=== PATIENT | female | born 1940 | race Caucasian/White ===

== ENCOUNTER → 2016-06-20 | Outpatient (CLI) | payer MEDICARE, BC ==
--- NOTE | 2016-06-20 14:29 | NM ---
EXAMINATION TYPE: NM bone scan whole body DATE OF EXAM: 06/20/2016 1:48 PM COMPARISON: X-rays dated 06/05/2016 HISTORY: Low back pain Delayed whole-body scanning was performed following the injection of 26.7 mCi Tc 99m MDP. Images acq uired 3 hours post injection. Anterior posterior whole body and bilateral oblique views of the lumbar spine and thoracic spine were obtained. FINDINGS: Abnormal uptake is seen throughout the thoracic and lumbar spine which appears most likely degenerati ve. Abnormal uptake involving the knees and shoulders is most typical of post arthritic changes. IMPRESSION: Nonspecific uptake throughout the mid and lower thoracic spine. Most likely findings are related to d egenerative disc disease as noted by recent x-ray.
== END | disposition home or self-care (01) ==
LOC: RADNMMAIN 10:02
PROVIDERS: ATTEND Family Medicine
DX: M19.90 Unspecified osteoarthritis, unspecified site (principal)
CPT/HCPCS: 78306; A9503

== ENCOUNTER → 2016-09-05 | Outpatient (CLI) | payer MEDICARE, BC ==
--- NOTE | 2016-09-05 09:45 | US ---
EXAMINATION TYPE: US venous doppler duplex LE RT DATE OF EXAM: 09/05/2016 9:32 AM COMPARISON: NONE CLINICAL HISTORY: R60.0 Localized Edema,Lumbar Spine M47.817. SIDE PERFORMED: Right VESSELS IMAGED: External Iliac Vein (EIV) Common Femoral Vein Deep Femoral Vein Greater Saphenous Vein * Femoral Vein Popliteal Vein Small Saphenous Vein * Proximal Calf Veins (* superficial vessels) Right Leg: Negative for DVT GSV in its entirety and PTV's also scanned per order and negative for thrombus. IMPRESSION: 1. No diagnostic evidence of DVT
== END | disposition home or self-care (01) ==
LOC: RADUSWWP 08:46
PROVIDERS: ATTEND Physical Medicine & Rehabilitation
DX: I80.9 Phlebitis and thrombophlebitis of unspecified site (principal); M51.17 Intervertebral disc disorders with radiculopathy, lumbosacral region; M43.17 Spondylolisthesis, lumbosacral region; M47.817 Spondylosis without myelopathy or radiculopathy, lumbosacral region; M54.2 Cervicalgia; E11.8 Type 2 diabetes mellitus with unspecified complications; R60.0 Localized edema

== ENCOUNTER → 2017-01-03 | Outpatient (CLI) | payer MEDICARE, BC ==
[2017-01-03 20:17] LABS: Non-African American GFR(MDRD) >60 (>60 ml/min/1.73 sqM)
--- NOTE | 2017-01-03 21:31 | MR ---
EXAMINATION TYPE: MR brain/cspine wo/w DATE OF EXAM: 01/03/2017 9:16 PM COMPARISON: 06/22/2009 HISTORY: Abnormal reflex, Left arm tremors CONTRAST: Patient received 15 mL intravenous MultiHance gadolinium contrast. Multiplanar and multispin-echo imaging of the brain was performed . Pre and post contrast enhanced i mages are obtained. The ventricles, basal cisterns and sulci overlying the cerebral convexities are mildly enlarged. There is evidence of mild periventricular white matter ischemic demyelination. Remote deep white matter insults are also noted. Remote insult right basal ganglia. Focal area of decreased signal within the anterior aspect of the right middle cranial fossa measuring 8.8 mm. Aneurysm is not excluded. Consider MRA correlation. No acute edema is seen on diffusion weighted imaging. There is no evidence for midline shift or mass effect. Acute intracranial hemorrhage or extra-axial collection is not evident. No enhancing lesions are seen. The paranasal sinuses and mastoid air cells are well-aerated. IMPRESSION: 1. Age-related atrophic and chronic small vessel ischemic change. No acute intracranial process at t his time. No enhancing lesions are seen. 2.Focal area of decreased signal within the anterior aspect of the right middle cranial fossa measuri ng 8.8 mm. Aneurysm is not excluded. Consider MRA correlation. EXAMINATION TYPE: MR brain/cspine wo/w DATE OF EXAM: 01/03/2017 9:16 PM COMPARISON: NONE HISTORY: Abnormal reflex, Left arm tremors CONTRAST: The patient was injected with 15 mL intravenous MultiHance gadolinium contrast. Multiplanar MultiSpin echo imaging of the cervical spine was performed. C2-C3: No evidence for degenerative disc disease. No disc bulge/herniation or protrusion. No Canal stenosis. Foramina are patent bilaterally. C3-C4: Moderate to severe disc desiccation with circumferential disc bulge. Effacement of the ventral thecal sac. There is constriction of the thecal sac without overt stenosis. Degenerative change of t he cervical apophyseal joints bilaterally resulting in severe right foraminal encroachment and mild l eft-sided foraminal encroachment. C4-C5: Moderate to severe disc desiccation with circumferential disc bulge. There is effacement of th e ventral thecal sac with [id number] central stenosis. Mild ventral CORD contact identified. Ea rly compressive myelopathy not excluded. Bilateral foraminal encroachment seen right greater than lef t. C5-C6: Moderate to severe disc desiccation with circumferential disc bulge. There is effacement of th e ventral thecal sac with moderate central stenosis. Mild ventral CORD contact identified. Early comp ressive myelopathy not excluded. Bilateral foraminal encroachment seen right greater than left. C6-C7:Moderate to severe disc desiccation with circumferential disc bulge. Effacement of the ventral thecal sac. There is constriction of the thecal sac without overt stenosis. Degenerative change of th e cervical apophyseal joints bilaterally resulting in bilateral foraminal encroachment. C7-T1: Moderate to severe disc desiccation with circumferential disc bulge. Effacement of the ventral thecal sac. There is constriction of the thecal sac without overt stenosis. Degenerative change of t he cervical apophyseal joints bilaterally resulting in bilateral foraminal encroachment. No cervical spine fracture. There is normal alignment. Craniovertebral junction relationships are w ithin normal limits. No pathologic enhancement. No pathologic enhancement is detected. IMPRESSION: 1. Multilevel degenerative disc disease with disc bulging. 2. Multilevel central stenosis greatest at C5-6. See above. 3. Multilevel foraminal encroachment. 4. 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
== END | disposition home or self-care (01) ==
LOC: RADMRIMAIN 19:41
PROVIDERS: ATTEND Psychiatry & Neurology Neurology
DX: I67.82 Cerebral ischemia (principal); M48.02 Spinal stenosis, cervical region; M50.21 Other cervical disc displacement, high cervical region; M50.30 Other cervical disc degeneration, unspecified cervical region; R29.2 Abnormal reflex; R93.0 Abnormal findings on diagnostic imaging of skull and head, not elsewhere classified; R25.8 Other abnormal involuntary movements
CPT/HCPCS: 82565; 70553; 72156; A9577

== ENCOUNTER → 2017-02-06 | Outpatient (CLI) | payer MEDICARE, BC ==
--- NOTE | 2017-02-06 12:24 | MR ---
EXAMINATION TYPE: MR angio head wo con DATE OF EXAM: 02/06/2017 12:14 PM COMPARISON: NONE HISTORY: Abnormal mri of brain TECHNIQUE: Time of flight images focusing on the [place] were performed without contrast. FINDINGS: The vertebral arteries are codominant. Neither posterior communicating arteries are visuali zed with certainty. Both ophthalmic arteries are visualized. There is normal arborization of the midd le cerebral artery. No sizable aneurysm is seen. The lesion noted on the previous MRI is believed to represent a previous lacunar infarct or dilated Virchow-Ac space. IMPRESSION: NO EVIDENCE OF AN ANEURYSM INVOLVING THE [place] OF [place].
== END | disposition home or self-care (01) ==
LOC: RADMRIMAIN 11:19
PROVIDERS: ATTEND Psychiatry & Neurology Neurology
DX: R94.02 Abnormal brain scan (principal); I67.1 Cerebral aneurysm, nonruptured
CPT/HCPCS: 70544

== ENCOUNTER → 2017-02-19 | Outpatient (CLI) | payer MEDICARE, BC ==
--- NOTE | 2017-02-19 14:50 | XR ---
EXAMINATION TYPE: XR orbit complete bilateral DATE OF EXAM: 02/19/2017 COMPARISON: NONE HISTORY: Pain and swelling of the right orbit TECHNIQUE: 3 views submitted. FINDINGS: There is mucosal thickening involving the maxillary sinuses. Thickening along the inferior orbital ri m. No air-fluid levels. Remaining osseous structures grossly intact. IMPRESSION: 1. Findings are suggestive of chronic sinusitis noted. If there is concern for acute inferior orbital rim fracture on the right recommend CT of the facial bones.
--- NOTE | 2017-02-19 15:06 | CT ---
EXAMINATION TYPE: CT brain wo con DATE OF EXAM: 02/19/2017 COMPARISON: NONE HISTORY: Patient had syncopal episode with fall. Patient complains of nausea, dizziness, and large r ight side periorbital contusion post fall. CT DLP: 1097 mGycm. Automated Exposure Control for Dose Reduction was Utilized. TECHNIQUE: CT scan of the head is performed without contrast. FINDINGS: Extra-axial peripherally calcified oval structure within the anterior right middle cranial fossa may relate to focal osteoma or peripherally calcified meningioma. This is benign-appearing and unchanged from the prior MRI. There is no acute intracranial hemorrhage, mass effect, or midline shift identified. The ventricles and sulci are symmetrically prominent compatible with age-related volume loss. The globes are intact and the visualized sinuses are clear. Incidental note is made of hyperostosis frontalis internus and talus. Atherosclerosis is seen of the intracranial vasculature. Old lacunar injury versus prominent perivascular space is seen of the inferior right basal ganglia is again noted. IMPRESSION: No acute intracranial hemorrhage, mass effect, or midline shift is seen.
== END | disposition home or self-care (01) ==
LOC: RADCTMAIN 14:26
PROVIDERS: ATTEND Family Medicine
DX: R55 Syncope and collapse (principal); R51 Headache
CPT/HCPCS: 70200; 70450

== ENCOUNTER 2018-10-11 16:58 | Observation (INO) | payer MEDICARE, BC ==
--- NOTE | 2018-10-11 17:23 | ED ---
General Adult HPI - General Chief complaint: Fall Stated complaint: FALL Time Seen by Provider: 10/11/18 17:01 Source: patient Mode of arrival: EMS Limitations: no limitations - History of Present Illness Initial comments: Dictation was produced using [employer] dictation software. please excuse any grammatical, word or spelling errors. Chief Complaint: 78-year-old female past medical history of asthma, CVA, diabetes presents after fall. History of Present Illness: Patient is 78-year-old female she has had gait difficulties chronically. She states she tripped over some object. She states she fell forward tried to catch herself with her hands and landed forward. Patient is brought in by EMS. They reports that she fell and hit her head has a hematoma on the right side of her head. Granddaughter bedside provides ad ditional history states that she appears tired. Patient reports that she has been feeling a little lethargic recently. After falling and hitting her head she had multiple episodes of nonbilious nonbloody emesis. Patient denies any extremity pain. Denies any neuro deficits. She does complain of total anterior chest pain and head pain. The ROS documented in this emergency department record has been reviewed and confirmed by me. Those systems with pertinent positive or negative responses recio ve been documented in the HPI. All other systems are other negative and/or noncontributory. PHYSICAL EXAM: General Impression: Alert and oriented x3, not in acute distress HEENT: Small hematoma over the right parietal area, extra-ocular movements intact, pupils equal and reactive to light bilaterally, dry mucous membranes Cardiovascular: Heart regular rate and rhythm, S1&S2 audible, no murmurs, rubs or gallops Chest: Lungs clear to auscultation bilaterally, no rhonchi, no wheeze, no rales Abdomen: Bowel sounds present, abdomen soft, non-tender, non-distended, no organomegaly Musculoskeletal: Pulses present and equal in all extremities, no peripheral edema Motor: no focal deficits noted Neurological: CN II-XII grossly intact, no focal motor or sensory deficits noted Skin: Multiple superficial skin tears to the upper extremities Psych: Normal affect and mood ED course: 78-year-old female presents after fall. Patient's clinical presentation consistent with mechanical fall. However she does appear dehydrated on physical examination. Vital signs upon arrival are within acceptable limits. She does not on any anticoagulation medications. Laboratory evaluation obtained. CBC, coag panel, metabolic panel is obtained. anion gap acidosis however patient does have a lactic acidosis of 2.8. This likely secondary to dehydration. Rest of labs unremarkable. Urinalysis does show 1+ ketones. Serum alcohol is negative. Computed tomography scan of the brain pelvis and chest x-ray shows no acute processes. Patient he was evidently stable at this time. She does however appear dehydrated and has a lactic acidosis. We'll admit patient for IV hydration and recheck of lactic acid level. Patient care is accepted by Dr. Kerr. EKG interpretation: Ventricular rate 85, normal sinus rhythm, MN interval 186, QS 104, QTC 490. No MN prolongation, no QTC prolongation, no ST or T-wave changes noted. EKG compared to 07/10/2018 showing no changes. Overall, this EKG is unremarkable - Related Data Home Medications Medication Instructions Recorded Confirmed Aspirin 162 mg PO HS 11/17/14 10/11/18 Atorvastatin [Lipitor] 40 mg PO DAILY 11/17/14 10/11/18 Citalopram Hydrobromide [CeleXA] 20 mg PO HS 11/17/14 10/11/18 Meclizine [Antivert] 12.5 mg PO BID 11/17/14 10/11/18 Metoprolol Succinate (ER) [Toprol 25 mg PO HS 11/17/14 10/11/18 XL] metFORMIN HCL [Glucophage] 500 mg PO BID 11/17/14 10/11/18 HYDROcodone/APAP 5-325MG [[place] 1 tab PO Q6HR PRN 07/09/17 10/11/18 5-325] Omeprazole 20 mg PO DAILY 07/09/17 10/11/18 ALPRAZolam [Xanax] 0.5 mg PO DAILY PRN 10/11/18 10/11/18 Ibuprofen [Advil] 200 mg PO Q8HR PRN 10/11/18 10/11/18 Ondansetron HCl [Zofran] 4 mg PO DAILY PRN 10/11/18 10/11/18 amLODIPine [Norvasc] 5 mg PO HS 10/11/18 10/11/18 carBAMazepine 200 mg PO QAM 10/11/18 10/11/18 carBAMazepine [TEGretol] 400 mg PO HS 10/11/18 10/11/18 Allergies Allergy/AdvReac Type Severity Reaction Status Date / Time acetaminophen Allergy Hallucinati Verified 10/11/18 17:45 [From Darvocet-N] ons ciprofloxacin [From Cipro] Allergy Vomiting Verified 10/11/18 17:45 ciprofloxacin HCl Allergy Vomiting Verified 10/11/18 17:45 [From Cipro] codeine Allergy Unknown Verified 10/11/18 17:45 erythromycin base Allergy Unknown Verified 10/11/18 17:45 levofloxacin [From Levaquin] Allergy Rash/Hives Verified 10/11/18 17:45 nitrofurantoin Allergy Unknown Verified 10/11/18 17:45 [From Macrobid] nitrofurantoin Allergy Unknown Verified 10/11/18 17:45 macrocrystalline [From Macrobid] Penicillins Allergy Unknown Verified 10/11/18 17:45 propoxyphene napsylate Allergy Hallucinati Verified 10/11/18 17:45 [From Darvocet-N] ons sulfamethoxazole Allergy Unknown Verified 10/11/18 17:45 [From Bactrim] trimethoprim [From Bactrim] Allergy Unknown Verified 10/11/18 17:45 omnipaxo Allergy Rapid Uncoded 10/11/18 17:03 Heart Rate Review of Systems ROS Statement: Those systems with pertinent positive or pertinent negative responses have been documented in the HPI. ROS Other: All systems not noted in ROS Statement are negative. Past Medical History Past Medical History: Asthma, CVA/TIA, Diabetes Mellitus, GERD/Reflux, Hypertension, Seizure Disorder, Skin Disorder Additional Past Medical History / Comment(s): TIA age 33absence seizuresLt arm skin bruised from scratching during night, Parkinsons in 2017, History of Any Multi-Drug Resistant Organisms: ESBL Date of last positivie culture/infection: 03/09/16 MDRO Source:: URINE [email or web address] Past Surgical History: Cholecystectomy, Heart Catheterization, Orthopedic Surgery Additional Past Surgical History / Comment(s): bilateral knee arthroscopies,left shoulder rotator cuff repair Past Anesthesia/Blood Transfusion Reactions: Motion Sickness Past Psychological History: No Psychological Hx Reported Smoking Status: Former smoker Past Alcohol Use History: None Reported Past Drug Use History: None Reported - Past Family History Brother(s) Family Medical History: CVA/TIA Sister(s) Family Medical History: Coronary Artery Disease (CAD) Daughter(s) History Unknown: Yes (2 daughters healthy) Son(s) History Unknown: Yes (2 sons healthy) Family Medical History: No Reported History Mother Family Medical History: No Reported History General Exam Limitations: no limitations Course Vital Signs 10/11/18 10/11/18 17:00 18:38 Temperature 97.6 F Pulse Rate 81 85 Respiratory 20 18 Rate Blood Pressure 197/88 O2 Sat by Pulse 98 98 Oximetry Medical Decision Making - Lab Data Result diagrams: 10/11/18 17:25 10/11/18 17:25 Lab Results 10/11/18 10/11/18 10/11/18 Range/Units 17:25 17:25 17:25 WBC 7.3 (3.8-10.6) k/uL RBC 4.10 (3.80-5.40) m/uL Hgb 12.0 (11.4-16.0) gm/dL Hct 38.2 (34.0-46.0) % MCV 93.2 (80.0-100.0) fL MCH 29.2 (25.0-35.0) pg MCHC 31.4 (31.0-37.0) g/dL RDW 14.0 (11.5-15.5) % Plt Count 249 (150-450) k/uL Neutrophils % 76 % Lymphocytes % 16 % Monocytes % 5 % Eosinophils % 2 % Basophils % 0 % Neutrophils # 5.5 (1.3-7.7) k/uL Lymphocytes # 1.2 (1.0-4.8) k/uL Monocytes # 0.3 (0-1.0) k/uL Eosinophils # 0.1 (0-0.7) k/uL Basophils # 0.0 (0-0.2) k/uL PT 10.3 (9.0-12.0) sec INR 1.0 (<1.2) Sodium 139 (137-145) mmol/L Potassium 3.9 (3.5-5.1) mmol/L Chloride 105 (98-107) mmol/L Carbon Dioxide 23 (22-30) mmol/L Anion Gap 11 mmol/L BUN 14 (7-17) mg/dL Creatinine 0.51 L (0.52-1.04) mg/dL Est GFR (CKD-EPI)AfAm >90 (>60 ml/min/1.73 sqM) Est GFR (CKD-EPI)NonAf >90 (>60 ml/min/1.73 sqM) Glucose 158 H (74-99) mg/dL Plasma Lactic Acid Joselo (0.7-2.0) mmol/L Calcium 9.7 (8.4-10.2) mg/dL Magnesium 1.6 (1.6-2.3) mg/dL Total Bilirubin 0.4 (0.2-1.3) mg/dL AST 20 (14-36) U/L ALT 21 (9-52) U/L Alkaline Phosphatase 128 H (38-126) U/L Ammonia (<30) umol/L Creatine Kinase 50 (30-135) U/L Troponin I (0.000-0.034) ng/mL Total Protein 7.0 (6.3-8.2) g/dL Albumin 4.3 (3.5-5.0) g/dL Lipase 160 (23-300) U/L Urine Color Urine Appearance (Clear) Urine pH (5.0-8.0) Ur Specific [place] (1.001-1.035) Urine Protein (Negative) Urine Glucose (UA) (Negative) Urine Ketones (Negative) Urine Blood (Negative) Urine Nitrite (Negative) Urine Bilirubin (Negative) Urine Urobilinogen (<2.0) mg/dL Ur Leukocyte Esterase (Negative) Serum Alcohol <10 mg/dL 10/11/18 10/11/18 10/11/18 Range/Units 17:25 18:28 18:35 WBC (3.8-10.6) k/uL RBC (3.80-5.40) m/uL Hgb (11.4-16.0) gm/dL Hct (34.0-46.0) % MCV (80.0-100.0) fL MCH (25.0-35.0) pg MCHC (31.0-37.0) g/dL RDW (11.5-15.5) % Plt Count (150-450) k/uL Neutrophils % % Lymphocytes % % Monocytes % % Eosinophils % % Basophils % % Neutrophils # (1.3-7.7) k/uL Lymphocytes # (1.0-4.8) k/uL Monocytes # (0-1.0) k/uL Eosinophils # (0-0.7) k/uL Basophils # (0-0.2) k/uL PT (9.0-12.0) sec INR (<1.2) Sodium (137-145) mmol/L Potassium (3.5-5.1) mmol/L Chloride (98-107) mmol/L Carbon Dioxide (22-30) mmol/L Anion Gap mmol/L BUN (7-17) mg/dL Creatinine (0.52-1.04) mg/dL Est GFR (CKD-EPI)AfAm (>60 ml/min/1.73 sqM) Est GFR (CKD-EPI)NonAf (>60 ml/min/1.73 sqM) Glucose (74-99) mg/dL Plasma Lactic Acid Jos[place] 2.8 H* (0.7-2.0) mmol/L Calcium (8.4-10.2) mg/dL Magnesium (1.6-2.3) mg/dL Total Bilirubin (0.2-1.3) mg/dL AST (14-36) U/L ALT (9-52) U/L Alkaline Phosphatase (38-126) U/L Ammonia 10 (<30) umol/L Creatine Kinase (30-135) U/L Troponin I <0.012 (0.000-0.034) ng/mL Total Protein (6.3-8.2) g/dL Albumin (3.5-5.0) g/dL Lipase (23-300) U/L Urine Color Yellow Urine Appearance Clear (Clear) Urine pH 5.5 (5.0-8.0) Ur Specific [place] 1.028 (1.001-1.035) Urine Protein Trace H (Negative) Urine Glucose (UA) Trace H (Negative) Urine Ketones 1+ H (Negative) Urine Blood Negative (Negative) Urine Nitrite Negative (Negative) Urine Bilirubin Negative (Negative) Urine Urobilinogen <2.0 (<2.0) mg/dL Ur Leukocyte Esterase Negative (Negative) Serum Alcohol mg/dL Disposition Clinical Impression: Fall, Lactic acidosis Disposition: ADMITTED IP TO THIS [facility] Condition: Fair Referrals: Sharif Zaragoza DO [Primary Care Provider] - 1-2 days Decision Time: 20:00
[2018-10-11 17:34] LABS: Basophils % (A) 0 %; Eosinophils # (A) 0.1 k/uL (0-0.7); Eosinophils % (A) 2 %; HCT 38.2 % (34.0-46.0); Lymphocytes # (A) 1.2 k/uL (1.0-4.8); Lymphocytes % (A) 16 %; MCH 29.2 pg (25.0-35.0); MCHC 31.4 g/dL (31.0-37.0); MCV 93.2 fL (80.0-100.0); Mean Platelet Volume 6.8; Monocytes # (A) 0.3 k/uL (0-1.0); Monocytes % (A) 5 %; Neutrophils # (A) 5.5 k/uL (1.3-7.7); Neutrophils % (A) 76 %; Platelet Count 249 k/uL (150-450); WBC 7.3 k/uL (3.8-10.6)
[2018-10-11 17:42] LABS: Prothrombin Time 10.3 sec (9.0-12.0)
[2018-10-11 17:52] LABS: ALT 21 U/L (9-52); AST 20 U/L (14-36); African American GFR (CKD) >90 (>60 ml/min/1.73 sqM); Albumin 4.3 g/dL (3.5-5.0); Alcohol <10 mg/dL; Alkaline Phosphatase 128 U/L (38-126); Anion Gap 11 mmol/L; Blood Urea Nitrogen 14 mg/dL (7-17); Calcium 9.7 mg/dL (8.4-10.2); Carbon Dioxide 23 mmol/L (22-30); Chloride 105 mmol/L (98-107); Creatine Kinase 50 U/L (30-135); Glucose 158 mg/dL (74-99); Lipase 160 U/L (23-300); Magnesium 1.6 mg/dL (1.6-2.3); Potassium 3.9 mmol/L (3.5-5.1); Sodium 139 mmol/L (137-145); Total Bilirubin 0.4 mg/dL (0.2-1.3)
--- NOTE | 2018-10-11 17:58 | CT ---
EXAMINATION TYPE: CT brain cspine wo con DATE OF EXAM: 10/11/2018 COMPARISON: CT brain July 09, 2017. MRI brain and cervical spine January 03, 2017 HISTORY: Fall with right sided head injury and neck pain. CT DLP: 1560 mGycm. Automated Exposure Control for Dose Reduction was Utilized. TECHNIQUE: CT scan of the head and cervical spine are performed without contrast. FINDINGS: There is no acute intracranial hemorrhage or midline shift identified. Mild Ventricular a nd sulcal prominence is redemonstrated. Minimal Low-attenuation periventricular white matter is again seen. The globes are intact and the visualized sinuses are clear. Hyperostosis frontalis is seen. T here is new large size right frontal acute scalp hematoma. The calvarium is intact. Cervical spine is visualized in its entirety from C1 through upper thoracic levels and redemonstrates straightened alignment without evidence of acute fracture or dislocation. There is slight grade 1 re trolisthesis of C3 on C4 and C4 on C5. Prevertebral soft tissue appears within normal limits. The C1 -C2 articulation is within normal limits on the coronal images. There is fairly advanced disc space narrowing C3-C4 level redemonstrated. There is mild to moderate disc space narrowing C5-C6 and C6-C7 level with multilevel moderate anterior spurring redemonstrated. Multilevel posterior disc herniation s effacing anterior thecal sac redemonstrated most prominent C5-C6 level. Axial images show uncoverte bral facet degenerative changes contributing to multilevel neural foraminal narrowing most prominent right C4-C5 level. Thyroid gland is normal in size. Lung apices show no pneumothorax. IMPRESSION: 1. There is no acute fracture or dislocation evident in the cervical spine. 2. No acute intracranial hemorrhage or midline shift is seen. New large right frontal acute scalp hem atoma noted.
[2018-10-11 18:46] LABS: Appearance,Urine Clear (Clear); Bilirubin,Urine Negative (Negative); Blood,Urine Negative (Negative); Color,Urine Yellow; Glucose,Urine (UA) Trace (Negative); Ketones,Urine 1+ (Negative); Leukocyte Esterase,Urine Negative (Negative); Nitrite,Urine Negative (Negative); PH, Urine 5.5 (5.0-8.0); Protein,Urine Trace (Negative); Specific Gravity,Urine 1.028 (1.001-1.035); Urobilinogen,Urine <2.0 mg/dL (<2.0)
[2018-10-11 18:57] LABS: Lactic Acid, Venous 2.8 mmol/L (0.7-2.0)
[2018-10-11] MEDS ORDERED: SODIUM CHLORIDE 0.9% 1,000 ML IV STA (19:37)
--- NOTE | 2018-10-11 19:37 | XR ---
EXAMINATION TYPE: XR chest 2V DATE OF EXAM: 10/11/2018 COMPARISON: Chest x-ray July 09, 2017. HISTORY: Pain after fall injury. TECHNIQUE: Frontal and lateral views of the chest are obtained. FINDINGS: There is chronic parenchymal change without suspicious focal air space opacity, pleural ef fusion, or pneumothorax seen. Low lung volumes are redemonstrated. The cardiac silhouette size remain s mildly enlarged with atherosclerotic aorta. The osseous structures are demineralized. High riding left humeral head suggesting chronic rotator cuff tear is noted IMPRESSION: Chronic changes and cardiomegaly without acute pulmonary process.
--- NOTE | 2018-10-11 19:40 | XR ---
EXAMINATION TYPE: XR pelvis AP view DATE OF EXAM: 10/11/2018 CLINICAL HISTORY: Pain after fall injury. TECHNIQUE: A single AP view of the pelvis is obtained. COMPARISON: CT pelvis 2016. FINDINGS: There is no acute fracture/dislocation evident in the pelvis. Some narrowing and sclerosis at sacroiliac joints is felt present. Demineralization is seen. Mild narrowing both hip joints is i dentified . Pubic symphysis is maintained. Phleboliths in the bilateral pelvis with right pelvic surg ical clip is present. Lucent round lesion with well-defined sclerotic margins right proximal femur is favored benign partially imaged on 2016 CT. IMPRESSION: There is no acute fracture or dislocation in the pelvis.
[2018-10-11] MEDS ORDERED: DIPH,PERTUS(ACELL)TETVAC-LF 0.5 ML VIAL IM ONE (19:51)
[2018-10-11] MEDS ORDERED: ONDANSETRON 4 MG/2 ML VIAL IVP PRN (19:56)
[2018-10-11] MEDS ORDERED: NALOXONE 0.4 MG/ML 1 ML VIAL IV PRN (19:56)
[2018-10-11] MEDS ORDERED: HYDROcodone/APAP 5-325MG 1 EACH TAB PO PRN (19:58)
[2018-10-11 22:23] VITALS: BMI 33.3
[2018-10-11] MEDS: SODIUM CHLORIDE 0.9% 1,000 ML IV SCH (22:35)
[2018-10-11] MEDS: amLODIPine 5 MG TAB PO SCH (22:50)
[2018-10-11] MEDS ORDERED: ALPRAZolam 0.5 MG TAB PO PRN (23:17)
[2018-10-11] MEDS ORDERED: CITALOPRAM HYDROBROMIDE 20 MG TAB PO SCH (23:30)
[2018-10-11] MEDS: ASPIRIN 81 MG PO SCH (23:57)
[2018-10-11] MEDS: carBAMazepine 200 MG TAB PO SCH (23:57)
[2018-10-11] MEDS: MECLIZINE 12.5 MG TAB PO SCH (23:58)
[2018-10-11] MEDS: metFORMIN 500 MG TAB PO SCH (23:58)
[2018-10-11] MEDS: METOPROLOL SUCCINATE (ER) 25 MG TAB.ER.24H PO SCH (23:59)
[2018-10-12] MEDS: ACETAMINOPHEN TAB 325 MG TAB PO PRN ×3 (00:03→21:03)
[2018-10-12 07:13] LABS: Glucose,Whole Blood 114 mg/dL (75-99)
[2018-10-12] MEDS: MECLIZINE 12.5 MG TAB PO SCH ×2 (07:50→21:01)
[2018-10-12] MEDS: ATORVASTATIN 40 MG TAB PO SCH (07:51)
[2018-10-12] MEDS: PANTOPRAZOLE 40 MG TABLET PO SCH (07:51)
[2018-10-12] MEDS: INSULIN ASPART (NovoLOG) 100 UNIT/ML VIAL SQ SCH ×4 (07:51→21:01)
[2018-10-12] MEDS: metFORMIN 500 MG TAB PO SCH ×2 (07:51→18:12)
[2018-10-12] MEDS: carBAMazepine 200 MG TAB PO SCH ×2 (07:51→21:01)
[2018-10-12] MEDS: SODIUM CHLORIDE 0.9% 1,000 ML IV SCH ×2 (07:51→20:59)
[2018-10-12] MEDS: ONDANSETRON 4 MG TAB PO PRN (07:56)
[2018-10-12] MEDS ORDERED: NON-FORMULARY DRUG (Omeprazole [Omeprazole] 20 MG) PO SCH (09:00)
[2018-10-12 11:54] LABS: Glucose,Whole Blood 116 mg/dL (75-99)
--- NOTE | 2018-10-12 12:47 | P.HPIM ---
History of Present Illness H&P Date: 10/12/18 Chief Complaint: Fall, emesis, chest pain and head pain This is a 78-year-old female patient of Dr. Zaragoza and Dr. Lutz with past medical history of hypertension, diabetes mellitus type 2, gastroesophageal reflux disease, mild intermittent asthma, TIA, absence seizures, Parkinson's. Patient has seen Dr. Delacruz in the past and diagnosed with early Parkinson's but not placed on medication. Patient also follows with Dr. Jeffrey Yee for diabetes and recently changed metformin to 500 mg in the morning and 1000 mg in the evening. Dr. Rinaldi manages frequent UTIs. Patient is not currently on antibiotics. Patient states she may have tripped on a chair and ended up falling into the cupboard and hit her forehead. She does not think she had no loss of consciousness but she couldn't move and was on the floor for an hour and 15 minutes until she is coached her self to the family room for her phone. After the incident, she was sweaty and nauseated and vomited multiple times. She felt that her arms were limp. She does not recall feeling dizzy or lightheaded prior to the fall. Patient had a previous hospitalization for syncope episode back in June 2017. At that time echocardiogram showed mild concentric left ventricular hypertrophy, EF 50-55%, mild aortic stenosis, mild mitral regurgitation, mild tricuspid regurgitation, no pulmonary hypertension. Carotid duplex showed 20- 30% stenosis in both internal carotid arteries. EEG was within normal limits. Syncopal episode was suspected to be related to orthostatic changes. Patient was discharged with event monitor. Patient came into [facility] emergency center for evaluation. She was afebrile, heart rate in the 80s, blood pressure 197/88, pulse ox 98% on room air. CBC was within normal limits, electrolytes and renal function within normal limits, alkaline phosphatase 128, lipase 160, alcohol level less than 10. CK was 50, troponin negative, ammonia 10, lactic acid 2.8. Urinalysis negative for infection. There was trace protein and trace glucose. The patient is status post 1 L of IV fluid and repeat lactic acid is 1.5. Blood sugar 114. Patient's tetanus status was updated in the emergency center. Pelvic x-ray showed no acute fracture or dislocation. Chest x-ray shows chronic changes and cardiomegaly without acute pulmonary process. CAT scan of the brain and cervical spine showed no acute fracture or dislocation in the cervical spine. No acute intracranial hemorrhage or midline shift. Right frontal acute scalp hematoma noted. Patient was placed on the [facility] floor. We have ordered echocardiogram, carotid duplex, consults with cardiology and neurology. Review of Systems All systems: negative Constitutional: Reports poor appetite, Reports weakness, Denies anorexia, Denies chills, Denies fatigue, Denies fever, Denies weight loss Eyes: denies blurred vision, denies pain Ears, nose, mouth and throat: Reports headache, Denies dental pain, Denies dysphagia, Denies epistaxis, Denies hoarseness, Denies mouth pain, Denies nasal congestion, Denies nasal discharge, Denies sore throat, Denies vertigo Cardiovascular: Denies chest pain, Denies dyspnea on exertion, Denies edema, Denies leg edema, Denies lightheadedness, Denies palpitations, Denies shortness of breath, Denies syncope Respiratory: Denies cough, Denies cough with sputum, Denies dyspnea, Denies excessive sputum, Denies hemoptysis, Denies home oxygen, Denies wheezing Gastrointestinal: Reports loss of appetite, Reports nausea, Reports vomiting, Denies abdominal pain, Denies diarrhea Genitourinary: Denies dysuria, Denies hematuria, Denies urgency, Denies urinary frequency Musculoskeletal: Reports muscle weakness, Denies arm numbness/tingling, Denies frequent falls, Denies gait dysfunction, Denies myalgias Integumentary: Denies pruritus, Denies rash, Denies wounds Neurological: Reports gait dysfunction, Reports head injury, Reports headaches, Reports weakness, Denies aphasia, Denies change in mentation, Denies change in speech, Denies convulsions, Denies numbness, Denies seizures, Denies syncope, Denies vertigo Psychiatric: Denies anxiety, Denies depression Endocrine: Denies fatigue, Denies weight change Past Medical History Past Medical History: Asthma, CVA/TIA, Diabetes Mellitus, GERD/Reflux, Hypertension, Seizure Disorder, Skin Disorder Additional Past Medical History / Comment(s): TIA age 33absence seizuresLt arm skin bruised from scratching during night, Parkinsons in 2017, History of Any Multi-Drug Resistant Organisms: ESBL Date of last positivie culture/infection: 9/29/16 MDRO Source:: URINE [email or web address] Past Surgical History: Cholecystectomy, Heart Catheterization, Orthopedic Surgery Additional Past Surgical History / Comment(s): bilateral knee arthroscopies,left shoulder rotator cuff repair Past Anesthesia/Blood Transfusion Reactions: Motion Sickness Past Psychological History: No Psychological Hx Reported Smoking Status: Former smoker Past Alcohol Use History: None Reported Additional Past Alcohol Use History / Comment(s): Patient lives alone, ambulates mainly with a cane. Patient was a smoker one pack per day for 17 years and quit approximate 35 years ago. She denies any marijuana or illicit drug use. No alcohol use. Past Drug Use History: None Reported - Past Family History Brother(s) Family Medical History: CVA/TIA Additional Family Medical History / Comment(s): Patient has 1 brother that from either a CVA or acute NV. Sister(s) Family Medical History: Coronary Artery Disease (CAD) Additional Family Medical History / Comment(s): Patient has 3 sisters and one is alive with no major medical problems. 2 sisters have and one was following influenza immunization. 1 sister is unknown cause of . Daughter(s) History Unknown: Yes Additional Family Medical History / Comment(s): Patient has 2 daughters and one has history of rheumatoid arthritis and one has history of diabetes. Patient has one son with no major medical problems. Son(s) History Unknown: Yes Family Medical History: No Reported History Mother Family Medical History: No Reported History Additional Family Medical History / Comment(s): Mother at age 93 from a myocardial infarction. Father Additional Family Medical History / Comment(s): Father at age 83 from a myocardial infarction. Medications and Allergies Home Medications Medication Instructions Recorded Confirmed Type Aspirin 162 mg PO HS 11/17/14 10/11/18 History Atorvastatin [Lipitor] 40 mg PO DAILY 11/17/14 10/11/18 History Citalopram Hydrobromide [CeleXA] 20 mg PO HS 11/17/14 10/11/18 History Meclizine [Antivert] 12.5 mg PO BID 11/17/14 10/11/18 History Metoprolol Succinate (ER) [Toprol 25 mg PO HS 11/17/14 10/11/18 History XL] metFORMIN HCL [Glucophage] 500 mg PO BID 11/17/14 10/11/18 History HYDROcodone/APAP 5-325MG [[place] 1 tab PO Q6HR PRN 07/09/17 10/11/18 History 5-325] Omeprazole 20 mg PO DAILY 07/09/17 10/11/18 History ALPRAZolam [Xanax] 0.5 mg PO DAILY PRN 10/11/18 10/11/18 History Ibuprofen [Advil] 200 mg PO Q8HR PRN 10/11/18 10/11/18 History Ondansetron HCl [Zofran] 4 mg PO DAILY PRN 10/11/18 10/11/18 History amLODIPine [Norvasc] 5 mg PO HS 10/11/18 10/11/18 History carBAMazepine 200 mg PO QAM 10/11/18 10/11/18 History carBAMazepine [TEGretol] 400 mg PO HS 10/11/18 10/11/18 History Allergies Allergy/AdvReac Type Severity Reaction Status Date / Time acetaminophen Allergy Hallucinati Verified 10/11/18 17:45 [From Darvocet-N] ons ciprofloxacin [From Cipro] Allergy Vomiting Verified 10/11/18 17:45 ciprofloxacin HCl Allergy Vomiting Verified 10/11/18 17:45 [From Cipro] codeine Allergy Unknown Verified 10/11/18 17:45 erythromycin base Allergy Unknown Verified 10/11/18 17:45 levofloxacin [From Levaquin] Allergy Rash/Hives Verified 10/11/18 17:45 nitrofurantoin Allergy Unknown Verified 10/11/18 17:45 [From Macrobid] nitrofurantoin Allergy Unknown Verified 10/11/18 17:45 macrocrystalline [From Macrobid] Penicillins Allergy Unknown Verified 10/11/18 17:45 propoxyphene napsylate Allergy Hallucinati Verified 10/11/18 17:45 [From Darvocet-N] ons sulfamethoxazole Allergy Unknown Verified 10/11/18 17:45 [From Bactrim] trimethoprim [From Bactrim] Allergy Unknown Verified 10/11/18 17:45 omnipaxo Allergy Rapid Uncoded 10/11/18 17:03 Heart Rate Physical Exam Vitals: Vital Signs Temp Pulse Pulse Resp BP BP Pulse Ox 10/12/18 07:00 97.8 F 92 16 191/93 97 10/12/18 01:10 98.8 F 82 14 119/77 84 L 10/11/18 20:46 92 20 154/99 95 10/11/18 18:38 85 18 197/88 98 10/11/18 17:00 97.6 F 81 20 98 Intake and Output 10/11/18 10/12/18 10/12/18 22:59 06:59 14:59 Intake Total 1000 720 Balance 1000 720 Intake: Amount of Fluid Infused ( 1000 ml) Intake, IV Titration 720 Amount Sodium Chloride 0.9% 1, 720 000 ml @ 90 mls/hr IV . Q11H7M [facility] Rx#:[id number] Other: Voiding Method Toilet # Voids 1 2 Weight 82.554 kg Gen: This is a 78-year-old female. She is resting in bed appears to be comfortable and in no acute distress. HEENT: Head has hematoma right frontal lobe, normocephalic. Pupils equal, round. Sclerae is anicteric. NECK: Supple. No JVD. No lymphadenopathy. No thyromegaly. LUNGS: Clear to auscultation. No wheezes or rhonchi. No intercostal retractions. HEART: Regular rate and rhythm. Systolic murmur. ABDOMEN: Soft. Bowel sounds are present. No masses. No tenderness. EXTREMITIES: No pedal edema. No calf tenderness. Mild tremor to the left thumb. NEUROLOGICAL: Patient is awake, alert and oriented x3. Cranial nerves 2 through 12 are grossly intact. Results CBC & Chem 7: 10/11/18 17:25 10/11/18 17:25 Labs: Abnormal Lab Results - Last 24 Hours (Table) 10/11/18 10/11/18 10/11/18 Range/Units 17:25 18:28 18:35 Creatinine 0.51 L (0.52-1.04) mg/dL Glucose 158 H (74-99) mg/dL POC Glucose (mg/dL) (75-99) mg/dL Plasma Lactic Acid Joselo 2.8 H* (0.7-2.0) mmol/L Alkaline Phosphatase 128 H (38-126) U/L Urine Protein Trace H (Negative) Urine Glucose (UA) Trace H (Negative) Urine Ketones 1+ H (Negative) 10/12/18 Range/Units 06:48 Creatinine (0.52-1.04) mg/dL Glucose (74-99) mg/dL POC Glucose (mg/dL) 114 H (75-99) mg/dL Plasma Lactic Acid Joselo (0.7-2.0) mmol/L Alkaline Phosphatase (38-126) U/L Urine Protein (Negative) Urine Glucose (UA) (Negative) Urine Ketones (Negative) Microbiology - Last 24 Hours (Table) 10/11/18 18:28 Urine Culture - Preliminary Urine,Catheterized Thrombosis Risk Factor Assmnt - DVT/VTE Prophylaxis DVT/VTE Prophylaxis: Mechanical Prophylaxis ordered - Choose All That Apply Each Factor Represents 1 point: Obesity (BMI >25) Other Risk Factors: Yes Each Risk Factor Represents 3 Points: Age 75 years or older Other congenital or acquired thrombophilia - If yes, enter type in comment: No Thrombosis Risk Factor Assessment Total Risk Factor Score: 4 Thrombosis Risk Factor Assessment Level: Moderate Risk Assessment and Plan Plan: 1. Fall of unclear etiology with closed head injury and hematoma to right frontal lobe. Rule out orthostatic changes, TIA, auto dysfunction from Parkinson's or diabetes, rule out arrhythmia. Consults with cardiology and neurology added. Orthostatic vital signs to be obtained. Echocardiogram, carotid duplex ordered. Consult physical therapy. 2. Early Parkinson's, not currently on medication. 3. Hypertension. Continue metoprolol succinate 25 mg at bedtime 4. Hyperlipidemia. Continue Lipitor. 5. History of TIA. Continue aspirin 162 mg at bedtime, Lipitor 40 mg daily for secondary prevention. 6. History of seizure disorder. Continue Tegretol 200 mg in the morning and 400 mg at bedtime 7. History of dizziness on meclizine as needed. 8. Diabetes mellitus type 2. Continue metformin 500 mg in the morning and 1000 milligrams in the evening and NovoLog scale. 9. Gastroesophageal reflux disease. Continue omeprazole 20 mg daily. 10. Generalized anxiety disorder. Patient is no longer on Celexa. Continue X anax or 0.5 mg daily as needed. 11. DVT prophylaxis. Lovenox daily. Patient will be admitted to the hospital for a minimum of 2 night stay. Discharge plan: To be determined. PT ordered. Impression and plan of care have been directed as dictated by the signing physician. Jimena Rick nurse practitioner acting as scribe for signing physician.
--- NOTE | 2018-10-12 13:15 | US ---
EXAMINATION TYPE: US carotid duplex BILAT DATE OF EXAM: 10/12/2018 COMPARISON: Previous study dated 07/09/2017. CLINICAL HISTORY: syncope. EXAM MEASUREMENTS: RIGHT: Peak Systolic Velocity (PSV) cm/sec ----- Right CCA: 72.4 ----- Right ICA: 106.4 ----- Right ECA: 122.6 ICA/CCA ratio: 1.5 RIGHT: End Diastole cm/sec ----- Right CCA: 16.4 ----- Right ICA: 24.1 ----- Right ECA: 24.1 LEFT: Peak Systolic Velocity (PSV) cm/sec ----- Left CCA: 105.7 ----- Left ICA: 107.0 ----- Left ECA: 111.3 ICA/CCA ratio: 1.0 LEFT: End Diastole cm/sec ----- Left CCA: 18.4 ----- Left ICA: 31.6 ----- Left ECA: 9.5 VERTEBRALS (direction of flow): Right Vertebral: Antegrade Left Vertebral: Antegrade Rhythm: Normal No significant stenosis seen. Moderate plaque noted bilaterally. IMPRESSION: I DO NOT SEE EVIDENCE OF A HEMODYNAMICALLY SIGNIFICANT STENOSIS IN EITHER CAROTID SYSTEM. Criteria for Assigning % of Stenosis / Diameter reduction (Estimation based on the indirect measurements of the internal carotid artery velocities (ICA PSV). 1. Normal (no stenosis)=ICA PSV < 125 cm/s: ratio < 2.0: ICA EDV<40 cm/s. 2. Less than 50% stenosis=ICA PSV < 125 cm/s: ratio < 2.0: ICA EDV<40 cm/s. 3. 50 to 69% stenosis=ICA PSV of 125 to 230 cm/s: ration 2.0 ? 4.0: ICA EDV 40-100 cm/s. 4. Greater than 70% stenosis to near occlusion= ICA PSV > 230 cm/s: ratio > 4.0: ICA EDV > 100 cm/s. 5. Near occlusion= ICA PSV velocities may be low or undetectable: variable ratio and ICA EDV. 6. Total occlusion=unable to detect flow.
--- NOTE | 2018-10-12 14:55 | P.CNNES ---
History of Present Illness Consult date: 10/12/18 Reason for Consult: Fall, autonomic dysfunction. Chief complaint: Fall. History of Present Illness: Patient is a 78-year-old female, who came to the hospital after she fell. Patient states that she was walking in the kitchen, tripped on the chair and she fell. Patient states that she did not pass out, was not feeling dizzy or presyncopal before the fall. Denies any focal symptoms. Patient states that she does have a regular cane at home, which she uses outside her home only. At home she does not use any assistive device. Patient states that she has been falling off and on previously. The one prior to this fall was in June 2017, when she was bending over, to put dishes in the posture, got up and passed out on the floor. Patient is seeing neurologist , who has diagnosed her with mild Parkinson's, for the last 5 years, stable, not on any medication for Parkinson's. 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 She has some numbness in the feet but no pain or tingling. She has diabetes for last 40 years and her A1c is well controlled, 6.6. Patient denies any tobacco or alcohol. She has hypertension. Patient had a carotid Doppler performed today which is normal. EKG is normal. X-ray of the pelvis was negative for fracture. Computed tomography scan of the head was normal. CT of the cervical spine showed no acute fracture or dislocation. No acute intracranial hemorrhage or midline shift. Patient had an EEG on 07/10/2017 which is normal. Patient had a brain MRI and cervical MRI on 01/03/2017, MRI of cervical spine revealed multilevel degenerative disc disease. Multilevel central canal stenosis, greatest at C5 6. On my review, there is evidence of abnormal cord signal in the spinal cord at C4-5 level on the right side, perhaps related to previous whiplash type injury. Patient does have at least moderate degree of spinal stenosis at C5-6 level. MRI of the brain showed age-related atrophic and chronic small vessel ischemic change. No acute intracranial process at this time. No enhancing lesions. Focal area of decreased signal within the anterior aspect of the right middle cranial fossa measuring 8.8 mm. Aneurysm is not excluded. Consider MRA. MRA of the brain was negative for any aneurysm. Patient had a 2-D echo in 2018, which also revealed normal left ventricle size. EF 50-55%. Mild aortic stenosis. MRI of the lumbar spine on 10/17/2014 showed multilevel degenerative disc disease. Moderate canal stenosis L3 4 and L4 5. Patient's last hemoglobin A1c 6.7 on 10/02/2018. Her last Tegretol level is 7.6 on 07/09/2017. Patient also has history of seizure disorder long time ago, which she describes as staring spells. Patient is on Tegretol 600 mg a day. She has not had any seizures for "a long time". Review of Systems Constitutional: Reports as per HPI, Reports weakness Eyes: denies diplopia Ears: deny: decreased hearing Ears, nose, mouth and throat: Reports dysphagia, Reports headache Cardiovascular: Denies palpitations Respiratory: Denies respiratory infections Musculoskeletal: Denies neck pain Musculoskeletal: bilateral: shoulder pain, shoulder stiffness Neurological: Reports weakness (In the shoulders.), Denies double vision, Denies seizures Past Medical History Past Medical History: Asthma, CVA/TIA, Diabetes Mellitus, GERD/Reflux, Hypertension, Seizure Disorder, Skin Disorder Additional Past Medical History / Comment(s): TIA age 33absence seizuresLt arm skin bruised from scratching during night, Parkinsons in 2017, History of Any Multi-Drug Resistant Organisms: ESBL Date of last positivie culture/infection: 03/09/16 MDRO Source:: URINE [email or web address] Past Surgical History: Cholecystectomy, Heart Catheterization, Orthopedic Surgery Additional Past Surgical History / Comment(s): bilateral knee arthroscopies,left shoulder rotator cuff repair Past Anesthesia/Blood Transfusion Reactions: Motion Sickness Past Psychological History: No Psychological Hx Reported Smoking Status: Former smoker Past Alcohol Use History: None Reported Additional Past Alcohol Use History / Comment(s): Patient lives alone, ambulates mainly with a cane. Patient was a smoker one pack per day for 17 years and quit approximate 35 years ago. She denies any marijuana or illicit drug use. No alcohol use. Past Drug Use History: None Reported - Past Family History Brother(s) Family Medical History: CVA/TIA Additional Family Medical History / Comment(s): Patient has 1 brother that from either a CVA or acute CO. Sister(s) Family Medical History: Coronary Artery Disease (CAD) Additional Family Medical History / Comment(s): Patient has 3 sisters and one is alive with no major medical problems. 2 sisters have and one was following influenza immunization. 1 sister is unknown cause of . Daughter(s) History Unknown: Yes Additional Family Medical History / Comment(s): Patient has 2 daughters and one has history of rheumatoid arthritis and one has history of diabetes. Patient has one son with no major medical problems. Son(s) History Unknown: Yes Family Medical History: No Reported History Father Additional Family Medical History / Comment(s): Father at age 83 from a myocardial infarction. Mother Family Medical History: No Reported History Additional Family Medical History / Comment(s): Mother at age 93 from a myocardial infarction. Medications and Allergies Home Medications Medication Instructions Recorded Confirmed Type Aspirin 162 mg PO HS 11/17/14 10/11/18 History Atorvastatin [Lipitor] 40 mg PO DAILY 11/17/14 10/11/18 History Citalopram Hydrobromide [CeleXA] 20 mg PO HS 11/17/14 10/11/18 History Meclizine [Antivert] 12.5 mg PO BID 11/17/14 10/11/18 History Metoprolol Succinate (ER) [Toprol 25 mg PO HS 11/17/14 10/11/18 History XL] metFORMIN HCL [Glucophage] 500 mg PO BID 11/17/14 10/11/18 History HYDROcodone/APAP 5-325MG [[place] 1 tab PO Q6HR PRN 07/09/17 10/11/18 History 5-325] Omeprazole 20 mg PO DAILY 07/09/17 10/11/18 History ALPRAZolam [Xanax] 0.5 mg PO DAILY PRN 10/11/18 10/11/18 History Ibuprofen [Advil] 200 mg PO Q8HR PRN 10/11/18 10/11/18 History Ondansetron HCl [Zofran] 4 mg PO DAILY PRN 10/11/18 10/11/18 History amLODIPine [Norvasc] 5 mg PO HS 10/11/18 10/11/18 History carBAMazepine 200 mg PO QAM 10/11/18 10/11/18 History carBAMazepine [TEGretol] 400 mg PO HS 10/11/18 10/11/18 History Allergies Allergy/AdvReac Type Severity Reaction Status Date / Time acetaminophen Allergy Hallucinati Verified 10/11/18 17:45 [From Darvocet-N] ons ciprofloxacin [From Cipro] Allergy Vomiting Verified 10/11/18 17:45 ciprofloxacin HCl Allergy Vomiting Verified 10/11/18 17:45 [From Cipro] codeine Allergy Unknown Verified 10/11/18 17:45 erythromycin base Allergy Unknown Verified 10/11/18 17:45 levofloxacin [From Levaquin] Allergy Rash/Hives Verified 10/11/18 17:45 nitrofurantoin Allergy Unknown Verified 10/11/18 17:45 [From Macrobid] nitrofurantoin Allergy Unknown Verified 10/11/18 17:45 macrocrystalline [From Macrobid] Penicillins Allergy Unknown Verified 10/11/18 17:45 propoxyphene napsylate Allergy Hallucinati Verified 10/11/18 17:45 [From Darvocet-N] ons sulfamethoxazole Allergy Unknown Verified 10/11/18 17:45 [From Bactrim] trimethoprim [From Bactrim] Allergy Unknown Verified 10/11/18 17:45 omnipaxo Allergy Rapid Uncoded 10/11/18 17:03 Heart Rate Physical Examination - Vital Signs Vital Signs: Vital Signs Temp Pulse Pulse Resp BP BP Pulse Ox 10/12/18 07:00 97.8 F 92 16 191/93 97 10/12/18 01:10 98.8 F 82 14 119/77 84 L 10/11/18 20:46 92 20 154/99 95 10/11/18 18:38 85 18 197/88 98 10/11/18 17:00 97.6 F 81 20 98 Intake and Output 10/11/18 10/12/18 10/12/18 22:59 06:59 14:59 Intake Total 1000 720 Balance 1000 720 Intake: Amount of Fluid Infused ( 1000 ml) Intake, IV Titration 720 Amount Sodium Chloride 0.9% 1, 720 000 ml @ 90 mls/hr IV . Q11H7M [facility] Rx#:[id number] Other: Voiding Method Toilet # Voids 1 2 Weight 82.554 kg On examination patient is an elderly female, very pleasant in no acute distress. Patient is alert and awake fully oriented to time place and person. Speech and language functions are normal. Attention and concentration and fund of knowledge is adequate. On cranial nerve examination her pupils are round and reactive to light. Visual fonseca are full. Extraocular muscles are intact. Face is symmetric and tongue protrudes at midline. Her muscle strength testing patient has left rotator cuff tear, therefore the shoulder is very weak. Her right shoulder is slightly painful but is fairly strong. 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 Her strength in bilateral lower limbs including the hips ankles and toes are normal. Reflexes are 2+ in the upper limbs, 2+ to 3 at the knees and ankles and plantar is up on the right, whereas downward left. Sensory touch is equal. No ataxia. [id number]. Tone is very mildly increased on the right, but otherwise essentially normal. Bulk of muscles normal. Patient has very mild, intermittent tremor at rest of the left hand while she was holding the cup. Patient had difficulty getting up from the bed. Patient required help. Patient walked fairly steady without any device. She walked with slight wide base. Results - Laboratory Findings CBC and BMP: 10/11/18 17:25 10/11/18 17:25 Abnormal Lab Findings: Abnormal Labs 10/11/18 10/11/18 10/11/18 17:25 18:28 18:35 Creatinine 0.51 L Glucose 158 H POC Glucose (mg/dL) Plasma Lactic Acid Joselo 2.8 H* Alkaline Phosphatase 128 H Urine Protein Trace H Urine Glucose (UA) Trace H Urine Ketones 1+ H 10/12/18 10/12/18 06:48 11:49 Creatinine Glucose POC Glucose (mg/dL) 114 H 116 H Plasma Lactic Acid Joselo Alkaline Phosphatase Urine Protein Urine Glucose (UA) Urine Ketones Assessment and Plan Assessment: * 78-year-old female status post fall, probably due to tripping on the chair. 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 * Type 2 diabetes, uncomplicated. * Possible parkinsonian features, very mild degree. * Remote history of seizure disorder. Plan: We will check Tegretol level, B12, folate and methylmalonic acid levels. Patient's gait imbalance is likely due to multifactorial for the reasons mentioned above. Patient should get accustomed to her balance disorder, should use a 4 pronged cane, instead of her regular cane and use it more often to prev ent falls. I would suggest PT and OT. No indication for parkinsonian medications. If her balance continues to be a problem, would suggest repeating MRI of the cervical spine to follow up on the cervical spinal stenosis. Discussed with family members in detail.
[2018-10-12 16:40] LABS: Glucose,Whole Blood 120 mg/dL (75-99)
--- NOTE | 2018-10-12 18:20 | ECHOF ---
Referral Reason:LVF MEASUREMENTS -------- HEIGHT: 157.5 cm WEIGHT: 82.6 kg BP: IVSd: 1.3 cm (0.6 - 1.1) LVIDd: 4.2 cm (3.9 - 5.3) LVPWd: 1.4 cm (0.6 - 1.1) IVSs: 1.5 cm LVIDs: 3.5 cm LVPWs: 0.8 cm LA Diam: 3.6 cm (2.7 - 3.8) Ao Diam: 3.1 cm (2.0 - 3.7) AV Cusp: 1.4 cm (1.5 - 2.6) LA Diam: 4.1 cm (2.7 - 3.8) MV EXCURSION: 12.148 mm (> 18.000) MV EF SLOPE: 74 mm/s (70 - 150) EPSS: 0.5 cm MV E Butch: 0.65 m/s MV DecT: 179 ms MV A Butch: 1.14 m/s MV E/A Ratio: 0.57 RAP: 5.00 mmHg RVSP: 12.17 mmHg FINDINGS -------- Sinus rhythm. This was a technically adequate study. The left ventricular size is normal. There is mild concentric left ventricular hypertrophy. Overa ll left ventricular systolic function is normal with, an EF between 55 - 60 %. The right ventricle is normal in size. The left atrial size is normal. The right atrial size is normal. The aortic valve is trileaflet, and appears structurally normal. No aortic stenosis or regurgitation. Mild mitral annular calcification present. Mild mitral regurgitation is present. Mild tricuspid regurgitation present. There is no evidence of pulmonary hypertension. The right v entricular systolic pressure, as measured by Doppler, is 12.17mmHg. There is no pulmonic regurgitation present. The aortic root size is normal. IVC Not well visulized. Echo free space represents a pericardial fat pad. CONCLUSIONS -------- 1. The left ventricular size is normal. 2. There is mild concentric left ventricular hypertrophy. 3. Overall left ventricular systolic function is normal with, an EF between 55 - 60 %. 4. The right ventricle is normal in size. 5. The left atrial size is normal. 6. The right atrial size is normal. 7. Interatrial Septum not well visulized. 8. The aortic valve is trileaflet, and appears structurally normal. No aortic stenosis or regurgitati on. 9. Mild mitral annular calcification present. 10. Mild mitral regurgitation is present. 11. Mild tricuspid regurgitation present. 12. There is no evidence of pulmonary hypertension. 13. The right ventricular systolic pressure, as measured by Doppler, is 12.17mmHg. 14. There is no pulmonic regurgitation present. 15. The aortic root size is normal. 16. IVC Not well visulized. 17. Echo free space represents a pericardial fat pad. WALL WORKER: Sil French RDCS
[2018-10-12 20:56] LABS: Glucose,Whole Blood 141 mg/dL (75-99)
[2018-10-12] MEDS: amLODIPine 5 MG TAB PO SCH (21:00)
[2018-10-12] MEDS: ASPIRIN 81 MG PO SCH (21:00)
[2018-10-12] MEDS: METOPROLOL SUCCINATE (ER) 25 MG TAB.ER.24H PO SCH (21:01)
[2018-10-12 23:34] LABS: Folate, Serum 13.2 ng/mL
[2018-10-13 06:47] LABS: Glucose,Whole Blood 99 mg/dL (75-99)
[2018-10-13] MEDS: SODIUM CHLORIDE 0.9% 1,000 ML IV SCH ×2 (07:30→16:08)
[2018-10-13] MEDS: INSULIN ASPART (NovoLOG) 100 UNIT/ML VIAL SQ SCH ×4 (07:30→21:21)
[2018-10-13] MEDS: ATORVASTATIN 40 MG TAB PO SCH (08:19)
[2018-10-13] MEDS: MECLIZINE 12.5 MG TAB PO SCH ×2 (08:19→21:32)
[2018-10-13] MEDS: ENOXAPARIN 40 MG/0.4 ML SYRINGE SQ SCH (08:19)
[2018-10-13] MEDS: PANTOPRAZOLE 40 MG TABLET PO SCH (08:19)
[2018-10-13] MEDS: carBAMazepine 200 MG TAB PO SCH ×2 (08:20→21:32)
[2018-10-13] MEDS: metFORMIN 500 MG TAB PO SCH ×2 (08:20→17:30)
[2018-10-13 12:13] LABS: Glucose,Whole Blood 108 mg/dL (75-99)
--- NOTE | 2018-10-13 12:34 | P.PN ---
Subjective Progress Note Date: 10/13/18 This is a 78-year-old female patient of Dr. Zaragoza and Dr. Lutz with past medical history of hypertension, diabetes mellitus type 2, gastroesophageal reflux disease, mild intermittent asthma, TIA, absence seizures, Parkinson's. Patient has seen Dr. Delacruz in the past and diagnosed with early Parkinson's but not placed on medication. Patient also follows with Dr. Jeffrey Yee for diabetes and recently changed metformin to 500 mg in the morning and 1000 mg in the evening. Dr. Rinaldi manages frequent UTIs. Patient is not currently on antibiotics. Patient states she may have tripped on a chair and ended up falling into the cupboard and hit her forehead. She does not think she had no loss of consciousness but she couldn't move and was on the floor for an hour and 15 minutes until she is coached her self to the family room for her phone. After the incident, she was sweaty and nauseated and vomited multiple times. She felt that her arms were limp. She does not recall feeling dizzy or lightheaded prior to the fall. Patient had a previous hospitalization for syncope episode back in June 2017. At that time echocardiogram showed mild concentric left ventricular hypertrophy, EF 50-55%, mild aortic stenosis, mild mitral regurgitation, mild tricuspid regurgitation, no pulmonary hypertension. Carotid duplex showed 20- 30% stenosis in both internal carotid arteries. EEG was within normal limits. Syncopal episode was suspected to be related to orthostatic changes. Patient was discharged with event monitor. Patient came into [facility] emergency center for evaluation. She was afebrile, heart rate in the 80s, blood pressure 197/88, pulse ox 98% on room air. CBC was within normal limits, electrolytes and renal function within normal limits, alkaline phosphatase 128, lipase 160, alcohol level less than 10. CK was 50, troponin negative, ammonia 10, lactic acid 2.8. Urinalysis negative for infection. There was trace protein and trace glucose. The patient is status post 1 L of IV fluid and repeat lactic acid is 1.5. Blood sugar 114. Patient's tetanus status was updated in the emergency center. Pelvic x-ray showed no acute fracture or dislocation. Chest x-ray shows chronic changes and cardiomegaly without acute pulmonary process. CAT scan of the brain and cervical spine showed no acute fracture or dislocation in the cervical spine. No acute intracranial hemorrhage or midline shift. Right frontal acute scalp hematoma noted. [facility] We have ordered echocardiogram, carotid duplex, consults with cardiology and neurology. 10/13: The patient had orthostatics done yesterday which were positive. Lab work revealed vitamin B12 at 1046, folate level XIII.2, Tegretol level VIII.0. Carotid study showed no acute hemodynamically significant stenosis. Echocardiogram showed EF of 55-60%, no aortic stenosis, mild mitral regurgitation, mild tricuspid regurgitation, no pulmonary hypertension. Patient was seen by Dr. Sharma and appeared to be a trip being mechanical cause for her symptoms with cervical myelopathy due to spinal stenosis, mild peripheral sensory neuropathy and medication effect. He recommended 4 prong cane, PT and OT and recommended MRI if she does not have improvement of her symptoms. Patient states that she ambulated with physical therapy this morning and is sore especially in the rib areas. She denies any headache but took [place] this morning. She complains of numbness to the top of her head. She has not had any dysphagia. She ate toast and coffee for breakfast. We will order a 4 prong cane and walker and monitor overnight with plan for discharge home tomorrow. Review of Systems Constitutional: Reports poor appetite, Reports weakness, Denies anorexia, Denies chills, Denies fatigue, Denies fever, Denies weight loss Eyes: denies blurred vision, denies pain Ears, nose, mouth and throat: Reports headache, Denies dental pain, Denies dysphagia, Denies epistaxis, Denies hoarseness, Denies mouth pain, Denies nasal congestion, Denies nasal discharge, Denies sore throat, Denies vertigo Cardiovascular: Denies chest pain, Denies dyspnea on exertion, Denies edema, Denies leg edema, Denies lightheadedness, Denies palpitations, Denies shortness of breath, Denies syncope, reports rib pain Respiratory: Denies cough, Denies cough with sputum, Denies dyspnea, Denies excessive sputum, Denies hemoptysis, Denies home oxygen, Denies wheezing Gastrointestinal: Reports loss of appetite, denies nausea, denies vomiting, Denies abdominal pain, Denies diarrhea Genitourinary: Denies dysuria, Denies hematuria, Denies urgency, Denies urinary frequency Musculoskeletal: Reports muscle weakness, Denies arm numbness/tingling, Denies frequent falls, Denies gait dysfunction, Denies myalgias Integumentary: Denies pruritus, Denies rash, Denies wounds Neurological: Reports gait dysfunction, Reports head injury, Reports headaches, Reports weakness, Denies aphasia, Denies change in mentation, Denies change in speech, Denies convulsions, Denies numbness, Denies seizures, Denies syncope, Denies vertigo Psychiatric: Denies anxiety, Denies depression Endocrine: Denies fatigue, Denies weight change Objective - Vital Signs Vital signs: Vital Signs Temp 98.3 F 10/13/18 07:00 Pulse 72 10/13/18 07:00 Resp 16 10/13/18 07:00 BP 163/85 10/13/18 07:00 Pulse Ox 92 L 10/13/18 07:00 Intake & Output 10/12/18 10/13/18 10/13/18 18:59 06:59 18:59 Intake Total 720 Balance 720 Intake: Intake, IV Titration 720 Amount Sodium Chloride 0.9% 1, 720 000 ml @ 90 mls/hr IV . Q11H7M [facility] Rx#:[id number] Other: Voiding Method Toilet # Voids 2 1 1 - Exam Gen: This is a 78-year-old female. She is resting in bed appears to be comfortable and in no acute distress. Daughter is at bedside. HEENT: Head has hematoma right frontal lobe, normocephalic. Pupils equal, round. Sclerae is anicteric. NECK: Supple. No JVD. No lymphadenopathy. No thyromegaly. LUNGS: Clear to auscultation. No wheezes or rhonchi. No intercostal retractions. HEART: Regular rate and rhythm. Systolic murmur. ABDOMEN: Soft. Bowel sounds are present. No masses. No tenderness. EXTREMITIES: No pedal edema. No calf tenderness. Mild tremor to the left thumb. NEUROLOGICAL: Patient is awake, alert and oriented x3. Cranial nerves 2 through 12 are grossly intact. - Labs CBC & Chem 7: 10/11/18 17:25 10/11/18 17:25 Labs: Abnormal Lab Results - Last 24 Hours (Table) 10/12/18 10/12/18 10/12/18 Range/Units 15:25 16:38 20:54 POC Glucose (mg/dL) 120 H 141 H (75-99) mg/dL Vitamin B12 1056.0 H (200.0-944.0) pg/mL Microbiology - Last 24 Hours (Table) 10/11/18 18:28 Urine Culture - Final Urine,Catheterized Assessment and Plan Plan: 1. Fall of unclear etiology with closed head injury and hematoma to right frontal lobe most likely secondary to orthostatic changes and autonomic dysfunction from Parkinson's or diabetes. Consults with cardiology and neurology appreciated. Orthostatic vital positive. Echocardiogram, carotid duplex as above. Consult physical therapy. 2. Early Parkinson's, not currently on medication. 3. Hypertension. Continue metoprolol succinate 25 mg at bedtime 4. Hyperlipidemia. Continue Lipitor. 5. History of TIA. Continue aspirin 162 mg at bedtime, Lipitor 40 mg daily for secondary prevention. 6. History of seizure disorder. Continue Tegretol 200 mg in the morning and 400 mg at bedtime 7. History of dizziness on meclizine as needed. 8. Diabetes mellitus type 2. Continue metformin 500 mg in the morning and 1000 milligrams in the evening and NovoLog scale. 9. Gastroesophageal reflux disease. Continue omeprazole 20 mg daily. 10. Generalized anxiety disorder. Patient is no longer on Celexa. Continue Xanax or 0.5 mg daily as needed. 11. DVT prophylaxis. Lovenox daily. Discharge plan: Home on Sunday. Quad cane and walker ordered. Impression and plan of care have been directed as dictated by the signing physician. Jimena Rick nurse practitioner acting as scribe for signing physician.
--- NOTE | 2018-10-13 14:55 | P.CRDCN ---
History of Present Illness Consult date: 10/13/18 Chief complaint: Syncope History of present illness: This is a pleasant 78-year-old female patient who sees Dr. Lutz in the office as an outpatient with a past medical history significant for diabetes type 2, hypertension, dyslipidemia, and history of TIA, as well as history of Parkinson disease, was admitted to the hospital for further evaluation of syncope. The patient stated that she was walking when she tripped with the chair and she fell on the floor. She stated that she did not lose her consciousness completely. She does not recall having any symptoms of chest pain or discomfort, shortness of breath, heart racing or fluttering, dizziness or lightheadedness. She stated that after the incident, she was a sweaty and nauseated and vomited as well as. The patient did have previous admission was syncope about a year ago and that was in 2018 when at that point underwent a workup came in to be unremarkable. She stated that she had a stress test at Dr. Lutz office and that came in to be unremarkable and also she stated that she did have an event monitor for 4 weeks came in to be unremarkable. This time the patient underwent an echo which revealed normal LV function with mild valvular abnormalities and also carotid duplex study which came in to be unremarkable. The cardiac enzymes came in to be unremarkable with the EKG did not show any significant or ischemic changes. During her hospitalization she has been maintaining normal sinus mechanism. More importantly the patient did have an orthostatic blood pressure at this time and that came in to be positive. She did receive IV fluid. Overall she is feeling better. Past Medical History Past Medical History: Asthma, CVA/TIA, Diabetes Mellitus, GERD/Reflux, Hypertension, Seizure Disorder, Skin Disorder Additional Past Medical History / Comment(s): TIA age 33absence seizuresLt arm skin bruised from scratching during night, Parkinsons in 2017, History of Any Multi-Drug Resistant Organisms: ESBL Date of last positivie culture/infection: 03/09/16 MDRO Source:: URINE KL.PNEUMO Past Surgical History: Cholecystectomy, Heart Catheterization, Orthopedic Surgery Additional Past Surgical History / Comment(s): bilateral knee arthroscopies,left shoulder rotator cuff repair Past Anesthesia/Blood Transfusion Reactions: Motion Sickness Past Psychological History: No Psychological Hx Reported Smoking Status: Former smoker Past Alcohol Use History: None Reported Additional Past Alcohol Use History / Comment(s): Patient lives alone, ambulates mainly with a cane. Patient was a smoker one pack per day for 17 years and quit approximate 35 years ago. She denies any marijuana or illicit drug use. No alcohol use. Past Drug Use History: None Reported - Past Family History Brother(s) Family Medical History: CVA/TIA Additional Family Medical History / Comment(s): Patient has 1 brother that from either a CVA or acute LA. Sister(s) Family Medical History: Coronary Artery Disease (CAD) Additional Family Medical History / Comment(s): Patient has 3 sisters and one is alive with no major medical problems. 2 sisters have and one was following influenza immunization. 1 sister is unknown cause of . Daughter(s) History Unknown: Yes Additional Family Medical History / Comment(s): Patient has 2 daughters and one has history of rheumatoid arthritis and one has history of diabetes. Patient has one son with no major medical problems. Son(s) History Unknown: Yes Family Medical History: No Reported History Father Additional Family Medical History / Comment(s): Father at age 83 from a myocardial infarction. Mother Family Medical History: No Reported History Additional Family Medical History / Comment(s): Mother at age 93 from a myocardial infarction. Medications and Allergies Home Medications Medication Instructions Recorded Confirmed Type Aspirin 162 mg PO HS 11/17/14 10/11/18 History Atorvastatin [Lipitor] 40 mg PO DAILY 11/17/14 10/11/18 History Citalopram Hydrobromide [CeleXA] 20 mg PO HS 11/17/14 10/11/18 History Meclizine [Antivert] 12.5 mg PO BID 11/17/14 10/11/18 History Metoprolol Succinate (ER) [Toprol 25 mg PO HS 11/17/14 10/11/18 History XL] metFORMIN HCL [Glucophage] 500 mg PO BID 11/17/14 10/11/18 History HYDROcodone/APAP 5-325MG [[place] 1 tab PO Q6HR PRN 07/09/17 10/11/18 History 5-325] Omeprazole 20 mg PO DAILY 07/09/17 10/11/18 History ALPRAZolam [Xanax] 0.5 mg PO DAILY PRN 10/11/18 10/11/18 History Ibuprofen [Advil] 200 mg PO Q8HR PRN 10/11/18 10/11/18 History Ondansetron HCl [Zofran] 4 mg PO DAILY PRN 10/11/18 10/11/18 History amLODIPine [Norvasc] 5 mg PO HS 10/11/18 10/11/18 History carBAMazepine 200 mg PO QAM 10/11/18 10/11/18 History carBAMazepine [TEGretol] 400 mg PO HS 10/11/18 10/11/18 History Allergies Allergy/AdvReac Type Severity Reaction Status Date / Time acetaminophen Allergy Hallucinati Verified 10/11/18 17:45 [From Darvocet-N] ons ciprofloxacin [From Cipro] Allergy Vomiting Verified 10/11/18 17:45 ciprofloxacin HCl Allergy Vomiting Verified 10/11/18 17:45 [From Cipro] codeine Allergy Unknown Verified 10/11/18 17:45 erythromycin base Allergy Unknown Verified 10/11/18 17:45 levofloxacin [From Levaquin] Allergy Rash/Hives Verified 10/11/18 17:45 nitrofurantoin Allergy Unknown Verified 10/11/18 17:45 [From Macrobid] nitrofurantoin Allergy Unknown Verified 10/11/18 17:45 macrocrystalline [From Macrobid] Penicillins Allergy Unknown Verified 10/11/18 17:45 propoxyphene napsylate Allergy Hallucinati Verified 10/11/18 17:45 [From Darvocet-N] ons sulfamethoxazole Allergy Unknown Verified 10/11/18 17:45 [From Bactrim] trimethoprim [From Bactrim] Allergy Unknown Verified 10/11/18 17:45 omnipaxo Allergy Rapid Uncoded 10/11/18 17:03 Heart Rate Physical Exam Vitals: Vital Signs Temp Pulse Resp BP BP BP Pulse Ox 10/13/18 07:00 98.3 F 72 16 163/85 92 L 10/13/18 02:05 98.0 F 69 18 162/80 92 L 10/12/18 21:21 17 10/12/18 19:15 98.5 F 87 17 142/78 91 L 10/12/18 15:00 98.8 F 85 16 189/91 165/82 131/68 96 Intake and Output 10/12/18 10/13/18 10/13/18 22:59 06:59 14:59 Intake Total 720 Balance 720 Intake: Intake, IV Titration 720 Amount Sodium Chloride 0.9% 1, 720 000 ml @ 90 mls/hr IV . Q11H7M [facility] Rx#:[id number] Other: Voiding Method Toilet # Voids 1 1 - Constitutional General appearance: no acute distress - Respiratory Respiratory: bilateral: CTA - Cardiovascular Rhythm: regular Heart sounds: normal: S1, S2 Abnormal Heart Sounds: systolic murmur Results 10/11/18 17:25 10/11/18 17:25 Current Medications Generic Name Dose Route Start Last Admin Trade Name Freq PRN Reason Stop Dose Admin Acetaminophen 650 mg 10/11/18 19:56 10/12/18 21:03 Tylenol Tab PO 650 mg Q6HR PRN Administration Mild Pain or Fever > 100.5 Hydrocodone Bitart/Acetaminophen 1 each 10/11/18 19:58 10/13/18 08:20 [place] 5-325 PO 1 each Q6HR PRN Administration Moderate Pain Alprazolam 0.5 mg 10/11/18 23:17 Xanax PO DAILY PRN Anxiety Amlodipine Besylate 5 mg 10/11/18 21:00 10/12/18 21:00 Norvasc PO 5 mg HS [facility] Administration Aspirin 162 mg 10/11/18 23:30 10/12/18 21:00 Aspirin PO 162 mg HS [facility] Administration Atorvastatin Calcium 40 mg 10/12/18 09:00 10/13/18 08:19 Lipitor PO 40 mg DAILY [facility] Administration Carbamazepine 200 mg 10/12/18 09:00 10/13/18 08:20 Tegretol PO 200 mg QAM [facility] Administration Carbamazepine 400 mg 10/11/18 21:00 10/12/18 21:01 Tegretol PO 400 mg HS [facility] Administration Enoxaparin Sodium 40 mg 10/13/18 09:00 10/13/18 08:19 Lovenox SQ 40 mg DAILY [facility] Administration Sodium Chloride 1,000 mls @ 90 mls/hr 10/11/18 20:00 10/13/18 07:30 [place]ine 0.9% IV 90 mls/hr .Q11H7M [facility] Administration Insulin Aspart 0 unit 10/12/18 07:30 10/13/18 11:40 Novolog SQ Not Given ACHS [facility] Protocol Meclizine HCl 12.5 mg 10/11/18 23:30 10/13/18 08:19 Antivert PO 12.5 mg BID [facility] Administration Metformin HCl 1,000 mg 10/12/18 17:30 10/12/18 18:12 Glucophage PO 1,000 mg W/SUPPER [facility] Administration Metformin HCl 500 mg 10/13/18 07:30 10/13/18 08:20 Glucophage PO 500 mg W/BRKFST [facility] Administration Metoprolol Succinate 25 mg 10/11/18 23:30 10/12/18 21:01 Toprol Xl PO 25 mg HS [facility] Administration Naloxone HCl 0.2 mg 10/11/18 19:56 Narcan IV Q2M PRN Opioid Reversal Ondansetron HCl 4 mg 10/11/18 19:56 Zofran IVP Q8HR PRN Nausea And Vomiting Ondansetron HCl 4 mg 10/11/18 19:58 10/12/18 07:56 Zofran PO 4 mg DAILY PRN Administration Nausea Pantoprazole Sodium 40 mg 10/12/18 07:30 10/13/18 08:19 Protonix PO 40 mg AC-BRKFST [facility] Administration Intake and Output 10/12/18 10/13/18 10/13/18 22:59 06:59 14:59 Intake Total 720 Balance 720 Intake: Intake, IV Titration 720 Amount Sodium Chloride 0.9% 1, 720 000 ml @ 90 mls/hr IV . Q11H7M [facility] Rx#:[id number] Other: Voiding Method Toilet # Voids 1 1 10/11/18 17:25 10/11/18 17:25 Assessment and Plan Assessment: Assessment #1 near syncope #2 orthostatic hypotension #3 Parkinson's disease #4 hypertension #5 dyslipidemia #6 history of TIA Plan #1 no arrhythmia while the patient is in the hospital #2 if there is any concern about arrhythmia, I would advise the patient to have a loop recorder to be done as an outpatient #3 she was ruled out for acute coronary event #4 from the cardiovascular standpoint of view, she can be discharged home Thank you for allowing us participate in her care and we will follow-up with the patient on when necessary case
--- NOTE | 2018-10-13 15:22 | P.PN ---
Subjective Progress Note Date: 10/13/18 Since last seen, patient denies any changes in her condition. Patient's one of the daughter was present today. Patient complains of a small spot of numbness in the top of her head, which is likely clinically not significant. May be related to some occipital nerve irritation from previous fall. The patient's blood test shows vitamin B12 1056 which is normal. Folic acid 13.2, Tegretol level is 8.0 (4-12). The patient denies any focal symptoms. Objective - Vital Signs Vital signs: Vital Signs Temp 98.2 F 10/13/18 15:00 Pulse 84 10/13/18 15:00 Resp 16 10/13/18 15:00 BP 153/79 10/13/18 15:00 Pulse Ox 93 L 10/13/18 15:00 Intake & Output 10/12/18 10/13/18 10/13/18 18:59 06:59 18:59 Intake Total 720 Balance 720 Intake: Intake, IV Titration 720 Amount Sodium Chloride 0.9% 1, 720 000 ml @ 90 mls/hr IV . Q11H7M [facility] Rx#:[id number] Other: Voiding Method Toilet # Voids 2 1 3 - Exam Patient is an elderly female, laying comfortably in the bed. Speech and language functions are normal. Muscle strength is normal. Her shoulders are weak from rotator cuff problem. Tone is normal. No tremors at rest noted. - Labs CBC & Chem 7: 10/11/18 17:25 10/11/18 17:25 Labs: Abnormal Lab Results - Last 24 Hours (Table) 10/12/18 10/12/18 10/12/18 Range/Units 15:25 16:38 20:54 POC Glucose (mg/dL) 120 H 141 H (75-99) mg/dL Vitamin B12 1056.0 H (200.0-944.0) pg/mL 10/13/18 Range/Units 11:26 POC Glucose (mg/dL) 108 H (75-99) mg/dL Vitamin B12 (200.0-944.0) pg/mL Microbiology - Last 24 Hours (Table) 10/11/18 18:28 Urine Culture - Final Urine,Catheterized Assessment and Plan Assessment: * 78-year-old female status post fall, probably due to tripping on the chair. * Gait imbalance, possibly multifactorial, due to combination of mild cervical myelopathy from spinal stenosis, perhaps mild peripheral sensory neuropathy, and possible medication side effect. * Type 2 diabetes, uncomplicated. * Possible parkinsonian features, very mild degree. * Remote history of seizure disorder. Plan: Patient's B12, folate levels are normal. Methylmalonic acid is pending. Tegretol level is therapeutic 8.0. No indication for antiparkinsonian medication. Patient recommended to use 4-prong cane for assistive device to prevent falls. Possible discharge in a.m. I would suggest PT and OT. If her balance continues to be a problem, would suggest repeating MRI of the cervical spine to follow up on the cervical spinal stenosis. Discussed with family members in detail.
[2018-10-13] MEDS: ONDANSETRON 4 MG TAB PO PRN (16:08)
[2018-10-13 16:40] LABS: Glucose,Whole Blood 140 mg/dL (75-99)
[2018-10-13 21:17] LABS: Glucose,Whole Blood 101 mg/dL (75-99)
[2018-10-13] MEDS: ASPIRIN 81 MG PO SCH (21:32)
[2018-10-13] MEDS: amLODIPine 5 MG TAB PO SCH (21:32)
[2018-10-13] MEDS: METOPROLOL SUCCINATE (ER) 25 MG TAB.ER.24H PO SCH (21:33)
[2018-10-13] MEDS: ACETAMINOPHEN TAB 325 MG TAB PO PRN (21:33)
[2018-10-14 07:00] LABS: Glucose,Whole Blood 116 mg/dL (75-99)
[2018-10-14] MEDS: INSULIN ASPART (NovoLOG) 100 UNIT/ML VIAL SQ SCH ×2 (07:05→12:27)
[2018-10-14] MEDS: SODIUM CHLORIDE 0.9% 1,000 ML IV SCH ×2 (07:05→12:27)
[2018-10-14] MEDS: PANTOPRAZOLE 40 MG TABLET PO SCH (07:24)
[2018-10-14] MEDS: MECLIZINE 12.5 MG TAB PO SCH (07:24)
[2018-10-14] MEDS: metFORMIN 500 MG TAB PO SCH (07:24)
[2018-10-14] MEDS: ATORVASTATIN 40 MG TAB PO SCH (07:24)
[2018-10-14] MEDS: carBAMazepine 200 MG TAB PO SCH (07:24)
[2018-10-14] MEDS: ENOXAPARIN 40 MG/0.4 ML SYRINGE SQ SCH (07:24)
[2018-10-14 08:13] VITALS: BP 196/82; PULSE 78; RESP 12; TEMP 98
[2018-10-14] MEDS: ONDANSETRON 4 MG TAB PO PRN (11:36)
[2018-10-14 12:21] LABS: Glucose,Whole Blood 111 mg/dL (75-99)
--- NOTE | 2018-10-14 12:59 | P.PN ---
Subjective Progress Note Date: 10/14/18 Since last seen, patient denies any changes in her condition. Patient states she is feeling better. She is more ambulatory. She is ready to go home. The patient's blood test shows vitamin B12 1056 which is normal. Folic acid 13.2, Tegretol level is 8.0 (4-12). The patient denies any focal symptoms. Objective - Vital Signs Vital signs: Vital Signs Temp 98 F 10/14/18 07:00 Pulse 78 10/14/18 07:00 Resp 12 10/14/18 07:00 BP 196/82 10/14/18 07:00 Pulse Ox 95 10/14/18 07:00 Intake & Output 10/13/18 10/14/18 10/14/18 18:59 06:59 18:59 Intake Total 450 Balance 450 Intake: Intake, IV Titration 450 Amount Sodium Chloride 0.9% 1, 450 000 ml @ 90 mls/hr IV . Q11H7M [facility] Rx#:[id number] Other: Voiding Method Toilet # Voids 3 1 - Exam Patient is an elderly female, laying comfortably in the bed. Speech and language functions are normal. Muscle strength is normal. Her shoulders are weak from rotator cuff problem. Tone is normal. No tremors at rest noted. Patient was able to sit up on the side of the bed without assistance. She has to held onto the side rails to get her seated on the bed. She was able to walk with her walker very steady. She had mildly wide-based gait. - Labs CBC & Chem 7: 10/11/18 17:25 10/11/18 17:25 Labs: Abnormal Lab Results - Last 24 Hours (Table) 10/13/18 10/13/18 10/14/18 Range/Units 16:36 21:16 06:58 POC Glucose (mg/dL) 140 H 101 H 116 H (75-99) mg/dL 10/14/18 Range/Units 12:20 POC Glucose (mg/dL) 111 H (75-99) mg/dL Assessment and Plan Assessment: * 78-year-old female status post fall, probably due to tripping on the chair. * Gait imbalance, possibly multifactorial, due to combination of mild cervical myelopathy from spinal stenosis, perhaps mild peripheral sensory neuropathy, and possible medication side effect. * Type 2 diabetes, uncomplicated. * Possible parkinsonian features, very mild degree. * Remote history of seizure disorder. Plan: Patient's B12, folate levels are normal. Methylmalonic acid is pending. Tegretol level is therapeutic 8.0. No indication for antiparkinsonian medication. Patient recommended to use 4-prong cane for assistive device to prevent falls. For longer distance may use a walker. Possible discharge today. I would suggest PT and OT. If her balance continues to be a problem, would suggest repeating MRI of the cervical spine to follow up on the cervical spinal stenosis.
--- NOTE | 2018-10-14 14:09 | P.DS ---
Providers Date of admission: 10/11/18 19:56 Expected date of discharge: 10/14/18 Attending physician: Toya Kerr Consults: 10/12/18 11:06 Consult Physician Routine Consulting Provider: Thomas Olmstead Consult Reason/Comments: syncope Do you want consulting provider notified?: Yes 10/12/18 11:43 Consult Physician Routine Consulting Provider: Neal Sharma Consult Reason/Comments: fall, autonomic dysfunction Do you want consulting provider notified?: Yes Primary care physician: Sharif Zaragoza [facility] Course: This is a 78-year-old female patient of Dr. Zaragoza and Dr. Lutz with past medical history of hypertension, diabetes mellitus type 2, gastroesophageal reflux disease, mild intermittent asthma, TIA, absence seizures, Parkinson's. Patient has seen Dr. Delacruz in the past and diagnosed with early Parkinson's but not placed on medication. Patient also follows with Dr. Jeffrey Yee for diabetes and recently changed metformin to 500 mg in the morning and 1000 mg in the evening. Dr. Rinaldi manages frequent UTIs. Patient is not currently on antibiotics. Patient states she may have tripped on a chair and ended up falling into the cupboard and hit her forehead. She does not think she had no loss of consciousness but she couldn't move and was on the floor for an hour and 15 minutes until she is coached her self to the family room for her phone. After the incident, she was sweaty and nauseated and vomited multiple times. She felt that her arms were limp. She does not recall feeling dizzy or lightheaded prior to the fall. Patient had a previous hospitalization for syncope episode back in June 2017. At that time echocardiogram showed mild concentric left ventricular hypertrophy, EF 50-55%, mild aortic stenosis, mild mitral regurgitation, mild tricuspid regurgitation, no pulmonary hypertension. Carotid duplex showed 20- 30% stenosis in both internal carotid arteries. EEG was within normal limits. Syncopal episode was suspected to be related to orthostatic changes. Patient was discharged with event monitor. Patient came into [facility] emergency center for evaluation. She was afebrile, heart rate in the 80s, blood pressure 197/88, pulse ox 98% on room air. CBC was within normal limits, electrolytes and renal function within normal limits, alkaline phosphatase 128, lipase 160, alcohol level less than 10. CK was 50, troponin negative, ammonia 10, lactic acid 2.8. Urinalysis negative for infection. There was trace protein and trace glucose. The patient is status post 1 L of IV fluid and repeat lactic acid is 1.5. Blood sugar 114. Patient's tetanus status was updated in the emergency center. Pelvic x-ray showed no acute fracture or dislocation. Chest x-ray shows chronic changes and cardiomegaly without acute pulmonary process. CAT scan of the brain and cervical spine showed no acute fracture or dislocation in the cervical spine. No acute intracranial hemorrhage or midline shift. Right frontal acute scalp hematoma noted. Patient [facility] floor. We have ordered echocardiogram, carotid duplex, consults with cardiology and neurology. 10/13: The patient had orthostatics done yesterday which were positive. Lab work revealed vitamin B12 at 1046, folate level XIII.2, Tegretol level VIII.0. Carotid study showed no acute hemodynamically significant stenosis. Echocardio gram showed EF of 55-60%, no aortic stenosis, mild mitral regurgitation, mild tricuspid regurgitation, no pulmonary hypertension. Patient was seen by Dr. Sharma and appeared to be a trip being mechanical cause for her symptoms with cervical myelopathy due to spinal stenosis, mild peripheral sensory neuropathy and medication effect. He recommended 4 prong cane, PT and OT and recommended MRI if she does not have improvement of her symptoms. Patient states that she ambulated with physical therapy this morning and is sore especially in the rib areas. She denies any headache but took [place] this morning. She complains of numbness to the top of her head. She has not had any dysphagia. She ate toast and coffee for breakfast. We will order a 4 prong cane and walker and monitor overnight with plan for discharge home tomorrow. 10/14: Patient complains of some continued nausea but no vomiting. Zofran will be given now. Patient does have chronic problems and has Zofran at home. Patient has been afebrile, heart rate in the 70s, blood pressure 135/72 to 196/82, pulse ox 95% on room air. Patient's family has obtained walker and Quad cane will be ordered through case packer and sealer. Patient will be discharged home today in stable condition. Discharge diagnoses: 1. Fall of unclear etiology with closed head injury and hematoma to right frontal lobe most likely secondary to orthostatic changes and autonomic dysfunction from Parkinson's or diabetes. 2. Early Parkinson's, not currently on medication. 3. Hypertension. 4. Hyperlipidemia. 5. History of TIA. 6. History of seizure disorder. 7. History of dizziness 8. Diabetes mellitus type 2. 9. Gastroesophageal reflux disease. 10. Generalized anxiety disorder. Discharge plan: Home with [facility]. Quad cane and walker ordered. Impression and plan of care have been directed as dictated by the signing physician. Jimena Rick nurse practitioner acting as scribe for signing physician. Patient Condition at Discharge: Good Plan - Discharge Summary Discharge Rx Participant: Yes New Discharge Prescriptions: Continue Meclizine [Antivert] 12.5 mg PO BID Aspirin 162 mg PO HS Metoprolol Succinate (ER) [Toprol XL] 25 mg PO HS Atorvastatin [Lipitor] 40 mg PO DAILY Omeprazole 20 mg PO DAILY HYDROcodone/APAP 5-325MG [[place] 5-325] 1 tab PO Q6HR PRN PRN Reason: Pain Ibuprofen [Advil] 200 mg PO Q8HR PRN PRN Reason: Pain amLODIPine [Norvasc] 5 mg PO HS Ondansetron HCl [Zofran] 4 mg PO DAILY PRN PRN Reason: Nausea carBAMazepine 200 mg PO QAM carBAMazepine [TEGretol] 400 mg PO HS ALPRAZolam [Xanax] 0.5 mg PO DAILY PRN PRN Reason: Anxiety metFORMIN HCL [Glucophage] 500 mg PO BID #0 Discontinued Citalopram Hydrobromide [CeleXA] 20 mg PO HS Discharge Medication List Aspirin 162 mg PO HS 11/17/14 [History] Atorvastatin [Lipitor] 40 mg PO DAILY 11/17/14 [History] Meclizine [Antivert] 12.5 mg PO BID 11/17/14 [History] Metoprolol Succinate (ER) [Toprol XL] 25 mg PO HS 11/17/14 [History] HYDROcodone/APAP 5-325MG [[place] 5-325] 1 tab PO Q6HR PRN 07/09/17 [History] Omeprazole 20 mg PO DAILY 07/09/17 [History] ALPRAZolam [Xanax] 0.5 mg PO DAILY PRN 10/11/18 [History] Ibuprofen [Advil] 200 mg PO Q8HR PRN 10/11/18 [History] Ondansetron HCl [Zofran] 4 mg PO DAILY PRN 10/11/18 [History] amLODIPine [Norvasc] 5 mg PO HS 10/11/18 [History] carBAMazepine 200 mg PO QAM 10/11/18 [History] carBAMazepine [TEGretol] 400 mg PO HS 10/11/18 [History] metFORMIN HCL [Glucophage] 500 mg PO BID #0 10/14/18 [Rx] Follow up Appointment(s)/Referral(s): [facility] [NON-STAFF] - As Needed (cane ) Sharif Zaragoza DO [Primary Care Provider] - 1 Week (Office will be in contact with patient upon discharge to set up a follow up appointment) [facility] Visiting Nurse, [NON-STAFF] - As Needed Patient Instructions/Handouts: Fall Prevention for Older Adults (DC) Discharge Disposition: HOME WITH HOME HEALTH SERVICES
[2018-10-15 16:10] LABS: Hemoglobin A1C 6.8 % (4.0-6.0)
== END 2018-10-14 13:53 | disposition home health service (06) ==
LOC: EC 16:58 → 4SSUR 19:56
PROVIDERS: ADMIT Internal Medicine; ATTEND Internal Medicine
DX: S09.90XA Unspecified injury of head, initial encounter (principal); S00.03XA Contusion of scalp, initial encounter; I95.1 Orthostatic hypotension; G20 Parkinson's disease; I10 Essential (primary) hypertension; E78.5 Hyperlipidemia, unspecified; G40.909 Epilepsy, unspecified, not intractable, without status epilepticus; E11.9 Type 2 diabetes mellitus without complications; K21.9 Gastro-esophageal reflux disease without esophagitis; F41.1 Generalized anxiety disorder; E11.43 Type 2 diabetes mellitus with diabetic autonomic (poly)neuropathy; J45.20 Mild intermittent asthma, uncomplicated; M48.02 Spinal stenosis, cervical region; M50.00 Cervical disc disorder with myelopathy, unspecified cervical region; G60.8 Other hereditary and idiopathic neuropathies; R42 Dizziness and giddiness; R07.89 Other chest pain; E87.2 Acidosis; E66.9 Obesity, unspecified; Z68.33 Body mass index [BMI] 33.0-33.9, adult; R26.89 Other abnormalities of gait and mobility; M75.102 Unspecified rotator cuff tear or rupture of left shoulder, not specified as traumatic; M48.061 Spinal stenosis, lumbar region without neurogenic claudication; W01.0XXA Fall on same level from slipping, tripping and stumbling without subsequent striking against object, initial encounter; Z86.73 Personal history of transient ischemic attack (TIA), and cerebral infarction without residual deficits; Z87.891 Personal history of nicotine dependence; Z87.440 Personal history of urinary (tract) infections; Z79.84 Long term (current) use of oral hypoglycemic drugs; Z79.82 Long term (current) use of aspirin; Z79.899 Other long term (current) drug therapy; Z90.49 Acquired absence of other specified parts of digestive tract; Z88.5 Allergy status to narcotic agent; Z88.1 Allergy status to other antibiotic agents; Z88.0 Allergy status to penicillin; Z88.2 Allergy status to sulfonamides; Z88.8 Allergy status to other drugs, medicaments and biological substances; Z82.49 Family history of ischemic heart disease and other diseases of the circulatory system; Z82.61 Family history of arthritis; Z23 Encounter for immunization
CPT/HCPCS: 96372 ×2; 90471; 96360; 96361; 99285; 36415; 93005; 93306; 97116; 97162; 83921; 80156; 80053; 82607; 82140; 82550; 82746; 83605; 83690; 83735; 84484; 85025; 85610; 81003; 87086; 83036; 72170; 71046; 93880; 72125; 70450; 90715; G0378 ×4; G0480; J1650 ×2; 80320

== ENCOUNTER → 2019-03-10 | Outpatient (CLI) | payer MEDICARE, BC ==
--- NOTE | 2019-03-12 10:22 | MM ---
Reason for exam: screening (asymptomatic). Last mammogram was performed 2 years and 10 months ago. History: Patient is postmenopausal. Physical Findings: A clinical breast exam by your physician is recommended on an annual basis and results should be correlated with mammographic findings. MG 3D Screening Mammo W/Cad Bilateral CC and MLO view(s) were taken. Prior study comparison: May 15, 2016, bilateral MG screening mammo w CAD. June 05, 2013, mammogram, performed at [facility]. April 11, 2012, mammogram, performed at [facility]. The breast tissue is heterogeneously dense. This may lower the sensitivity of mammography. No significant changes when compared with prior studies. ASSESSMENT: Benign, BI-RAD 2 RECOMMENDATION: Routine screening mammogram of both breasts in 1 year.
== END | disposition home or self-care (01) ==
LOC: RADMAMWWP 13:09
PROVIDERS: ATTEND Family Medicine
DX: Z12.31 Encounter for screening mammogram for malignant neoplasm of breast (principal)
CPT/HCPCS: 77063; 77067

== ENCOUNTER → 2020-04-22 | Outpatient (CLI) | payer MEDICARE, BC ==
--- NOTE | 2020-04-23 13:50 | MM ---
Reason for exam: screening (asymptomatic). Last mammogram was performed 1 year and 1 month ago. History: Patient is postmenopausal. Physical Findings: A clinical breast exam by your physician is recommended on an annual basis and results should be correlated with mammographic findings. MG 3D Screening Mammo W/Cad Bilateral CC and MLO view(s) were taken. Prior study comparison: March 10, 2019, bilateral MG 3d screening mammo w/cad. May 15, 2016, bilateral MG screening mammo w CAD. There are scattered fibroglandular densities. No significant changes when compared with prior studies. ASSESSMENT: Benign, BI-RAD 2 RECOMMENDATION: Routine screening mammogram of both breasts in 1 year.
== END | disposition home or self-care (01) ==
LOC: RADMAMWWP 10:51
PROVIDERS: ATTEND Family Medicine
DX: Z12.31 Encounter for screening mammogram for malignant neoplasm of breast (principal)
CPT/HCPCS: 77063; 77067

== ENCOUNTER 2020-05-15 11:20 | Emergency (ER) | payer MEDICARE, BC ==
[2020-05-15 11:25] VITALS: RESP 18; TEMP 99.1
[2020-05-15] MEDS ORDERED: SODIUM CHLORIDE 0.9% 1,000 ML IV ONE (12:04)
--- NOTE | 2020-05-15 12:23 | ED ---
Recheck HPI - General Chief Complaint: Recheck/Abnormal Lab/Rx Stated Complaint: Hypertensive Time Seen by Provider: 05/15/20 11:37 Source: patient Mode of arrival: ambulatory Limitations: no limitations - History of Present Illness Initial Comments: 80-year-old female patient with past medical history significant for hypertension presents to the emergency department today for evaluation of elevated blood pressures. Patient states that she saw her physician on Sunday was found to have high blood pressure. She was started on a new blood pressure medication and instructed to monitor her blood pressures by her primary care physician. Patient states she's been monitoring since Sunday has had consistently high blood pressure since. Levels are averaging around 200 systolic over 100 diastolic. Patient denies any associated symptoms with this. Denies any headache, blurred vision, double vision, chest pain, or shortness of breath. Denies numbness or tingling to her extremities. She does report some gastric upset and abnormal bowel movements but this is common for her. Patient denies any recent rash, cough, abdominal pain, back pain, dizziness, weakness, hematuria, dysuria, urinary urgency, urinary frequency, or any other complaints. - Related Data Home Medications Medication Instructions Recorded Confirmed Atorvastatin [Lipitor] 40 mg PO DAILY 11/17/14 05/15/20 Metoprolol Succinate (ER) [Toprol 25 mg PO DAILY 11/17/14 05/15/20 XL] Omeprazole 20 mg PO DAILY 07/09/17 05/15/20 carBAMazepine 200 mg PO QAM 10/11/18 05/15/20 carBAMazepine [TEGretol] 400 mg PO HS 10/11/18 05/15/20 Citalopram Hydrobromide 20 mg PO DAILY 05/15/20 05/15/20 [Citalopram HBr] Glimepiride [Amaryl] 0.5 mg PO DAILY PRN 05/15/20 05/15/20 Losartan [Cozaar] 50 mg PO DAILY 05/15/20 05/15/20 metFORMIN HCL [Glucophage] 1,000 mg PO HS 05/15/20 05/15/20 metFORMIN HCL [Glucophage] 500 mg PO DAILY 05/15/20 05/15/20 Allergies Allergy/AdvReac Type Severity Reaction Status Date / Time acetaminophen Allergy Hallucinati Verified 05/15/20 14:36 [From Darvocet-N] ons ciprofloxacin [From Cipro] Allergy Vomiting Verified 05/15/20 14:36 ciprofloxacin HCl Allergy Vomiting Verified 05/15/20 14:36 [From Cipro] codeine Allergy Unknown Verified 05/15/20 14:36 erythromycin base Allergy Unknown Verified 05/15/20 14:36 levofloxacin [From Levaquin] Allergy Rash/Hives Verified 05/15/20 14:36 nitrofurantoin Allergy Unknown Verified 05/15/20 14:36 [From Macrobid] nitrofurantoin Allergy Unknown Verified 05/15/20 14:36 macrocrystalline [From Macrobid] Penicillins Allergy Unknown Verified 05/15/20 14:36 propoxyphene napsylate Allergy Hallucinati Verified 05/15/20 14:36 [From Darvocet-N] ons sulfamethoxazole Allergy Unknown Verified 05/15/20 14:36 [From Bactrim] trimethoprim [From Bactrim] Allergy Unknown Verified 05/15/20 14:36 omnipaxo Allergy Rapid Uncoded 05/15/20 14:36 Heart Rate Review of Systems ROS Statement: Those systems with pertinent positive or pertinent negative responses have been documented in the HPI. ROS Other: All systems not noted in ROS Statement are negative. Past Medical History Past Medical History: Asthma, CVA/TIA, Diabetes Mellitus, GERD/Reflux, Hypertension, Seizure Disorder, Skin Disorder Additional Past Medical History / Comment(s): TIA age 33absence seizuresLt arm skin bruised from scratching during night, Parkinsons in 2017, History of Any Multi-Drug Resistant Organisms: ESBL Date of last positivie culture/infection: 03/09/16 MDRO Source:: URINE KL.PNEUMO Past Surgical History: Cholecystectomy, Heart Catheterization, Orthopedic Surgery Additional Past Surgical History / Comment(s): bilateral knee arthroscopies,left shoulder rotator cuff repair Past Anesthesia/Blood Transfusion Reactions: Motion Sickness Past Psychological History: No Psychological Hx Reported Smoking Status: Former smoker Past Alcohol Use History: None Reported Past Drug Use History: None Reported - Past Family History Brother(s) Family Medical History: CVA/TIA Additional Family Medical History / Comment(s): Patient has 1 brother that from either a CVA or acute [place]. Sister(s) Family Medical History: Coronary Artery Disease (CAD) Additional Family Medical History / Comment(s): Patient has 3 sisters and one is alive with no major medical problems. 2 sisters have and one was following influenza immunization. 1 sister is unknown cause of . Daughter(s) History Unknown: Yes Additional Family Medical History / Comment(s): Patient has 2 daughters and one has history of rheumatoid arthritis and one has history of diabetes. Patient has one son with no major medical problems. Son(s) History Unknown: Yes Family Medical History: No Reported History Father Additional Family Medical History / Comment(s): Father at age 83 from a myocardial infarction. Mother Family Medical History: No Reported History Additional Family Medical History / Comment(s): Mother at age 93 from a myocardial infarction. General Exam Limitations: no limitations General appearance: alert, in no apparent distress, other (This is a well- developed, well-nourished elderly female patient in no acute distress. Vital signs upon presentation are temperature 99.1F, pulse 99, respirations 18, blood pressure 216/96, pulse ox 99% on room air.) Eye exam: Present: normal appearance, PERRL, EOMI. Absent: scleral icterus, conjunctival injection, periorbital swelling ENT exam: Present: normal exam, normal oropharynx Respiratory exam: Present: normal lung sounds bilaterally. Absent: respiratory distress, wheezes, rales, rhonchi, stridor Cardiovascular Exam: Present: regular rate, normal rhythm, normal heart sounds. Absent: systolic murmur, diastolic murmur, rubs, gallop, clicks GI/Abdominal exam: Present: soft, normal bowel sounds. Absent: distended, t enderness, guarding, rebound, rigid Neurological exam: Present: alert, oriented X3, CN II-XII intact Psychiatric exam: Present: normal affect, normal mood Skin exam: Present: warm, dry, intact, normal color. Absent: rash Course Vital Signs 05/15/20 05/15/20 05/15/20 11:22 12:09 13:22 Temperature 99.1 F Pulse Rate 99 83 Respiratory 18 18 Rate Blood Pressure 216/96 196/83 214/100 O2 Sat by Pulse 99 99 Oximetry 05/15/20 05/15/20 05/15/20 13:40 14:19 14:44 Temperature Pulse Rate 87 105 H 94 Respiratory 18 18 18 Rate Blood Pressure 213/96 154/65 141/86 O2 Sat by Pulse 98 98 96 Oximetry Medical Decision Making - Medical Decision Making 80-year-old female patient percents to the emergency department today for evaluation of elevated blood pressure. Patient does have a history and did recently have a medication change by her primary care physician. Labs reviewed and are unremarkable. EKG was unremarkable. She was given a dose of hydralazine, blood pressure is improved. She is instructed to start taking 2 tablets of her metoprolol at night and recheck her blood pressures in the morning to ensure it safe to take her losartan. She'll be discharged follow-up with her primary care physician for recheck on Sunday. Return parameters discussed in detail. She verbalizes understanding and agrees with this plan. - Lab Data Result diagrams: 05/15/20 12:05/15/20 12: Lab Results 05/15/20 05/15/20 05/15/20 Range/Units 12: 12: 12: WBC 5.4 (3.8-10.6) k/uL RBC 4.04 (3.80-5.40) m/uL Hgb 12.6 (11.4-16.0) gm/dL Hct 38.8 (34.0-46.0) % MCV 96.2 (80.0-100.0) fL MCH 31.1 (25.0-35.0) pg MCHC 32.3 (31.0-37.0) g/dL RDW 13.5 (11.5-15.5) % Plt Count 233 (150-450) k/uL MPV 7.0 Neutrophils % 66 % Lymphocytes % 21 % Monocytes % 6 % Eosinophils % 5 % Basophils % 1 % Neutrophils # 3.6 (1.3-7.7) k/uL Lymphocytes # 1.1 (1.0-4.8) k/uL Monocytes # 0.3 (0-1.0) k/uL Eosinophils # 0.3 (0-0.7) k/uL Basophils # 0.0 (0-0.2) k/uL Sodium 140 (137-145) mmol/L Potassium 4.4 (3.5-5.1) mmol/L Chloride 107 (98-107) mmol/L Carbon Dioxide 27 (22-30) mmol/L Anion Gap 6 mmol/L BUN 14 (7-17) mg/dL Creatinine 0.58 (0.52-1.04) mg/dL Est GFR (CKD-EPI)AfAm >90 (>60 ml/min/1.73 sqM) Est GFR (CKD-EPI)NonAf 89 (>60 ml/min/1.73 sqM) Glucose 113 H (74-99) mg/dL Calcium 9.3 (8.4-10.2) mg/dL Total Bilirubin 0.4 (0.2-1.3) mg/dL AST 22 (14-36) U/L ALT 11 (4-34) U/L Alkaline Phosphatase 111 (38-126) U/L Troponin I <0.012 (0.000-0.034) ng/mL Total Protein 7.0 (6.3-8.2) g/dL Albumin 4.2 (3.5-5.0) g/dL - EKG Data -: EKG Interpreted by [facility] EKG Comments: EKG obtained at 1204 shows normal sinus rhythm with a ventricular rate of 80, WA interval 176, QRS duration 92, QT 404, QTC 465. No evidence of ST elevation or depression. Disposition Clinical Impression: Hypertension Disposition: HOME SELF-CARE Condition: Good Instructions (If sedation given, give patient instructions): Hypertension (ED) Additional Instructions: Start taking 2 tablets of your Metoprolol at night. Recheck BP in the morning if BP is less than 140 on the top do not take Losartan and continue to monitor the blood pressure throughout the day. Call Dr. Zaragoza's office on Sunday for further instruction. Return to the emergency department for any other new, worsening, or concerning symptoms. Is patient prescribed a controlled substance at d/c from ED?: No Referrals: Sharif Zaragoza DO [Primary Care Provider] - 1-2 days Time of Disposition: 14:46
[2020-05-15 12:35] LABS: Basophils % (A) 1 %; Eosinophils # (A) 0.3 k/uL (0-0.7); Eosinophils % (A) 5 %; HCT 38.8 % (34.0-46.0); HGB 12.6 gm/dL (11.4-16.0); Lymphocytes # (A) 1.1 k/uL (1.0-4.8); Lymphocytes % (A) 21 %; MCH 31.1 pg (25.0-35.0); MCHC 32.3 g/dL (31.0-37.0); MCV 96.2 fL (80.0-100.0); Monocytes # (A) 0.3 k/uL (0-1.0); Monocytes % (A) 6 %; Neutrophils # (A) 3.6 k/uL (1.3-7.7); Neutrophils % (A) 66 %; Platelet Count 233 k/uL (150-450); RBC 4.04 m/uL (3.80-5.40); RDW 13.5 % (11.5-15.5); WBC 5.4 k/uL (3.8-10.6)
[2020-05-15 12:46] LABS: ALT 11 U/L (4-34); AST 22 U/L (14-36); African American GFR (CKD) >90 (>60 ml/min/1.73 sqM); Albumin 4.2 g/dL (3.5-5.0); Alkaline Phosphatase 111 U/L (38-126); Anion Gap 6 mmol/L; Blood Urea Nitrogen 14 mg/dL (7-17); Calcium 9.3 mg/dL (8.4-10.2); Carbon Dioxide 27 mmol/L (22-30); Chloride 107 mmol/L (98-107); Glucose 113 mg/dL (74-99); Non-African American GFR(CKD) 89 (>60 ml/min/1.73 sqM); Potassium 4.4 mmol/L (3.5-5.1); Sodium 140 mmol/L (137-145); Total Bilirubin 0.4 mg/dL (0.2-1.3)
[2020-05-15] MEDS ORDERED: hydrALAZINE HCL 20 MG/ML 1 ML VIAL IVP STA (13:23)
[2020-05-15 14:44] VITALS: BP 141/86; PULSE 94
== END 2020-05-15 14:50 | disposition home or self-care (01) ==
LOC: EC 11:20
DX: I10 Essential (primary) hypertension (principal); E11.9 Type 2 diabetes mellitus without complications; K21.9 Gastro-esophageal reflux disease without esophagitis; J45.909 Unspecified asthma, uncomplicated; G20 Parkinson's disease; G40.909 Epilepsy, unspecified, not intractable, without status epilepticus; Z79.84 Long term (current) use of oral hypoglycemic drugs; Z79.899 Other long term (current) drug therapy; Z88.0 Allergy status to penicillin; Z88.5 Allergy status to narcotic agent; Z88.1 Allergy status to other antibiotic agents; Z88.8 Allergy status to other drugs, medicaments and biological substances; Z88.2 Allergy status to sulfonamides; Z87.891 Personal history of nicotine dependence; Z86.73 Personal history of transient ischemic attack (TIA), and cerebral infarction without residual deficits
CPT/HCPCS: 36415; 93005; 80053; 84484; 85025; 99283; 96374; 96361; J0360

== ENCOUNTER 2020-06-02 06:06 | Emergency (ER) | payer MEDICARE, BC ==
[2020-06-02 06:16] VITALS: RESP 18; TEMP 98.5
[2020-06-02] MEDS ORDERED: SODIUM CHLORIDE 0.9% 1,000 ML IV STA (06:32)
[2020-06-02] MEDS ORDERED: ONDANSETRON 4 MG/2 ML VIAL IVP STA ×2 (06:33→08:47)
[2020-06-02] MEDS ORDERED: LOSARTAN 50 MG TAB PO STA (06:33)
--- NOTE | 2020-06-02 06:46 | ED ---
General Adult HPI - General Chief complaint: Headache Stated complaint: High BP, nausea Time Seen by Provider: 06/02/20 06:19 Source: patient, RN notes reviewed Mode of arrival: wheelchair Limitations: no limitations - History of Present Illness Initial comments: This a 80-year-old female presents emergency Department chief complaint of hypertension. Patient's been having increasing issues with her blood pressure. She was seen here 2 weeks ago which she had normal lab work states that she was given medication for blood pressure improved. She did discuss over the phone about her blood pressure medication PCP who increased her losartan from 50 mg times to 100 mg in the morning if her blood pressure was elevated. Patient states that she woke up this morning with a headache which has now resolved she has no blurred vision, chest pain or shortness breath she states she has some nausea but she has ongoing issues with this she takes Zofran at home she cannot take one prior arrival. Patient has not taken her losartan this morning she takes Toprol 25mg XL at nighttime. Patient denies any leg pain, leg swelling denies any shortness of breath fever chills or any GI symptoms. - Related Data Home Medications Medication Instructions Recorded Confirmed Atorvastatin [Lipitor] 40 mg PO DAILY 11/17/14 06/02/20 Metoprolol Succinate (ER) [Toprol 25 mg PO DAILY 11/17/14 06/02/20 XL] Omeprazole 20 mg PO DAILY 07/09/17 06/02/20 carBAMazepine 200 mg PO DAILY 10/11/18 06/02/20 carBAMazepine [TEGretol] 400 mg PO HS 10/11/18 06/02/20 Citalopram Hydrobromide 20 mg PO DAILY 05/15/20 06/02/20 [Citalopram HBr] Glimepiride [Amaryl] 0.5 mg PO DAILY PRN 05/15/20 06/02/20 Losartan [Cozaar] 100 mg PO DAILY 05/15/20 06/02/20 metFORMIN HCL [Glucophage] 1,000 mg PO HS 05/15/20 06/02/20 metFORMIN HCL [Glucophage] 500 mg PO DAILY 05/15/20 06/02/20 ALPRAZolam [Xanax] 0.5 mg PO TID PRN 06/02/20 06/02/20 Ondansetron Odt [Zofran Odt] 4 mg PO BID PRN 06/02/20 06/02/20 Previous Rx's Medication Instructions Recorded amLODIPine [Norvasc] 5 mg PO DAILY #30 tab 06/02/20 Allergies Allergy/AdvReac Type Severity Reaction Status Date / Time codeine Allergy Unknown Verified 06/02/20 07:45 erythromycin base Allergy Unknown Verified 06/02/20 07:45 levofloxacin [From Levaquin] Allergy Rash/Hives Verified 06/02/20 07:45 nitrofurantoin Allergy Unknown Verified 06/02/20 07:45 [From Macrobid] nitrofurantoin Allergy Unknown Verified 06/02/20 07:45 macrocrystalline [From Macrobid] Penicillins Allergy Unknown Verified 06/02/20 07:45 sulfamethoxazole Allergy Unknown Verified 06/02/20 07:45 [From Bactrim] trimethoprim [From Bactrim] Allergy Unknown Verified 06/02/20 07:45 acetaminophen AdvReac Hallucinati Verified 06/02/20 07:45 [From Darvocet-N] ons ciprofloxacin [From Cipro] AdvReac Vomiting Verified 06/02/20 07:45 ciprofloxacin HCl AdvReac Vomiting Verified 06/02/20 07:45 [From Cipro] propoxyphene napsylate AdvReac Hallucinati Verified 06/02/20 07:45 [From Darvocet-N] ons omnipaxo AdvReac Rapid Uncoded 06/02/20 07:45 Heart Rate Review of Systems ROS Statement: Those systems with pertinent positive or pertinent negative responses have been documented in the HPI. ROS Other: All systems not noted in ROS Statement are negative. Past Medical History Past Medical History: Asthma, CVA/TIA, Diabetes Mellitus, GERD/Reflux, Hypertens ion, Seizure Disorder, Skin Disorder Additional Past Medical History / Comment(s): TIA age 33absence seizuresLt arm skin bruised from scratching during night, Parkinsons in 2017, History of Any Multi-Drug Resistant Organisms: ESBL Date of last positivie culture/infection: 03/09/16 MDRO Source:: URINE KL.PNEUMO Past Surgical History: Cholecystectomy, Heart Catheterization, Orthopedic Surgery Additional Past Surgical History / Comment(s): bilateral knee arthroscopies,left shoulder rotator cuff repair Past Anesthesia/Blood Transfusion Reactions: Motion Sickness Past Psychological History: No Psychological Hx Reported Smoking Status: Former smoker Past Alcohol Use History: None Reported Past Drug Use History: None Reported - Past Family History Brother(s) Family Medical History: CVA/TIA Additional Family Medical History / Comment(s): Patient has 1 brother that from either a CVA or acute [place]. Sister(s) Family Medical History: Coronary Artery Disease (CAD) Additional Family Medical History / Comment(s): Patient has 3 sisters and one is alive with no major medical problems. 2 sisters have and one was following influenza immunization. 1 sister is unknown cause of . Daughter(s) History Unknown: Yes Additional Family Medical History / Comment(s): Patient has 2 daughters and one has history of rheumatoid arthritis and one has history of diabetes. Patient has one son with no major medical problems. Son(s) History Unknown: Yes Family Medical History: No Reported History Father Additional Family Medical History / Comment(s): Father at age 83 from a myocardial infarction. Mother Family Medical History: No Reported History Additional Family Medical History / Comment(s): Mother at age 93 from a myocardial infarction. General Exam Limitations: no limitations General appearance: alert, in no apparent distress Head exam: Present: atraumatic, normocephalic, normal inspection Eye exam: Present: normal appearance, PERRL, EOMI. Absent: scleral icterus, conjunctival injection, periorbital swelling ENT exam: Present: normal exam, normal oropharynx, mucous membranes moist Neck exam: Present: normal inspection, full ROM. Absent: tenderness, meningismus, lymphadenopathy Respiratory exam: Present: normal lung sounds bilaterally. Absent: respiratory distress, wheezes, rales, rhonchi, stridor Cardiovascular Exam: Present: regular rate, normal rhythm, normal heart sounds. Absent: systolic murmur, diastolic murmur, rubs, gallop, clicks GI/Abdominal exam: Present: soft, normal bowel sounds. Absent: distended, tenderness, guarding, rebound, rigid Extremities exam: Absent: pedal edema, calf tenderness Neurological exam: Present: alert, oriented X3, CN II-XII intact, reflexes normal. Absent: motor sensory deficit Skin exam: Present: warm, dry, intact, normal color. Absent: rash Course Vital Signs 06/02/20 06/02/20 06/02/20 06:10 06:16 07:02 Temperature 98.5 F Pulse Rate 92 80 Respiratory 18 18 Rate Blood Pressure 195/121 185/110 191/102 O2 Sat by Pulse 97 Oximetry 06/02/20 06/02/20 06/02/20 08:00 08:53 09:02 Temperature Pulse Rate 82 87 85 Respiratory 18 18 18 Rate Blood Pressure 192/93 108/54 123/59 O2 Sat by Pulse 95 95 95 Oximetry 06/02/20 10:00 Temperature Pulse Rate 90 Respiratory 18 Rate Blood Pressure 151/71 O2 Sat by Pulse 96 Oximetry - Reevaluation(s) Reevaluation #1: 06/02/20 09:45 Patient has been in rehab several times she states her nausea comes in waves, she's had no headache on the emergency department. Patient pressure is impro cinthya. Medical Decision Making - Medical Decision Making 80-year-old female presented for hypertension. Patient's been having issues with her blood pressure recently. Patient's blood pressure is improved after medications. Patient's PCP was contacted. Patient will be started on Norvasc. Patient we discharged him stable condition. Return parameters were discussed. - Lab Data Result diagrams: 06/02/20 07:04 06/02/20 07:04 Lab Results 06/02/20 06/02/20 06/02/20 Range/Units 07:04 07:04 07:04 WBC 5.0 (3.8-10.6) k/uL RBC 3.87 (3.80-5.40) m/uL Hgb 12.4 (11.4-16.0) gm/dL Hct 36.5 (34.0-46.0) % MCV 94.3 (80.0-100.0) fL MCH 32.1 (25.0-35.0) pg MCHC 34.0 (31.0-37.0) g/dL RDW 12.8 (11.5-15.5) % Plt Count 245 (150-450) k/uL MPV 6.9 Neutrophils % 72 % Lymphocytes % 18 % Monocytes % 5 % Eosinophils % 3 % Basophils % 1 % Neutrophils # 3.6 (1.3-7.7) k/uL Lymphocytes # 0.9 L (1.0-4.8) k/uL Monocytes # 0.2 (0-1.0) k/uL Eosinophils # 0.2 (0-0.7) k/uL Basophils # 0.0 (0-0.2) k/uL PT (9.0-12.0) sec INR (<1.2) APTT (22.0-30.0) sec Sodium 138 (137-145) mmol/L Potassium 4.3 (3.5-5.1) mmol/L Chloride 105 (98-107) mmol/L Carbon Dioxide 26 (22-30) mmol/L Anion Gap 7 mmol/L BUN 14 (7-17) mg/dL Creatinine 0.56 (0.52-1.04) mg/dL Est GFR (CKD-EPI)AfAm >90 (>60 ml/min/1.73 sqM) Est GFR (CKD-EPI)NonAf 90 (>60 ml/min/1.73 sqM) Glucose 128 H (74-99) mg/dL Calcium 9.1 (8.4-10.2) mg/dL Magnesium 1.7 (1.6-2.3) mg/dL Total Bilirubin 0.4 (0.2-1.3) mg/dL AST 19 (14-36) U/L ALT 11 (4-34) U/L Alkaline Phosphatase 97 (38-126) U/L Troponin I <0.012 (0.000-0.034) ng/mL NT-Pro-B Natriuret Pep pg/mL Total Protein 6.5 (6.3-8.2) g/dL Albumin 3.9 (3.5-5.0) g/dL Lipase 167 (23-300) U/L 06/02/20 06/02/20 Range/Units 07:04 07:50 WBC (3.8-10.6) k/uL RBC (3.80-5.40) m/uL Hgb (11.4-16.0) gm/dL Hct (34.0-46.0) % MCV (80.0-100.0) fL MCH (25.0-35.0) pg MCHC (31.0-37.0) g/dL RDW (11.5-15.5) % Plt Count (150-450) k/uL MPV Neutrophils % % Lymphocytes % % Monocytes % % Eosinophils % % Basophils % % Neutrophils # (1.3-7.7) k/uL Lymphocytes # (1.0-4.8) k/uL Monocytes # (0-1.0) k/uL Eosinophils # (0-0.7) k/uL Basophils # (0-0.2) k/uL PT 9.8 (9.0-12.0) sec INR 0.9 (<1.2) APTT 21.2 L (22.0-30.0) sec Sodium (137-145) mmol/L Potassium (3.5-5.1) mmol/L Chloride (98-107) mmol/L Carbon Dioxide (22-30) mmol/L Anion Gap mmol/L BUN (7-17) mg/dL Creatinine (0.52-1.04) mg/dL Est GFR (CKD-EPI)AfAm (>60 ml/min/1.73 sqM) Est GFR (CKD-EPI)NonAf (>60 ml/min/1.73 sqM) Glucose (74-99) mg/dL Calcium (8.4-10.2) mg/dL Magnesium (1.6-2.3) mg/dL Total Bilirubin (0.2-1.3) mg/dL AST (14-36) U/L ALT (4-34) U/L Alkaline Phosphatase (38-126) U/L Troponin I (0.000-0.034) ng/mL NT-Pro-B Natriuret Pep 269 pg/mL Total Protein (6.3-8.2) g/dL Albumin (3.5-5.0) g/dL Lipase (23-300) U/L Disposition Clinical Impression: Hypertension Disposition: TRANSFER TO PSYCH HOSP/UNIT Condition: Stable Instructions (If sedation given, give patient instructions): Hypertension (ED) Additional Instructions: Please return to the Emergency Department if symptoms worsen or any other concerns. Prescriptions: amLODIPine [Norvasc] 5 mg PO DAILY #30 tab Is patient prescribed a controlled substance at d/c from ED?: No Referrals: Sharif Zaragoza DO [Primary Care Provider] - 1-2 days Time of Disposition: 10:46
[2020-06-02 07:24] LABS: Basophils % (A) 1 %; Eosinophils # (A) 0.2 k/uL (0-0.7); Eosinophils % (A) 3 %; HCT 36.5 % (34.0-46.0); HGB 12.4 gm/dL (11.4-16.0); Lymphocytes # (A) 0.9 k/uL (1.0-4.8); Lymphocytes % (A) 18 %; MCH 32.1 pg (25.0-35.0); MCV 94.3 fL (80.0-100.0); Mean Platelet Volume 6.9; Monocytes # (A) 0.2 k/uL (0-1.0); Monocytes % (A) 5 %; Neutrophils # (A) 3.6 k/uL (1.3-7.7); Neutrophils % (A) 72 %; Platelet Count 245 k/uL (150-450); RBC 3.87 m/uL (3.80-5.40); RDW 12.8 % (11.5-15.5)
[2020-06-02 07:27] LABS: ALT 11 U/L (4-34); AST 19 U/L (14-36); African American GFR (CKD) >90 (>60 ml/min/1.73 sqM); Albumin 3.9 g/dL (3.5-5.0); Alkaline Phosphatase 97 U/L (38-126); Anion Gap 7 mmol/L; Blood Urea Nitrogen 14 mg/dL (7-17); Calcium 9.1 mg/dL (8.4-10.2); Carbon Dioxide 26 mmol/L (22-30); Chloride 105 mmol/L (98-107); Glucose 128 mg/dL (74-99); Lipase 167 U/L (23-300); Magnesium 1.7 mg/dL (1.6-2.3); Non-African American GFR(CKD) 90 (>60 ml/min/1.73 sqM); Potassium 4.3 mmol/L (3.5-5.1); Sodium 138 mmol/L (137-145); Total Bilirubin 0.4 mg/dL (0.2-1.3); Total Protein 6.5 g/dL (6.3-8.2)
[2020-06-02] MEDS ORDERED: hydrALAZINE HCL 20 MG/ML 1 ML VIAL IVP STA (08:05)
[2020-06-02 08:30] LABS: INR 0.9 (<1.2); Prothrombin Time 9.8 sec (9.0-12.0)
[2020-06-02 08:40] LABS: Partial Thromboplastin Time 21.2 sec (22.0-30.0)
[2020-06-02] MEDS ORDERED: SODIUM CHLORIDE 0.9% 1,000 ML IV ONE (08:46)
[2020-06-02] MEDS ORDERED: METOCLOPRAMIDE 5 MG/ML 2 ML VIAL IVP STA (09:27)
[2020-06-02 11:10] VITALS: BP 128/75; PULSE 93
== END 2020-06-02 11:20 ==
LOC: EC 06:06
DX: I10 Essential (primary) hypertension (principal); E11.9 Type 2 diabetes mellitus without complications; K21.9 Gastro-esophageal reflux disease without esophagitis; G40.909 Epilepsy, unspecified, not intractable, without status epilepticus; G20 Parkinson's disease; Z79.84 Long term (current) use of oral hypoglycemic drugs; Z79.899 Other long term (current) drug therapy; Z88.0 Allergy status to penicillin; Z88.1 Allergy status to other antibiotic agents; Z88.2 Allergy status to sulfonamides; Z88.5 Allergy status to narcotic agent; Z88.8 Allergy status to other drugs, medicaments and biological substances; Z87.891 Personal history of nicotine dependence; Z95.5 Presence of coronary angioplasty implant and graft; Z90.49 Acquired absence of other specified parts of digestive tract; Z86.73 Personal history of transient ischemic attack (TIA), and cerebral infarction without residual deficits
CPT/HCPCS: 36415; 93005; 83880; 80053; 83690; 83735; 84484; 85025; 85610; 85730; 99285; 96374; 96375 ×2; 96376; 96361 ×2; J0360; J2765; J2405

== ENCOUNTER 2020-06-05 13:03 | Emergency (ER) | payer MEDICARE, BC ==
[2020-06-05 13:11] VITALS: TEMP 98.7
--- NOTE | 2020-06-05 13:28 | ED ---
General Adult HPI - General Chief complaint: Recheck/Abnormal Lab/Rx Stated complaint: High BP,Revisit Time Seen by Provider: 06/05/20 13:14 Source: patient, family Mode of arrival: ambulatory Limitations: no limitations - History of Present Illness Initial comments: Dictation was produced using [employer] dictation software. please excuse any grammatical, word or spelling errors. This patient was cared for during a federal and state declared state of emergency secondary to Covid 19 Chief Complaint: 80-year-old female past medical history of hypertension presents with elevated blood pressure. History of Present Illness: Patient is a 72-year-old female she has past medical history of hypertension. Patient states she takes 3 medications for blood pressure. She states she takes Norvasc, metoprolol and amlodipine. Patient was recently in the emergency room for the same complaint. Patient denies any chest pain, shortness of breath, strokelike symptoms, no listing paresthesias. No headache. Patient reports that she tried to contact her primary care physician however he was not available. She then contacted pharmacy and was told to come to the emergency room. She reports that since last night she's been having intermittent high blood pressure readings. She's had blood pressure readings with systolics in the 200s. They've more so been between 150 - 170. The ROS documented in this emergency department record has been reviewed and confirmed by me. Those systems with pertinent positive or negative responses have been documented in the HPI. All other systems are other negative and/or noncontributory. PHYSICAL EXAM: General Impression: Alert and oriented x3, not in acute distress HEENT: Normocephalic atraumatic, extra-ocular movements intact, pupils equal and reactive to light bilaterally, mucous membranes moist. Cardiovascular: Heart regular rate and rhythm Chest: Able to complete full sentences, no retractions, no tachypnea Abdomen: abdomen soft, non-tender, non-distended, no organomegaly Musculoskeletal: Pulses present and equal in all extremities, no peripheral edema Motor: no focal deficits noted Neurological: CN II-XII grossly intact, no focal motor or sensory deficits noted Skin: Intact with no visualized rashes Psych: Normal affect and mood ED course: 80-year-old female presents with asymptomatic hypertension. All signs upon arrival are within acceptable limits. Blood pressures measuring 183/94. Physical examination is benign. Laboratory evaluation obtained. CBC, metabolic panel, coronavirus test is negative.. Does not have any symptoms. Patient will emergency department still has slightly high blood pressures. Patient given labetalol. Patient observed for several minutes after initiation of labetalol. She is strongly advised to follow-up with her primary care physician for outpatient management of her blood pressure. - Related Data Home Medications Medication Instructions Recorded Confirmed Atorvastatin [Lipitor] 40 mg PO DAILY 11/17/14 06/02/20 Metoprolol Succinate (ER) [Toprol 25 mg PO DAILY 11/17/14 06/02/20 XL] Omeprazole 20 mg PO DAILY 07/09/17 06/02/20 carBAMazepine 200 mg PO DAILY 10/11/18 06/02/20 carBAMazepine [TEGretol] 400 mg PO HS 10/11/18 06/02/20 Citalopram Hydrobromide 20 mg PO DAILY 05/15/20 06/02/20 [Citalopram HBr] Glimepiride [Amaryl] 0.5 mg PO DAILY PRN 05/15/20 06/02/20 Losartan [Cozaar] 100 mg PO DAILY 05/15/20 06/02/20 metFORMIN HCL [Glucophage] 1,000 mg PO HS 05/15/20 06/02/20 metFORMIN HCL [Glucophage] 500 mg PO DAILY 05/15/20 06/02/20 ALPRAZolam [Xanax] 0.5 mg PO TID PRN 06/02/20 06/02/20 Ondansetron Odt [Zofran Odt] 4 mg PO BID PRN 06/02/20 06/02/20 Previous Rx's Medication Instructions Recorded amLODIPine [Norvasc] 5 mg PO DAILY #30 tab 06/02/20 Allergies Allergy/AdvReac Type Severity Reaction Status Date / Time codeine Allergy Unknown Verified 06/05/20 13:11 erythromycin base Allergy Unknown Verified 06/05/20 13:11 levofloxacin [From Levaquin] Allergy Rash/Hives Verified 06/05/20 13:11 nitrofurantoin Allergy Unknown Verified 06/05/20 13:11 [From Macrobid] nitrofurantoin Allergy Unknown Verified 06/05/20 13:11 macrocrystalline [From Macrobid] Penicillins Allergy Unknown Verified 06/05/20 13:11 sulfamethoxazole Allergy Unknown Verified 06/05/20 13:11 [From Bactrim] trimethoprim [From Bactrim] Allergy Unknown Verified 06/05/20 13:11 acetaminophen AdvReac Hallucinati Verified 06/05/20 13:11 [From Darvocet-N] ons ciprofloxacin [From Cipro] AdvReac Vomiting Verified 06/05/20 13:11 ciprofloxacin HCl AdvReac Vomiting Verified 06/05/20 13:11 [From Cipro] hydralazine AdvReac headache Verified 06/05/20 13:12 propoxyphene napsylate AdvReac Hallucinati Verified 06/05/20 13:11 [From Darvocet-N] ons omnipaxo AdvReac Rapid Uncoded 06/05/20 13:11 Heart Rate Review of Systems ROS Statement: Those systems with pertinent positive or pertinent negative responses have been documented in the HPI. ROS Other: All systems not noted in ROS Statement are negative. Past Medical History Past Medical History: Asthma, CVA/TIA, Diabetes Mellitus, GERD/Reflux, Hypertension, Seizure Disorder, Skin Disorder Additional Past Medical History / Comment(s): TIA age 33absence seizuresLt arm skin bruised from scratching during night, Parkinsons in 2017, History of Any Multi-Drug Resistant Organisms: ESBL Date of last positivie culture/infection: 03/09/16 MDRO Source:: URINE [email or web address] Past Surgical History: Cholecystectomy, Heart Catheterization, Orthopedic Jagjit darien Additional Past Surgical History / Comment(s): bilateral knee arthroscopies,left shoulder rotator cuff repair Past Anesthesia/Blood Transfusion Reactions: Motion Sickness Past Psychological History: No Psychological Hx Reported Smoking Status: Former smoker Past Alcohol Use History: None Reported Past Drug Use History: None Reported - Past Family History Brother(s) Family Medical History: CVA/TIA Additional Family Medical History / Comment(s): Patient has 1 brother that from either a CVA or acute [place]. Sister(s) Family Medical History: Coronary Artery Disease (CAD) Additional Family Medical History / Comment(s): Patient has 3 sisters and one is alive with no major medical problems. 2 sisters have and one was following influenza immunization. 1 sister is unknown cause of . Daughter(s) History Unknown: Yes Additional Family Medical History / Comment(s): Patient has 2 daughters and one has history of rheumatoid arthritis and one has history of diabetes. Patient has one son with no major medical problems. Son(s) History Unknown: Yes Family Medical History: No Reported History Father Additional Family Medical History / Comment(s): Father at age 83 from a myocardial infarction. Mother Family Medical History: No Reported History Additional Family Medical History / Comment(s): Mother at age 93 from a myocardial infarction. General Exam Limitations: no limitations Course Vital Signs 06/05/20 06/05/20 13:09 14:20 Temperature 98.7 F Pulse Rate 91 75 Respiratory 20 18 Rate Blood Pressure 183/94 195/89 O2 Sat by Pulse 98 Oximetry Medical Decision Making - Medical Decision Making Return parameters discussed. - Lab Data Result diagrams: 06/05/20 13:33 06/05/20 13:33 Lab Results 06/05/20 06/05/20 06/05/20 Range/Units 13:33 13:33 13:33 WBC 4.3 (3.8-10.6) k/uL RBC 3.80 (3.80-5.40) m/uL Hgb 12.2 (11.4-16.0) gm/dL Hct 35.8 (34.0-46.0) % MCV 94.3 (80.0-100.0) fL MCH 32.0 (25.0-35.0) pg MCHC 33.9 (31.0-37.0) g/dL RDW 13.0 (11.5-15.5) % Plt Count 240 (150-450) k/uL MPV 6.8 Neutrophils % 63 % Lymphocytes % 25 % Monocytes % 7 % Eosinophils % 2 % Basophils % 1 % Neutrophils # 2.7 (1.3-7.7) k/uL Lymphocytes # 1.1 (1.0-4.8) k/uL Monocytes # 0.3 (0-1.0) k/uL Eosinophils # 0.1 (0-0.7) k/uL Basophils # 0.1 (0-0.2) k/uL Sodium 138 (137-145) mmol/L Potassium 4.1 (3.5-5.1) mmol/L Chloride 106 (98-107) mmol/L Carbon Dioxide 26 (22-30) mmol/L Anion Gap 6 mmol/L BUN 16 (7-17) mg/dL Creatinine 0.55 (0.52-1.04) mg/dL Est GFR (CKD-EPI)AfAm >90 (>60 ml/min/1.73 sqM) Est GFR (CKD-EPI)NonAf >90 (>60 ml/min/1.73 sqM) Glucose 155 H (74-99) mg/dL Calcium 9.1 (8.4-10.2) mg/dL Coronavirus (PCR) Not Detected (Not Detectd) Disposition Clinical Impression: Hypertension Disposition: HOME SELF-CARE Condition: Good Instructions (If sedation given, give patient instructions): Hypertension (ED) Is patient prescribed a controlled substance at d/c from ED?: No Referrals: Sharif Zaragoza DO [Primary Care Provider] - 1-2 days Time of Disposition: 14:28
[2020-06-05 13:44] LABS: Basophils # (A) 0.1 k/uL (0-0.2); Basophils % (A) 1 %; Eosinophils # (A) 0.1 k/uL (0-0.7); Eosinophils % (A) 2 %; HCT 35.8 % (34.0-46.0); HGB 12.2 gm/dL (11.4-16.0); Lymphocytes # (A) 1.1 k/uL (1.0-4.8); Lymphocytes % (A) 25 %; MCHC 33.9 g/dL (31.0-37.0); MCV 94.3 fL (80.0-100.0); Mean Platelet Volume 6.8; Monocytes # (A) 0.3 k/uL (0-1.0); Monocytes % (A) 7 %; Neutrophils # (A) 2.7 k/uL (1.3-7.7); Neutrophils % (A) 63 %; Platelet Count 240 k/uL (150-450); WBC 4.3 k/uL (3.8-10.6)
[2020-06-05 13:55] LABS: African American GFR (CKD) >90 (>60 ml/min/1.73 sqM); Anion Gap 6 mmol/L; Blood Urea Nitrogen 16 mg/dL (7-17); Calcium 9.1 mg/dL (8.4-10.2); Carbon Dioxide 26 mmol/L (22-30); Chloride 106 mmol/L (98-107); Glucose 155 mg/dL (74-99); Non-African American GFR(CKD) >90 (>60 ml/min/1.73 sqM); Potassium 4.1 mmol/L (3.5-5.1); Sodium 138 mmol/L (137-145)
[2020-06-05] MEDS ORDERED: LABETALOL 5 MG/ML VIAL MDV IVP STA (14:11)
[2020-06-05 14:21] VITALS: RESP 18
[2020-06-05 14:37] VITALS: BP 175/86; PULSE 76
== END 2020-06-05 14:31 | disposition home or self-care (01) ==
LOC: EC 13:03
DX: I10 Essential (primary) hypertension (principal); E11.9 Type 2 diabetes mellitus without complications; G20 Parkinson's disease; G40.909 Epilepsy, unspecified, not intractable, without status epilepticus; J45.909 Unspecified asthma, uncomplicated; K21.9 Gastro-esophageal reflux disease without esophagitis; Z20.828 Contact with and (suspected) exposure to other viral communicable diseases; Z79.84 Long term (current) use of oral hypoglycemic drugs; Z79.899 Other long term (current) drug therapy; Z88.5 Allergy status to narcotic agent; Z88.1 Allergy status to other antibiotic agents; Z88.0 Allergy status to penicillin; Z88.8 Allergy status to other drugs, medicaments and biological substances; Z88.2 Allergy status to sulfonamides; Z87.891 Personal history of nicotine dependence; Z86.73 Personal history of transient ischemic attack (TIA), and cerebral infarction without residual deficits
CPT/HCPCS: 36415; 80048; 85025; 87635; 93005; 96374; 99283

== ENCOUNTER → 2021-04-22 | Outpatient (CLI) | payer MEDICARE, BC ==
[2021-04-22 19:16] LABS: HCT 37.9 % (37.2-46.3); HGB 11.9 g/dL (12.0-15.0); MCH 31.2 pg (27.0-32.0); MCHC 31.4 g/dL (32.0-37.0); MCV 99.2 fL (80.0-97.0); Mean Platelet Volume 10.1 fL (9.5-12.2); Platelet Count 263 X 10*3/uL (140-440); RBC 3.82 X 10*6/uL (4.10-5.20); RDW 13.5 % (11.5-14.5); WBC 5.21 X 10*3/uL (4.50-10.00)
== END | disposition home or self-care (01) ==
LOC: LABWHC1 13:01
PROVIDERS: ATTEND Family Medicine
DX: I82.409 Acute embolism and thrombosis of unspecified deep veins of unspecified lower extremity (principal); L03.90 Cellulitis, unspecified
CPT/HCPCS: 36415; 85027; 85379

== ENCOUNTER → 2021-04-26 | Outpatient (CLI) | payer MEDICARE, BC ==
--- NOTE | 2021-04-26 14:50 | US ---
EXAMINATION TYPE: US venous doppler duplex LE DATE OF EXAM: 04/26/2021 1:40 PM COMPARISON: NONE CLINICAL HISTORY: I82.403 DVT. SIDE PERFORMED: Bilateral TECHNIQUE: The lower extremity deep venous system is examined utilizing real time linear array sonog shala with graded compression, doppler sonography and color-flow sonography. VESSELS IMAGED: Common Femoral Vein Deep Femoral Vein Greater Saphenous Vein * Femoral Vein Popliteal Vein Small Saphenous Vein * Proximal Calf Veins (* superficial vessels) There is normal flow, compressibility, vascular waveforms. Right Leg: Negative for DVT Left Leg: Negative for DVT IMPRESSION: No evident deep venous thrombosis within the lower extremities from the level of the knee s centrally
== END | disposition home or self-care (01) ==
LOC: LABWHC1 12:59
PROVIDERS: ATTEND Family Medicine
DX: I82.403 Acute embolism and thrombosis of unspecified deep veins of lower extremity, bilateral (principal)
CPT/HCPCS: 93970

== ENCOUNTER 2021-05-11 18:31 | Emergency (ER) | payer MEDICARE, BC ==
--- NOTE | 2021-05-11 20:16 | XR ---
EXAMINATION TYPE: XR chest 2V DATE OF EXAM: 05/11/2021 COMPARISON: 10/11/2018 INDICATION: Cough short of breath TECHNIQUE: Single frontal view of the chest is obtained. FINDINGS: The heart size is normal. The pulmonary vasculature is normal. Minimal linear opacities at the right base. Correlate for atelectasis. No suspicious focal consolidat ion is evident. IMPRESSION: 1. Minimal platelike atelectasis right base
[2021-05-11] MEDS ORDERED: ALBUTEROL NEBULIZED 2.5 MG/3 ML INHALATION STA (22:50)
[2021-05-11] MEDS ORDERED: predniSONE 20 MG TAB PO STA (22:50)
--- NOTE | 2021-05-11 22:53 | ED ---
URI HPI - General Chief Complaint: Upper Respiratory Infection Stated Complaint: cough Time Seen by Provider: 05/11/21 22:11 Source: patient Mode of arrival: wheelchair Limitations: no limitations - History of Present Illness MD Complaint: cough Onset/Timin -: week(s) Consistency: constant Improves With: nothing Worsens With: nothing Associated Symptoms: nasal congestion, cough, chest pain Treatments Prior to Arrival: none - Related Data Home Medications Medication Instructions Recorded Confirmed Atorvastatin [Lipitor] 40 mg PO DAILY 11/17/14 06/02/20 Metoprolol Succinate (ER) [Toprol 25 mg PO DAILY 11/17/14 06/02/20 XL] Omeprazole 20 mg PO DAILY 07/09/17 06/02/20 carBAMazepine 200 mg PO DAILY 10/11/18 06/02/20 carBAMazepine [TEGretol] 400 mg PO HS 10/11/18 06/02/20 Citalopram Hydrobromide 20 mg PO DAILY 05/15/20 06/02/20 [Citalopram HBr] Glimepiride [Amaryl] 0.5 mg PO DAILY PRN 05/15/20 06/02/20 Losartan [Cozaar] 100 mg PO DAILY 05/15/20 06/02/20 metFORMIN HCL [Glucophage] 1,000 mg PO HS 05/15/20 06/02/20 metFORMIN HCL [Glucophage] 500 mg PO DAILY 05/15/20 06/02/20 ALPRAZolam [Xanax] 0.5 mg PO TID PRN 06/02/20 06/02/20 Ondansetron Odt [Zofran Odt] 4 mg PO BID PRN 06/02/20 06/02/20 Previous Rx's Medication Instructions Recorded amLODIPine [Norvasc] 5 mg PO DAILY #30 tab 06/02/20 Albuterol Inhaler [Ventolin Hfa 2 puff INHALATION Q4HR PRN #8 gm 05/11/21 Inhaler] Promethazine 6.25MG/5Ml [Phenergan 5 ml PO Q4HR PRN #120 ml 05/11/21 Syrup] predniSONE [Deltasone] 20 mg PO BID #8 tab 05/11/21 Allergies Allergy/AdvReac Type Severity Reaction Status Date / Time codeine Allergy Unknown Verified 06/05/20 13:11 erythromycin base Allergy Unknown Verified 06/05/20 13:11 levofloxacin [From Levaquin] Allergy Rash/Hives Verified 06/05/20 13:11 nitrofurantoin Allergy Unknown Verified 05/11/21 19:55 [From Macrobid] nitrofurantoin Allergy Unknown Verified 05/11/21 19:55 macrocrystalline [From Macrobid] Penicillins Allergy Unknown Verified 05/11/21 19:55 sulfamethoxazole Allergy Unknown Verified 05/11/21 19:55 [From Bactrim] trimethoprim [From Bactrim] Allergy Unknown Verified 05/11/21 19:55 acetaminophen AdvReac Hallucinati Verified 05/11/21 19:55 [From Darvocet-N] ons ciprofloxacin [From Cipro] AdvReac Vomiting Verified 05/11/21 19:55 ciprofloxacin HCl AdvReac Vomiting Verified 05/11/21 19:55 [From Cipro] hydralazine AdvReac headache Verified 05/11/21 19:55 propoxyphene napsylate AdvReac Hallucinati Verified 05/11/21 19:55 [From Darvocet-N] ons omnipaxo AdvReac Rapid Uncoded 05/11/21 19:55 Heart Rate Review of Systems ROS Statement: Those systems with pertinent positive or pertinent negative responses have been documented in the HPI. ROS Other: All systems not noted in ROS Statement are negative. Constitutional: Denies: fever, chills Respiratory: Reports: cough, dyspnea, wheezes. Denies: hemoptysis Cardiovascular: Reports: chest pain. Denies: palpitations, edema, syncope Gastrointestinal: Denies: abdominal pain, vomiting, diarrhea Genitourinary: Denies: dysuria, hematuria Musculoskeletal: Denies: back pain Skin: Denies: rash Neurological: Denies: headache, weakness, numbness Past Medical History Past Medical History: Asthma, CVA/TIA, Diabetes Mellitus, GERD/Reflux, Hypertension, Seizure Disorder, Skin Disorder Additional Past Medical History / Comment(s): TIA age 33absence seizuresLt arm skin bruised from scratching during night, Parkinsons in 2017, History of Any Multi-Drug Resistant Organisms: ESBL Date of last positivie culture/infection: 12/28/20 MDRO Source:: URINE Past Surgical History: Cholecystectomy, Heart Catheterization, Orthopedic Surgery Additional Past Surgical History / Comment(s): bilateral knee arthroscopies,left shoulder rotator cuff repair Past Anesthesia/Blood Transfusion Reactions: Motion Sickness Past Psychological History: No Psychological Hx Reported Smoking Status: Former smoker Past Alcohol Use History: None Reported Past Drug Use History: None Reported - Past Family History Brother(s) Family Medical History: CVA/TIA Additional Family Medical History / Comment(s): Patient has 1 brother that from either a CVA or acute [place]. Sister(s) Family Medical History: Coronary Artery Disease (CAD) Additional Family Medical History / Comment(s): Patient has 3 sisters and one is alive with no major medical problems. 2 sisters have and one was following influenza immunization. 1 sister is unknown cause of . Daughter(s) History Unknown: Yes Additional Family Medical History / Comment(s): Patient has 2 daughters and one has history of rheumatoid arthritis and one has history of diabetes. Patient has one son with no major medical problems. Son(s) History Unknown: Yes Family Medical History: No Reported History Father Additional Family Medical History / Comment(s): Father at age 83 from a myocardial infarction. Mother Family Medical History: No Reported History Additional Family Medical History / Comment(s): Mother at age 93 from a myocardial infarction. General Exam Limitations: no limitations General appearance: alert Head exam: Present: atraumatic, normocephalic Eye exam: Present: normal appearance. Absent: scleral icterus, conjunctival injection ENT exam: Present: normal oropharynx Neck exam: Present: normal inspection Respiratory exam: Present: wheezes. Absent: respiratory distress, rales, rhonchi, stridor, accessory muscle use, decreased breath sounds Cardiovascular Exam: Present: regular rate, normal rhythm, normal heart sounds. Absent: systolic murmur, diastolic murmur, rubs, gallop GI/Abdominal exam: Present: soft. Absent: distended, tenderness, guarding, rebound, rigid, mass Extremities exam: Present: normal inspection, normal capillary refill. Absent: pedal edema, calf tenderness Back exam: Present: normal inspection. Absent: CVA tenderness (R), CVA tenderness (L) Neurological exam: Present: alert Skin exam: Present: warm, dry, intact, normal color. Absent: rash Course Vital Signs 05/11/21 19:51 Temperature 99.0 F Pulse Rate 99 Respiratory 18 Rate Blood Pressure 109/75 O2 Sat by Pulse 97 Oximetry Medical Decision Making - Lab Data Lab Results 05/11/21 Range/Units 19:55 Coronavirus (PCR) Not Detected (Not Detectd) Disposition Clinical Impression: Tracheobronchitis Disposition: HOME SELF-CARE Condition: Good Instructions (If sedation given, give patient instructions): Acute Bronchitis (ED) Prescriptions: predniSONE [Deltasone] 20 mg PO BID #8 tab Promethazine 6.25MG/5Ml [Phenergan Syrup] 5 ml PO Q4HR PRN #120 ml PRN Reason: Cough Albuterol Inhaler [Ventolin Hfa Inhaler] 2 puff INHALATION Q4HR PRN #8 gm PRN Reason: Wheezing Is patient prescribed a controlled substance at d/c from ED?: No Referrals: Sharif Zaragoza DO [Primary Care Provider] - 1-2 days
[2021-05-11 23:09] VITALS: BP 116/87; RESP 20; TEMP 98
[2021-05-11 23:35] VITALS: PULSE 92
== END 2021-05-12 00:19 | disposition home or self-care (01) ==
LOC: EC 18:31
DX: J40 Bronchitis, not specified as acute or chronic (principal); E11.9 Type 2 diabetes mellitus without complications; I10 Essential (primary) hypertension; G40.909 Epilepsy, unspecified, not intractable, without status epilepticus; Z86.73 Personal history of transient ischemic attack (TIA), and cerebral infarction without residual deficits; Z87.891 Personal history of nicotine dependence; Z79.84 Long term (current) use of oral hypoglycemic drugs; Z79.899 Other long term (current) drug therapy
CPT/HCPCS: 94640; 87635; 71046; 99285; J7512

== ENCOUNTER 2021-05-14 11:25 | Emergency (ER) | payer MEDICARE, BC ==
[2021-05-14 11:37] VITALS: BP 137/80; RESP 18; TEMP 98.2
[2021-05-14] MEDS ORDERED: KETOROLAC 30 MG/ML 1 ML VIAL IVP STA (12:10)
--- NOTE | 2021-05-14 12:16 | ED ---
General Adult HPI - General Chief complaint: Fall Stated complaint: Fall,Rt hip injury Time Seen by Provider: 05/14/21 12:05 Source: patient, family, EMS Mode of arrival: EMS Limitations: physical limitation - History of Present Illness Initial comments: 81-year-old female alert and oriented 4, presents to the emergency room with family member after slipping in the bathroom and falling around 9:30 this morning. Patient states that she landed on her right side against the tub. She does have pain along the right lateral ribs, right hip and right knee. Patient states that she does have a history of her right knee giving out. She has history of Parkinson's, asthma, diabetes, seizures and stroke. She denies hitting her head when she fell. She denies any loss of consciousness. She has been able to ambulate since the fall with some difficulty due to her right knee continuing to give out. -: hour(s) (3) Location: chest (right ribs), back (LS spine), right, lower extremity (hip and knee) Severity scale (1-10): 6 Quality: aching Improves with: immobilization, rest Worsens with: movement, other (palpation) Associated Symptoms: cough Treatments Prior to Arrival: none - Related Data Home Medications Medication Instructions Recorded Confirmed Atorvastatin [Lipitor] 40 mg PO DAILY 11/17/14 06/02/20 Metoprolol Succinate (ER) [Toprol 25 mg PO DAILY 11/17/14 06/02/20 XL] Omeprazole 20 mg PO DAILY 07/09/17 06/02/20 carBAMazepine 200 mg PO DAILY 10/11/18 06/02/20 carBAMazepine [TEGretol] 400 mg PO HS 10/11/18 06/02/20 Citalopram Hydrobromide 20 mg PO DAILY 05/15/20 06/02/20 [Citalopram HBr] Glimepiride [Amaryl] 0.5 mg PO DAILY PRN 05/15/20 06/02/20 Losartan [Cozaar] 100 mg PO DAILY 05/15/20 06/02/20 metFORMIN HCL [Glucophage] 1,000 mg PO HS 05/15/20 06/02/20 metFORMIN HCL [Glucophage] 500 mg PO DAILY 05/15/20 06/02/20 ALPRAZolam [Xanax] 0.5 mg PO TID PRN 06/02/20 06/02/20 Ondansetron Odt [Zofran Odt] 4 mg PO BID PRN 06/02/20 06/02/20 Previous Rx's Medication Instructions Recorded amLODIPine [Norvasc] 5 mg PO DAILY #30 tab 06/02/20 Albuterol Inhaler [Ventolin Hfa 2 puff INHALATION Q4HR PRN #8 gm 05/11/21 Inhaler] Promethazine 6.25MG/5Ml [Phenergan 5 ml PO Q4HR PRN #120 ml 05/11/21 Syrup] predniSONE [Deltasone] 20 mg PO BID #8 tab 05/11/21 Allergies Allergy/AdvReac Type Severity Reaction Status Date / Time codeine Allergy Unknown Verified 06/05/20 13:11 erythromycin base Allergy Unknown Verified 06/05/20 13:11 levofloxacin [From Levaquin] Allergy Rash/Hives Verified 06/05/20 13:11 nitrofurantoin Allergy Unknown Verified 05/11/21 19:55 [From Macrobid] nitrofurantoin Allergy Unknown Verified 05/11/21 19:55 macrocrystalline [From Macrobid] Penicillins Allergy Unknown Verified 05/11/21 19:55 sulfamethoxazole Allergy Unknown Verified 05/11/21 19:55 [From Bactrim] trimethoprim [From Bactrim] Allergy Unknown Verified 05/11/21 19:55 acetaminophen AdvReac Hallucinati Verified 05/11/21 19:55 [From Darvocet-N] ons ciprofloxacin [From Cipro] AdvReac Vomiting Verified 05/11/21 19:55 ciprofloxacin HCl AdvReac Vomiting Verified 05/11/21 19:55 [From Cipro] hydralazine AdvReac headache Verified 05/11/21 19:55 propoxyphene napsylate AdvReac Hallucinati Verified 05/11/21 19:55 [From Darvocet-N] ons omnipaxo AdvReac Rapid Uncoded 05/11/21 19:55 Heart Rate Review of Systems ROS Statement: Those systems with pertinent positive or pertinent negative responses have been documented in the HPI. ROS Other: All systems not noted in ROS Statement are negative. Past Medical History Past Medical History: Asthma, CVA/TIA, Diabetes Mellitus, GERD/Reflux, Hypertension, Seizure Disorder, Skin Disorder Additional Past Medical History / Comment(s): TIA age 33absence seizuresLt arm skin bruised from scratching during night, Parkinsons in 2017, History of Any Multi-Drug Resistant Organisms: ESBL Date of last positivie culture/infection: 12/28/20 MDRO Source:: URINE Past Surgical History: Cholecystectomy, Heart Catheterization, Orthopedic Surgery Additional Past Surgical History / Comment(s): bilateral knee arthroscopies,left shoulder rotator cuff repair Past Anesthesia/Blood Transfusion Reactions: Motion Sickness Past Psychological History: No Psychological Hx Reported Smoking Status: Former smoker Past Alcohol Use History: None Reported Past Drug Use History: None Reported - Past Family History Brother(s) Family Medical History: CVA/TIA Additional Family Medical History / Comment(s): Patient has 1 brother that from either a CVA or acute [place]. Sister(s) Family Medical History: Coronary Artery Disease (CAD) Additional Family Medical History / Comment(s): Patient has 3 sisters and one is alive with no major medical problems. 2 sisters have and one was following influenza immunization. 1 sister is unknown cause of . Daughter(s) History Unknown: Yes Additional Family Medical History / Comment(s): Patient has 2 daughters and one has history of rheumatoid arthritis and one has history of diabetes. Patient has one son with no major medical problems. Son(s) History Unknown: Yes Family Medical History: No Reported History Father Additional Family Medical History / Comment(s): Father at age 83 from a m yocardial infarction. Mother Family Medical History: No Reported History Additional Family Medical History / Comment(s): Mother at age 93 from a myocardial infarction. General Exam Limitations: physical limitation General appearance: alert, in no apparent distress Head exam: Present: atraumatic, normocephalic, normal inspection Eye exam: Present: normal appearance, EOMI ENT exam: Present: normal exam, normal oropharynx, mucous membranes moist Neck exam: Present: normal inspection, full ROM. Absent: tenderness, meningismus, lymphadenopathy, thyromegaly Respiratory exam: Present: rhonchi. Absent: respiratory distress, wheezes, chest wall tenderness, accessory muscle use Cardiovascular Exam: Present: tachycardia GI/Abdominal exam: Present: soft, normal bowel sounds. Absent: distended, ten derness, guarding, rebound, rigid Extremities exam: Present: normal capillary refill. Absent: pedal edema, joint swelling, calf tenderness Right Hip exam: Present: normal inspection, tenderness, pelvic stability. Absent: swelling, laceration, ecchymosis, erythema, external rotation, internal rotation, shortening Knee exam: Present: normal inspection, tenderness, pain/laxity with valgus, pain/laxity with varus, full knee extension. Absent: swelling, abrasion, ecchymosis, deformity, erythema, effusion Neurovascular tendon exam: Absent: extremity cold to touch, pallor Gait: observed and limited by pain Back exam: Present: normal inspection. Absent: tenderness (Lumbar sacral spine), rash noted Neurological exam: Present: alert, oriented X3 Psychiatric exam: Present: normal affect, normal mood Skin exam: Present: warm, dry, intact, normal color. Absent: rash, cyanosis, diaphoretic, erythema, petechiae, pallor, mottled Course Vital Signs 05/14/21 05/14/21 11:32 13:58 Temperature 98.2 F Pulse Rate 103 H 96 Respiratory 18 18 Rate Blood Pressure 137/80 O2 Sat by Pulse 94 L 93 L Oximetry Medical Decision Making - Medical Decision Making This is a well-appearing 81-year-old female, alert and oriented 4 presents to the emergency room with family member. She states that she fell this morning when she got up to take a shower landing on her right side. She is complaining of right lateral rib pain right hip pain and right knee pain. She states that she has had problems in the past with her right knee giving out and has been see n by her doctor for that. Chest x-ray shows a fluid within the right sided minor fissure no significant change from 05/11/2021. No evidence of fracture x- ray of the right hip shows no evidence of fracture dislocation x-ray of the right knee shows no acute fracture or dislocation no overlying soft tissue swelling. X-ray of the lumbar sacral spine shows moderate degenerative disc disease throughout with anterior listhesis of L4 on L5. No evidence of acute fracture. Glucose is elevated over the patient is taking prednisone that she started on May 11 for bronchitis. She is feeling better after medications in the emergency room. She is agreeable to being discharged home. States that she has an appointment with Dr. Zaragoza on May 23. I did advise her to return to the emergency room with any new or worsening symptoms. I also advised her to follow up with her doctor regarding her low protein, calcium and albumin levels. Case discussed with Dr. Casey - Lab Data Result diagrams: 05/14/21 12:24 05/14/21 12:24 Lab Results 05/14/21 05/14/21 Range/Units 12:24 12:24 WBC 10.6 (3.8-10.6) k/uL RBC 3.54 L (3.80-5.40) m/uL Hgb 11.6 (11.4-16.0) gm/dL Hct 34.3 (34.0-46.0) % MCV 97.1 (80.0-100.0) fL MCH 32.7 (25.0-35.0) pg MCHC 33.7 (31.0-37.0) g/dL RDW 13.4 (11.5-15.5) % Plt Count 201 (150-450) k/uL MPV 7.4 Neutrophils % 94 % Lymphocytes % 2 % Monocytes % 3 % Eosinophils % 0 % Basophils % 0 % Neutrophils # 10.0 H (1.3-7.7) k/uL Lymphocytes # 0.2 L (1.0-4.8) k/uL Monocytes # 0.3 (0-1.0) k/uL Eosinophils # 0.1 (0-0.7) k/uL Basophils # 0.0 (0-0.2) k/uL Sodium 136 L (137-145) mmol/L Potassium 3.4 L (3.5-5.1) mmol/L Chloride 111 H (98-107) mmol/L Carbon Dioxide 19 L (22-30) mmol/L Anion Gap 6 mmol/L BUN 9 (7-17) mg/dL Creatinine 0.51 L (0.52-1.04) mg/dL Est GFR (CKD-EPI)AfAm >90 (>60 ml/min/1.73 sqM) Est GFR (CKD-EPI)NonAf >90 (>60 ml/min/1.73 sqM) Glucose 214 H (74-99) mg/dL Calcium 7.0 L (8.4-10.2) mg/dL Total Bilirubin 0.3 (0.2-1.3) mg/dL AST 26 (14-36) U/L ALT 11 (4-34) U/L Alkaline Phosphatase 72 (38-126) U/L Total Protein 5.1 L (6.3-8.2) g/dL Albumin 2.7 L (3.5-5.0) g/dL Disposition Clinical Impression: Fall Disposition: HOME SELF-CARE Condition: Good Instructions (If sedation given, give patient instructions): Fall Prevention for Older Adults (ED), Knee Pain (ED) Additional Instructions: Continue taking the prednisone as prescribed, do not take Motrin while taking prednisone. Take Tylenol every 4 hours, 650 mg as needed for pain. Continue to take deep breaths and cough to prevent pneumonia. Keep your appointment with Dr. Byrne on May 23. Return to the emergency room with any new or worsening symptoms. Please discuss with Dr. Byrne your glucose, calcium, protein and albumin blood test results which may need to be rechecked in a week or two. Is patient prescribed a controlled substance at d/c from ED?: No Referrals: Sharif Zaragoza DO [Primary Care Provider] - 1-2 days Time of Disposition: 13:41
[2021-05-14 12:54] LABS: Basophils % (A) 0 %; Eosinophils # (A) 0.1 k/uL (0-0.7); Eosinophils % (A) 0 %; HCT 34.3 % (34.0-46.0); HGB 11.6 gm/dL (11.4-16.0); Lymphocytes # (A) 0.2 k/uL (1.0-4.8); Lymphocytes % (A) 2 %; MCH 32.7 pg (25.0-35.0); MCHC 33.7 g/dL (31.0-37.0); MCV 97.1 fL (80.0-100.0); Mean Platelet Volume 7.4; Monocytes # (A) 0.3 k/uL (0-1.0); Monocytes % (A) 3 %; Neutrophils % (A) 94 %; Platelet Count 201 k/uL (150-450); RBC 3.54 m/uL (3.80-5.40); RDW 13.4 % (11.5-15.5); WBC 10.6 k/uL (3.8-10.6)
--- NOTE | 2021-05-14 13:05 | XR ---
EXAMINATION TYPE: XR chest 2V DATE OF EXAM: 05/14/2021 COMPARISON: 05/11/2021 HISTORY: Shortness of breath TECHNIQUE: Frontal and lateral views of the chest are obtained. FINDINGS: Scattered senescent parenchymal changes noted. Hyperinflation compatible with COPD. No evidence for infiltrate. There is fluid within the right-sided minor fissure. Mild linear atelect asis right lung base. No overt failure at this time. Heart size is stable. Mediastinal structures are stable and grossly unremarkable. No evidence for hilar prominence. Degenerative changes dorsal spine. IMPRESSION: 1. There is fluid within the right-sided minor fissure. Mild linear atelectasis right lung base. No o vert failure at this time.
--- NOTE | 2021-05-14 13:06 | XR ---
EXAMINATION TYPE: XR knee complete RT DATE OF EXAM: 05/14/2021 CLINICAL HISTORY: pain TECHNIQUE: 2 views of the right knee are obtained. COMPARISON: None. FINDINGS: There is no acute fracture/dislocation. The tri-compartment joint spaces appear moderatel y narrowed with associated spur formation. The overlying soft tissue appears unremarkable. IMPRESSION: There is no acute fracture or dislocation.ICD 10 NO FRACTURE, INITIAL EVALUATION
--- NOTE | 2021-05-14 13:07 | XR ---
EXAMINATION TYPE: XR Hip Complete RT DATE OF EXAM: 05/14/2021 CLINICAL HISTORY: pain TECHNIQUE: AP and frogleg views of the right hip are obtained. COMPARISON: None. FINDINGS: There is no acute fracture/dislocation evident. The joint space appears within normal li mits. The overlying soft tissue appears unremarkable. Intertrochanteric bony cysts noted measuring 2 .3 cm. IMPRESSION: 1. There is no acute fracture or dislocation. ICD 10 NO FRACTURE, INITIAL EVALUATION
[2021-05-14 13:09] LABS: ALT 11 U/L (4-34); AST 26 U/L (14-36); African American GFR (CKD) >90 (>60 ml/min/1.73 sqM); Albumin 2.7 g/dL (3.5-5.0); Alkaline Phosphatase 72 U/L (38-126); Anion Gap 6 mmol/L; Blood Urea Nitrogen 9 mg/dL (7-17); Carbon Dioxide 19 mmol/L (22-30); Chloride 111 mmol/L (98-107); Glucose 214 mg/dL (74-99); Non-African American GFR(CKD) >90 (>60 ml/min/1.73 sqM); Potassium 3.4 mmol/L (3.5-5.1); Sodium 136 mmol/L (137-145); Total Bilirubin 0.3 mg/dL (0.2-1.3); Total Protein 5.1 g/dL (6.3-8.2)
--- NOTE | 2021-05-14 13:17 | XR ---
INDICATION: Patient age:Female; 81 years old; Reason for study: fall; [facility]. COMPARISON: MRI lumbar spine 10/17/2014 TECHNIQUE: The lumbar spine was examined in 4 views. FINDINGS: No evidence of any acute osseous pathology. The level degenerative disc disease changes are seen throughout the spine with osteophyte formation. There is grade 1 anterolisthesis of L4 on L5. N o evidence of pars interarticularis defects. Atherosclerosis of the aorta is present. IMPRESSION: 1. No evidence for acute fracture. 2. Moderate multilevel degenerative disc disease changes throughout the spine. 3. Grade 1 anterolisthesis of L4 and L5.
[2021-05-14 13:59] VITALS: PULSE 96
== END 2021-05-14 13:59 | disposition home or self-care (01) ==
LOC: EC 11:25
DX: R07.81 Pleurodynia (principal); M25.551 Pain in right hip; M25.561 Pain in right knee; M54.50 Low back pain, unspecified; E11.9 Type 2 diabetes mellitus without complications; I10 Essential (primary) hypertension; K21.9 Gastro-esophageal reflux disease without esophagitis; J45.909 Unspecified asthma, uncomplicated; G40.909 Epilepsy, unspecified, not intractable, without status epilepticus; G20 Parkinson's disease; Z79.84 Long term (current) use of oral hypoglycemic drugs; Z79.52 Long term (current) use of systemic steroids; Z79.51 Long term (current) use of inhaled steroids; Z79.899 Other long term (current) drug therapy; Z87.891 Personal history of nicotine dependence; Z88.1 Allergy status to other antibiotic agents; Z88.5 Allergy status to narcotic agent; Z88.8 Allergy status to other drugs, medicaments and biological substances; W01.0XXA Fall on same level from slipping, tripping and stumbling without subsequent striking against object, initial encounter
CPT/HCPCS: 36415; 80053; 85025; 72110; 73502; 73562; 71046; 99284; 96374; J1885

== ENCOUNTER → 2021-05-24 | Outpatient (CLI) | payer MEDICARE, BC ==
--- NOTE | 2021-05-24 16:27 | XR ---
EXAMINATION TYPE: XR chest 2V DATE OF EXAM: 05/24/2021 COMPARISON: 05/14/2021 TECHNIQUE: PA and lateral views submitted. HISTORY: Cough FINDINGS: There is bilateral lower lobe infiltrate and small effusion. Heart size normal. Atherosclerotic cortez e aorta. Diffuse osteopenia and arthropathy of the shoulders. Biapical pleural thickening. No overt f ailure. Hypertrophic and degenerative change of the spine. Surgical clips in the abdomen. IMPRESSION: 1. Bilateral lower lobe infiltrate and small effusion.
== END | disposition home or self-care (01) ==
LOC: RADXRMAIN 14:33
PROVIDERS: ATTEND Family Medicine
DX: J90 Pleural effusion, not elsewhere classified (principal); R91.8 Other nonspecific abnormal finding of lung field
CPT/HCPCS: 71046

== ENCOUNTER → 2021-06-15 | Outpatient (CLI) | payer MEDICARE, BC ==
--- NOTE | 2021-06-15 13:30 | XR ---
EXAMINATION TYPE: XR chest 2V DATE OF EXAM: 06/15/2021 COMPARISON: Chest x-ray 05/24/2021 HISTORY: J 18.9, pneumonia TECHNIQUE: Frontal and lateral views of the chest are obtained. FINDINGS: There is no pleural effusion or pneumothorax seen. Bandlike area of increased attenuation at the right costophrenic angle is somewhat less conspicuous than on prior. Aorta is tortuous and de nse. The cardiac silhouette size is within normal limits. The osseous structures are intact, there is thoracic spondylosis. IMPRESSION: Improvement in aeration compared to prior exam.
== END | disposition home or self-care (01) ==
LOC: RADXRMAIN 11:02
PROVIDERS: ATTEND Family Medicine
DX: J18.9 Pneumonia, unspecified organism (principal)
CPT/HCPCS: 71046

== ENCOUNTER → 2021-10-21 | Outpatient (CLI) | payer MEDICARE, BC ==
[2021-10-21 17:00] LABS: African American GFR (CKD) >90 (>60 ml/min/1.73 sqM); Blood Urea Nitrogen 13 mg/dL (7-17); Non-African American GFR(CKD) 85 (>60 ml/min/1.73 sqM)
--- NOTE | 2021-10-23 11:25 | US ---
EXAMINATION TYPE: US carotid duplex BILAT DATE OF EXAM: 10/21/2021 COMPARISON: NONE CLINICAL HISTORY: 81-year-old female G45.9 TIA symptoms R55 syncope. TIA symptoms on elderly patient that had to sit upright, Slope Runner notes: Very challenging patient to scan, TECHNIQUE: Carotid duplex ultrasound examination. Indirect Doppler criteria is visualized. FINDINGS: EXAM MEASUREMENTS: RIGHT: Peak Systolic Velocity (PSV) cm/sec ----- Right CCA: 42.4 ----- Right ICA: 41.0 ----- Right ECA: 86.7 ICA/CCA ratio: 0.9 RIGHT: End Diastole cm/sec ----- Right CCA: 7.6 ----- Right ICA: 0.0 ----- Right ECA: 0.0 LEFT: Peak Systolic Velocity (PSV) cm/sec ----- Left CCA: 70.7 ----- Left ICA: 93.7 ----- Left ECA: 86.5 ICA/CCA ratio: 1.3 LEFT: End Diastole cm/sec ----- Left CCA: 12.0 ----- Left ICA: 20.2 ----- Left ECA: 0.0 VERTEBRALS (direction of flow): Right Vertebral: not seen Left Vertebral: not seen Rhythm: Normal AQUATIC ECOLOGIST NOTES: Very challenging patient to exam due to position and lack of staying still, difficult to penetrate ve ssels Slow flow noted within right ICA that did not fully fill with color, left side appears wnl, unable to visualize either vertebral artery. Recommend CT angio to fully assess flow. IMPRESSION: Technically suboptimal study. Particularly of the right ICA where we were unable to obtain full color flow. Either repeat exam when patient's condition has improved or with assistance supporting the pat ient versus CTA may be needed to ensure complete patency. Criteria for Assigning % of Stenosis / Diameter reduction (Estimation based on the indirect measurements of the internal carotid artery velocities (ICA PSV). 1. Normal (no stenosis)=ICA PSV < 125 cm/s: ratio < 2.0: ICA EDV<40 cm/s. 2. Less than 50% stenosis=ICA PSV < 125 cm/s: ratio < 2.0: ICA EDV<40 cm/s. 3. 50 to 69% stenosis=ICA PSV of 125 to 230 cm/s: ration 2.0 ? 4.0: ICA EDV 40-100 cm/s. 4. Greater than 70% stenosis to near occlusion= ICA PSV > 230 cm/s: ratio > 4.0: ICA EDV > 100 cm/s. 5. Near occlusion= ICA PSV velocities may be low or undetectable: variable ratio and ICA EDV. 6. Total occlusion=unable to detect flow.
--- NOTE | 2021-10-23 20:22 | CT ---
EXAMINATION TYPE: CT brain wo/w con CT DLP: 2184 mGycm, Automated exposure control for dose reduction was used. DATE OF EXAM: 10/21/2021 5:25 PM COMPARISON: -2019. CLINICAL INDICATION:Female, 81 years old with history of G45.9 TIA symptoms R55 syncope, dizziness, s yncopal episode TECHNIQUE: Axial CT images of the brain were obtained followed by contrast enhanced axial images of t he brain with 75cc of ISO-view 370 IV contrast. One or more CT dose reduction strategies were utilize d during this examination. FINDINGS: Extra-axial spaces: No abnormal extra-axial fluid collections. Scattered falx lipomas are present. Ventricular system: Within normal limits Cerebral parenchyma: Similar right basal ganglia hypoattenuating area and system with lacunar injury. No acute intraparenchymal hemorrhage or mass effect. The mendez-white junction is well differentiated . No abnormal enhancement is seen after the administration of intravenous contrast. Cerebellum: Unremarkable. Mass effect: No evidence of midline shift. 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 Atherosclerotic calcifications of the intracranial vessels. Soft tissues: Normal. Calvarium/osseous structures: No depressed skull fracture. Paranasal sinuses and mastoid air cells: Mild mucosal thickening is present and near complete opacifi cation of the right sphenoid sinus. Visualized orbits: Orbital contents are intact. IMPRESSION: 1. No acute intracranial process and no evidence to suggest intracranial mass. 2. 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
== END | disposition home or self-care (01) ==
LOC: RADUSWWP 15:29
PROVIDERS: ATTEND Family Medicine
DX: R55 Syncope and collapse (principal); R42 Dizziness and giddiness; Z86.73 Personal history of transient ischemic attack (TIA), and cerebral infarction without residual deficits
CPT/HCPCS: 82565; 84520; 93880; 70470; 36415; Q9967

== ENCOUNTER → 2021-11-09 | Outpatient (CLI) | payer MEDICARE, BC ==
[2021-11-09 15:09] LABS: African American GFR (CKD) >90 (>60 ml/min/1.73 sqM); Blood Urea Nitrogen 11 mg/dL (7-17); Non-African American GFR(CKD) 84 (>60 ml/min/1.73 sqM)
--- NOTE | 2021-11-09 16:52 | CT ---
EXAMINATION TYPE: CT angio head DATE OF EXAM: 11/09/2021 HISTORY: subarachnoid hemorrhage. recent CT brain wo/w, report recommended CTA brain COMPARISON: CT brain 10/21/2021 CT DLP: 1575.10 mGycm. Automated Exposure Control for Dose Reduction was Utilized. TECHNIQUE: CTA scan of the neck is performed without and with IV Contrast, patient injected with 90 mL of Isovue 370, axial images are obtained, coronal and sagittal reformatted images are reviewed. Th ree-D reconstructed images are created on an independent workstation and reviewed. Source images are reviewed. FINDINGS: Cervical of Hreron: Internal carotid arteries bifurcate normally into A1 and M1 segments. A2 segments are normal. The anterior communicating artery is patent. Some mild fusiform prominence of the basilar tip may be present. A tiny very aneurysm may be present anteriorly, series 6 image 23 measuring 0.3 cm. Posterior cerebral vasculature appears normal. The ri ght posterior communicating artery is patent. IMPRESSION: 1. Some fusiform prominence of the distal basilar tip may be present. Tiny anterior. Aneurysm measure s 0.3 cm may be present.
--- NOTE | 2021-11-10 06:27 | US ---
EXAMINATION TYPE: US carotid duplex BILAT DATE OF EXAM: 11/09/2021 COMPARISON: Carotid ultrasound 3 weeks ago CLINICAL HISTORY: I60.4 SUBARACHNOID HEMORRAGE FROM BASIL ARTERY. EXAM MEASUREMENTS: RIGHT: Peak Systolic Velocity (PSV) cm/sec ----- Right CCA: 67.7 ----- Right ICA: 76.4 ----- Right ECA: 93.9 ICA/CCA ratio: 1.1 RIGHT: End Diastole cm/sec ----- Right CCA: 14.5 ----- Right ICA: 17.5 ----- Right ECA: 11.3 LEFT: Peak Systolic Velocity (PSV) cm/sec ----- Left CCA: 66.0 ----- Left ICA: 79.1 ----- Left ECA: 64.6 ICA/CCA ratio: 1.2 LEFT: End Diastole cm/sec ----- Left CCA: 12.0 ----- Left ICA: 23.8 ----- Left ECA: 9.9 VERTEBRALS (direction of flow): Right Vertebral: Antegrade Left Vertebral: Antegrade Rhythm: Normal Distal right ICA not seen/evaluated due to torturous vessels Moderate peripheral plaque identified bilaterally. IMPRESSION: No hemodynamically significant stenosis in either internal carotid artery. Criteria for Assigning % of Stenosis / Diameter reduction (Estimation based on the indirect measurements of the internal carotid artery velocities (ICA PSV). 1. Normal (no stenosis)=ICA PSV < 125 cm/s: ratio < 2.0: ICA EDV<40 cm/s. 2. Less than 50% stenosis=ICA PSV < 125 cm/s: ratio < 2.0: ICA EDV<40 cm/s. 3. 50 to 69% stenosis=ICA PSV of 125 to 230 cm/s: ration 2.0 ? 4.0: ICA EDV 40-100 cm/s. 4. Greater than 70% stenosis to near occlusion= ICA PSV > 230 cm/s: ratio > 4.0: ICA EDV > 100 cm/s. 5. Near occlusion= ICA PSV velocities may be low or undetectable: variable ratio and ICA EDV. 6. Total occlusion=unable to detect flow.
== END | disposition home or self-care (01) ==
LOC: RADCTMAIN 14:23
PROVIDERS: ATTEND Family Medicine
DX: I60.4 Nontraumatic subarachnoid hemorrhage from basilar artery (principal); I61.3 Nontraumatic intracerebral hemorrhage in brain stem
CPT/HCPCS: 82565; 84520; 93880; 70496; 36415; Q9967

== ENCOUNTER 2021-11-18 15:17 | Inpatient (IN) | payer MEDICARE, BC ==
[2021-11-18] MEDS ORDERED: HYDROmorphone 1 MG/ML 1 ML SYRINGE IVP STA (15:47)
--- NOTE | 2021-11-18 16:25 | ED ---
Fall HPI - General Chief Complaint: Fall Stated Complaint: Fall-Facial lac Time Seen by Provider: 11/18/21 15:25 Source: patient, EMS Mode of arrival: EMS - History of Present Illness Initial Comments: 81-year-old female presents to the emergency department after she sustained a fall. States that she was ambulate around her bedroom when she tripped on something and fell forward onto 2 outstretched hands. She then hit the top of her forehead on the carpeted floor and sustained a laceration. Patient is unsure if she lost consciousness. She is not on any blood thinners. She denies any neck pain however was placed in a c-collar by EMS. She denies any chest pain or shortness of breath. No pain in her hips. Patient denies any lower extremity pain. No visual changes. EMS provided the patient with 50 mg of fentanyl en route to the hospital. She states this does not help her symptoms. No other alleviating, precipitating modifying factors - Related Data Home Medications Medication Instructions Recorded Confirmed Atorvastatin [Lipitor] 40 mg PO HS 11/17/14 11/18/21 Metoprolol Succinate (ER) [Toprol 25 mg PO DAILY 11/17/14 11/18/21 XL] Omeprazole 20 mg PO DAILY 07/09/17 11/18/21 carBAMazepine 200 mg PO DAILY 10/11/18 11/18/21 carBAMazepine [TEGretol] 400 mg PO HS 10/11/18 11/18/21 Citalopram Hydrobromide 20 mg PO DAILY 05/15/20 11/18/21 [Citalopram HBr] Losartan [Cozaar] 100 mg PO DAILY 05/15/20 11/18/21 metFORMIN HCL [Glucophage] 1,000 mg PO HS 05/15/20 11/18/21 Ondansetron Odt [Zofran ODT] 4 mg PO BID PRN 06/02/20 11/18/21 Albuterol Nebulized [Ventolin 2.5 mg INHALATION RT-QID PRN 11/18/21 11/18/21 Nebulized] Ipratropium Montgomery [Ipratropium 2 sprays EA NOSTRIL BID PRN 11/18/21 11/18/21 Montgomery 0.03%] amLODIPine [Norvasc] 5 mg PO HS 11/18/21 11/18/21 diphenhydrAMINE [Benadryl] 25 mg PO DAILY 11/18/21 11/18/21 traZODone HCL [Desyrel] 50 mg PO HS 11/18/21 11/18/21 Previous Rx's Medication Instructions Recorded Cyclobenzaprine [Flexeril] 5 mg PO HS #10 tab 11/25/21 Sennosides-Docusate Sodium 2 each PO DAILY PRN tab 11/25/21 [Senokot-S] Allergies Allergy/AdvReac Type Severity Reaction Status Date / Time codeine Allergy Unknown Verified 11/18/21 17:42 erythromycin base Allergy Unknown Verified 11/18/21 17:42 levofloxacin [From Levaquin] Allergy Rash/Hives Verified 11/18/21 17:42 nitrofurantoin Allergy Unknown Verified 11/18/21 17:42 [From Macrobid] nitrofurantoin Allergy Unknown Verified 11/18/21 17:42 macrocrystalline [From Macrobid] Penicillins Allergy Unknown Verified 11/18/21 17:42 sulfamethoxazole Allergy Unknown Verified 11/18/21 17:42 [From Bactrim] trimethoprim [From Bactrim] Allergy Unknown Verified 11/18/21 17:42 acetaminophen AdvReac Hallucinati Verified 11/18/21 17:42 [From Darvocet-N] ons ciprofloxacin [From Cipro] AdvReac Vomiting Verified 11/18/21 17:42 ciprofloxacin HCl AdvReac Vomiting Verified 11/18/21 17:42 [From Cipro] hydralazine AdvReac headache Verified 11/18/21 17:42 propoxyphene napsylate AdvReac Hallucinati Verified 11/18/21 17:42 [From Darvocet-N] ons omnipaxo AdvReac Rapid Uncoded 05/11/21 19:55 Heart Rate Review of Systems ROS Statement: Those systems with pertinent positive or pertinent negative responses have been documented in the HPI. ROS Other: All systems not noted in ROS Statement are negative. Past Medical History Past Medical History: Asthma, CVA/TIA, Diabetes Mellitus, GERD/Reflux, Hypertension, Seizure Disorder, Skin Disorder Additional Past Medical History / Comment(s): TIA age 33absence seizuresLt arm s kin bruised from scratching during night, Parkinsons in 2017, History of Any Multi-Drug Resistant Organisms: ESBL Date of last positivie culture/infection: 12/28/20 MDRO Source:: URINE Past Surgical History: Cholecystectomy, Heart Catheterization, Orthopedic Surgery Additional Past Surgical History / Comment(s): bilateral knee arthroscopies,left shoulder rotator cuff repair Past Anesthesia/Blood Transfusion Reactions: Motion Sickness Past Psychological History: No Psychological Hx Reported Smoking Status: Former smoker Past Alcohol Use History: None Reported Past Drug Use History: None Reported - Past Family History Brother(s) Family Medical History: CVA/TIA Additional Family Medical History / Comment(s): Patient has 1 brother that from either a CVA or acute [place]. Sister(s) Family Medical History: Coronary Artery Disease (CAD) Additional Family Medical History / Comment(s): Patient has 3 sisters and one is alive with no major medical problems. 2 sisters have and one was following influenza immunization. 1 sister is unknown cause of . Daughter(s) History Unknown: Yes Additional Family Medical History / Comment(s): Patient has 2 daughters and one has history of rheumatoid arthritis and one has history of diabetes. Patient recio s one son with no major medical problems. Son(s) History Unknown: Yes Family Medical History: No Reported History Father Additional Family Medical History / Comment(s): Father at age 83 from a myocardial infarction. Mother Family Medical History: No Reported History Additional Family Medical History / Comment(s): Mother at age 93 from a myocardial infarction. General Exam General appearance: alert, in no apparent distress Head exam: Present: atraumatic, normocephalic, normal inspection Eye exam: Present: normal appearance, PERRL, EOMI. Absent: scleral icterus, conjunctival injection, periorbital swelling ENT exam: Present: normal exam, mucous membranes moist Neck exam: Present: normal inspection. Absent: tenderness, meningismus, lymphadenopathy Respiratory exam: Present: normal lung sounds bilaterally. Absent: respiratory distress, wheezes, rales, rhonchi, stridor Cardiovascular Exam: Present: regular rate, normal rhythm, normal heart sounds. Absent: systolic murmur, diastolic murmur, rubs, gallop, clicks GI/Abdominal exam: Present: soft, normal bowel sounds. Absent: distended, tenderness, guarding, rebound, rigid Extremities exam: Present: full ROM, tenderness (extreme hypersensitivity, tenderness of the bilaterally upper extremities. decreased contemporary or modern dancer strength right hand - 4/5. 5/5 strength bilaterally lower extremities), normal capillary refill. Absent: pedal edema, joint swelling, calf tenderness Back exam: Present: normal inspection Neurological exam: Present: alert, oriented X3, CN II-XII intact Psychiatric exam: Present: normal affect, normal mood Skin exam: Present: warm, dry, intact, normal color. Absent: rash Course Vital Signs 11/18/21 11/18/21 11/18/21 15:21 18:24 22:01 Temperature 98.2 F Pulse Rate 91 84 68 Pulse Rate [ Left Pulse Oximetery] Respiratory 18 18 18 Rate Blood Pressure 183/94 138/69 162/79 Blood Pressure [Left Arm] O2 Sat by Pulse 95 94 L 98 Oximetry 11/18/21 23:13 Temperature 98.1 F Pulse Rate Pulse Rate [ 109 H Left Pulse Oximetery] Respiratory 18 Rate Blood Pressure Blood Pressure 181/92 [Left Arm] O2 Sat by Pulse 97 Oximetry Medical Decision Making - Medical Decision Making Upon arrival patient is placed into room 22. A thorough history and physical e xam was performed. Patient does have hypersensitivity to touch of the bilateral forearms. Even greasing the patient's forearms she screams in pain. I did give her 1 mg Dilaudid. She is sent over for a CT of her head and cervical spine. X-ray imaging of the upper extremities is also performed. No acute fracture. There are arthritic changes. Patient is reevaluated and continues to have signi ficant pain. Because of this Dr. Menjivar's and is consult as this is the patient's preference of orthopedic surgeon. Case is discussed with him and he is concerned for central cord syndrome. Because this the patient be admitted for MRI. Gabapentin and Decadron ordered per Dr. Britt request. Patient awaiting a bed on the floor in stable condition - Lab Data Result diagrams: 11/22/21 06:10 11/22/21 06:10 Disposition Clinical Impression: Bilateral arm pain, Concussion without loss of consciousness, Facial laceration Disposition: ADMITTED IP TO THIS [facility] Condition: Stable Is patient prescribed a controlled substance at d/c from ED?: No Time of Disposition: 19:20 Decision to Admit Reason: Admit from EC Decision Date: 11/18/21 Decision Time: 19:20
--- NOTE | 2021-11-18 16:44 | CT ---
EXAMINATION TYPE: CT brain jaron wo con DATE OF EXAM: 11/18/2021 COMPARISON: 10/11/2018 HISTORY: fall, pain CT DLP: 1539.8 mGycm Automated exposure control for dose reduction was used. Images of brain and cervical spine obtained with no contrast. There is cerebral atrophy. There is no mass effect or midline shift. There is no sign of intracranial hemorrhage. There is some hyperostosis frontalis. There is a lobulated calcification on the inner ta ble of the frontal bone and consistent with the hyperostosis. The cervical vertebra have normal alignment. There is multilevel degenerative disc space narrowing fr om C3 to T1. There is spurring of the endplates. No compression fracture. There is a prominent Virchow-Ac space on the right side. IMPRESSION: Cerebral atrophy. No acute intracranial abnormality. No change. Mild multilevel cervical spondylotic changes. No fracture. No change.
--- NOTE | 2021-11-18 17:09 | XR ---
EXAMINATION TYPE: XR chest 1V DATE OF EXAM: 11/18/2021 COMPARISON: 06/15/2021 HISTORY: Cough and pain TECHNIQUE: Single view FINDINGS: Heart is normal. Lungs are clear of consolidation. Costophrenic angles are clear. There are no hilar masses. IMPRESSION: No active cardiopulmonary disease. No change.
--- NOTE | 2021-11-18 17:24 | XR ---
EXAMINATION TYPE: XR wrist complete BILATERAL DATE OF EXAM: 11/18/2021 COMPARISON: NONE HISTORY: Pain TECHNIQUE: 4 views each wrist FINDINGS: There is narrowing of the right radiocarpal joint space with spurring. There is narrowing a nd spurring at the first carpometacarpal joints bilaterally. I see no acute fracture nor dislocation. There are no erosions. No subluxation. There is deformity of the right wrist with absence or erosion and complete loss of the lunate bone. IMPRESSION: No acute abnormality of the left and right wrist. 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 Osteoarthritic changes.
--- NOTE | 2021-11-18 17:26 | XR ---
EXAMINATION TYPE: XR humerus bilateral DATE OF EXAM: 11/18/2021 COMPARISON: NONE HISTORY: Pain TECHNIQUE: 2 views each humerus FINDINGS: There is no fracture nor dislocation. There is severe narrowing of the subacromial joint sp néstor of the left shoulder. There is widening of the left AC joint space. Right shoulder joint appears intact. No evidence of elbow fracture. IMPRESSION: Deformity of the left shoulder with severe subacromial joint space narrowing and impingem ent. Separation of the AC joint. Changes appear chronic. No fracture seen. Normal right humerus. No acute abnormality of the left and right humerus.
--- NOTE | 2021-11-18 17:27 | XR ---
EXAMINATION TYPE: XR elbow complete bilateral DATE OF EXAM: 11/18/2021 COMPARISON: NONE HISTORY: Pain TECHNIQUE: 3 views each elbow FINDINGS: There is no sign of fracture nor dislocation. Joint spaces are normal. No sign of elbow rishabh nt effusion. IMPRESSION: Negative bilateral elbow exam. No fracture seen.
--- NOTE | 2021-11-18 17:28 | XR ---
EXAMINATION TYPE: XR forearm bilateral DATE OF EXAM: 11/18/2021 COMPARISON: NONE HISTORY: Pain TECHNIQUE: 2 views each forearm FINDINGS: Radius and ulna appear intact. I see no fracture nor dislocation. There is deformity of the right distal radius with spurring and absence of the lunate. Elbow joint spaces are normal. IMPRESSION: No acute abnormality of the left and right forearm.
--- NOTE | 2021-11-18 17:30 | XR ---
EXAMINATION TYPE: XR shoulder complete BILAT DATE OF EXAM: 11/18/2021 COMPARISON: NONE HISTORY: Pain TECHNIQUE: 3 views each shoulder FINDINGS: There is superior subluxation of the left humeral head. There is widening of the left AC elinor int space. No fracture seen. Right shoulder joint spaces are fairly normal. There is mild spurring at the right AC joint. IMPRESSION: Severe left shoulder joint subacromial joint space narrowing and impingement. No fracture seen of the left and right shoulder.
[2021-11-18] MEDS ORDERED: LIDOCAINE 1% INJ 10MG/ML (5 ML VIAL-PF) SQ ONE (18:17)
[2021-11-18] MEDS ORDERED: DEXAMETHASONE SOD PHOSPHATE 10 MG/ML 1 ML VIAL IVP STA (19:16)
[2021-11-18] MEDS ORDERED: NALOXONE 0.4 MG/ML 1 ML VIAL IV PRN (19:17)
--- NOTE | 2021-11-18 19:43 | P.HPOR ---
History of Present Illness H&P Date: 11/18/21 Chief Complaint: ffs, b/l UE paresthesias 81 yo female who is the mother of one of our office specialists Guadalupe, presented to the ED via EMS after sustaining a fall from standing at home. She tripped and fell with her arms tucked to her chest and hit her head on the ground c ausing lacerations to her anterior forehead region. She also c/o severe b/l UE numbness/tingling, burning and hyperesthesia that is currently intermittent but she states is more frequently happening at night. She states it feels almost like knives in her arms going from her neck down her shoulders and into her bilateral hands. She states that her right arm feels heavy. Her left arm she has little to no function in her deltoid and abduction due to a surgery previously however her forearm and wrist as well as her fingers are very difficult to move as well as this time. She states no headache at this time she states change in vision related to her eyes swelling from the blunt head trauma. She denies any current dizziness. She states no fevers or chills she denies any shortness of breath or chest pain at this time. She states no weakness in her lower extremities or legs she denies any burning or tingling in her lower extremities or perineal region. She has no bowel or bladder issues. She does not history of diabetes high blood pressure and pre-parkinsonian disease which is not treated for currently. Review of Systems 14 points review of systems completed and as stated in HPI, all other systems reviewed are negative. Constitutional: Reports as per HPI Past Medical History Past Medical History: Asthma, CVA/TIA, Diabetes Mellitus, GERD/Reflux, Hypertension, Seizure Disorder, Skin Disorder Additional Past Medical History / Comment(s): TIA age 33absence seizuresLt arm skin bruised from scratching during night, Parkinsons in 2017, History of Any Multi-Drug Resistant Organisms: ESBL Date of last positivie culture/infection: 12/28/20 MDRO Source:: URINE Past Surgical History: Cholecystectomy, Heart Catheterization, Orthopedic Surgery Additional Past Surgical History / Comment(s): bilateral knee arthroscopies,left shoulder rotator cuff repair Past Anesthesia/Blood Transfusion Reactions: Motion Sickness Past Psychological History: No Psychological Hx Reported Smoking Status: Former smoker Past Alcohol Use History: None Reported Past Drug Use History: None Reported - Past Family History Brother(s) Family Medical History: CVA/TIA Additional Family Medical History / Comment(s): Patient has 1 brother that from either a CVA or acute [place]. Sister(s) Family Medical History: Coronary Artery Disease (CAD) Additional Family Medical History / Comment(s): Patient has 3 sisters and one is alive with no major medical problems. 2 sisters have and one was following influenza immunization. 1 sister is unknown cause of . Daughter(s) History Unknown: Yes Additional Family Medical History / Comment(s): Patient has 2 daughters and one has history of rheumatoid arthritis and one has history of diabetes. Patient has one son with no major medical problems. Son(s) History Unknown: Yes Family Medical History: No Reported History Father Additional Family Medical History / Comment(s): Father at age 83 from a myocardial infarction. Mother Family Medical History: No Reported History Additional Family Medical History / Comment(s): Mother at age 93 from a myocardial infarction. Medications and Allergies Home Medications Medication Instructions Recorded Confirmed Type Atorvastatin [Lipitor] 40 mg PO HS 11/17/14 11/18/21 History Metoprolol Succinate (ER) [Toprol 25 mg PO DAILY 11/17/14 11/18/21 History XL] Omeprazole 20 mg PO DAILY 07/09/17 11/18/21 History carBAMazepine 200 mg PO DAILY 10/11/18 11/18/21 History carBAMazepine [TEGretol] 400 mg PO HS 10/11/18 11/18/21 History Citalopram Hydrobromide 20 mg PO DAILY 05/15/20 11/18/21 History [Citalopram HBr] Losartan [Cozaar] 100 mg PO DAILY 05/15/20 11/18/21 History metFORMIN HCL [Glucophage] 1,000 mg PO HS 05/15/20 11/18/21 History metFORMIN HCL [Glucophage] 500 mg PO DAILY 05/15/20 11/18/21 History ALPRAZolam [Xanax] 0.5 mg PO BID PRN 06/02/20 11/18/21 History Ondansetron Odt [Zofran Odt] 4 mg PO BID PRN 06/02/20 11/18/21 History Albuterol Inhaler [Ventolin Hfa 2 puff INHALATION RT-QID PRN 11/18/21 11/18/21 History Inhaler] Albuterol Nebulized [Ventolin 2.5 mg INHALATION RT-QID PRN 11/18/21 11/18/21 History Nebulized] Aspirin EC [Ecotrin Low Dose] 81 mg PO DAILY 11/18/21 11/18/21 History Cranberry Fruit Extract [Cranberry] 500 mg PO DAILY 11/18/21 11/18/21 History Ipratropium [place] [Ipratropium 2 sprays EA NOSTRIL BID PRN 11/18/21 11/18/21 History [place]is 0.03%] amLODIPine [Norvasc] 5 mg PO HS 11/18/21 11/18/21 History diphenhydrAMINE [Benadryl] 25 mg PO DAILY 11/18/21 11/18/21 History traZODone HCL [Desyrel] 50 mg PO HS 11/18/21 11/18/21 History Allergies Allergy/AdvReac Type Severity Reaction Status Date / Time codeine Allergy Unknown Verified 11/18/21 17:42 erythromycin base Allergy Unknown Verified 11/18/21 17:42 levofloxacin [From Levaquin] Allergy Rash/Hives Verified 11/18/21 17:42 nitrofurantoin Allergy Unknown Verified 11/18/21 17:42 [From Macrobid] nitrofurantoin Allergy Unknown Verified 11/18/21 17:42 macrocrystalline [From Macrobid] Penicillins Allergy Unknown Verified 11/18/21 17:42 sulfamethoxazole Allergy Unknown Verified 11/18/21 17:42 [From Bactrim] trimethoprim [From Bactrim] Allergy Unknown Verified 11/18/21 17:42 acetaminophen AdvReac Hallucinati Verified 11/18/21 17:42 [From Darvocet-N] ons ciprofloxacin [From Cipro] AdvReac Vomiting Verified 11/18/21 17:42 ciprofloxacin HCl AdvReac Vomiting Verified 11/18/21 17:42 [From Cipro] hydralazine AdvReac headache Verified 11/18/21 17:42 propoxyphene napsylate AdvReac Hallucinati Verified 11/18/21 17:42 [From Darvocet-N] ons omnipaxo AdvReac Rapid Uncoded 05/11/21 19:55 Heart Rate Physical Examination Osteopathic Statement: *. No significant issues noted on an osteopathic structural exam other than those noted in the History and Physical/Consult. PHYSICAL EXAMINATION: Vitals: Stable at this time General: Awake, alert, appropriate for age, in no acute distress. HEENT: No unusual neck masses around region of lateral neck triangle, thyroid, supraclavicular groove. Extremities: Skin warm and dry without no acute lesions, coloration, temperature, skin intact, no tenderness or erythema. Integument: Hairy patches: Absent Dorsal skin dimples: Absent Cafe au lait spots: Absent Surgical incisions: Left shoulder well-healed 2 lacerations on the anterior forehead which have been sutured by the emergency department measuring between 2 and 4 cm each they are clean lacerations just above the nasal bridge and above the right eyebrow Palpation: Please see Pain drawing on Intake sheet for further detail. (Tenderness = T, Nontender = NT, Swelling = S, Ecchymosis = E) Findings on Midline and paraspinal palpation and percussion: Cervical: Mild tenderness to palpation posteriorly midline as well as paraspinal Thoracic: NT Lumbar: NT Sacral: NT Special findings: No tenderness to clavicular palpation however this does aggravate her hyperesthesia POSTURAL and MUSCULO-SKELETAL EVALUATION: Neck ROM: She is able to range her neck with minimal pain but does increase her hyperesthesia Lumbar ROM: Unable to assess at this time Shoulder ROM: Left shoulder range of motion is decreased secondary to previous surgery and she has little to no function in her deltoid this is known and not new Hip ROM: Symmetric in abduction, adduction, ER/IR Knee ROM: Symmetric and intact in Flexion / extension Hands: Normal appearing structure L and R, she does have a resting tremor in her hands A pill-rolling type tremor which goes along with her Parkinson's Feet: Normal appearing structure L and R VASCULAR STATUS : Wrist Pulses: 2/4 bilateral radial and ulnar Pedal Pulses: 2/4 bilateral DP and PT Color: Normal Edema: None NEUROLOGIC EXAMINATION: Mental Status: Awake and alert, fully oriented, with normal attention, concentration and memory, and fluent, appropriate speech. Cranial Nerves: I: Olfactory not tested. II: Visual acuity normal, no visual field deficit noted with confrontation. III,IV: Normal pupillary reflexes & intact extraocular movements without nystagmus. V,: Intact symmetrical facial sensation. VII: Intact symmetrical facial motor movement VIII: Hearing intact. IX,X: Intact gag, swallow, & normal voice. XI: Sternocleidomastoid, trapezius function intact. XII: Tongue midline with normal movements. Special Tests: L'hermitte's Sign: Absent Spurling'Sign: Essentially positive that she looks up it increases her symptoms Cubital percussion test: Unable to assess as it increases her hyperesthesia and is very uncomfortable for her Brenna-Tinel sign - Carpal region: Absent Bilateral Straight Leg Raising: Absent Bilateral Motor Exam (0-5/5, N/T) STRENGTH UPPER EXTREMITY Shoulder Abd (Not part of DUY Motor score): RIGHT 3 LEFT 0-this is not new and is known habits due to her previous surgery Elbow Flexors: RIGHT 3 LEFT 3 Elbow Extensor: RIGHT 3 LEFT 3 Wrrist Dorsiflexors: RIGHT 3 LEFT 3 Finger Abductor: RIGHT 3 LEFT 3 [employer]: RIGHT 3 LEFT 3 All of her strength or at least antigravity she did not tolerate strength testing pass this due to the hyperesthesias in her upper extremities do expect her to have more strength than just antigravity however on the right-hand side just based on her motion and movements LOWER EXTREMITY Hip Flexor (Not part of DUY Motor Score): RIGHT 5 LEFT 5 Knee Flexor: RIGHT 5 LEFT 5 Knee Extensor: RIGHT 5 LEFT 5 Ankle Dorsiflexion: RIGHT 5 LEFT 5 Ankle Plantarflexion: RIGHT 5 LEFT 5 EHL: RIGHT 5 LEFT 5 FHL: RIGHT 5 LEFT 5 REFLEXES Biecp: RIGHT 3 LEFT 3 Tricep: RIGHT 3 LEFT 3 Brachioradialis: RIGHT 3 LEFT 3 Patellar: RIGHT 2 LEFT 2 Achilles: RIGHT 2 LEFT 2 Pathological Reflexes Garcia's: RIGHT present LEFT present Babinski: RIGHT Absent LEFT Absent Clonus: RIGHT None LEFT None SENSORY Joint Position: Intact bilaterally Vibration Intact bilaterally Pain and LT sense Intact C5-T1 and L2-S1 Dermatomal deficit no deficits currently but hyperesthesia throughout the C5 to T1 distribution Gait and Functional Evaluation: Ambulatory aids: Cane or walker at home Results CT brain and C-spine: Images are reviewed. No acute intracranial process seen at this time cerebral atrophy. Cervical spine demonstrates widespread spondylotic changes from C3 to C7 with near complete disc collapse at C3-C4. There are anterior osteophytes changes which are noted as well. There is a disc osteophyte complex posterior to C3-C4 as well as C5-C6 and C6-C7. Overall there is relative central stenosis with space available for the cord measuring around 9 mm globally. There are no acute fractures noted in the subaxial cervical spine and there is no instability noted. Occipital cervical as well as C1-C2 joints appear stable at this time. MRI would better assess the patient's neural axis and is warranted due to her acute neurologic symptoms. 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 In the right wrist there is postsurgical changes with what appears to be a proximal row carpectomy. There is radiocarpal arthritic changes however no fracture dislocation or other bony lesions noted. Bilateral forearm x-rays These are reviewed and do not demonstrate any acute fracture dislocation or osseous abnormalities. The visible ulnohumeral and radial humeral joint are intact as well as radiocarpal and DRUJ. Bilateral elbow x-rays These are reviewed and demonstrate congruent, humeral joints as well as radiohumeral and radial ulnar joints. There is no acute fracture dislocation or osseous abnormalities noted. Bilateral humerus and shoulder x-rays These are reviewed and failed to demonstrate any acute osseous abnormalities no fracture. Right glenohumeral joint is located there is some before meals arth ritis noted. The left shoulder demonstrates postsurgical changes and chronic changes with high riding humerus as well as distal clavicle resection. There is chronic subluxation of the glenohumeral joint on the left-hand side which is known according to the family. Other than that no acute fractures or other osseous abnormalities noted Assessment and Plan Assessment: 81-year-old female status post fall from standing Acute central cord syndrome Bilateral upper extremity paresthesias Upper extremity weakness Blunt head trauma with facial lacerations Complex medical patient with multiple comorbidities Plan: -Appreciate team approach and consulting services. Medical consult -Agree with stat MRI of cervical spine for assessment of neural axis given the patient's neurologic symptoms and acute neurologic change -Gabapentin 300 mg 3 times a day -Start Decadron 10 mg IVP to start followed by 4 mg every 4 hours -Pain control as needed start low go slow -Neurologic assessments every 4 hours. Any change in mentation should prompt new computed tomography scan of brain given the patient's blunt head trauma -Hard c-collar at all times. Prescription for [place] hard C collar placed on patient's chart -GI ppx -Mechanical DVT ppx -OK for diet for now and tomorrow AM. -OK for HOB 45 deg to pt comfort -Spine precautions. -Recommend Nuñez at this time -Further recommendations once MRI is completed.
[2021-11-18] MEDS ORDERED: DEXAMETHASONE SOD PHOSPHATE 4 MG/ML 1 ML VIAL IVP SCH (20:00)
[2021-11-18] MEDS: HYDROmorphone 1 MG/ML 1 ML SYRINGE IVP PRN ×2 (20:04→23:38)
[2021-11-18 20:54] LABS: Basophils # (A) 0.1 k/uL (0-0.2); Basophils % (A) 1 %; Eosinophils # (A) 0.1 k/uL (0-0.7); Eosinophils % (A) 1 %; HCT 34.9 % (34.0-46.0); HGB 11.1 gm/dL (11.4-16.0); Lymphocytes # (A) 0.8 k/uL (1.0-4.8); Lymphocytes % (A) 9 %; MCH 30.3 pg (25.0-35.0); MCHC 31.7 g/dL (31.0-37.0); MCV 95.5 fL (80.0-100.0); Mean Platelet Volume 7.2; Monocytes # (A) 0.4 k/uL (0-1.0); Monocytes % (A) 4 %; Neutrophils # (A) 7.2 k/uL (1.3-7.7); Neutrophils % (A) 85 %; Platelet Count 290 k/uL (150-450); RBC 3.66 m/uL (3.80-5.40); RDW 12.7 % (11.5-15.5); WBC 8.5 k/uL (3.8-10.6)
[2021-11-18 21:07] LABS: ALT 8 U/L (4-34); AST 23 U/L (14-36); African American GFR (CKD) >90 (>60 ml/min/1.73 sqM); Albumin 3.9 g/dL (3.5-5.0); Alkaline Phosphatase 96 U/L (38-126); Anion Gap 7 mmol/L; Blood Urea Nitrogen 15 mg/dL (7-17); Calcium 8.9 mg/dL (8.4-10.2); Carbon Dioxide 25 mmol/L (22-30); Chloride 101 mmol/L (98-107); Glucose 175 mg/dL (74-99); Non-African American GFR(CKD) 89 (>60 ml/min/1.73 sqM); Potassium 4.8 mmol/L (3.5-5.1); Sodium 133 mmol/L (137-145); Total Bilirubin 0.1 mg/dL (0.2-1.3); Total Protein 6.4 g/dL (6.3-8.2)
[2021-11-18 21:12] LABS: INR 0.9 (<1.2); Prothrombin Time 10.3 sec (9.0-12.0)
--- NOTE | 2021-11-18 21:22 | P.CONS ---
History of Present Illness - Reason for Consult Consult date: 11/18/21 medical management Requesting physician: Neil Barr - Chief Complaint neck pain - History of Present Illness Patient seen at bedside in the emergency department. Patient was walking a got dizzy and crossed her hands over her chest and feel face first into the carpet. No loss of consciousness but does have some memory loss from after the fall. Last significant fall was 3 months ago. C/o pain in her hands and fingers on both sides and arm on the right side, sharp and stabbing, and waxes and waynes, She does all her own ADLs and IADLs. She denies any recent chest pain, SOB, light headed, dizzy, Checks blood sugars twice daily and typically around 120. A1C 6.2. Blood pressure is difficult to control as an outpatient, Typically 160-170/ 80-90s PCP Dr. Zaragoza. 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 Pertinent positives and negatives as discussed in HPI, a complete review of systems was performed and all other systems are negative. Vital signs reviewed General: non toxic, no distress, appears at stated age Derm: warm, dry Head: atraumatic, normocephalic, symmetric Eyes: EOMI, no lid lag, anicteric sclera, pupils equal round reactive to light ENT: Nose and ears atraumatic, no thrush, no pharyngeal erythema Neck: No thyromegaly, no cervical lymphadenopathy, trachea midline, supple Mouth: no lip lesion, mucus membranes moist Cardiovascular: S1S2 reg, no murmur, positive posterior tibial pulse bilateral, no edema, capillary refill less than 2 seconds Lungs: clear to ascultation bilateral, no ronchi, no rales, no wheeze, no accessory muscle use Abdominal: soft, nontender to palpation, no guarding, no appreciable org anomegaly, normal bowel sounds Ext: no gross muscle atrophy, muscle strength muscle strength 5 out of 5 in all 4 extremities, no contractures Neuro: CN II-XII grossly intact, light touch intact all 4 extremities, finger to nose within normal limits, Psych: Alert, oriented, appropriate affect Assessment/Plan: Acute central cord syndrome - Admitted to spine surgery - on steroids - cervical hard collar at all times - pain control - neurontin -- Patient is at increased risk for surgical procedures due to HTN, requiring medications. Multiple facial lacerations s/p repair - continue to monitor Mechanical fall with hx of Parkinson disease - fall precuations - PT/OT Anemia - at baseline - check iron levels - follow CBC Concussion Seizure disorder - neuro checks - supportive care - resume home tegretol, DM 2 - nold metformin - SSI - follow BS closely with steroids - last A1C was 6.2 per family HTN - typically 160/90 - resume home medications - follow BP Chronic conditions: Prior TIA Asthma Thank you for allowing us to participate in the care of this pleasant patient. Do not hesitate to contact us with questions. Someone can be reached from the [facility] hospitalist group all hours of the day at [phone] or via [employer]. Past Medical History Past Medical History: Asthma, Diabetes Mellitus, GERD/Reflux, Hypertension, Seizure Disorder, Skin Disorder Additional Past Medical History / Comment(s): TIA age 33, absence seizuresLt arm skin bruised from scratching during night, Parkinsons in 2017, TIA at age 33 History of Any Multi-Drug Resistant Organisms: ESBL Year Discovered:: 12/28/20 MDRO Source:: URINE Past Surgical History: Cholecystectomy, Heart Catheterization, Orthopedic Surgery Additional Past Surgical History / Comment(s): bilateral knee arthroscopies,left shoulder rotator cuff repair Past Anesthesia/Blood Transfusion Reactions: Motion Sickness Past Psychological History: No Psychological Hx Reported Smoking Status: Former smoker Past Alcohol Use History: None Reported Past Drug Use History: None Reported Additional History: 4 pronged Cane use at home, lives at home - Past Family History Brother(s) Family Medical History: CVA/TIA Additional Family Medical History / Comment(s): Patient has 1 brother that from either a CVA or acute [place]. Sister(s) Family Medical History: Coronary Artery Disease (CAD) Additional Family Medical History / Comment(s): Patient has 3 sisters and one is alive with no major medical problems. 2 sisters have and one was following influenza immunization. 1 sister is unknown cause of . Daughter(s) History Unknown: Yes Additional Family Medical History / Comment(s): Patient has 2 daughters and one has history of rheumatoid arthritis and one has history of diabetes. Patient has one son with no major medical problems. Son(s) History Unknown: Yes Family Medical History: No Reported History Father Additional Family Medical History / Comment(s): Father at age 83 from a myocardial infarction. Mother Family Medical History: No Reported History Additional Family Medical History / Comment(s): Mother at age 93 from a myocardial infarction. Medications and Allergies Home Medications Medication Instructions Recorded Confirmed Type Atorvastatin [Lipitor] 40 mg PO HS 11/17/14 11/18/21 History Metoprolol Succinate (ER) [Toprol 25 mg PO DAILY 11/17/14 11/18/21 History XL] Omeprazole 20 mg PO DAILY 07/09/17 11/18/21 History carBAMazepine 200 mg PO DAILY 10/11/18 11/18/21 History carBAMazepine [TEGretol] 400 mg PO HS 10/11/18 11/18/21 History Citalopram Hydrobromide 20 mg PO DAILY 05/15/20 11/18/21 History [Citalopram HBr] Losartan [Cozaar] 100 mg PO DAILY 05/15/20 11/18/21 History metFORMIN HCL [Glucophage] 1,000 mg PO HS 05/15/20 11/18/21 History metFORMIN HCL [Glucophage] 500 mg PO DAILY 05/15/20 11/18/21 History ALPRAZolam [Xanax] 0.5 mg PO BID PRN 06/02/20 11/18/21 History Ondansetron Odt [Zofran Odt] 4 mg PO BID PRN 06/02/20 11/18/21 History Albuterol Inhaler [Ventolin Hfa 2 puff INHALATION RT-QID PRN 11/18/21 11/18/21 History Inhaler] Albuterol Nebulized [Ventolin 2.5 mg INHALATION RT-QID PRN 11/18/21 11/18/21 History Nebulized] Aspirin EC [Ecotrin Low Dose] 81 mg PO DAILY 11/18/21 11/18/21 History Cranberry Fruit Extract [Cranberry] 500 mg PO DAILY 11/18/21 11/18/21 History Ipratropium Anderson [Ipratropium 2 sprays EA NOSTRIL BID PRN 11/18/21 11/18/21 History Anderson 0.03%] amLODIPine [Norvasc] 5 mg PO HS 11/18/21 11/18/21 History diphenhydrAMINE [Benadryl] 25 mg PO DAILY 11/18/21 11/18/21 History traZODone HCL [Desyrel] 50 mg PO HS 11/18/21 11/18/21 History Allergies Allergy/AdvReac Type Severity Reaction Status Date / Time codeine Allergy Unknown Verified 11/18/21 17:42 erythromycin base Allergy Unknown Verified 11/18/21 17:42 levofloxacin [From Levaquin] Allergy Rash/Hives Verified 11/18/21 17:42 nitrofurantoin Allergy Unknown Verified 11/18/21 17:42 [From Macrobid] nitrofurantoin Allergy Unknown Verified 11/18/21 17:42 macrocrystalline [From Macrobid] Penicillins Allergy Unknown Verified 11/18/21 17:42 sulfamethoxazole Allergy Unknown Verified 11/18/21 17:42 [From Bactrim] trimethoprim [From Bactrim] Allergy Unknown Verified 11/18/21 17:42 acetaminophen AdvReac Hallucinati Verified 11/18/21 17:42 [From Darvocet-N] ons ciprofloxacin [From Cipro] AdvReac Vomiting Verified 11/18/21 17:42 ciprofloxacin HCl AdvReac Vomiting Verified 11/18/21 17:42 [From Cipro] hydralazine AdvReac headache Verified 11/18/21 17:42 propoxyphene napsylate AdvReac Hallucinati Verified 11/18/21 17:42 [From Darvocet-N] ons omnipaxo AdvReac Rapid Uncoded 05/11/21 19:55 Heart Rate Physical Exam Osteopathic Statement: *. No significant issues noted on an osteopathic structural exam other than those noted in the History and Physical/Consult. Vitals: Vital Signs Temp Pulse Resp BP Pulse Ox 11/18/21 18:24 84 18 138/69 94 L 11/18/21 15:21 98.2 F 91 18 183/94 95 Intake and Output 11/18/21 11/18/21 11/18/21 06:59 14:59 22:59 Other: Weight 73.936 kg Results CBC & Chem 7: 11/18/21 20:45 11/18/21 20:45
[2021-11-18] MEDS ORDERED: ALBUTEROL HFA INHALER INHALATION PRN (21:24)
[2021-11-18] MEDS ORDERED: ALBUTEROL NEBULIZED 2.5 MG/3 ML INHALATION PRN (21:24)
[2021-11-18] MEDS ORDERED: ALPRAZolam 0.5 MG TAB PO PRN (21:24)
[2021-11-18] MEDS ORDERED: ONDANSETRON ODT 4 MG TAB PO PRN (21:24)
[2021-11-18] MEDS ORDERED: IPRATROPIUM BROMIDE 0.06% NASAL SPRAY (15 ML) EA NOSTRIL PRN (21:24)
[2021-11-18 21:29] LABS: Partial Thromboplastin Time 21.4 sec (22.0-30.0)
[2021-11-18] MEDS: GABAPENTIN 300 MG CAP PO SCH (21:58)
[2021-11-18] MEDS: carBAMazepine 200 MG TAB PO SCH (21:58)
[2021-11-18] MEDS: amLODIPine 5 MG TAB PO SCH (21:58)
[2021-11-18] MEDS: ACETAMINOPHEN TAB 325 MG TAB PO PRN (21:58)
[2021-11-18] MEDS: ATORVASTATIN 40 MG TAB PO SCH (21:59)
[2021-11-18] MEDS: traZODone HCL 50 MG TAB PO SCH (23:36)
[2021-11-18] MEDS: DEXAMETHASONE SOD PHOSPHATE 4 MG/ML 1 ML VIAL IVP SCH (23:38)
[2021-11-19] MEDS: DEXAMETHASONE SOD PHOSPHATE 4 MG/ML 1 ML VIAL IVP SCH ×7 (00:14→21:51)
[2021-11-19 05:24] LABS: MCHC 31.6 g/dL (31.0-37.0); MCV 98.1 fL (80.0-100.0); Mean Platelet Volume 7.4; Platelet Count 312 k/uL (150-450); RBC 3.87 m/uL (3.80-5.40); RDW 12.8 % (11.5-15.5); WBC 6.2 k/uL (3.8-10.6)
[2021-11-19 06:31] LABS: African American GFR (CKD) 76 (>60 ml/min/1.73 sqM); Anion Gap 6 mmol/L; Blood Urea Nitrogen 17 mg/dL (7-17); Calcium 9.3 mg/dL (8.4-10.2); Carbon Dioxide 27 mmol/L (22-30); Chloride 101 mmol/L (98-107); Glucose 214 mg/dL (74-99); Magnesium 1.9 mg/dL (1.6-2.3); Non-African American GFR(CKD) 66 (>60 ml/min/1.73 sqM); Phosphorus 4.9 mg/dL (2.5-4.5); Potassium 5.5 mmol/L (3.5-5.1); Sodium 134 mmol/L (137-145)
[2021-11-19 08:03] LABS: Glucose,Whole Blood 237 mg/dL (75-99)
[2021-11-19] MEDS: LOSARTAN 50 MG TAB PO SCH (08:12)
[2021-11-19] MEDS: METOPROLOL SUCCINATE (ER) 25 MG TAB.ER.24H PO SCH (08:12)
[2021-11-19] MEDS: CITALOPRAM HYDROBROMIDE 20 MG TAB PO SCH (08:12)
[2021-11-19] MEDS: diphenhydrAMINE 25 MG CAP PO SCH (08:12)
[2021-11-19] MEDS: carBAMazepine 200 MG TAB PO SCH ×2 (08:13→21:52)
[2021-11-19] MEDS: PANTOPRAZOLE 40 MG TABLET PO SCH (08:13)
[2021-11-19] MEDS: GABAPENTIN 300 MG CAP PO SCH ×3 (08:13→21:52)
[2021-11-19] MEDS: ACETAMINOPHEN TAB 325 MG TAB PO PRN (08:15)
[2021-11-19] MEDS: INSULIN ASPART (NovoLOG) 100 UNIT/ML VIAL SQ SCH ×4 (08:17→21:52)
[2021-11-19] MEDS ORDERED: NON FORMULARY DRUG (Cranberry Fruit Extract [Cranberry] 500 MG Tablet) PO SCH (09:00)
[2021-11-19 10:06] LABS: % Iron Saturation 13.67 (12.00-45.00); Ferritin 22.6 ng/mL (10.0-291.0); Iron 49 ug/dL (50-170); Total Iron Binding Capacity 357 ug/dL (228-460)
--- NOTE | 2021-11-19 10:35 | P.PN ---
Subjective Progress Note Date: 11/19/21 Patient's only complaint continues to be that of bilateral arm pain, worse on the right than the left. She does report discomfort with her c-collar, but understands the importance of continuing to wear it. Denies bladder, bowel incontinence, leg weakness. Gen: awake, alert HEENT: normocephalic, atraumatic, good hearing acuity, moist mucous membranes Resp: good air exchange, breathing comfortably with no accessory muscle use CVS: good distal perfusion x 4, GI: soft, NTTP, ND : no SPT, no CVAT, varma catheter not present MSK: no pitting edema, no clubbing Neuro: Would not allow me to do neurological physical due to concerns of pain Psych: cooperative, euthymic mood Assessment/plan: Acute central cord syndrome - Admitted to spine surgery - on steroids - cervical hard collar at all times - pain control - neurontin -- Patient is at increased risk for surgical procedures due to HTN, requiring medications. Multiple facial lacerations s/p repair - continue to monitor Mechanical fall with hx of Parkinson disease - fall precuations - PT/OT Anemia - at baseline - check iron levels - follow CBC Concussion Seizure disorder - neuro checks - supportive care - resume home tegretol, DM 2 - nold metformin - SSI - follow BS closely with steroids - last A1C was 6.2 per family HTN - typically 160/90 - resume home medications - follow BP Chronic conditions: Prior TIA Asthma -Home medications reviewed and reconciled Thank you for allowing us to participate in the care of this pleasant patient. Do not hesitate to contact us with questions. Someone can be reached from the [facility] hospitalist group all hours of the day at [phone] or via perfect serve. Objective - Vital Signs Vital signs: Vital Signs Temp 97.7 F 11/19/21 08:00 Pulse 80 11/19/21 08:00 Resp 18 11/19/21 08:00 BP 137/83 11/19/21 08:00 Pulse Ox 97 11/19/21 08:00 FiO2 Intake & Output 11/18/21 11/19/21 11/19/21 18:59 06:59 18:59 Weight 73.936 kg 73.936 kg Other: Voiding Method External Catheter External Catheter # Voids 1 - Labs CBC & Chem 7: 11/19/21 04:42 11/19/21 04:42 Labs: Abnormal Lab Results - Last 24 Hours (Table) 11/18/21 11/18/21 11/18/21 Range/Units 20:45 20:45 20:45 RBC 3.66 L (3.80-5.40) m/uL Hgb 11.1 L (11.4-16.0) gm/dL Lymphocytes # 0.8 L (1.0-4.8) k/uL APTT 21.4 L (22.0-30.0) sec Sodium 133 L (137-145) mmol/L Potassium (3.5-5.1) mmol/L Glucose 175 H (74-99) mg/dL POC Glucose (mg/dL) (75-99) mg/dL Phosphorus (2.5-4.5) mg/dL Iron (50-170) ug/dL Total Bilirubin 0.1 L (0.2-1.3) mg/dL 11/19/21 11/19/21 Range/Units 04:42 08:02 RBC (3.80-5.40) m/uL Hgb (11.4-16.0) gm/dL Lymphocytes # (1.0-4.8) k/uL APTT (22.0-30.0) sec Sodium 134 L (137-145) mmol/L Potassium 5.5 H (3.5-5.1) mmol/L Glucose 214 H (74-99) mg/dL POC Glucose (mg/dL) 237 H (75-99) mg/dL Phosphorus 4.9 H (2.5-4.5) mg/dL Iron 49 L (50-170) ug/dL Total Bilirubin (0.2-1.3) mg/dL
[2021-11-19 12:05] LABS: Glucose,Whole Blood 183 mg/dL (75-99)
--- NOTE | 2021-11-19 12:23 | MR ---
EXAMINATION TYPE: MR cervical spine wo/w con DATE OF EXAM: 11/19/2021 COMPARISON: None HISTORY: Fall, possible central cord TECHNIQUE: Multiplanar, multisequence images of the cervical spine were acquired without contrast and with 7 mL intravenous Gadavist gadolinium contrast. Diffusion weighted imaging was performed. Findings: The craniovertebral junction relationships and prevertebral soft tissues are normal. The cervical vertebral segments are normal in height and alignment and there is no fracture or sublux ation. There is moderate degenerative disc disease from C3 through T1 with moderate disc space narrowing, di sc bulge and spondylosis. There are no epidural soft tissue masses or fluid collections. There is focal abnormal signal intensity within the right aspect of the cervical cord at the C5 level consistent with myelomalacia. There is mild cervical stenosis at C4-5 and C5-6 levels secondary to posterior spondylosis and thicke destini of the ligamentum flavum. There is multilevel neural foraminal stenosis as follows; severe at the C3-4 level bilaterally, sever e at the C4-5 level bilaterally greatest in the right, severe at the C5-6 level bilaterally and at th e C6-7 level bilaterally. IMPRESSION: 1. No cervical spine fracture or malalignment. 2. Moderate diffuse degenerative disc disease. 3. Mild cervical stenosis at the C4-5 and C5-6 levels and mild myelomalacia within the cord at the C5 level. 4. No cervical disc herniation. 5. Multilevel severe neural foraminal stenosis as described.
[2021-11-19] MEDS: SODIUM CHLORIDE 0.9% 1,000 ML IV SCH (15:03)
[2021-11-19] MEDS: HYDROmorphone 1 MG/ML 1 ML SYRINGE IVP PRN (16:21)
[2021-11-19 16:22] LABS: Glucose,Whole Blood 200 mg/dL (75-99)
--- NOTE | 2021-11-19 16:46 | P.PN ---
Subjective Progress Note Date: 11/19/21 (Delayed documentation pt seen around 2 pm) Principal diagnosis: Central cord Syndrome s/p FFS Pt s/e today with her daughters and granddaughter at bedside. She continues to have b/l UE paresthesias as well as radiculopathy and weakness. She states that the weakness is somewhat better in her Left arm that it was before but that she continues to have stabbing pains in her b/l arms. She also still has hyperesthesia in both arms. She has good strength in her b/l LE. She denies any bowel or bladder issues. States no perineal numbness tingling. She continues to have head pain related to her fall. She states it is somewhat hard to see due to her periorbital swelling but no other change in vision or blurred vision. She denies any f/c/sob/cp at this time. Objective - Vital Signs Vital signs: Vital Signs Temp 98.4 F 11/19/21 14:00 Pulse 83 11/19/21 14:00 Resp 16 11/19/21 14:00 BP 144/75 11/19/21 14:00 Pulse Ox 93 L 11/19/21 14:00 FiO2 Intake & Output 11/18/21 11/19/21 11/19/21 18:59 06:59 18:59 Weight 73.936 kg 73.936 kg Other: Voiding Method External Catheter External Catheter # Voids 1 - Exam Exam is repeated today. She does seem to have somewhat better motion of her b/l UE but still with hyperesthesia in b/l UE as well as paresthesias and radiculopathy that is somewhat severe. She also shows hyperreflexia in b/l LE 3/4 and UE 3/4 b/l with garcia's b/l. No clonus and neg babinski b/l. Other changes noted below. PHYSICAL EXAMINATION: Vitals: Stable at this time General: Awake, alert, appropriate for age, in no acute distress. HEENT: No unusual neck masses around region of lateral neck triangle, thyroid, supraclavicular groove. Extremities: Skin warm and dry without no acute lesions, coloration, temperature, skin intact, no tenderness or erythema. Integument: Hairy patches: Absent Dorsal skin dimples: Absent Cafe au lait spots: Absent Surgical incisions: Left shoulder well-healed 2 lacerations on the anterior forehead which have been sutured by the emergency department measuring between 2 and 4 cm each they are clean lacerations just above the nasal bridge and above the right eyebrow Palpation: Please see Pain drawing on Intake sheet for further detail. (Tenderness = T, Nontender = NT, Swelling = S, Ecchymosis = E) Findings on Midline and paraspinal palpation and percussion: Cervical: Mild tenderness to palpation posteriorly midline as well as paraspinal Thoracic: NT Lumbar: NT Sacral: NT Special findings: No tenderness to clavicular palpation however this does aggravate her hyperesthesia POSTURAL and MUSCULO-SKELETAL EVALUATION: Neck ROM: She is able to range her neck with minimal pain but does increase her hyperesthesia Lumbar ROM: Unable to assess at this time Shoulder ROM: Left shoulder range of motion is decreased secondary to previous surgery and she has little to no function in her deltoid this is known and not new Hip ROM: Symmetric in abduction, adduction, ER/IR Knee ROM: Symmetric and intact in Flexion / extension Hands: Normal appearing structure L and R, she does have a resting tremor in her hands A pill-rolling type tremor which goes along with her Parkinson's Feet: Normal appearing structure L and R VASCULAR STATUS : Wrist Pulses: 2/4 bilateral radial and ulnar Pedal Pulses: 2/4 bilateral DP and PT Color: Normal Edema: None NEUROLOGIC EXAMINATION: Mental Status: Awake and alert, fully oriented, with normal attention, concentration and memory, and fluent, appropriate speech. Cranial Nerves: I: Olfactory not tested. II: Visual acuity normal, no visual field deficit noted with confrontation. III,IV: Normal pupillary reflexes & intact extraocular movements without nystagmus. V,: Intact symmetrical facial sensation. VII: Intact symmetrical facial motor movement VIII: Hearing intact. IX,X: Intact gag, swallow, & normal voice. XI: Sternocleidomastoid, trapezius function intact. XII: Tongue midline with normal movements. Special Tests: L'hermitte's Sign: Absent Spurling'Sign: Essentially positive that she looks up it increases her symptoms Cubital percussion test: Unable to assess as it increases her hyperesthesia and is very uncomfortable for her Brenna-Tinel sign - Carpal region: Absent Bilateral Straight Leg Raising: Absent Bilateral Motor Exam (0-5/5, N/T) STRENGTH UPPER EXTREMITY Shoulder Abd (Not part of DUY Motor score): RIGHT 3 LEFT 0-this is not new and is known habits due to her previous surgery Elbow Flexors: RIGHT 4- LEFT 3 Elbow Extensor: RIGHT 4- LEFT 3 Wrrist Dorsiflexors: RIGHT 4- LEFT 3 Finger Abductor: RIGHT 4- LEFT 3 Food Service Driver: RIGHT 4- LEFT 3 Tolerated strength testing slightly better this time but still painful with hyperesthesias. LOWER EXTREMITY Hip Flexor (Not part of DUY Motor Score): RIGHT 5 LEFT 5 Knee Flexor: RIGHT 5 LEFT 5 Knee Extensor: RIGHT 5 LEFT 5 Ankle Dorsiflexion: RIGHT 5 LEFT 5 Ankle Plantarflexion: RIGHT 5 LEFT 5 EHL: RIGHT 5 LEFT 5 FHL: RIGHT 5 LEFT 5 REFLEXES Biecp: RIGHT 3 LEFT 3 Tricep: RIGHT 3 LEFT 3 Brachioradialis: RIGHT 3 LEFT 3 Patellar: RIGHT 2 LEFT 2 Achilles: RIGHT 2 LEFT 2 Pathological Reflexes Garcia's: RIGHT present LEFT present Babinski: RIGHT Absent LEFT Absent Clonus: RIGHT None LEFT None SENSORY Joint Position: Intact bilaterally Vibration Intact bilaterally Pain and LT sense Intact C5-T1 and L2-S1 Dermatomal deficit no deficits currently but hyperesthesia throughout the C5 to T1 distribution Gait and Functional Evaluation: Ambulatory aids: Cane or walker at home - Constitutional General appearance: Present: cooperative - EENT EENT Comment(s): b/l periobital edema and ecchymosis. Forehead lacs appear in good order. Eyes: Present: EOMI, PERRLA - Labs CBC & Chem 7: 11/19/21 04:42 11/19/21 04:42 Labs: Abnormal Lab Results - Last 24 Hours (Table) 11/18/21 11/18/21 11/18/21 Range/Units 20:45 20:45 20:45 RBC 3.66 L (3.80-5.40) m/uL Hgb 11.1 L (11.4-16.0) gm/dL Lymphocytes # 0.8 L (1.0-4.8) k/uL APTT 21.4 L (22.0-30.0) sec Sodium 133 L (137-145) mmol/L Potassium (3.5-5.1) mmol/L Glucose 175 H (74-99) mg/dL POC Glucose (mg/dL) (75-99) mg/dL Phosphorus (2.5-4.5) mg/dL Iron (50-170) ug/dL Total Bilirubin 0.1 L (0.2-1.3) mg/dL 11/19/21 11/19/21 11/19/21 Range/Units 04:42 08:02 12:03 RBC (3.80-5.40) m/uL Hgb (11.4-16.0) gm/dL Lymphocytes # (1.0-4.8) k/uL APTT (22.0-30.0) sec Sodium 134 L (137-145) mmol/L Potassium 5.5 H (3.5-5.1) mmol/L Glucose 214 H (74-99) mg/dL POC Glucose (mg/dL) 237 H 183 H (75-99) mg/dL Phosphorus 4.9 H (2.5-4.5) mg/dL Iron 49 L (50-170) ug/dL Total Bilirubin (0.2-1.3) mg/dL 11/19/21 Range/Units 16:20 RBC (3.80-5.40) m/uL Hgb (11.4-16.0) gm/dL Lymphocytes # (1.0-4.8) k/uL APTT (22.0-30.0) sec Sodium (137-145) mmol/L Potassium (3.5-5.1) mmol/L Glucose (74-99) mg/dL POC Glucose (mg/dL) 200 H (75-99) mg/dL Phosphorus (2.5-4.5) mg/dL Iron (50-170) ug/dL Total Bilirubin (0.2-1.3) mg/dL Assessment and Plan Assessment: 81-year-old female status post fall from standing Acute central cord syndrome Bilateral upper extremity paresthesias Upper extremity weakness Blunt head trauma with facial lacerations Complex medical patient with multiple comorbidities Plan: -Appreciate team approach and consulting services. Medical consult -Gabapentin 300 mg 3 times a day -Start Decadron 10 mg IVP to start followed by 4 mg every 4 hours -Pain control as needed start low go slow -Neurologic assessments every 4 hours. Any change in mentation should prompt new computed tomography scan of brain given the patient's blunt head trauma -Hard c-collar at all times. Prescription for Richards hard C collar placed on patient's chart -GI ppx -Mechanical DVT ppx -OK for diet for now and tomorrow AM. -OK for HOB 45 deg to pt comfort -Spine precautions. -Recommend Nuñez at this time - MRI is reviewed of the C spine which demonstrates moderate to severe stenosis of C3-6 due to disc bulges and disc height loss with spondylosis. This causes central and foraminal stenosis. There is mylomalacia changes from between C5-6 which are likely new. There are no acute fractures noted. There are no lesions noted. C0-1 and C1-2 are stable. Subaxial cervical spine shows slight grade I degenerative spondylolisthesis that are likely stable.
[2021-11-19 21:43] LABS: Glucose,Whole Blood 211 mg/dL (75-99)
[2021-11-19] MEDS: traZODone HCL 50 MG TAB PO SCH (21:51)
[2021-11-19] MEDS: ATORVASTATIN 40 MG TAB PO SCH (21:52)
[2021-11-19] MEDS: amLODIPine 5 MG TAB PO SCH (21:54)
[2021-11-20] MEDS: DEXAMETHASONE SOD PHOSPHATE 4 MG/ML 1 ML VIAL IVP SCH ×5 (00:09→17:09)
--- NOTE | 2021-11-20 06:30 | P.PN ---
Subjective Progress Note Date: 11/20/21 Principal diagnosis: Central cord syndrome, status post fall from standing Patient was evaluated today at bedside, she is resting comfortably. She is utilizing a soft c-collar at this time. She does continue to have paresthesias with radiculopathy and weakness in the bilateral extremities. She notes a hyperesthesias to be present but mainly in her fingertips. Patient seems to be moving her bilateral upper extremities better at today's exam, this to include both wrist and elbow motion. Patient denies any paresthesias or radicular symptoms of the lower extremities. She has no bowel or bladder issues at this time. Denies any numbness or tingling of the genital her peroneal region. Patient denies any fevers, chest pain, shortness of breath, nausea or vomiting. Objective - Vital Signs Vital signs: Vital Signs Temp 98.6 F 11/20/21 02:00 Pulse 80 11/20/21 02:00 Resp 16 11/19/21 20:00 BP 167/82 11/20/21 02:00 Pulse Ox 93 L 11/20/21 02:00 FiO2 Intake & Output 11/19/21 11/19/21 11/20/21 06:59 18:59 06:59 Intake Total 480 Output Total 400 1000 Balance 80 -1000 Weight 73.936 kg Intake: Oral 480 Output: Urine 400 1000 Other: Voiding Method External Catheter External Catheter External Catheter # Voids 1 - Exam Gen: AOx3, NAD VSS stable at this time Integument: Ecchymosis and swelling present in the. Over region bilaterally, this seems to be improved. Skin laceration on her forehead is stable Palpation: Hyperesthesias in the bilateral upper extremities seems to be improved, most noticeable in the fingertips on both hands ROM: Range of motion seems improved in the bilateral upper extremities with finger motion, wrist flexion and extension along with elbow flexion and extension. Range of motion with the left shoulder remains limited. She is able to forward elevate and abduct on the right side with minimal discomfort reproduced Sensory Exam: Senory exam to light touch is intact C5-T1 Senosry exam to light touch is intact L2-S1 Motor: 55 strength patient the bilateral lower extremities with hip flexion, knee extension, knee flexion, plantar flexion, dorsiflexion, EHL, FHL 45 strength appreciated in the right upper extremity with elbow extension, elb ow flexion, wrist extension, wrist flexion, single end sewer 35 strength appreciated in the left upper extremity with elbow extension, elbow flexion, wrist extension, wrist flexion, single end sewer Reflexes: Positive Izaguirre bilateral upper extremity, slightly compared to yesterday's exam Negative Babinski bilaterally Negative clonus bilaterally - Labs CBC & Chem 7: 11/19/21 04:42 11/19/21 04:42 Labs: Abnormal Lab Results - Last 24 Hours (Table) 11/19/21 11/19/21 11/19/21 Range/Units 04:42 08:02 12:03 Sodium 134 L (137-145) mmol/L Potassium 5.5 H (3.5-5.1) mmol/L Glucose 214 H (74-99) mg/dL POC Glucose (mg/dL) 237 H 183 H (75-99) mg/dL Phosphorus 4.9 H (2.5-4.5) mg/dL Iron 49 L (50-170) ug/dL 11/19/21 11/19/21 Range/Units 16:20 21:42 Sodium (137-145) mmol/L Potassium (3.5-5.1) mmol/L Glucose (74-99) mg/dL POC Glucose (mg/dL) 200 H 211 H (75-99) mg/dL Phosphorus (2.5-4.5) mg/dL Iron (50-170) ug/dL Assessment and Plan Assessment: Central cord syndrome Bilateral upper extremity paresthesias and weakness Status post fall from standing Other medical comorbidities Plan: Continue with spine precautions, patient is utilizing soft c-collar. Waiting delivery of her aspirin c-collar Dr. Barr was able to discuss with the patient's family yesterday the surgical options for treatment. She is scheduled for a ACDF of C3-C6 for 11/22/2021 Multiple consult were placed for clearances, this to include both cardiology and neurology Medical recommendations Pain control, continue with the scheduled IV Decadron and oral gabapentin DVT prophylaxis, teds and SCDs while in bed We'll continue to monitor and follow during her inpatient stay, please contact our service there are any questions Time with Patient: Less than 30
[2021-11-20 07:17] LABS: Basophils % (A) 0 %; Eosinophils % (A) 0 %; HCT 38.3 % (34.0-46.0); HGB 12.4 gm/dL (11.4-16.0); Lymphocytes # (A) 0.6 k/uL (1.0-4.8); Lymphocytes % (A) 6 %; MCHC 32.3 g/dL (31.0-37.0); MCV 95.7 fL (80.0-100.0); Monocytes # (A) 0.5 k/uL (0-1.0); Monocytes % (A) 5 %; Neutrophils # (A) 8.4 k/uL (1.3-7.7); Neutrophils % (A) 88 %; Platelet Count 207 k/uL (150-450); RDW 13.5 % (11.5-15.5); WBC 9.5 k/uL (3.8-10.6)
[2021-11-20 07:18] LABS: Glucose,Whole Blood 226 mg/dL (75-99)
[2021-11-20 07:21] LABS: African American GFR (CKD) >90 (>60 ml/min/1.73 sqM); Anion Gap 10 mmol/L; Blood Urea Nitrogen 18 mg/dL (7-17); Calcium 9.1 mg/dL (8.4-10.2); Carbon Dioxide 22 mmol/L (22-30); Chloride 103 mmol/L (98-107); Glucose 193 mg/dL (74-99); Magnesium 1.9 mg/dL (1.6-2.3); Non-African American GFR(CKD) 87 (>60 ml/min/1.73 sqM); Potassium 5.3 mmol/L (3.5-5.1); Sodium 135 mmol/L (137-145)
[2021-11-20] MEDS: INSULIN ASPART (NovoLOG) 100 UNIT/ML VIAL SQ SCH ×4 (07:56→21:24)
[2021-11-20] MEDS: PANTOPRAZOLE 40 MG TABLET PO SCH (07:57)
[2021-11-20] MEDS: carBAMazepine 200 MG TAB PO SCH ×2 (07:57→21:25)
[2021-11-20] MEDS: GABAPENTIN 300 MG CAP PO SCH ×3 (07:57→21:24)
[2021-11-20] MEDS: CITALOPRAM HYDROBROMIDE 20 MG TAB PO SCH (07:57)
[2021-11-20] MEDS: LOSARTAN 50 MG TAB PO SCH (07:58)
[2021-11-20] MEDS: METOPROLOL SUCCINATE (ER) 25 MG TAB.ER.24H PO SCH (07:58)
[2021-11-20] MEDS: diphenhydrAMINE 25 MG CAP PO SCH ×2 (07:58→08:09)
[2021-11-20 08:32] LABS: Poikilocytosis (M) Present
--- NOTE | 2021-11-20 08:49 | P.PN ---
Subjective Progress Note Date: 11/20/21 Patient continues to complain of bilateral arm weakness and pain, worse on the right. She is seen today in a soft neck collar. Plan is for ACDF on Sunday with spine surgery. Cardiology, neurology recommendations appreciated. Patient is having hallucinations, while on dexamethasone, which is anticipated complication of high-dose steroid therapy. She is redirectable. Sugars are elevated despite sliding-scale insulin. Otherwise, she is hemodynamically stable, afebrile. Gen: awake, alert HEENT: normocephalic, atraumatic, good hearing acuity, moist mucous membranes Resp: good air exchange, breathing comfortably with no accessory muscle use CVS: good distal perfusion x 4, GI: soft, NTTP, ND : no SPT, no CVAT, varma catheter not present MSK: no pitting edema, no clubbing Neuro: Would not allow me to do neurological physical due to concerns of pain Psych: cooperative, euthymic mood Assessment/plan: Acute central cord syndrome Preoperative clearance - Admitted to spine surgery - on steroids - cervical hard collar at all times - pain control - neurontin -NSQIP risk calculator estimates a 0.3% risk of major adverse cardiac complication, may proceed to surgery without any further need of testing Multiple facial lacerations s/p repair - continue to monitor Mechanical fall with hx of Parkinson disease - fall precuations - PT/OT Anemia - at baseline - check iron levels - follow CBC Concussion Seizure disorder - neuro checks - supportive care - resume home tegretol, DM 2 - nold metformin - SSI - follow BS closely with steroids - last A1C was 6.2 per family - Add 10 units of Levemir while she is on dexamethasone HTN - typically 160/90 - resume home medications - follow BP Chronic conditions: Prior TIA Asthma -Home medications reviewed and reconciled Thank you for allowing us to participate in the care of this pleasant patient. Do not hesitate to contact us with questions. Someone can be reached from the [facility] hospitalist group all hours of the day at [phone] or via perfect serve. Objective - Vital Signs Vital signs: Vital Signs Temp 98.6 F 11/20/21 02:00 Pulse 80 11/20/21 02:00 Resp 16 11/19/21 20:00 BP 167/82 11/20/21 02:00 Pulse Ox 93 L 11/20/21 02:00 FiO2 Intake & Output 11/19/21 11/20/21 11/20/21 18:59 06:59 18:59 Intake Total 480 Output Total 400 1000 Balance 80 -1000 Intake: Oral 480 Output: Urine 400 1000 Other: Voiding Method External Catheter External Catheter - Labs CBC & Chem 7: 11/20/21 06:14 11/20/21 06:14 Labs: Abnormal Lab Results - Last 24 Hours (Table) 11/19/21 11/19/21 11/19/21 Range/Units 04:42 12:03 16:20 Neutrophils # (1.3-7.7) k/uL Lymphocytes # (1.0-4.8) k/uL Sodium (137-145) mmol/L Potassium (3.5-5.1) mmol/L BUN (7-17) mg/dL Glucose (74-99) mg/dL POC Glucose (mg/dL) 183 H 200 H (75-99) mg/dL Iron 49 L (50-170) ug/dL 11/19/21 11/20/21 11/20/21 Range/Units 21:42 06:14 06:14 Neutrophils # 8.4 H (1.3-7.7) k/uL Lymphocytes # 0.6 L (1.0-4.8) k/uL Sodium 135 L (137-145) mmol/L Potassium 5.3 H (3.5-5.1) mmol/L BUN 18 H (7-17) mg/dL Glucose 193 H (74-99) mg/dL POC Glucose (mg/dL) 211 H (75-99) mg/dL Iron (50-170) ug/dL 11/20/21 Range/Units 07:16 Neutrophils # (1.3-7.7) k/uL Lymphocytes # (1.0-4.8) k/uL Sodium (137-145) mmol/L Potassium (3.5-5.1) mmol/L BUN (7-17) mg/dL Glucose (74-99) mg/dL POC Glucose (mg/dL) 226 H (75-99) mg/dL Iron (50-170) ug/dL
[2021-11-20] MEDS: INSULIN DETEMIR (LEVEMIR) 100 UNIT/ML SYR SQ SCH (09:13)
--- NOTE | 2021-11-20 10:39 | P.CRDCN ---
History of Present Illness Consult date: 11/20/21 Consult reason: pre-op evaluation History of present illness: The patient is a 81-year-old female who previously followed in the office with Dr. Lutz, who is currently admitted to the hospital after a mechanical fall. 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 Orthopedic surgery is planning on anterior cervical discectomy with fusion on November 22. Cardiology is consulted for preoperative clearance. The patient does believe that she follows with Dr. Malhotra in our practice. She believes she did have some cardiac testing within the last several months. We will attempt to obtain these records prior to repeating any inpatient testing. From the cardiac standpoint she states she is doing well. Her main complaint is neck and arm discomfort. No chest pain or chest pressure. DIAGNOSTICS: Blood pressure 163/88, pulse 88, temp 98.3F, SpO2 96% on 2 L nasal cannula, respiratory rate 16 Lab data: CBC 9.5, hemoglobin 12.4, hematocrit 38.3, platelet 207, sodium 135, potassium 5.3, BUN 18, creatinine 0.6, magnesium 1.9 PAST MEDICAL HISTORY: Hypertension, dyslipidemia, TIA, Parkinson's REVIEW OF SYSTEMS: No fever or chills. No cough or expectoration. No diaphoresis. Patient denies headache, dizziness, blurred vision, double vision. Patient denies any stomach discomfort. No nausea, vomiting. No hematochezia. No hematemesis. Denies any black stools or blood in his stools. Denies dysuria or hematuria. No muscle weakness or numbness. No chest pain or chest pressure. No dyspnea or orthopnea. Positive for paresthesias in her bilateral arms. Positive for neck pain. PHYSICAL EXAMINATION: This is a 81-year-old male in no apparent distress at the time of my examination. HEENT: Head is atraumatic, normocephalic. Pupils are equal, round. Sclerae anicteric. Conjunctivae are clear. Mucous membranes of the mouth are moist. Neck is supple. There is no jugular venous distention. No carotid bruit is heard. CHEST EXAMINATION: Lungs are clear to auscultation. No chest wall tenderness is noted on palpation or with deep breathing. HEART EXAMINATION: Heart regular rate and rhythm. S1, S2 heard. No murmurs, gallops or rub. ABDOMEN: Soft, nontender. Bowel sounds are heard. No organomegaly noted. EXTREMITIES: 2+ peripheral pulses with no evidence of peripheral edema and no ca lf tenderness noted. NEUROLOGIC EXAMINATION: Patient is awake, alert and oriented x3. FINAL ASSESSMENT AND PLAN: Acute central cord syndrome, anterior cervical discectomy and fusion surgery pending Status post mechanical fall Hypertension Diabetes History of TIA History of Parkinson's disease PLAN: Obtain records from cardiology associates Consider repeating echo if testing is not up to date Clearance to be based off these records I am dictating on behalf of Dr Manuel Aguilera's history/physical and assessment/plan. Past Medical History Past Medical History: Asthma, CVA/TIA, Diabetes Mellitus, GERD/Reflux, Hypertension, Seizure Disorder, Skin Disorder Additional Past Medical History / Comment(s): TIA age 33absence seizuresLt arm skin bruised from scratching during night, Parkinsons in 2017, History of Any Multi-Drug Resistant Organisms: ESBL Date of last positivie culture/infection: 12/28/20 MDRO Source:: URINE Past Surgical History: Cholecystectomy, Heart Catheterization, Orthopedic Surgery Additional Past Surgical History / Comment(s): bilateral knee arthroscopies,left shoulder rotator cuff repair Past Anesthesia/Blood Transfusion Reactions: Motion Sickness Past Psychological History: No Psychological Hx Reported Smoking Status: Former smoker Past Alcohol Use History: None Reported Additional Past Alcohol Use History / Comment(s): Patient lives alone, ambulates mainly with a cane. Patient was a smoker one pack per day for 17 years and quit approximate 35 years ago. She denies any marijuana or illicit drug use. No alcohol use. Past Drug Use History: None Reported - Past Family History Brother(s) Family Medical History: CVA/TIA Additional Family Medical History / Comment(s): Patient has 1 brother that from either a CVA or acute NE. Sister(s) Family Medical History: Coronary Artery Disease (CAD) Additional Family Medical History / Comment(s): Patient has 3 sisters and one is alive with no major medical problems. 2 sisters have and one was following influenza immunization. 1 sister is unknown cause of . Daughter(s) History Unknown: Yes Additional Family Medical History / Comment(s): Patient has 2 daughters and one has history of rheumatoid arthritis and one has history of diabetes. Patient has one son with no major medical problems. Son(s) History Unknown: Yes Family Medical History: No Reported History Father Additional Family Medical History / Comment(s): Father at age 83 from a myocardial infarction. Mother Family Medical History: No Reported History Additional Family Medical History / Comment(s): Mother at age 93 from a myocardial infarction. Medications and Allergies Home Medications Medication Instructions Recorded Confirmed Type Atorvastatin [Lipitor] 40 mg PO HS 11/17/14 11/18/21 History Metoprolol Succinate (ER) [Toprol 25 mg PO DAILY 11/17/14 11/18/21 History XL] Omeprazole 20 mg PO DAILY 07/09/17 11/18/21 History carBAMazepine 200 mg PO DAILY 10/11/18 11/18/21 History carBAMazepine [TEGretol] 400 mg PO HS 10/11/18 11/18/21 History Citalopram Hydrobromide 20 mg PO DAILY 05/15/20 11/18/21 History [Citalopram HBr] Losartan [Cozaar] 100 mg PO DAILY 05/15/20 11/18/21 History metFORMIN HCL [Glucophage] 1,000 mg PO HS 05/15/20 11/18/21 History metFORMIN HCL [Glucophage] 500 mg PO DAILY 05/15/20 11/18/21 History ALPRAZolam [Xanax] 0.5 mg PO BID PRN 06/02/20 11/18/21 History Ondansetron Odt [Zofran Odt] 4 mg PO BID PRN 06/02/20 11/18/21 History Albuterol Inhaler [Ventolin Hfa 2 puff INHALATION RT-QID PRN 11/18/21 11/18/21 History Inhaler] Albuterol Nebulized [Ventolin 2.5 mg INHALATION RT-QID PRN 11/18/21 11/18/21 History Nebulized] Aspirin EC [Ecotrin Low Dose] 81 mg PO DAILY 11/18/21 11/18/21 History Cranberry Fruit Extract [Cranberry] 500 mg PO DAILY 11/18/21 11/18/21 History Ipratropium [place] [Ipratropium 2 sprays EA NOSTRIL BID PRN 11/18/21 11/18/21 History [place] 0.03%] amLODIPine [Norvasc] 5 mg PO HS 11/18/21 11/18/21 History diphenhydrAMINE [Benadryl] 25 mg PO DAILY 11/18/21 11/18/21 History traZODone HCL [Desyrel] 50 mg PO HS 11/18/21 11/18/21 History Allergies Allergy/AdvReac Type Severity Reaction Status Date / Time codeine Allergy Unknown Verified 11/18/21 17:42 erythromycin base Allergy Unknown Verified 11/18/21 17:42 levofloxacin [From Levaquin] Allergy Rash/Hives Verified 11/18/21 17:42 nitrofurantoin Allergy Unknown Verified 11/18/21 17:42 [From Macrobid] nitrofurantoin Allergy Unknown Verified 11/18/21 17:42 macrocrystalline [From Macrobid] Penicillins Allergy Unknown Verified 11/18/21 17:42 sulfamethoxazole Allergy Unknown Verified 11/18/21 17:42 [From Bactrim] trimethoprim [From Bactrim] Allergy Unknown Verified 11/18/21 17:42 acetaminophen AdvReac Hallucinati Verified 11/18/21 17:42 [From Darvocet-N] ons ciprofloxacin [From Cipro] AdvReac Vomiting Verified 11/18/21 17:42 ciprofloxacin HCl AdvReac Vomiting Verified 11/18/21 17:42 [From Cipro] hydralazine AdvReac headache Verified 11/18/21 17:42 propoxyphene napsylate AdvReac Hallucinati Verified 11/18/21 17:42 [From Darvocet-N] ons omnipaxo AdvReac Rapid Uncoded 05/11/21 19:55 Heart Rate Physical Exam Vitals: Vital Signs Temp Pulse Resp BP Pulse Ox 11/20/21 02:00 98.6 F 80 167/82 93 L 11/19/21 20:00 98.6 F 81 16 139/74 92 L 11/19/21 14:00 98.4 F 83 16 144/75 93 L Intake and Output 11/19/21 11/20/21 11/20/21 22:59 06:59 14:59 Intake Total 480 Output Total 400 1000 Balance 80 -1000 Intake: Oral 480 Output: Urine 400 1000 Other: Voiding Method External Catheter Results 11/20/21 06:14 11/20/21 06:14 CBC 11/20/21 Range/Units 06:14 WBC 9.5 (3.8-10.6) k/uL RBC 4.00 (3.80-5.40) m/uL Hgb 12.4 (11.4-16.0) gm/dL Hct 38.3 (34.0-46.0) % Plt Count 207 (150-450) k/uL Comprehensive Metabolic Panel 11/20/21 Range/Units 06:14 Sodium 135 L (137-145) mmol/L Potassium 5.3 H (3.5-5.1) mmol/L Chloride 103 (98-107) mmol/L Carbon Dioxide 22 (22-30) mmol/L BUN 18 H (7-17) mg/dL Creatinine 0.60 (0.52-1.04) mg/dL Glucose 193 H (74-99) mg/dL Calcium 9.1 (8.4-10.2) mg/dL Current Medications Generic Name Dose Route Start Last Admin Trade Name Freq PRN Reason Stop Dose Admin Acetaminophen 650 mg 11/18/21 19:17 11/19/21 08:15 Acetaminophen Tab 325 Mg Tab PO 650 mg Q6HR PRN Administration Mild Pain or Fever > 100.5 Albuterol Sulfate 2.5 mg 11/18/21 21:24 Albuterol Nebulized 2.5 Mg/3 Ml INHALATION RT-QID PRN Shortness Of Breath Alprazolam 0.5 mg 11/18/21 21:24 11/19/21 05:44 Alprazolam 0.5 Mg Tab PO 0.5 mg BID PRN Administration Anxiety Amlodipine Besylate 5 mg 11/18/21 21:45 11/19/21 21:54 Amlodipine 5 Mg Tab PO 5 mg HS ALINE Administration Atorvastatin Calcium 40 mg 11/18/21 21:45 11/19/21 21:52 Atorvastatin 40 Mg Tab PO 40 mg HS ALINE Administration Carbamazepine 200 mg 11/19/21 09:00 11/20/21 07:57 Carbamazepine 200 Mg Tab PO 200 mg DAILY ALINE Administration Carbamazepine 400 mg 11/18/21 21:45 11/19/21 21:52 Carbamazepine 200 Mg Tab PO 400 mg HS ALINE Administration Citalopram Hydrobromide 20 mg 11/19/21 09:00 11/20/21 07:57 Citalopram Hydrobromide 20 Mg Tab PO 20 mg DAILY ALINE Administration Dexamethasone Sodium Phosphate 4 mg 11/18/21 23:59 11/20/21 08:02 Dexamethasone Sod Phosphate 4 Mg/Ml 1 Ml Vial IVP 4 mg Q4HR ALINE Administration Diphenhydramine HCl 25 mg 11/19/21 09:00 11/20/21 08:09 Diphenhydramine 25 Mg Cap PO 25 mg DAILY ALINE Administration Gabapentin 300 mg 11/18/21 22:00 11/20/21 07:57 Gabapentin 300 Mg Cap PO 300 mg TID ALINE Administration Hydromorphone HCl 1 mg 11/18/21 19:17 11/19/21 16:21 Hydromorphone 1 Mg/Ml 1 Ml Syringe IVP 1 mg Q3HR PRN Administration Severe Pain Sodium Chloride 1,000 mls @ 20 mls/hr 11/19/21 15:00 11/19/21 15:03 Saline 0.9% IV 20 mls/hr .Q24H ALINE Administration Insulin Aspart 0 unit 11/19/21 07:30 11/20/21 07:56 Insulin Aspart (Novolog) 100 Unit/Ml Vial SQ 3 unit ACHS ALINE Administration Protocol Insulin Detemir 10 unit 11/20/21 09:30 11/20/21 09:13 Insulin Detemir (Levemir) 100 Unit/Ml Syr SQ 10 unit DAILY@0700 ALINE Administration Ipratropium [place] 2 spray 11/18/21 21:24 Ipratropium [place] 0.06% Nasal [place] (15 Ml) EA NOSTRIL BID PRN Allergy Symptoms Losartan Potassium 100 mg 11/19/21 09:00 11/20/21 07:58 Losartan 50 Mg Tab PO 100 mg DAILY ALINE Administration Metoprolol Succinate 25 mg 11/19/21 09:00 11/20/21 07:58 Metoprolol Succinate (Er) 25 Mg Tab.Er.24h PO 25 mg DAILY ALINE Administration Naloxone HCl 0.2 mg 11/18/21 19:17 Naloxone 0.4 Mg/Ml 1 Ml Vial IV Q2M PRN Opioid Reversal Ondansetron HCl 4 mg 11/18/21 21:24 Ondansetron Odt 4 Mg Tab PO BID PRN Nausea Pantoprazole Sodium 40 mg 11/19/21 07:30 11/20/21 07:57 Pantoprazole 40 Mg Tablet PO 40 mg [id number] ALINE Administration Trazodone HCl 50 mg 11/18/21 21:45 11/19/21 21:51 Trazodone Hcl 50 Mg Tab PO 50 mg HS ALINE Administration Intake and Output 11/19/21 11/20/21 11/20/21 22:59 06:59 14:59 Intake Total 480 Output Total 400 1000 Balance 80 -1000 Intake: Oral 480 Output: Urine 400 1000 Other: Voiding Method External Catheter 11/20/21 06:14 11/20/21 06:14
[2021-11-20 11:30] LABS: Glucose,Whole Blood 193 mg/dL (75-99)
[2021-11-20] MEDS: ACETAMINOPHEN TAB 325 MG TAB PO PRN (12:07)
--- NOTE | 2021-11-20 13:19 | P.CNNES ---
History of Present Illness Consult date: 11/20/21 Requesting physician: Neil Barr Reason for Consult: surgical clearance History of Present Illness: This is a 81-year-old woman with medical history of Parkinson, brain aneurysm type 2 diabetes, remote seizure, multiple falls, hypertension who presented emergency department because of a fall. Neurology is consulted for clearance for orthopedic surgery. History is obtained from patient and her daughter who is at bedside. It seems the patient was the was walk-in and got dizzy and crossed her hands over her chest as a result fell on her face. Patient did not lose consciousness but had some mild memory loss is reported as a result of after the fall. It seems that the patient last fall was about 3 month ago. Patient handles her own ADLs. According to the daughter, patient has a fall once every 3 months. She has significant spinal stenosis and has refused surgery in past. As a result of the fall the patient had multiple facial laceration status post repair. Was felt the patient has acute central cord syndrome and was admitted for spinal surgery. She is on cervical collar. She was placed on steroids. Per the daughter the patient was having hallucination of seeing things yesterday and was confused after she was started on steroids but today she feels the patient is doing better. Patient is on home medication of Tegretol 400mg qhs and 200mg daily. Patient is also on the appetite and 300 mg a tablet 3 times a day. It does not seem that the patient is on any Sinement for Parkinson's disease. Per daughter, patient is following-up with Dr. Delacruz and was told she has Parkinson's disease and has not started on medications yet. She has coming-up appointment with him. Patient also has brain aneurysm and daughter is in the process of making her follow-up with Dr. Brewer. Patient has left proximal arm deficit due to left shoulder problem for possibly 15 years. Of note my Dr. Sharma seen patient last in our facility on 10/14/2018 because of the fall and he felt was due to a combination of mild cervical myelopathy from spinal stenosis and perhaps mild peripheral neuropathy and possible medication side effect at. He felt possibly the patient has Parkinson's feature mild degree but no indication for anti-Parkinson medication. He recommended repeating MRI of the cervical to follow-up on the cervical spinal stenosis. Please refer to his note for further details. Some other workup in our facility during his hospital visit consisted of: CT of the brain is reported as cerebral atrophy. No acute intracranial abnormality. No change. Personally reviewed the CT of the head and there is no acute subacute ischemic changes and there is no interpretable hemorrhage. Patient does have hypodensity over the right MCA likely supporting her diagnosis of the aneurysm. CT cervical spine was reported as mild multilevel cervical spondylitic changes. No fracture. No change MRI of the cervical spine is reported as no cervical spine fracture or malalignment. Moderate diffuse degenerative disc disease at. Mild cervical stenosis at C4-C5 and C5-C6 level and mild myelomalacia within the cord at C5 level. No cervical disc herniation. Multiple severe and neural for mental stenosis. I personally reviewed the MRI of the cervical spine and I do agree that the patient has severe spinal stenosis between C4 to C6 and there is questionable myelomalacia at C5. Patient had humerus x-ray bilaterally at it's reported as deformity of the left shoulder with severe subacromial joint space narrowing and impingement. Separation of the before meals joint. Changes appear chronic. No fracture seen. No acute abnormality of the left and right humerus. Review of Systems Review of system: The 12 point system was reviewed and apparent positive and negative per HPI. Past Medical History Past Medical History: Asthma, CVA/TIA, Diabetes Mellitus, GERD/Reflux, Hypertension, Seizure Disorder, Skin Disorder Additional Past Medical History / Comment(s): TIA age 33absence seizuresLt arm skin bruised from scratching during night, Parkinsons in 2017, History of Any Multi-Drug Resistant Organisms: ESBL Date of last positivie culture/infection: 12/28/20 MDRO Source:: URINE Past Surgical History: Cholecystectomy, Heart Catheterization, Orthopedic Surgery Additional Past Surgical History / Comment(s): bilateral knee arthroscopies,left shoulder rotator cuff repair Past Anesthesia/Blood Transfusion Reactions: Motion Sickness Past Psychological History: No Psychological Hx Reported Smoking Status: Former smoker Past Alcohol Use History: None Reported Additional Past Alcohol Use History / Comment(s): Patient lives alone, ambulates mainly with a cane. Patient was a smoker one pack per day for 17 years and quit approximate 35 years ago. She denies any marijuana or illicit drug use. No alcohol use. Past Drug Use History: None Reported - Past Family History Brother(s) Family Medical History: CVA/TIA Additional Family Medical History / Comment(s): Patient has 1 brother that from either a CVA or acute NM. Sister(s) Family Medical History: Coronary Artery Disease (CAD) Additional Family Medical History / Comment(s): Patient has 3 sisters and one is alive with no major medical problems. 2 sisters have and one was following influenza immunization. 1 sister is unknown cause of . Daughter(s) History Unknown: Yes Additional Family Medical History / Comment(s): Patient has 2 daughters and one has history of rheumatoid arthritis and one has history of diabetes. Patient has one son with no major medical problems. Son(s) History Unknown: Yes Family Medical History: No Reported History Father Additional Family Medical History / Comment(s): Father at age 83 from a myocardial infarction. Mother Family Medical History: No Reported History Additional Family Medical History / Comment(s): Mother at age 93 from a myocardial infarction. Medications and Allergies Home Medications Medication Instructions Recorded Confirmed Type Atorvastatin [Lipitor] 40 mg PO HS 11/17/14 11/18/21 History Metoprolol Succinate (ER) [Toprol 25 mg PO DAILY 11/17/14 11/18/21 History XL] Omeprazole 20 mg PO DAILY 07/09/17 11/18/21 History carBAMazepine 200 mg PO DAILY 10/11/18 11/18/21 History carBAMazepine [TEGretol] 400 mg PO HS 10/11/18 11/18/21 History Citalopram Hydrobromide 20 mg PO DAILY 05/15/20 11/18/21 History [Citalopram HBr] Losartan [Cozaar] 100 mg PO DAILY 05/15/20 11/18/21 History metFORMIN HCL [Glucophage] 1,000 mg PO HS 05/15/20 11/18/21 History metFORMIN HCL [Glucophage] 500 mg PO DAILY 05/15/20 11/18/21 History ALPRAZolam [Xanax] 0.5 mg PO BID PRN 06/02/20 11/18/21 History Ondansetron Odt [Zofran Odt] 4 mg PO BID PRN 06/02/20 11/18/21 History Albuterol Inhaler [Ventolin Hfa 2 puff INHALATION RT-QID PRN 11/18/21 11/18/21 History Inhaler] Albuterol Nebulized [Ventolin 2.5 mg INHALATION RT-QID PRN 11/18/21 11/18/21 History Nebulized] Aspirin EC [Ecotrin Low Dose] 81 mg PO DAILY 11/18/21 11/18/21 History Cranberry Fruit Extract [Cranberry] 500 mg PO DAILY 11/18/21 11/18/21 History Ipratropium [place] [Ipratropium 2 sprays EA NOSTRIL BID PRN 11/18/21 11/18/21 History [place] 0.03%] amLODIPine [Norvasc] 5 mg PO HS 11/18/21 11/18/21 History diphenhydrAMINE [Benadryl] 25 mg PO DAILY 11/18/21 11/18/21 History traZODone HCL [Desyrel] 50 mg PO HS 11/18/21 11/18/21 History Allergies Allergy/AdvReac Type Severity Reaction Status Date / Time codeine Allergy Unknown Verified 11/18/21 17:42 erythromycin base Allergy Unknown Verified 11/18/21 17:42 levofloxacin [From Levaquin] Allergy Rash/Hives Verified 11/18/21 17:42 nitrofurantoin Allergy Unknown Verified 11/18/21 17:42 [From Macrobid] nitrofurantoin Allergy Unknown Verified 11/18/21 17:42 macrocrystalline [From Macrobid] Penicillins Allergy Unknown Verified 11/18/21 17:42 sulfamethoxazole Allergy Unknown Verified 11/18/21 17:42 [From Bactrim] trimethoprim [From Bactrim] Allergy Unknown Verified 11/18/21 17:42 acetaminophen AdvReac Hallucinati Verified 11/18/21 17:42 [From Darvocet-N] ons ciprofloxacin [From Cipro] AdvReac Vomiting Verified 11/18/21 17:42 ciprofloxacin HCl AdvReac Vomiting Verified 11/18/21 17:42 [From Cipro] hydralazine AdvReac headache Verified 11/18/21 17:42 propoxyphene napsylate AdvReac Hallucinati Verified 11/18/21 17:42 [From Darvocet-N] ons omnipaxo AdvReac Rapid Uncoded 05/11/21 19:55 Heart Rate Physical Examination - Vital Signs Vital Signs: Vital Signs Temp Pulse Resp BP Pulse Ox 11/20/21 08:00 98.3 F 88 16 163/88 96 11/20/21 02:00 98.6 F 80 167/82 93 L 11/19/21 20:00 98.6 F 81 16 139/74 92 L 11/19/21 14:00 98.4 F 83 16 144/75 93 L Intake and Output 11/19/21 11/20/21 11/20/21 22:59 06:59 14:59 Intake Total 480 Output Total 400 1000 Balance 80 -1000 Intake: Oral 480 Output: Urine 400 1000 Other: Voiding Method External Catheter External Catheter GENERAL: The patient is lying in bed and is mild acute distress. HENT: Cervical collar. CHEST: The heart rate is regular rate rhythm. No murmurs to auscultation. LUNG: Clear to auscultation bilaterally no wheezing noted throughout. Not l abored breathing. ABDOMEN/GI: Bowel sounds present in all 4 quadrants. No tenderness to palpation throughout. NEUROLOGICAL: Higher mental function: The patient is awake, alert, oriented to self, time. She stated she is not in the hospital but with redirection she correctly stated place. She is able to name objects correctly. Patient is following simple commands. No aphasia and no neglect. Cranial nerves: The pupils are round, equal and reactive to light. Visual fonseca are full to confrontation throughout. Extraocular movement is intact no nystagmus is noted. Facial sensation is normal to touch throughout. The facial strength is normal throughout. Patient has racoon eyes bilaterally after fall, and suture on forearhead. Hearing is moderately decreased bilaterally to hand rub. Tongue is midline and moved [id number] without any difficulty. No dysarthria is noted. Motor: The strength is limited because of pain. Upper extremity is above gravity but limited because of pain. Lowers are normal. Normal tone is normal in lowers but hard to assess uppers because of pain. Bulk is normal. Cerebellum: Normal finger to nose bilaterally. Sensation: Sensation is normal to touch throughout but having pain to touch over upper since fall. Reflexes (right/left): 3+ over the right side and 3+ over the left brachioradialis. Plantars are mute bilaterally. Results - Laboratory Findings CBC and BMP: 11/20/21 06:14 11/20/21 06:14 Abnormal Lab Findings: Abnormal Labs 11/18/21 11/18/21 11/18/21 20:45 20:45 20:45 RBC 3.66 L Hgb 11.1 L Neutrophils # Lymphocytes # 0.8 L APTT 21.4 L Sodium 133 L Potassium BUN Glucose 175 H POC Glucose (mg/dL) Phosphorus Iron Total Bilirubin 0.1 L 11/19/21 11/19/21 11/19/21 04:42 08:02 12:03 RBC Hgb Neutrophils # Lymphocytes # APTT Sodium 134 L Potassium 5.5 H BUN Glucose 214 H POC Glucose (mg/dL) 237 H 183 H Phosphorus 4.9 H Iron 49 L Total Bilirubin 11/19/21 11/19/21 11/20/21 16:20 21:42 06:14 RBC Hgb Neutrophils # 8.4 H Lymphocytes # 0.6 L APTT Sodium Potassium BUN Glucose POC Glucose (mg/dL) 200 H 211 H Phosphorus Iron Total Bilirubin 11/20/21 11/20/21 11/20/21 06:14 07:16 11:29 RBC Hgb Neutrophils # Lymphocytes # APTT Sodium 135 L Potassium 5.3 H BUN 18 H Glucose 193 H POC Glucose (mg/dL) 226 H 193 H Phosphorus Iron Total Bilirubin Assessment and Plan Assessment: Cervical myelopathy (has hyperreflexia over the right side) Severe spinal stenosis between C4 to C6 Fall due to above Encephalopathy due to medication use and fall (steroid)--improved Multiple facial laceration due to a fall status post repair Parkinson's disease and is not on any medication Seizure disorder and seems last one is remote History of a brain aneurysm ("some fusiform prominence distal basilar tip. Tiny anterior aneurysm measing 0.3cm may be present" per CTA on 11/09/2021 Diabetes mellitus type 2 Hypertension Plan: From a neurological perspective patient is clear for surgery since benefit seems to outweigh the risk (patient having significant cervical stenosis with recurrent falls) Every 4 hours neuro checks Recommend the patient to follow-up with the intervention neurology team (Dr. Brewer for her aneurysm) as outpatient. Daughter in process of making her foll ow-up with him. Regarding her diagnosis of Parkinson, daughter wants to hold off starting any medications for now and will have Dr. Delacruz (her neurologist) as outpatient start her. Cardiology team is on board for clearance We'll defer the rest of the mat management to the orthopedic and primary team. Thank you for the consultation. Will follow-up with patient sporadically. Dr. Sharma is starting neurology service tomorrow AM. Kunal Winn M.D. Neuro-Hospitalist Time with Patient: Greater than 30
[2021-11-20 16:20] LABS: Glucose,Whole Blood 199 mg/dL (75-99)
[2021-11-20 21:09] LABS: Glucose,Whole Blood 278 mg/dL (75-99)
[2021-11-20] MEDS: traZODone HCL 50 MG TAB PO SCH (21:24)
[2021-11-20] MEDS: ATORVASTATIN 40 MG TAB PO SCH (21:24)
[2021-11-20] MEDS: amLODIPine 5 MG TAB PO SCH (21:24)
[2021-11-21] MEDS: SODIUM CHLORIDE 0.9% 1,000 ML IV SCH ×2 (00:09→17:03)
[2021-11-21] MEDS: DEXAMETHASONE SOD PHOSPHATE 4 MG/ML 1 ML VIAL IVP SCH ×3 (00:35→13:48)
[2021-11-21 07:26] LABS: Glucose,Whole Blood 166 mg/dL (75-99)
[2021-11-21] MEDS: INSULIN DETEMIR (LEVEMIR) 100 UNIT/ML SYR SQ SCH ×2 (08:36→11:53)
[2021-11-21] MEDS: carBAMazepine 200 MG TAB PO SCH ×2 (08:37→20:21)
[2021-11-21] MEDS: GABAPENTIN 300 MG CAP PO SCH ×2 (08:37→17:00)
[2021-11-21] MEDS: LOSARTAN 50 MG TAB PO SCH (08:37)
[2021-11-21] MEDS: INSULIN ASPART (NovoLOG) 100 UNIT/ML VIAL SQ SCH ×5 (08:37→17:00)
[2021-11-21] MEDS: PANTOPRAZOLE 40 MG TABLET PO SCH (08:38)
[2021-11-21] MEDS: diphenhydrAMINE 25 MG CAP PO SCH (08:38)
[2021-11-21] MEDS: METOPROLOL SUCCINATE (ER) 25 MG TAB.ER.24H PO SCH (08:38)
[2021-11-21] MEDS: CITALOPRAM HYDROBROMIDE 20 MG TAB PO SCH (08:38)
--- NOTE | 2021-11-21 09:17 | P.PN ---
Subjective Progress Note Date: 11/21/21 Principal diagnosis: Central cord syndrome, status post fall from standing Patient seen and examined at bedside. Patient is resting supine in bed. Soft cervical collar is in place. Patient is able to answer all questions appropriately and follow commands. She does continue to have paresthesias with radiculopathy and weakness in the bilateral upper extremities. She reports hyperesthesia to be present in both of her hands. Patient denies any numbness tingling to bilateral lower extremities. External catheter in place. Patient has been afebrile, denies any nausea/vomiting, or chest pain. Objective - Vital Signs Vital signs: Vital Signs Temp 98.8 F 11/21/21 07:49 Pulse 82 11/21/21 07:49 Resp 18 11/21/21 07:49 BP 154/88 11/21/21 07:49 Pulse Ox 93 L 11/21/21 07:49 FiO2 Intake & Output 11/20/21 11/21/21 11/21/21 18:59 06:59 18:59 Intake Total 480 Output Total 400 500 Balance 80 -500 Intake: Oral 480 Output: Urine 400 500 Other: Voiding Method External Catheter External Catheter - Exam Physical Examination General: The patient is awake and alert, in no acute distress Skin: Skin is warm and dry with no obvious rashes or lesions. Hairy patches absent, no dorsal skin dimples, no cafe au lait spots, and no surgical incisions. Eye: Pupils are equal, round and reactive to light, extra-ocular movements are intact; there is normal conjunctiva bilaterally. Neck: The neck is supple, there is no tenderness and ROM intact. Cardiovascular: There is a regular rate and rhythm. No murmur, rub or gallop is appreciated. Respiratory: Lungs are clear to auscultation, respirations are non-labored, breath sounds are equal. Gastrointestinal: Soft, non-distended, non-tender abdomen . Back: There is no tenderness to palpation in the midline, paralumbar, parathoracic or buttocks region. There is no obvious deformity . Musculoskeletal: ROM limited secondary to pain and stiffness from surgical procedure. Shoulder abduction 4/5, elbow flexors 4/5, wrist dorsiflexors 3/5. finger abductor 3/5, shafting cleaner 3/5, hip flexor 4/5, knee flexor 4/5, ankle dorsiflexor 4/5, ankle plantarflexion 4/5 and extensor hallucis 4/5. Neurological: CN 2-12 intact. There are no obvious motor or sensory deficits. Movement and coordination equal and intact. Sensory exam to light touch intact C5-T1 and intact from L2-S1. Reflexes 2/4 in bilateral upper and lower extremities. Negative Hoffmans, babinski, and clonus signs. Psychiatric: Cooperative, appropriate mood & affect, normal judgment. - Labs CBC & Chem 7: 11/20/21 06:14 11/20/21 06:14 Labs: Abnormal Lab Results - Last 24 Hours (Table) 11/20/21 11/20/21 11/20/21 Range/Units 11:29 16:19 21:07 POC Glucose (mg/dL) 193 H 199 H 278 H (75-99) mg/dL 11/21/21 Range/Units 07:25 POC Glucose (mg/dL) 166 H (75-99) mg/dL Assessment and Plan Assessment: Status post fall from standing Acute central cord syndrome Bilateral upper extremity paresthesias Upper extremity weakness Blunt head trauma with facial lacerations Complex medical patient with multiple comorbidities Plan: Plan: -Appreciate financial sales consultant and team management. -Activity: HOB 45 degree to patient's comfort, turn q2 hours, Spine precautions, Hard c-collar at all times. -Pain control as needed. -Neurologic assessments every 4 hours. Any change in mentation should prompt new computed tomography scan of brain given the patient's blunt head trauma -Mechanical DVT ppx -Meds: reviewed -Encourage IS 10x/hr -Dispo: She is scheduled for a ACDF of C3-C6 for 11/22/2021 *I reviewed and discussed this case with my attending Dr. Barr, whom has reviewed this chart and films and is in agreement with assessment and plan of care as outlined above. I have personally seen and examined the patient, performed the documentation and the assessment and plan as written. Number of minutes spent on the visit: 20m.
--- NOTE | 2021-11-21 10:06 | P.PN ---
Subjective Progress Note Date: 11/21/21 No new complaints today. Surgery planned for tomorrow AM; ACDF. Gen: awake, alert HEENT: normocephalic, atraumatic, good hearing acuity, moist mucous membranes Resp: good air exchange, breathing comfortably with no accessory muscle use CVS: good distal perfusion x 4, GI: soft, NTTP, ND : no SPT, no CVAT, varma catheter not present MSK: no pitting edema, no clubbing Neuro: Would not allow me to do neurological physical due to concerns of pain Psych: cooperative, euthymic mood Assessment/plan: Acute central cord syndrome Preoperative clearance - Admitted to spine surgery - on steroids - cervical hard collar at all times - pain control - neurontin -NSQIP risk calculator estimates a 0.3% risk of major adverse cardiac complication, may proceed to surgery without any further need of testing Multiple facial lacerations s/p repair - continue to monitor Mechanical fall with hx of Parkinson disease - fall precuations - PT/OT Anemia - at baseline - check iron levels - follow CBC Concussion Seizure disorder - neuro checks - supportive care - resume home tegretol, DM 2 - nold metformin - SSI - follow BS closely with steroids - last A1C was 6.2 per family - Add 10 units of Levemir while she is on dexamethasone HTN - typically 160/90 - resume home medications - follow BP Chronic conditions: Prior TIA Asthma -Home medications reviewed and reconciled Thank you for allowing us to participate in the care of this pleasant patient. Do not hesitate to contact us with questions. Someone can be reached from the [facility] hospitalist group all hours of the day at [phone] or via perfect serve. Objective - Vital Signs Vital signs: Vital Signs Temp 98.8 F 11/21/21 07:49 Pulse 82 11/21/21 07:49 Resp 18 11/21/21 07:49 BP 154/88 11/21/21 07:49 Pulse Ox 93 L 11/21/21 07:49 FiO2 Intake & Output 11/20/21 11/21/21 11/21/21 18:59 06:59 18:59 Intake Total 480 Output Total 400 500 Balance 80 -500 Intake: Oral 480 Output: Urine 400 500 Other: Voiding Method External Catheter External Catheter - Labs CBC & Chem 7: 11/20/21 06:14 11/20/21 06:14 Labs: Abnormal Lab Results - Last 24 Hours (Table) 11/20/21 11/20/21 11/20/21 Range/Units 11:29 16:19 21:07 POC Glucose (mg/dL) 193 H 199 H 278 H (75-99) mg/dL 11/21/21 Range/Units 07:25 POC Glucose (mg/dL) 166 H (75-99) mg/dL
--- NOTE | 2021-11-21 11:24 | P.PN ---
Subjective The patient is a 81-year-old female with past medical history of hypertension, dyslipidemia, TIA, orthostatic hypotension, type 2 diabetes, Parkinson's. She follows in the office with Dr. Malhotra. We have been asked to see in consultation for surgical clearance. Patient is currently admitted to the hospital after a mechanical fall. 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 Orthopedic surgery is planning on anterior cervical discectomy with fusion on November 22. Patient seen and examined at bedside, no acute distress. Vital signs are stable. From the cardiac standpoint she states she is doing well. Her main complaint is neck and arm discomfort. No chest pain or chest pressure. Meds: amlodipine 5mg nightly, atorvastatin 40 mg nightly, losartan 100 mg daily, metoprolol succinate 25 mg daily Records obtained from the office: Patient underwent Lexiscan stress test 11/2017 which revealed no evidence of reversible ischemia. Patient underwent an event monitor /02/2021 which revealed sinus mechanism, no acute events, no arrhythmia seen. Echocardiogram 07/2020 revealed an EF of 60%, normal diastolic function, mild left ventricular hypertrophy, mild mitral regurgitation, mild tricuspid regurgitation PHYSICAL EXAMINATION: This is a 81-year-old male in no apparent distress at the time of my examination. 154/88, heart rate 82, afebrile, saturations 93% on room air HEENT: Neck is supple. There is no jugular venous distention. CHEST EXAMINATION: Lungs are clear to auscultation. No chest wall tenderness is noted on palpation or with deep breathing. HEART EXAMINATION: Heart regular rate and rhythm. S1, S2 heard. No murmurs, gallops or rub. ABDOMEN: Soft, nontender. Bowel sounds are heard. EXTREMITIES: 2+ peripheral pulses with no evidence of peripheral edema and no calf tenderness noted. NEUROLOGIC EXAMINATION: Patient is awake, alert and oriented x3. FINAL ASSESSMENT AND PLAN: Acute central cord syndrome, plan for anterior cervical discectomy and fusion surgery Status post mechanical fall Hypertension Diabetes History of TIA History of Parkinson's disease PLAN: We will repeat 2D echocardiogram Patient is at moderate-high risk for cardiovascular event during surgery. She has the following risk factors of history of CVA, preoperative treatment with insulin, and age. Patient is not able to perform >4 METs levels of activity. Does not have any acute cardiac conditions. There are no absolute contraindications to undergo surgery at this time, benefits outweighs the risks. Patient is hemodynamically stable. Recommend cautious fluid administration and optimal BP control. Nurse practitioner note has been reviewed by physician. Signing provider agrees with the documented findings, assessment, and plan of care. Objective - Vital Signs Vital signs: Vital Signs Temp 98.8 F 11/21/21 07:49 Pulse 82 11/21/21 07:49 Resp 18 11/21/21 07:49 BP 154/88 11/21/21 07:49 Pulse Ox 93 L 11/21/21 07:49 FiO2 Intake & Output 11/20/21 11/21/21 11/21/21 18:59 06:59 18:59 Intake Total 480 Output Total 400 500 Balance 80 -500 Intake: Oral 480 Output: Urine 400 500 Other: Voiding Method External Catheter External Catheter External Catheter - Labs CBC & Chem 7: 11/20/21 06:14 11/20/21 06:14 Labs: Abnormal Lab Results - Last 24 Hours (Table) 11/20/21 11/20/21 11/20/21 Range/Units 11:29 16:19 21:07 POC Glucose (mg/dL) 193 H 199 H 278 H (75-99) mg/dL 11/21/21 Range/Units 07:25 POC Glucose (mg/dL) 166 H (75-99) mg/dL
[2021-11-21 11:28] LABS: Glucose,Whole Blood 162 mg/dL (75-99)
[2021-11-21 16:35] LABS: Glucose,Whole Blood 202 mg/dL (75-99)
[2021-11-21] MEDS: traZODone HCL 50 MG TAB PO SCH (20:21)
[2021-11-21] MEDS: amLODIPine 5 MG TAB PO SCH (20:21)
[2021-11-21] MEDS: ATORVASTATIN 40 MG TAB PO SCH (20:21)
[2021-11-21 21:28] LABS: Glucose,Whole Blood 235 mg/dL (75-99)
[2021-11-22] MEDS: INSULIN ASPART (NovoLOG) 100 UNIT/ML VIAL SQ SCH ×7 (00:04→16:48)
[2021-11-22] MEDS: GABAPENTIN 300 MG CAP PO SCH ×3 (00:04→16:52)
[2021-11-22] MEDS ORDERED: LACTATED RINGERS 1,000 ML IV ONE ×2 (00:22→21:51)
[2021-11-22] MEDS: DEXAMETHASONE SOD PHOSPHATE 4 MG/ML 1 ML VIAL IVP SCH ×5 (00:25→17:18)
[2021-11-22 06:53] LABS: Glucose,Whole Blood 173 mg/dL (75-99)
[2021-11-22] MEDS: INSULIN DETEMIR (LEVEMIR) 100 UNIT/ML SYR SQ SCH (07:20)
[2021-11-22] MEDS: carBAMazepine 200 MG TAB PO SCH (08:01)
[2021-11-22] MEDS: METOPROLOL SUCCINATE (ER) 25 MG TAB.ER.24H PO SCH (08:01)
[2021-11-22] MEDS: CITALOPRAM HYDROBROMIDE 20 MG TAB PO SCH (08:01)
[2021-11-22] MEDS: PANTOPRAZOLE 40 MG TABLET PO SCH (08:01)
[2021-11-22] MEDS: LOSARTAN 50 MG TAB PO SCH (08:02)
[2021-11-22] MEDS: diphenhydrAMINE 25 MG CAP PO SCH (08:02)
--- NOTE | 2021-11-22 09:03 | P.PN ---
Subjective Progress Note Date: 11/22/21 No new complaints today. Surgery planned for today; ACDF. Gen: awake, alert HEENT: normocephalic, atraumatic, good hearing acuity, moist mucous membranes Resp: good air exchange, breathing comfortably with no accessory muscle use CVS: good distal perfusion x 4, GI: soft, NTTP, ND : no SPT, no CVAT, varma catheter not present MSK: no pitting edema, no clubbing Neuro: Would not allow me to do neurological physical due to concerns of pain Psych: cooperative, euthymic mood Assessment/plan: Acute central cord syndrome Preoperative clearance - Admitted to spine surgery - on steroids - cervical hard collar at all times - pain control - neurontin -NSQIP risk calculator estimates a 0.3% risk of major adverse cardiac complication, may proceed to surgery without any further need of testing Multiple facial lacerations s/p repair - continue to monitor Mechanical fall with hx of Parkinson disease - fall precuations - PT/OT Anemia - at baseline - check iron levels - follow CBC Concussion Seizure disorder - neuro checks - supportive care - resume home tegretol, DM 2 - nold metformin - SSI - follow BS closely with steroids - last A1C was 6.2 per family - Add 15 units of Levemir while she is on dexamethasone + 3U AC-TID + SSI HTN - typically 160/90 - resume home medications - follow BP Chronic conditions: Prior TIA Asthma -Home medications reviewed and reconciled Thank you for allowing us to participate in the care of this pleasant patient. Do not hesitate to contact us with questions. Someone can be reached from the [facility] hospitalist group all hours of the day at [phone] or via perfect serve. Objective - Vital Signs Vital signs: Vital Signs Temp 97.5 F L 11/22/21 07:52 Pulse 93 11/22/21 07:52 Resp 17 11/22/21 07:52 BP 181/87 11/22/21 07:52 Pulse Ox 95 11/22/21 07:52 FiO2 Intake & Output 11/21/21 11/22/21 11/22/21 18:59 06:59 18:59 Output Total 2400 Balance -2400 Output: Urine 2400 Other: Voiding Method External Catheter # Voids 2 - Labs CBC & Chem 7: 11/20/21 06:14 11/20/21 06:14 Labs: Abnormal Lab Results - Last 24 Hours (Table) 11/21/21 11/21/21 11/21/21 Range/Units 11:26 16:34 21:26 POC Glucose (mg/dL) 162 H 202 H 235 H (75-99) mg/dL 11/22/21 Range/Units 06:51 POC Glucose (mg/dL) 173 H (75-99) mg/dL
[2021-11-22 09:19] LABS: Basophils # (A) 0.04 X 10*3/uL (0.00-0.10); Basophils % (A) 0.5 %; Eosinophils # (A) 0.03 X 10*3/uL (0.04-0.35); Eosinophils % (A) 0.4 %; HCT 35.7 % (37.2-46.3); HGB 11.3 g/dL (12.0-15.0); Immature Grans, Automated 0.7 %; Lymphocytes # (A) 1.64 X 10*3/uL (0.90-5.00); Lymphocytes % (A) 19.7 %; MCH 29.8 pg (27.0-32.0); MCHC 31.7 g/dL (32.0-37.0); MCV 94.2 fL (80.0-97.0); Mean Platelet Volume 9.5 fL (9.5-12.2); Monocytes % (A) 7.2 %; NRBC Per 100 WBC 0 /100 WBCS (0.0-0.0); Neutrophils # (A) 5.94 X 10*3/uL (1.80-7.70); Neutrophils % (A) 71.5 %; Platelet Count 289 X 10*3/uL (140-440); RBC 3.79 X 10*6/uL (4.10-5.20); RDW 13.3 % (11.5-14.5); WBC 8.31 X 10*3/uL (4.50-10.00)
[2021-11-22 09:35] LABS: African American GFR (CKD) 100.5 (60.0-200.0); Anion Gap 12.3 mmol/L (10.00-18.00); BUN/Creat Ratio 31.83 Ratio (12.00-20.00); Blood Urea Nitrogen 19.1 mg/dL (9.0-27.0); Calcium 8.9 mg/dL (8.7-10.3); Carbon Dioxide 23.7 mmol/L (20.0-27.5); Magnesium 2.1 mg/dL (1.5-2.4); Non-African American GFR(CKD) 86.7 (60.0-200.0); Potassium 4.5 mmol/L (3.5-5.5)
--- NOTE | 2021-11-22 10:06 | P.PN ---
Subjective Progress Note Date: 11/21/21 Patient age and be seen by Dr. Kunal Winn. Please refer to his note for details. Patient is a 81-year-old female, with a recent fall. Patient does have cervical myelopathy due to spinal stenosis. She has Parkinson's disease as well. Dr. Winn has cleared patient for surgery. Patient's daughters were present today. Patient had undergone left shoulder repair 15 years ago. Left shoulder is always weak. Patient's family says that patient tripped coming out of the room and face planted in the carpet. She has multiple bruises over the face. Patient is complaining of significant pain in her hands with weakness. Objective - Vital Signs Vital signs: Vital Signs Temp 97.5 F L 11/22/21 07:52 Pulse 93 11/22/21 07:52 Resp 17 11/22/21 07:52 BP 175/80 11/22/21 09:50 Pulse Ox 95 11/22/21 07:52 FiO2 Intake & Output 11/21/21 11/22/21 11/22/21 18:59 06:59 18:59 Output Total 2400 Balance -2400 Output: Urine 2400 Other: Voiding Method External Catheter External Catheter # Voids 2 - Exam Patient is alert and awake in no distress. Detail cognitive function testing deferred. Speech and language functions are normal. In the upper limbs, patient wrapper hand is equal, although weak bilaterally. Biceps appears normal. Patient did not cooperate well with the examination of the upper limbs because of guarding and pain. Her strength is normal in the lower limbs. Patient has SCDs on place. Reflexes are 3 at the knees, and possible upgoing plantars bilaterally. - Labs CBC & Chem 7: 11/22/21 06:10 11/22/21 06:10 Labs: Abnormal Lab Results - Last 24 Hours (Table) 11/21/21 11/21/21 11/21/21 Range/Units 11:26 16:34 21:26 RBC (4.10-5.20) X 10*6/uL Hgb (12.0-15.0) g/dL Hct (37.2-46.3) % MCHC (32.0-37.0) g/dL Immature Gran # (0.00-0.04) X 10*3/uL Eosinophils # (0.04-0.35) X 10*3/uL BUN/Creatinine Ratio (12.00-20.00) Ratio Glucose (70-110) mg/dL POC Glucose (mg/dL) 162 H 202 H 235 H (75-99) mg/dL 11/22/21 11/22/21 11/22/21 Range/Units 06:10 06:10 06:51 RBC 3.79 L (4.10-5.20) X 10*6/uL Hgb 11.3 L (12.0-15.0) g/dL Hct 35.7 L (37.2-46.3) % MCHC 31.7 L (32.0-37.0) g/dL Immature Gran # 0.06 H (0.00-0.04) X 10*3/uL Eosinophils # 0.03 L (0.04-0.35) X 10*3/uL BUN/Creatinine Ratio 31.83 H (12.00-20.00) Ratio Glucose 148 H (70-110) mg/dL POC Glucose (mg/dL) 173 H (75-99) mg/dL Assessment and Plan Assessment: Cervical myelopathy (has hyperreflexia in the lower extremities) Severe spinal stenosis, worse at C4 5, slightly lesser at C5 6 level. Fall due to above Encephalopathy due to medication use and fall (steroid)--improved Multiple facial laceration due to a fall status post repair Parkinson's disease and is not on any medication Seizure disorder and seems last one is remote History of a brain aneurysm ("some fusiform prominence distal basilar tip. Tiny anterior aneurysm measing 0.3cm may be present" per CTA on 11/09/2021 Diabetes mellitus type 2 Hypertension Plan: From a neurological perspective patient is clear for surgery since benefit seems to outweigh the risk (patient having significant cervical stenosis with recurrent falls) Recommend the patient to follow-up with the intervention neurology team (Dr. Brewer for her aneurysm) as outpatient. Daughter in process of making her follow-up with him. Regarding her diagnosis of Parkinson, daughter wants to hold off starting any medications for now and will have Dr. Delacruz (her neurologist) as outpatient start her. Cardiology team is on board for clearance We'll defer the rest of the mat management to the orthopedic and primary team. Neurology will sign off. Please reconsult if any other concerns.
[2021-11-22 11:38] LABS: Glucose,Whole Blood 169 mg/dL (75-99)
[2021-11-22] MEDS: ACETAMINOPHEN TAB 325 MG TAB PO PRN (11:52)
--- NOTE | 2021-11-22 12:29 | P.PN ---
Subjective The patient is a 81-year-old female with past medical history of hypertension, dyslipidemia, TIA, orthostatic hypotension, type 2 diabetes, Parkinson's. She follows in the office with Dr. Malhotra. We have been asked to see in consultation for surgical clearance. Patient is currently admitted to the hospital after a mechanical fall. 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 Orthopedic surgery is planning on anterior cervical discectomy with fusion on November 22. Patient seen and examined at bedside, no acute distress. BP elevated this morning. She denies any chest pain or chest pressure or shortness of breath Meds: amlodipine 5mg nightly, atorvastatin 40 mg nightly, losartan 100 mg daily, metoprolol succinate 25 mg daily Records obtained from the office: Patient underwent Lexiscan stress test 11/2017 which revealed no evidence of reversible ischemia. Patient underwent an event monitor 104/02/2021 which revealed sinus mechanism, no acute events, no arrhythmia seen. Echocardiogram 07/2020 revealed an EF of 60%, normal diastolic function, mild left ventricular hypertrophy, mild mitral regurgitation, mild tricuspid regurgitation PHYSICAL EXAMINATION: This is a 81-year-old male in no apparent distress at the time of my examination. 175/80, heart rate 93, afebrile, saturations 95% on 2 L nasal cannula HEENT: Neck is supple. There is no jugular venous distention. CHEST EXAMINATION: Lungs are clear to auscultation. No chest wall tenderness is noted on palpation or with deep breathing. HEART EXAMINATION: Heart regular rate and rhythm. S1, S2 heard. No murmurs, ga llops or rub. ABDOMEN: Soft, nontender. Bowel sounds are heard. EXTREMITIES: 2+ peripheral pulses with no evidence of peripheral edema and no calf tenderness noted. NEUROLOGIC EXAMINATION: Patient is awake, alert and oriented x3. FINAL ASSESSMENT AND PLAN: Acute central cord syndrome, plan for anterior cervical discectomy and fusion surgery Status post mechanical fall Hypertension Diabetes History of TIA History of Parkinson's disease PLAN: 2D echo pending Monitor BP after morning medications Patient is at moderate-high risk for cardiovascular event during surgery. She has the following risk factors of history of CVA, preoperative treatment with insulin, and age. Patient is not able to perform >4 METs levels of activity. Does not have any acute cardiac conditions. There are no absolute contraindications to undergo surgery at this time, benefits outweighs the risks. Patient is hemodynamically stable. Recommend cautious fluid administration and optimal BP control. Nurse practitioner note has been reviewed by physician. Signing provider agrees with the documented findings, assessment, and plan of care. Objective - Vital Signs Vital signs: Vital Signs Temp 97.5 F L 11/22/21 07:52 Pulse 93 11/22/21 07:52 Resp 17 11/22/21 07:52 BP 175/80 11/22/21 09:50 Pulse Ox 95 11/22/21 07:52 FiO2 Intake & Output 11/21/21 11/22/21 11/22/21 18:59 06:59 18:59 Output Total 2400 Balance -2400 Output: Urine 2400 Other: Voiding Method External Catheter External Catheter # Voids 2 - Labs CBC & Chem 7: 11/22/21 06:10 11/22/21 06:10 Labs: Abnormal Lab Results - Last 24 Hours (Table) 11/21/21 11/21/21 11/21/21 Range/Units 11:26 16:34 21:26 RBC (4.10-5.20) X 10*6/uL Hgb (12.0-15.0) g/dL Hct (37.2-46.3) % MCHC (32.0-37.0) g/dL Immature Gran # (0.00-0.04) X 10*3/uL Eosinophils # (0.04-0.35) X 10*3/uL BUN/Creatinine Ratio (12.00-20.00) Ratio Glucose (70-110) mg/dL POC Glucose (mg/dL) 162 H 202 H 235 H (75-99) mg/dL 11/22/21 11/22/21 11/22/21 Range/Units 06:10 06:10 06:51 RBC 3.79 L (4.10-5.20) X 10*6/uL Hgb 11.3 L (12.0-15.0) g/dL Hct 35.7 L (37.2-46.3) % MCHC 31.7 L (32.0-37.0) g/dL Immature Gran # 0.06 H (0.00-0.04) X 10*3/uL Eosinophils # 0.03 L (0.04-0.35) X 10*3/uL BUN/Creatinine Ratio 31.83 H (12.00-20.00) Ratio Glucose 148 H (70-110) mg/dL POC Glucose (mg/dL) 173 H (75-99) mg/dL
--- NOTE | 2021-11-22 12:53 | P.PN ---
Progress Note - Text Progress Note Date: 11/22/21 S: pt s/e today she is doing OK but confused and states she does not want surgery until she talks to her daughter and she doesnt trust the people on the [place]. She has had some confusion with her steroids and these are being weaned. She still has hyperesthesia of the b/l hands and difficulty with motion as well as weakness in her hands and arms. There is improvement but not complete yet. Deneis any f/c/sob/cp at this time. O: VSS Afeb AOX2-3, confused at this time UE show continued hyperestheisa 3/4 DTR UE and LE b/l Clonus still in LE b/l with 6 beats B/L hoffmans brisk SILT C5-T1 and L2-S1 Neg babinski b/l 2/4 distal pulses CN grossly intact 5/5 b/l LE all major muscle groups 3/5 major muscle groups LUE 4-/5 major muscles groups RUE Positive diadokinesis testing, poor intrinsic control and fine motor control A/P 81 yo female central cord syndrome Complex medical patient s/p ffs hx TIA, Aneurysm, DM -NPO -Hold anticoags -Plan for OR today for C4-6 possibly C3-6 ACDF for decompression of nerves, stabilization and protection. -Discussed with family they are on board.
[2021-11-22 16:41] LABS: Glucose,Whole Blood 188 mg/dL (75-99)
[2021-11-22] MEDS: SODIUM CHLORIDE 0.9% 1,000 ML IV SCH (17:20)
--- NOTE | 2021-11-22 17:43 | CA ---
Transthoracic Echo Report Name: Edda Trent Age: 81 Gender: F : 1940 Exam Date: 11/21/2021 13:51 Exam Location: [facility] Ht (in): 63 Wt (lb): 163 Ordering Physician: Taisha Randhawa Attending/Referring Phys: Data Typist Sil French RDCS Procedure CPT: Indications: surgical clearance Cardiac Hx: Technical Quality: Good Contrast 1: Total Dose (mL): Contrast 2: N/A Total Dose (mL): MEASUREMENTS (Male / Female) Normal Values 2D ECHO LV Diastolic Diameter PLAX 4.5 cm 4.2 - 5.9 / 3.9 - 5.3 cm LV Systolic Diameter PLAX 3.1 cm IVS Diastolic Thickness 1.1 cm 0.6 - 1.0 / 0.6 - 0.9 cm LVPW Diastolic Thickness 1.6 cm 0.6 - 1.0 / 0.6 - 0.9 cm LV Relative Wall Thickness 0.6 RV Internal Dim ED PLAX 3.2 cm LA Systolic Diameter LX 4.1 cm 3.0 - 4.0 / 2.7 - 3.8 cm M-MODE Aortic Root Diameter MM 2.7 cm LA Systolic Diameter MM 4.1 cm LA Ao Ratio MM 1.5 MV E Point Septal Separation 0.1 cm AV Cusp Separation MM 1.5 cm DOPPLER MV Area PHT 2.3 cm??? Mitral E Point Velocity 71.6 cm/s Mitral A Point Velocity 98.6 cm/s Mitral E to A Ratio 0.7 MV Deceleration Time 331.1 ms MV E' Velocity 3.6 cm/s Mitral E to MV E' Ratio 19.7 TR Peak Velocity 210.4 cm/s TR Peak Gradient 17.7 mmHg Right Ventricular Systolic Press 22.2 mmHg FINDINGS Left Ventricle Normal left ventricular size, wall thickness, systolic function with no obvious regional wall motion abnormalities. The ejection fraction is visually estimated at 55%. Right Ventricle The right ventricle is normal in size and function. Right Atrium The right atrium is normal in size. Left Atrium The left atrium is normal in size. Mitral Valve Structurally normal mitral valve without significant stenosis or prolapse. There is mild mitral regurgitation. Aortic Valve Structurally normal aortic valve without significant sclerosis or stenosis. There is no aortic regurgitation. Tricuspid Valve Structurally normal tricuspid valve without significant stenosis. Pulmonary artery systolic pressure is normal. Pulmonic Valve Structurally normal pulmonic valve without significant stenosis. There is no pulmonic regurgitation. Pericardium Echo free space anterior to the right ventricle likely represents a fat pad or a small pericardial effusion. Aorta Normal aortic root dimension. CONCLUSIONS Technically difficult study grossly preserved systolic function. No significant abnormality on the Doppler exam. Cannot exclude a small pericardial effusion a fat pad. Previewed by: Dr. Amada Herbert MD (Electronically Signed) Final Date: 22 November 2021 17:43
[2021-11-22] MEDS ORDERED: PHENYLEPHRINE-0.9% NACL SYG 1,000 MCG/10 ML SYRINGE ONE (21:51)
[2021-11-22] MEDS ORDERED: MIDAZOLAM 2 MG/2 ML VIAL ONE (21:51)
[2021-11-22] MEDS ORDERED: fentaNYL (PF) 50 MCG/ML 2 ML AMP ONE (21:51)
[2021-11-22] MEDS ORDERED: KETAMINE 10 MG/ML 20 ML VIAL ONE (21:51)
[2021-11-22] MEDS ORDERED: SODIUM CHLORIDE 0.9% 100 ML with ceFAZolin 2,000 MG IV ONE ×2 (21:51)
[2021-11-22] MEDS ORDERED: ESMOLOL 100 MG/10 ML VIAL ONE (21:51)
[2021-11-22] MEDS ORDERED: PROPOFOL 10 MG/ML 20 ML VIAL IV ONE (21:51)
[2021-11-23] MEDS ORDERED: SENNOSIDES-DOCUSATE SODIUM 1 EACH TAB PO PRN (00:46)
[2021-11-23] MEDS ORDERED: HYDROmorphone 1 MG/ML 1 ML SYRINGE IVP PRN (00:46)
[2021-11-23] MEDS ORDERED: HYDROmorphone 0.5 MG/0.5 ML SYRINGE IVP PRN (00:46)
[2021-11-23] MEDS ORDERED: HYDROcodone/APAP 10-325MG 1 EACH TAB PO PRN (00:46)
[2021-11-23] MEDS: ATORVASTATIN 40 MG TAB PO SCH ×2 (00:59→21:35)
[2021-11-23] MEDS: amLODIPine 5 MG TAB PO SCH ×2 (00:59→21:35)
[2021-11-23] MEDS: carBAMazepine 200 MG TAB PO SCH ×3 (00:59→21:35)
[2021-11-23] MEDS: INSULIN ASPART (NovoLOG) 100 UNIT/ML VIAL SQ SCH ×8 (00:59→21:36)
[2021-11-23] MEDS: traZODone HCL 50 MG TAB PO SCH ×2 (01:00→21:35)
[2021-11-23] MEDS: GABAPENTIN 300 MG CAP PO SCH ×4 (01:00→21:35)
[2021-11-23] MEDS: DEXAMETHASONE SOD PHOSPHATE 4 MG/ML 1 ML VIAL IVP SCH ×3 (01:38→12:26)
[2021-11-23] MEDS: HYDROcodone/APAP 5-325MG 1 EACH TAB PO PRN ×3 (06:19→21:36)
[2021-11-23 07:07] LABS: Glucose,Whole Blood 189 mg/dL (75-99)
--- NOTE | 2021-11-23 08:24 | P.PN ---
Subjective Progress Note Date: 11/22/21 11/22/2021: Patient is laying comfortably in the bed. Patient's multiple family members were present today. Patient has less tenderness of her hands. No new concerns. Patient is awaiting cervical spinal decompression surgery. Possible later today. 11/21/2021: Patient age and be seen by Dr. Kunal Winn. Please refer to his note for details. Patient is a 81-year-old female, with a recent fall. Patient does have cervical myelopathy due to spinal stenosis. She has Parkinson's disease as well. Dr. Winn has cleared patient for surgery. Patient's daughters were present today. Patient had undergone left shoulder repair 15 years ago. Left shoulder is always weak. Patient's family says that patient tripped coming out of the room and face planted in the carpet. She has multiple bruises over the face. Patient is complaining of significant pain in her hands with weakness. Objective - Vital Signs Vital signs: Vital Signs Temp 97.5 F L 11/22/21 07:52 Pulse 93 11/22/21 07:52 Resp 17 11/22/21 07:52 BP 175/80 11/22/21 09:50 Pulse Ox 95 11/22/21 07:52 FiO2 Intake & Output 11/21/21 11/22/21 11/22/21 18:59 06:59 18:59 Output Total 2400 Balance -2400 Output: Urine 2400 Other: Voiding Method External Catheter External Catheter # Voids 2 - Exam Patient is alert and awake in no distress. Detail cognitive function testing deferred. Speech and language functions are normal. Cranial nerves are normal. On muscle strength testing her deltoids are 4+, biceps 4+5-, triceps 5-, finished hardware erector 3+4-bilaterally. Her left arm slightly weaker as compared to the right. Her strength is normal in the lower limbs. Patient has SCDs on place. Reflexes are 3 at the knees, and possible upgoing plantars bilaterally. - Labs CBC & Chem 7: 11/22/21 06:10 11/22/21 06:10 Labs: Abnormal Lab Results - Last 24 Hours (Table) 11/21/21 11/21/21 11/22/21 Range/Units 16:34 21:26 06:10 RBC 3.79 L (4.10-5.20) X 10*6/uL Hgb 11.3 L (12.0-15.0) g/dL Hct 35.7 L (37.2-46.3) % MCHC 31.7 L (32.0-37.0) g/dL Immature Gran # 0.06 H (0.00-0.04) X 10*3/uL Eosinophils # 0.03 L (0.04-0.35) X 10*3/uL BUN/Creatinine Ratio (12.00-20.00) Ratio Glucose (70-110) mg/dL POC Glucose (mg/dL) 202 H 235 H (75-99) mg/dL 11/22/21 11/22/21 11/22/21 Range/Units 06:10 06:51 11:35 RBC (4.10-5.20) X 10*6/uL Hgb (12.0-15.0) g/dL Hct (37.2-46.3) % MCHC (32.0-37.0) g/dL Immature Gran # (0.00-0.04) X 10*3/uL Eosinophils # (0.04-0.35) X 10*3/uL BUN/Creatinine Ratio 31.83 H (12.00-20.00) Ratio Glucose 148 H (70-110) mg/dL POC Glucose (mg/dL) 173 H 169 H (75-99) mg/dL Assessment and Plan Assessment: Cervical myelopathy (has hyperreflexia in the lower extremities) Severe spinal stenosis, worse at C4 5, slightly lesser at C5 6 level. Fall due to above Encephalopathy due to medication use and fall (steroid)--improved Multiple facial laceration due to a fall status post repair Parkinson's disease and is not on any medication Seizure disorder and seems last one is remote. Patient currently on carbamazepine 200 mg a.m., 400 mg p.m. daily. History of a brain aneurysm ("some fusiform prominence distal basilar tip. Tiny anterior aneurysm measing 0.3cm may be present" per CTA on 11/09/2021 Diabetes mellitus type 2 Hypertension Plan: From a neurological perspective patient is clear for surgery since benefit seems to outweigh the risk (patient having significant cervical stenosis with recurrent falls). Patient's neuropathic pain in her hands has improved. If the pain gets worse, may consider Neurontin. Patient has seizure disorder, well controlled on Tegretol. Patient is on 200 mg in the morning, 400 mg at night. Her CBC and hepatic panel are normal. Recommend the patient to follow-up with the intervention neurology team (Dr. Brewer for her aneurysm) as outpatient. Daughter in process of making her follow-up with him. Regarding her diagnosis of Parkinson, daughter wants to hold off starting any medications for now and will have Dr. Delacruz (her neurologist) as outpatient start her. Cardiology team is on board for clearance We'll defer the rest of the mat management to the orthopedic and primary team. Neurology will follow sporadically.
--- NOTE | 2021-11-23 08:48 | CT ---
EXAMINATION TYPE: CT cervical spine wo con DATE OF EXAM: 11/23/2021 COMPARISON: CT dated 11/18/2021 HISTORY: S/P C4-C5 and C5-C6 ACDF CT DLP: 457.3 mGycm Automated exposure control for dose reduction was used. TECHNIQUE: CT scan of the cervical spine is obtained without contrast, axial images are obtained, sa gittal and coronal reformatted images are also reviewed. FINDINGS: Interval anterior spinal fixation from C4 down to C6 using a plate and 6 metallic screws. C4-5 and C5 -6 disc prosthesis are also noted. Acute postoperative changes with prevertebral operative bed and ri ght neck soft tissue swelling, edema and gas. Mild anterolisthesis of C2 over C3, appreciated previously. No definite vertebral body collapse or ac ho-chunk displaced fracture. Degenerative changes of the cervical spine with multilevel endplate osteophyt osis, degenerative discs and facet osteoarthropathy. Mild right C2-3, severe bilateral C3-4, moderate right C4-5, moderate bilateral C5-6 and moderate to severe bilateral C6-7 neural foraminal stenosis. Multilevel mild spinal canal stenosis is noted most evident at C5-6 level. Arterial atherosclerotic calcifications. IMPRESSION: Acute postoperative changes as detailed above.
[2021-11-23] MEDS: INSULIN DETEMIR (LEVEMIR) 100 UNIT/ML SYR SQ SCH (08:51)
[2021-11-23] MEDS: PANTOPRAZOLE 40 MG TABLET PO SCH (08:52)
[2021-11-23] MEDS: METOPROLOL SUCCINATE (ER) 25 MG TAB.ER.24H PO SCH (08:52)
[2021-11-23] MEDS: CITALOPRAM HYDROBROMIDE 20 MG TAB PO SCH (08:53)
[2021-11-23] MEDS: diphenhydrAMINE 25 MG CAP PO SCH (08:53)
[2021-11-23] MEDS: LOSARTAN 50 MG TAB PO SCH (08:53)
--- NOTE | 2021-11-23 09:14 | XR ---
EXAMINATION TYPE: XR cervical spine limited, FL guidance operating room DATE OF EXAM: 11/23/2021 COMPARISON: NONE HISTORY: Anterior cervical fusion Fluoroscopy support supplied to the referring clinician. See dictated report from orthopedic surgery , 4 intraoperative C-arm images document the procedure, 28 seconds fluoroscopy time supplied
[2021-11-23] MEDS: CYCLOBENZAPRINE 5 MG TAB PO PRN ×2 (09:40→22:30)
--- NOTE | 2021-11-23 09:42 | P.PN ---
Subjective Progress Note Date: 11/23/21 Patient reports significant improvement in her pain following her ACDF, also reports some improvement in her bilateral weakness. Gen: awake, alert HEENT: normocephalic, atraumatic, good hearing acuity, moist mucous membranes Resp: good air exchange, breathing comfortably with no accessory muscle use CVS: good distal perfusion x 4, GI: soft, NTTP, ND : no SPT, no CVAT, varma catheter not present MSK: no pitting edema, no clubbing Neuro: Would not allow me to do neurological physical due to concerns of pain Psych: cooperative, euthymic mood Assessment/plan: Acute central cord syndrome Preoperative clearance - Admitted to spine surgery - on steroids - cervical hard collar at all times - pain control - neurontin -NSQIP risk calculator estimates a 0.3% risk of major adverse cardiac complication, may proceed to surgery without any further need of testing Multiple facial lacerations s/p repair - continue to monitor Mechanical fall with hx of Parkinson disease - fall precuations - PT/OT Anemia - at baseline - check iron levels - follow CBC Concussion Seizure disorder - neuro checks - supportive care - resume home tegretol, DM 2 - nold metformin - SSI - follow BS closely with steroids - last A1C was 6.2 per family - Add 15 units of Levemir while she is on dexamethasone + 3U AC-TID + SSI HTN - typically 160/90 - resume home medications - follow BP Chronic conditions: Prior TIA Asthma -Home medications reviewed and reconciled Thank you for allowing us to participate in the care of this pleasant patient. Do not hesitate to contact us with questions. Someone can be reached from the [facility] hospitalist group all hours of the day at [phone] or via perfect serve. Objective - Vital Signs Vital signs: Vital Signs Temp 98.0 F 11/23/21 07:31 Pulse 79 11/23/21 07:31 Resp 17 11/23/21 07:31 BP 150/71 11/23/21 07:31 Pulse Ox 93 L 11/23/21 07:31 FiO2 Intake & Output 11/22/21 11/23/21 11/23/21 18:59 06:59 18:59 Intake Total 1100 Output Total 2301 Balance -2301 1100 Weight 73.936 kg Intake: IV 1100 Output: Urine 2300 Stool 1 Other: Voiding Method External Catheter External Catheter # Voids 3 - Labs CBC & Chem 7: 11/22/21 06:10 11/22/21 06:10 Labs: Abnormal Lab Results - Last 24 Hours (Table) 11/22/21 11/22/21 11/23/21 Range/Units 11:35 16:38 07:05 POC Glucose (mg/dL) 169 H 188 H 189 H (75-99) mg/dL
--- NOTE | 2021-11-23 11:38 | P.PN ---
Subjective The patient is a 81-year-old female with past medical history of hypertension, dyslipidemia, TIA, orthostatic hypotension, type 2 diabetes, Parkinson's. She follows in the office with Dr. Malhotra. We have been asked to see in consultation for surgical clearance. Patient is currently admitted to the hospital after a mechanical fall. 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 Orthopedic surgery evaluated the patient and patient underwent anterior cervical discectomy with fusion on November 22. Patient seen and examined at bedside, no acute distress. Vitals are stable. She denies any chest pain or chest pressure or shortness of breath Meds: amlodipine 5mg nightly, atorvastatin 40 mg nightly, losartan 100 mg daily, metoprolol succinate 25 mg daily Echocardiogram revealed EF 55%, technically difficult study, no significant abnormality reported. Records obtained from the office: Patient underwent Lexiscan stress test 11/2017 which revealed no evidence of reversible ischemia. Patient underwent an event monitor /02/2021 which revealed sinus mechanism, no acute events, no arrhythmia seen. PHYSICAL EXAMINATION: This is a 81-year-old male in no apparent distress at the time of my examination. Vitals reviewed HEENT: Neck is supple. There is no jugular venous distention. CHEST EXAMINATION: Lungs are clear to auscultation. No chest wall tenderness is noted on palpation or with deep breathing. HEART EXAMINATION: Heart regular rate and rhythm. S1, S2 heard. No murmurs, gallops or rub. ABDOMEN: Soft, nontender. Bowel sounds are heard. EXTREMITIES: 2+ peripheral pulses with no evidence of peripheral edema and no calf tenderness noted. NEUROLOGIC EXAMINATION: Patient is awake, alert and oriented x3. FINAL ASSESSMENT AND PLAN: Acute central cord syndrome, plan for anterior cervical discectomy and fusion surgery Status post mechanical fall Hypertension Diabetes History of TIA History of Parkinson's disease PLAN: Patient is stable from a cardiology perspective. Continue home cardiac medications. We will follow the patient as needed. Please reconsult if needed. Nurse practitioner note has been reviewed by physician. Signing provider agrees with the documented findings, assessment, and plan of care. Objective - Vital Signs Vital signs: Vital Signs Temp 98.0 F 11/23/21 07:31 Pulse 79 11/23/21 07:31 Resp 17 11/23/21 07:31 BP 150/71 11/23/21 07:31 Pulse Ox 93 L 11/23/21 07:31 FiO2 Intake & Output 11/22/21 11/23/21 11/23/21 18:59 06:59 18:59 Intake Total 1100 Output Total 2301 Balance -2301 1100 Weight 73.936 kg Intake: IV 1100 Output: Urine 2300 Stool 1 Other: Voiding Method External Catheter External Catheter External Catheter # Voids 3 - Labs CBC & Chem 7: 11/22/21 06:10 11/22/21 06:10 Labs: Abnormal Lab Results - Last 24 Hours (Table) 11/22/21 11/22/21 11/23/21 Range/Units 11:35 16:38 07:05 POC Glucose (mg/dL) 169 H 188 H 189 H (75-99) mg/dL
[2021-11-23 11:51] LABS: Glucose,Whole Blood 197 mg/dL (75-99)
--- NOTE | 2021-11-23 12:51 | P.PN ---
Subjective Progress Note Date: 11/23/21 Principal diagnosis: Acute central cord syndrome Bilateral upper extremity paresthesias Upper extremity weakness Patient seen at bedside this morning resting comfortably lying in semirecumbent position with aspen c-collar on. Dressing was in place on the anterior cervical spine. Patient's daughter was at bedside during encounter. Patient's daughter said overnight patient is removed dressing from neck. Nurse placed a dressing over incision. Bulb drain still in place at this time. Patient is complaining of bilateral shoulder pain and neck pain at this time. Patient notes she still has some weakness in both upper extremities. Patient denies chest pain, fever, shortness breath, nausea, lying, change in vision, loss of bowel/bladder control. Objective - Vital Signs Vital signs: Vital Signs Temp 98.0 F 11/23/21 07:31 Pulse 79 11/23/21 07:31 Resp 17 11/23/21 07:31 BP 150/71 11/23/21 07:31 Pulse Ox 93 L 11/23/21 07:31 FiO2 Intake & Output 11/22/21 11/23/21 11/23/21 18:59 06:59 18:59 Intake Total 1100 Output Total 2301 Balance -2301 1100 Weight 73.936 kg Intake: IV 1100 Output: Urine 2300 Stool 1 Other: Voiding Method External Catheter External Catheter External Catheter # Voids 3 - Exam Hard c-collar is present on patient. Dressing is in place over incision on the anterior cervical spine. Bulb drain present. Negative for any open fractures, significant ecchymosis/erythema/nodules. Patient is moderate tenderness to palpation along the posterior cervical spine as well as over the incision. Sensation is equal, symmetric, bilaterally intact throughout upper and lower extremities. Patient has full range of motion in bilateral lower extremities. 5/5 strength in bilateral lower extremities on exam. Neurovascularly intact. Cap refill under 3 seconds in digits of upper extremities. 3/5 in upper extremities on motor exam. Negative Homans bilaterally. Positive Saige bilaterally. - Labs CBC & Chem 7: 11/22/21 06:10 11/22/21 06:10 Labs: Abnormal Lab Results - Last 24 Hours (Table) 11/22/21 11/23/21 11/23/21 Range/Units 16:38 07:05 11:50 POC Glucose (mg/dL) 188 H 189 H 197 H (75-99) mg/dL Assessment and Plan Assessment: Acute central cord syndrome Bilateral upper extremity paresthesias Upper extremity weakness Postoperative day #1 status post C4-C5 and C5-C6 ACDF Plan: 1. Acute central cord syndrome; Bilateral upper extremity paresthesias; Upper extremity weakness - surgery performed yesterday, 11/22/2021 - C4 to C5 and C5 to C6 ACDF. Patient stable at bedside this morning with c-collar in place. Continue pain medications and work with therapy at this time. Bulb drain will be left in place this time. Postop computed tomography scan of cervical spine does reveal post surgical changes that reveal surgical hardware that is well aligned and in good place. We'll continue to follow patient while in hospital. 2. Appreciate medical management 3. Pain management - [place]; gabapentin; Flexeril; Dilaudid only if necessary 4. GI prophylaxis - senna; Protonix 5. PT/OT - weightbearing as tolerated with walker as needed. C-collar on at all times. 6. Encourage incentive spirometer use 7. DVT prophylaxis - mechanical Time with Patient: Less than 30
--- NOTE | 2021-11-23 14:20 | P.PN ---
Progress Note - Text Progress Note Date: 11/23/21 Patient seen and examined, I reviewed the note, discussed the case with the PA first hand and agree with the assessment and plan of EDNA Davis. Please see my notes below for any additional recommendations. [facility] Progress Note DOS: 11/22/2021 POD: 1 SUBJECTIVE: Patient seen and examined she is doing better today family is at bedside states that her arms are doing better and her pain is less she has been up in the chair and doing well with this she is currently fairly sleepy as she just got some medication. No fevers chills shortness of breath or chest pain at this time OBJECTIVE: Vital signs stable General: AOX3, NAD Incision CDI Drain: And will output Motor Exam: RUE: 4+/5 SA, EF, EE, WF, WE, Intrinsic, Industrial Spray Painter LUE: 4/5 EF, EE, WF, WE, Intrinsic, Industrial Spray Painter chronic shoulder abduction issues due to previous surgery RLE: 5/5 HF, KE, KF, DF, PF, EHL, FHL LLE: 5/5 HF, KE, KF, DF, PF, EHL, FH Reflexes: 2/4 in UE and LE b/l SILT C5-T1 and L2-S1 Dermatomal deficit: No deficits still hyperesthetic in the right hand over the dorsum +distal pulses palpable Positive hoffmans b/l less brisk today Negative babinski b/l Still with clonus in the lower extremities 7-8 beats bilaterally ASSESSMENT: 81-year-old female postoperative day 1 C 4-6 ACDF Acute central cord syndrome Cervical myelopathy PLAN: -Appreciate environmental remediation consultant and team management. -Activity: Ambulate QID, OOB all meals, up and about, limit lifting bending twisting to less than 5 lbs. Use walker or cane if needed for stability. -Daily PT/OT, increase ambulation strength and balance. -Hard c-collar at all times -Pain control: Adequate at this time -Meds: reviewed -GI ppx: senna, Miralax -DC varma when up and about, bedside commode if needed -DVT PPX: OK to restart Heparin tonight -Hygiene: Shower today. Maintain dressing clean and dry. Meticulous cleaning after BMs away from incision site -Drains: Maintain for now. Record output -Encourage IS 10x/hr -Dispo: Pending
[2021-11-23] MEDS: SODIUM CHLORIDE 0.9% 1,000 ML IV SCH (16:10)
[2021-11-23 16:36] LABS: Glucose,Whole Blood 312 mg/dL (70-110)
[2021-11-23 20:32] LABS: Glucose,Whole Blood 165 mg/dL (70-110)
[2021-11-24] MEDS: HYDROcodone/APAP 5-325MG 1 EACH TAB PO PRN (05:59)
[2021-11-24 07:01] LABS: Glucose,Whole Blood 121 mg/dL (70-110)
[2021-11-24] MEDS: LOSARTAN 50 MG TAB PO SCH (07:42)
[2021-11-24] MEDS: CITALOPRAM HYDROBROMIDE 20 MG TAB PO SCH (07:42)
[2021-11-24] MEDS: GABAPENTIN 300 MG CAP PO SCH ×2 (07:43→16:37)
[2021-11-24] MEDS: PANTOPRAZOLE 40 MG TABLET PO SCH (07:43)
[2021-11-24] MEDS: METOPROLOL SUCCINATE (ER) 25 MG TAB.ER.24H PO SCH (07:43)
[2021-11-24] MEDS: diphenhydrAMINE 25 MG CAP PO SCH (07:43)
[2021-11-24] MEDS: INSULIN ASPART (NovoLOG) 100 UNIT/ML VIAL SQ SCH ×7 (07:44→21:04)
[2021-11-24] MEDS: carBAMazepine 200 MG TAB PO SCH ×2 (07:44→21:06)
[2021-11-24] MEDS: INSULIN DETEMIR (LEVEMIR) 100 UNIT/ML SYR SQ SCH (07:45)
--- NOTE | 2021-11-24 09:56 | P.PN ---
Subjective Progress Note Date: 11/24/21 Principal diagnosis: Acute central cord syndrome Bilateral upper extremity paresthesias Upper extremity weakness Patient was seen at bedside this morning resting comfortably lying in semirecumbent position with c-collar on. Dressing is in place over the anterior cervical spine. Bulb drainage present and will be removed later today. Patient says she didn't get up several times yesterday and walked around the room and sat in a chair. Patient mentions she is feeling increase in strength in bilateral upper extremities at this time. Patient also notes that she is having some difficulty swallowing at this time. Patient denies chest pain, fever, shortness breath, nausea, lying, change in vision, loss of bowel/bladder control. Objective - Vital Signs Vital signs: Vital Signs Temp 97.5 F L 11/24/21 07:24 Pulse 76 11/24/21 07:24 Resp 19 11/24/21 07:24 BP 151/75 11/24/21 07:24 Pulse Ox 96 11/24/21 09:10 FiO2 Intake & Output 11/23/21 11/24/21 11/24/21 18:59 06:59 18:59 Output Total 1120 1500 Balance -1120 -1500 Output: Drainage 20 Right Neck 20 Urine 1100 1500 Other: Voiding Method External Catheter Indwelling Catheter - Exam Hard c-collar is present on patient. Dressing is in place over incision on the anterior cervical spine. Bulb drain present. Negative for any open fractures, significant ecchymosis/erythema/nodules. Patient has moderate tenderness to palpation along the posterior cervical spine as well as over the incision. Sensation is equal, symmetric, bilaterally intact throughout upper and lower extremities. Patient has full range of motion in bilateral lower extremities. 5/5 strength in bilateral lower extremities on exam. Neurovascularly intact. Cap refill under 3 seconds in digits of upper extremities. 4/5 in upper extremities on motor exam. left shoulder abduction weakness due to previous surgery. Negative Homans bilaterally. Positive Saige bilaterally. - Labs CBC & Chem 7: 11/22/21 06:10 11/22/21 06:10 Labs: Abnormal Lab Results - Last 24 Hours (Table) 11/23/21 11/23/21 11/23/21 Range/Units 11:50 16:35 20:29 POC Glucose (mg/dL) 197 H 312 H 165 H (75-99) mg/dL 11/24/21 Range/Units 06:59 POC Glucose (mg/dL) 121 H (75-99) mg/dL Assessment and Plan Assessment: Acute central cord syndrome Bilateral upper extremity paresthesias Upper extremity weakness Postoperative day #2 status post C4-C5 and C5-C6 ACDF Plan: 1. Acute central cord syndrome; Bilateral upper extremity paresthesias; Upper extremity weakness - surgery performed 11/22/2021 - C4 to C5 and C5 to C6 ACDF. Patient stable at bedside this morning with c-collar in place. Continue pain medications and work with therapy at this time. Bulb drain will be pulled today. Postop computed tomography scan of cervical spine does reveal post surgical changes that reveal surgical hardware that is well aligned and in good place. We'll continue to follow patient while in hospital. Patient has been accepted at [facility]. Plan for discharge to [facility]. 2. Appreciate medical management 3. Pain management - [place]; gabapentin; Flexeril; Dilaudid only if necessary 4. GI prophylaxis - senna; Protonix 5. PT/OT - weightbearing as tolerated with walker as needed. C-collar on at all times. 6. Encourage incentive spirometer use 7. DVT prophylaxis - mechanical 8. Discharge planning - Plan to discharge to [facility] tomorrow, 11/25/2021 Time with Patient: Less than 30
--- NOTE | 2021-11-24 11:06 | P.PN ---
Subjective Progress Note Date: 11/24/21 Patient reports significant improvement in her pain following her ACDF, also reports some improvement in her bilateral weakness. Working with PT/OT, rehab placement pending. Gen: awake, alert HEENT: normocephalic, atraumatic, good hearing acuity, moist mucous membranes Resp: good air exchange, breathing comfortably with no accessory muscle use CVS: good distal perfusion x 4, GI: soft, NTTP, ND : no SPT, no CVAT, varma catheter not present MSK: no pitting edema, no clubbing Neuro: Would not allow me to do neurological physical due to concerns of pain Psych: cooperative, euthymic mood Assessment/plan: Acute central cord syndrome Preoperative clearance - Admitted to spine surgery - on steroids - cervical hard collar at all times - pain control - neurontin -NSQIP risk calculator estimates a 0.3% risk of major adverse cardiac complication, may proceed to surgery without any further need of testing Multiple facial lacerations s/p repair - continue to monitor Mechanical fall with hx of Parkinson disease - fall precuations - PT/OT Anemia - at baseline - check iron levels - follow CBC Concussion Seizure disorder - neuro checks - supportive care - resume home tegretol, DM 2 - nold metformin - SSI - follow BS closely with steroids - last A1C was 6.2 per family - Add 15 units of Levemir while she is on dexamethasone + 3U AC-TID + SSI HTN - typically 160/90 - resume home medications - follow BP Chronic conditions: Prior TIA Asthma -Home medications reviewed and reconciled Thank you for allowing us to participate in the care of this pleasant patient. Do not hesitate to contact us with questions. Someone can be reached from the [facility] hospitalist group all hours of the day at [phone] or via perfect serve. Objective - Vital Signs Vital signs: Vital Signs Temp 97.5 F L 11/24/21 07:24 Pulse 76 11/24/21 07:24 Resp 19 11/24/21 07:24 BP 151/75 11/24/21 07:24 Pulse Ox 96 11/24/21 09:10 FiO2 Intake & Output 11/23/21 11/24/21 11/24/21 18:59 06:59 18:59 Output Total 1120 1500 Balance -1120 -1500 Output: Drainage 20 Right Neck 20 Urine 1100 1500 Other: Voiding Method External Catheter Indwelling Catheter Indwelling Catheter - Labs CBC & Chem 7: 11/22/21 06:10 11/22/21 06:10 Labs: Abnormal Lab Results - Last 24 Hours (Table) 11/23/21 11/23/21 11/23/21 Range/Units 11:50 16:35 20:29 POC Glucose (mg/dL) 197 H 312 H 165 H (75-99) mg/dL 11/24/21 Range/Units 06:59 POC Glucose (mg/dL) 121 H (75-99) mg/dL
[2021-11-24 11:31] LABS: Glucose,Whole Blood 152 mg/dL (70-110)
[2021-11-24] MEDS ORDERED: HYDROcodone/APAP 5-325MG 1 EACH TAB PO PRN (13:03)
[2021-11-24 16:31] LABS: Glucose,Whole Blood 91 mg/dL (70-110)
[2021-11-24] MEDS: SODIUM CHLORIDE 0.9% 1,000 ML IV SCH (16:43)
[2021-11-24] MEDS: ACETAMINOPHEN TAB 325 MG TAB PO PRN (17:49)
[2021-11-24 20:15] LABS: Glucose,Whole Blood 222 mg/dL (70-110)
[2021-11-24] MEDS: ATORVASTATIN 40 MG TAB PO SCH (21:05)
[2021-11-24] MEDS: traZODone HCL 50 MG TAB PO SCH (21:05)
[2021-11-24] MEDS: amLODIPine 5 MG TAB PO SCH (21:05)
[2021-11-25] MEDS: ACETAMINOPHEN TAB 325 MG TAB PO PRN ×2 (00:29→07:37)
[2021-11-25 07:35] LABS: Glucose,Whole Blood 143 mg/dL (70-110)
[2021-11-25] MEDS: diphenhydrAMINE 25 MG CAP PO SCH (07:38)
[2021-11-25] MEDS: METOPROLOL SUCCINATE (ER) 25 MG TAB.ER.24H PO SCH (07:38)
[2021-11-25] MEDS: LOSARTAN 50 MG TAB PO SCH (07:38)
[2021-11-25] MEDS: PANTOPRAZOLE 40 MG TABLET PO SCH (07:38)
[2021-11-25] MEDS: INSULIN DETEMIR (LEVEMIR) 100 UNIT/ML SYR SQ SCH (07:39)
[2021-11-25] MEDS: INSULIN ASPART (NovoLOG) 100 UNIT/ML VIAL SQ SCH ×4 (07:39→11:37)
[2021-11-25] MEDS: CITALOPRAM HYDROBROMIDE 20 MG TAB PO SCH (07:39)
[2021-11-25] MEDS: carBAMazepine 200 MG TAB PO SCH (07:40)
[2021-11-25 08:39] VITALS: PULSE 85; RESP 16
--- NOTE | 2021-11-25 10:08 | P.PN ---
Subjective Progress Note Date: 11/25/21 Principal diagnosis: Central cord Syndrome s/p FFS Patient seen and examined at bedside she is doing better today and is sedated she is sensitive to medications. Family was a bit worried about her but I think at this point she is not mobilizing as much as she needs to in the hospital and needs to go to rehab and mobilize more and when she does this she will do much better. She has minimal pain she is still having upper extremity paresthesias but these are getting better. She has better strength in her upper extremities she still has some hyperesthetic changes to the right upper extremity. Her overall doing fairly well. She denies any perineal numbness tingling denies any other issues. Objective - Vital Signs Vital signs: Vital Signs Temp 97.5 F L 11/25/21 08:37 Pulse 85 11/25/21 08:37 Resp 16 11/25/21 08:37 BP 137/82 11/25/21 08:37 Pulse Ox 97 11/25/21 08:37 FiO2 Intake & Output 11/24/21 11/25/21 11/25/21 18:59 06:59 18:59 Output Total 625 800 Balance -625 -800 Output: Urine 625 800 Other: Voiding Method Indwelling Catheter Indwelling Catheter - Exam Overall better exam. Still with some hyperesthesia of the RUE in the hand but overall much better. Good strength and improving daily. Pathological reflexes starting to decrease in severity. Clonus decreasing b/l. Hoffmans less brisk. No babinski. Dressing CDI. Incision CDI no EEE. Able to swallow and tolerate PO foods. Still with ecchymosis around eyes which is somewhat improving although slowly. Lacerations of forehead healing well. Other changes noted below. PHYSICAL EXAMINATION: Vitals: Stable at this time General: Awake, alert, appropriate for age, in no acute distress. HEENT: No unusual neck masses around region of lateral neck triangle, thyroid, supraclavicular groove. Extremities: Skin warm and dry without no acute lesions, coloration, temperature, skin intact, no tenderness or erythema. Integument: Hairy patches: Absent Dorsal skin dimples: Absent Cafe au lait spots: Absent Surgical incisions: Left shoulder well-healed 2 lacerations on the anterior forehead which have been sutured by the emergency department measuring between 2 and 4 cm each they are clean lacerations just above the nasal bridge and above the right eyebrow Palpation: Please see Pain drawing on Intake sheet for further detail. (Tenderness = T, Nontender = NT, Swelling = S, Ecchymosis = E) Findings on Midline and paraspinal palpation and percussion: Cervical: Mild tenderness to palpation posteriorly midline as well as paraspinal Thoracic: NT Lumbar: NT Sacral: NT Special findings: No tenderness to clavicular palpation however this does aggravate her hyperesthesia POSTURAL and MUSCULO-SKELETAL EVALUATION: Neck ROM: She is able to range her neck with minimal pain but does increase her hyperesthesia Lumbar ROM: Unable to assess at this time Shoulder ROM: Left shoulder range of motion is decreased secondary to previous surgery and she has little to no function in her deltoid this is known and not new Hip ROM: Symmetric in abduction, adduction, ER/IR Knee ROM: Symmetric and intact in Flexion / extension Hands: Normal appearing structure L and R, she does have a resting tremor in her hands A pill-rolling type tremor which goes along with her Parkinson's Feet: Normal appearing structure L and R VASCULAR STATUS : Wrist Pulses: 2/4 bilateral radial and ulnar Pedal Pulses: 2/4 bilateral DP and PT Color: Normal Edema: None NEUROLOGIC EXAMINATION: Mental Status: Awake and alert, fully oriented, with normal attention, concentration and memory, and fluent, appropriate speech. Cranial Nerves: I: Olfactory not tested. II: Visual acuity normal, no visual field deficit noted with confrontation. III,IV: Normal pupillary reflexes & intact extraocular movements without nystagmus. V,: Intact symmetrical facial sensation. VII: Intact symmetrical facial motor movement VIII: Hearing intact. IX,X: Intact gag, swallow, & normal voice. XI: Sternocleidomastoid, trapezius function intact. XII: Tongue midline with normal movements. Special Tests: L'hermitte's Sign: Absent Spurling'Sign: Essentially positive that she looks up it increases her symptoms Cubital percussion test: Unable to assess as it increases her hyperesthesia and is very uncomfortable for her Brenna-Tinel sign - Carpal region: Absent Bilateral Straight Leg Raising: Absent Bilateral Motor Exam (0-5/5, N/T) STRENGTH UPPER EXTREMITY Shoulder Abd (Not part of DUY Motor score): RIGHT 3 LEFT 0-this is not new and is known habits due to her previous surgery Elbow Flexors: RIGHT 4- LEFT 3 Elbow Extensor: RIGHT 4- LEFT 3 Wrrist Dorsiflexors: RIGHT 4- LEFT 3 Finger Abductor: RIGHT 4- LEFT 3 Marine Equipment Research Engineer: RIGHT 4- LEFT 3 Tolerated strength testing slightly better this time but still painful with hyperesthesias. LOWER EXTREMITY Hip Flexor (Not part of DUY Motor Score): RIGHT 5 LEFT 5 Knee Flexor: RIGHT 5 LEFT 5 Knee Extensor: RIGHT 5 LEFT 5 Ankle Dorsiflexion: RIGHT 5 LEFT 5 Ankle Plantarflexion: RIGHT 5 LEFT 5 EHL: RIGHT 5 LEFT 5 FHL: RIGHT 5 LEFT 5 REFLEXES Biecp: RIGHT 2 LEFT 2 Tricep: RIGHT 2 LEFT 2 Brachioradialis: RIGHT 2 LEFT 2 Patellar: RIGHT 2 LEFT 2 Achilles: RIGHT 2 LEFT 2 Pathological Reflexes Garcia's: RIGHT present LEFT present less brisk Babinski: RIGHT Absent LEFT Absent Clonus: RIGHT None LEFT None SENSORY Joint Position: Intact bilaterally Vibration Intact bilaterally Pain and LT sense Intact C5-T1 and L2-S1 Dermatomal deficit no deficits currently but hyperesthesia throughout the C5 to T1 distribution Gait and Functional Evaluation: Ambulatory aids: Cane or walker at home - Labs CBC & Chem 7: 11/22/21 06:10 11/22/21 06:10 Labs: Abnormal Lab Results - Last 24 Hours (Table) 11/24/21 11/24/21 11/25/21 Range/Units 11:30 20:13 07:34 POC Glucose (mg/dL) 152 H 222 H 143 H (70-110) mg/dL Assessment and Plan Assessment: POD3 C4-6 ACDF 81-year-old female status post fall from standing Acute central cord syndrome Bilateral upper extremity paresthesias Upper extremity weakness Blunt head trauma with facial lacerations Complex medical patient with multiple comorbidities Plan: -Appreciate medical sales consultant and team management. -Activity: Ambulate QID, OOB all meals, up and about, limit lifting bending twisting to less than 5 lbs. Use walker or cane if needed for stability. -Daily PT/OT, increase ambulation strength and balance. -C collar at all times -Pain control: [Adequate at this time] -Meds: [reviewed] -GI ppx: senna, Miralax -DVT PPX: Okay for heparin, teds mechanical early ambulation -Hygiene: Shower today. Maintain dressing clean and dry. Meticulous cleaning after BMs away from incision site -Encourage IS 10x/hr -Dispo: Stable for [facility] today
--- NOTE | 2021-11-25 10:13 | P.DS ---
Providers Date of admission: 11/18/21 19:17 Expected date of discharge: 11/25/21 Attending physician: Neil Barr DO Consults: 11/18/21 19:17 Consult Physician Urgent Consulting Provider: Dorinda Vides Consult Reason/Comments: medical management Do you want consulting provider notified?: Already Contacted 11/19/21 15:37 Consult Physician Routine Consulting Provider: Kunal Winn Consult Reason/Comments: surgical clearance Do you want consulting provider notified?: Yes 11/19/21 15:38 Consult Physician Routine Consulting Provider: Thomas Olmstead Consult Reason/Comments: surgical clearance Do you want consulting provider notified?: Yes Primary care physician: [facility] Course: Spine Surgery Discharge Summary Note Admission Date: 11/22/2021 Discharge Date: 11/25/2021 Providers: Mila Barr Basha Principal Diagnosis: Acute Central cord syndrome, blunt head trauma, cervical stenosis, Procedures: C4 6 ACDF Secondary Diagnoses: Diabetes, history of CVA TIA, basilar aneurysm, Discharge Medications: See list Allergies: See list Hospital Course: The patient was evaluated preoperatively and found to have the diagnosis of acute central cord syndrome with severe stenosis C4 to C6 status post fall from standing with blunt head trauma. They underwent appropriate preoperative care and were willing to undergo the intended procedure. They underwent a successful C4 to 6 ACDF. Her lacerations were fixed in the emergency department. were recovered appropriately and sent to the floor. While on the floor they worked with physical therapy, occupational therapy and nursing to enhance their recovery experience. Their pain was well controlled through their stay and they were started on appropriate medications, DVT ppx modalities, activity and dietary needs. Daily labs were monitored closely, and transfusions were only used when necessary. Medicine as well as other consulting services have made their input and have helped with our team approach and multidisciplinary care. PT milestones have been met and passed and they have made the recommendation of [facility] for this patient and treating providers agree with this care path. The patient will be discharged to [facility] with appropriate medications, instructions and follow-up information and in stable condition. Patient Condition at Discharge: Stable Plan - Discharge Summary Discharge Rx Participant: No New Discharge Prescriptions: No Action Metoprolol Succinate (ER) [Toprol XL] 25 mg PO DAILY Atorvastatin [Lipitor] 40 mg PO HS Omeprazole 20 mg PO DAILY carBAMazepine 200 mg PO DAILY carBAMazepine [TEGretol] 400 mg PO HS metFORMIN HCL [Glucophage] 1,000 mg PO HS metFORMIN HCL [Glucophage] 500 mg PO DAILY Citalopram Hydrobromide [Citalopram HBr] 20 mg PO DAILY Losartan [Cozaar] 100 mg PO DAILY Ondansetron Odt [Zofran Odt] 4 mg PO BID PRN PRN Reason: Nausea ALPRAZolam [Xanax] 0.5 mg PO BID PRN PRN Reason: Anxiety diphenhydrAMINE [Benadryl] 25 mg PO DAILY Cranberry Fruit Extract [Cranberry] 500 mg PO DAILY Aspirin EC [Ecotrin Low Dose] 81 mg PO DAILY traZODone HCL [Desyrel] 50 mg PO HS Ipratropium Braham [Ipratropium Braham 0.03%] 2 sprays EA NOSTRIL BID PRN PRN Reason: Allergy Symptoms amLODIPine [Norvasc] 5 mg PO HS Albuterol Nebulized [Ventolin Nebulized] 2.5 mg INHALATION RT-QID PRN PRN Reason: Shortness Of Breath Albuterol Inhaler [Ventolin Hfa Inhaler] 2 puff INHALATION RT-QID PRN PRN Reason: Shortness Of Breath Discharge Medication List Atorvastatin [Lipitor] 40 mg PO HS 11/17/14 [History] Metoprolol Succinate (ER) [Toprol XL] 25 mg PO DAILY 11/17/14 [History] Omeprazole 20 mg PO DAILY 07/09/17 [History] carBAMazepine 200 mg PO DAILY 10/11/18 [History] carBAMazepine [TEGretol] 400 mg PO HS 10/11/18 [History] Citalopram Hydrobromide [Citalopram HBr] 20 mg PO DAILY 05/15/20 [History] Losartan [Cozaar] 100 mg PO DAILY 05/15/20 [History] metFORMIN HCL [Glucophage] 1,000 mg PO HS 05/15/20 [History] metFORMIN HCL [Glucophage] 500 mg PO DAILY 05/15/20 [History] ALPRAZolam [Xanax] 0.5 mg PO BID PRN 06/02/20 [History] Ondansetron Odt [Zofran Odt] 4 mg PO BID PRN 06/02/20 [History] Albuterol Inhaler [Ventolin Hfa Inhaler] 2 puff INHALATION RT-QID PRN 11/18/21 [History] Albuterol Nebulized [Ventolin Nebulized] 2.5 mg INHALATION RT-QID PRN 11/18/21 [History] Aspirin EC [Ecotrin Low Dose] 81 mg PO DAILY 11/18/21 [History] Cranberry Fruit Extract [Cranberry] 500 mg PO DAILY 11/18/21 [History] Ipratropium Braham [Ipratropium Braham 0.03%] 2 sprays EA NOSTRIL BID PRN 11/18/21 [History] amLODIPine [Norvasc] 5 mg PO HS 11/18/21 [History] diphenhydrAMINE [Benadryl] 25 mg PO DAILY 11/18/21 [History] traZODone HCL [Desyrel] 50 mg PO HS 11/18/21 [History] Follow up Appointment(s)/Referral(s): Sharif Zaragoza DO [Primary Care Provider] - 1-2 days Neil Barr DO [Doctor of Osteopathic Medicine] - 10 Days Patient Instructions/Handouts: Anterior Cervical Discectomy (DC), Anterior Cervical Discectomy (GEN) Activity/Diet/Wound Care/Special Instructions: Spine Discharge and Recovery Instructions Date of Surgery: 11/22/2021 Diagnosis: Acute central cord syndrome C4 6 severe stenosis Procedure: C4 6 ACDF Medications: See list All medication refills should be obtained through your primary care doctor or your clinic spine surgeon. Please discuss prescription refills at your follow up appointment. Do not call the hospital for medication refills. Dressing: Leave your dressing in place for a total of 3 days post operatively. Then you may remove your dressing and leave open to air. Keep the area clean and if not able to keep area clean, then cover with sterile gauze and tape. Showering: You may shower 3 days after your procedure allowing soap and water to run over incision. Do not scrub. Do not soak. Blot dry. Brace: Wear cervical collar at all times when up and about may remove to shower Follow up: Please confirm a follow up appointment with your surgeon 2 weeks post opera tively. Please make an appointment to follow up with your PCP in 1-2 weeks after surgery for evaluation 3 phase, 3-week plan POST OP WEEKS 1-3 1. Lifting/carrying/pushing/pulling limited to less than 5 pounds. 2. Do not sit for longer than 15 minutes at one time. Get up and walk around. Prolonged sitting is NOT advised. If you lay down, see if you can tolerate laying down on you front (belly side) 3. Walk for periods of 15 minutes = 1 mile but no longer; do it multiple times times each day. 4.Ice your low back after activity. POST OP WEEKS 3-6 1. Lifting limited to less than 20 pounds. 2. Do not sit for longer than 30 minutes at a time. Frequently change positions. Use a sit-to stand workstation or take frequent breaks from sitting if you have returned to work. 3. Walk for 30 minutes each day. If possible, do these three or more times a day POST OP WEEKS 6+ At your 6-week appointment we will give you a physical therapy referral to focus on a core stabilization and strengthening program. You should also work on leg & buttock strengthening, hamstring & quadriceps stretching, and continue a low impact aerobic activity program such as swimming, walking, or riding a stationary bicycle. During the initial 6 weeks after your surgery, you are at the highest risk of re-injuring your spine. You should generally avoid BLTs (bending, lifting and twisting combination motions) and follow the above guidelines to reduce the chance of reinjury. You can anticipate post op appointments in our office at approximately 3 weeks and 6 weeks after your surgery. INCISION CARE: If your incision is not draining you do NOT need to cover it with a dressing. Keep your incision clean, dry and intact. In most cases, we apply skin glue, robert or sutures to the incision at the time of surgery. This will be like a crust or have the appearance of a scab and will fall off in time on its own. The stitches or roebrt need to be removed at 3 weeks post op appointment. You may begin to shower 3 days after surgery (this allows the glue to carlin well). However, please avoid scrubbing the incision site or peeling off any of the skin glue. This will ensure optimal healing of your incision. Also, during this time avoid soaking the incision area in water - this includes swimming pools, hot tubs or baths. No ointments, lotions or oils on the incision until your surgeon allows. Leave robert, sutures or glue in place. Neurological dysfunction that comes on suddenly can also be a sign of a stroke. Below some common symptoms of a stroke are listed: B - balance difficulty such as sudden onset walking or leaning to one side - NEW E - eye problem such as sudden double vision or trouble seeing on one side - NEW F - Facial weakness or numbness on one side - NEW A - Arm or leg weakness or numbness on one side - NEW S - Slurred speech or difficulty with word finding - NEW T - Time is BRAIN! Call 911 as soon as you recognize these symptoms Diet: Consume a regular diet rich in vegetables and lean protein such as chicken or fish. You should consume in a ratio of approximately 20% fats|40% carbohydrates|40%protein. Vegetables, sweet potatoes, brown rice or quinoa are examples of good carbohydrates. Chips, white bread, cookies and sweets/sugar are examples of bad carbohydrates. Limit your bad carbs, go wild with good carbs. "Life's Simple 7" Guidelines as per [place] [employer] These will help you reclaim your life after surgery and signal helper in your recovery, keeping in mind your restrictions. (1) Get Active. Physical activity can help people lose weight, control high blood pressure and cholesterol, feel emotionally better, and sleep better. (2) Control Cholesterol. Avoid a diet high in saturated fat, trans fat, & cholesterol. Limit whole milk & cream, ice cream, butter, egg yolks, processed meats (like sausage and hot dogs), and fatty meats. Choose healthy foods that are low in saturated fat, trans fat and cholesterol which include: Fruits and vegetables, fiber rich grain products (like whole grain pasta and brown rice), lean meat such as chicken, fish, nuts, seeds, and legumes. (3) Eat Better. Eat small portions. Shop at the grocery with a list and do not stray from it. Tips for a healthy diet include: Limit sodium intake to less than 1500mg daily, avoid prepackaged, processed, and fast foods, choose a diet rich in fruits, vegetables, and whole grain, high fiber foods, and limit saturated & cholesterol in your diet. (4) Manage Blood Pressure. If you have high blood pressure, you should have a cuff at home so that you can check your blood pressure regularly. Be sure you have a good cuff. An arm one is generally better than a wrist one. Bring the cuff to a doctor's appointment to validate that the measurements that your cuff are taking are accurate. Take your blood pressure twice daily when you are sitting down and relaxing. Record the numbers in a log and bring this log with you to your doctors' appointments. (5) Lose Weight if your BMI is above 25. A healthy BMI is between 19-25. To calculate Your BMI, you may use a Standard BMI Calculator on the NIH BMI website: <www.nhlbi.nih.gov/guidelines/obesity/BMI/bmicalc.htm>. Weigh oneself daily. If you are overweight, set a goal to lose weight. A pound a week loss if needed is a good target. (6) Reduce Blood Sugar. Limit foods and liquids with "added sugars." (Added sugars include sucrose, fructose, glucose, maltose, dextrose, high fructose corn syrup, corn syrup, concentrated fruit juice and honey). (7) Stop Smoking. If you smoke, quitting smoking is one of the best things that you can do for your health. Smoking increases your risk of heart attack, stroke, and peripheral vascular disease, which is a build-up of plaque in your arteries. Please discard all the cigarettes and lighters in your house. Have a plan for what you will do when you have the urge to smoke. Direct and second- hand smoke shortens your life as well as the lives of your family, friends and others around you. For your health and the health of those around you, please consider quitting! Proper Bending Body Mechanics: Maintain a wide stance with one foot slightly in front of the other. Keep your back straight. Bend utilizing the strength in your hips and knees. Do not bend at the waist. Maintain the lifted object at your waist-level close to your body. Avoid lifting weight that causes immediately pain or pain anywhere in the body afterwards. Smoking/Nicotine If there was ever one thing that you could do to increase your overall health, decrease your risk of cardiovascular problems by about 39% the second you make the choice, it is to STOP SMOKING. Your body's most instant gratification is the second you stop smoking. We have all heard the studies, read the articles but it is true, smoking is extremely bad for your overall health, and moreover it is detrimental to your bone health. Nicotine, IN ANY FORM, kills bone cells, prevents your body from healing fractures, and significantly prolongs healing after surgery. In spine surgery specifically, it increases your risk of not healing your bones to create a fusion and increases your risk of having a revision surgery due to this up to 60%. I know it is hard. I know it feels impossible. But there are ways. Take control of your life. We are here to help you through it. And when you are ready, ask us and we can direct you to help if you desire. Use the START Plan to Quit Smoking (please visit the Helpguide.org website listed below for more information): S = Set a quit date. Choose a date within the next 2 weeks, so you have enough time to prepare without losing your motivation to quit. If you mainly smoke at work, quit on the weekend, so you have a few days to adjust to the change. T = Tell family, friends, and co-workers that you plan to quit. Let your friends and family in on your plan to quit smoking and tell them you need their support and encouragement to stop. Look for a quit rinku who wants to stop smoking as well. You can help each other get through the rough times. A = Anticipate and plan for the challenges you'll face while quitting. Most people who begin smoking again do so within the first 3 months. You can help yourself make it through by preparing ahead for common challenges, such as nicotine withdrawal and cigarette cravings. R = Remove cigarettes and other tobacco products from your home, car, and work. Throw away all your cigarettes (no emergency pack!), lighters, ashtrays, and matches. Wash your clothes and freshen up anything that smells like smoke. Shampoo your car, clean your drapes and carpet, and steam your furniture. T = Talk to your doctor about getting help to quit. Your doctor can prescribe medication to help with withdrawal and suggest other alternatives. If you can't see a doctor, you can get many products over the counter at your local pharmacy or grocery store, including the nicotine patch, nicotine lozenges, and nicotine gum. Resources for Quitting Smoking: <https://www.[place].gov/documents /[facility]/Quit_Tobacco_Resources_for_patients_313480_7.pdf> Supplementation: Take recommended dosages of Vitamin D and Calcium to help fortify your bones and help them to heal. See your health maintenance packet for dosages and recommended levels. DVT/VTE prophylaxis: You will be given compression stockings from the hospital. Wear these daily for the first two weeks after surgery. You may take them off at night. You may be prescribed a medication to help thin your blood. Take this as directed. If you are not prescribed this medication, early and frequent ambulation has been shown to be the best prophylaxis to deep vein thrombosis and sequelae related to this event. Discharge Disposition: TRANSFER TO SNF/ECF
--- NOTE | 2021-11-25 10:40 | P.OP ---
Date of Procedure: 11/23/21 Preoperative Diagnosis: 1. Acute central cord syndrome 2. 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 b/l UE weakness 4. b/l UE paresthesias with hyperesthesia 5. Blunt head trauma 6. Complex medical patient Postoperative Diagnosis: 1. Acute central cord syndrome 2. 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 b/l UE weakness 4. b/l UE paresthesias with hyperesthesia 5. Blunt head trauma 6. Complex medical patient Procedure(s) Performed: 1. Anterior Right sided Crespo-Oglesby approach to anterior neck 2. C4-5 anterior interbody arthrodesis (81853) 3. C5-6 anterior interbody arthrodesis (76577) 4. C4-5 and C5-6 insertion of biomechanical device (28491w4) 5. Application of non integrated anterior plate C4-6 (66964) 6. Use of intraoperative neuromonitoring 7. Interpretation of intraoperative flouroscopy (23128) Implants: -[place] cages x2 8 mm 8 deg lordotic -Two level Marianna [place] Plate and screws Anesthesia: MARYA Surgeon: Neil Barr Pulmonary Specialist #1: Rodrigo Wood (Was present and assisted in all aspects of the case. ) Estimated Blood Loss (ml): 50 IV fluids (ml): 1,000 Urine output (ml): 450 Pathology: none sent Condition: stable Disposition: PACU Indications for Procedure: Spine Surgery Risk Review Edda Trent is a 81 yo female presenting for evaluation of UE weakness, arm pain, neck pain after acute ffs at home. It was my pleasure to have seen and examined Edda Trent. In our visit today we have had a chance to go over subjective complaints, physical examination findings and treatments including the natural course history without intervention and various interventional options. 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 On physical exam, Edda Trent. demonstrates UE wekaness acutely and b/l with hyperesthesia and paresthesias in b/l UE in central cord syndrome. No LE symptoms at this time. Neck pain. Facial lacerations and BHT . I have explained to the patient that as their condition progresses it will cause further neurological deficits and eventual paralysis. Based on the patients imaging, physical exam, and the rapid progression and disabling nature of their symptoms, at this time I recommend surgery in the form or a: C4-6 anterior cervical discectomy and fusion. I discussed the risk and benefits of this procedure at length with Edda Trent. . The patient and her daughter Guadalupe who is well known to our office and the rest of her family agreed to considered pursuing the procedure abovementioned. Prior to surgery, she should follow up with her PCP (Cardio, ID, IM etc) for clearance. Questions were invited and answered, and the patient wishes to proceed as outlined below. Currently, I am recommendin. C4-6 anterior cervical discectomy and fusion 2. Follow up with PCP for surgical clearance 3. Review of surgical risks and benefits as well as an educational packet on the proposed surgical procedure. Risks: All surgical procedures come with inherent risks, including those related to positioning, anesthesia, intraoperative findings, and postoperative complications. It is important to understand that surgery does not come with any guarantee of a successful outcome as complications and adverse events are always possible. The patient was given a handout in office today discussing the surgical procedure and risks associated with the intervention, both of which were discussed with the patient. These risks include but are not limited to the following: * Experiencing same, different or even worse symptoms in back, neck, arms, or legs compared to before surgery. * Requiring further surgery or other forms of treatment presently or at some time in the future at same or other levels of the intended spine surgery. * On an extreme but fortunately relatively rare basis severe complication such as blindness, stroke, heart attack, temporary and/or permanent nerve injury, paralysis, coma, or may occur, sometimes without known explanation. * Surgical complications may include but are not limited to risk of infection, fluid accumulation in the surgical dissection site, including a seroma or hematoma, that requires additional surgery, wound drainage, bleeding, new numbness or weakness, vision changes/loss, spinal fluid leakage, non-healing and/or infected incision, headaches, difficulty or inability to swallow, hoarseness, hemopneumothorax, pneumothorax, impotence, retrograde ejaculation, vaginal dryness; injury to nerves, spinal cord, blood vessels, lymphatics or other vital organs (i.e., bowel injury, injury to the great vessels); heterotopic bone formation; complications related to the hardware such as screws, rods, cages including misplaced hardware, device failure, instrumentation at the wrong spine level, hardware fracture/breakage, or hardware loosening; vertebral failure of the spinal column above or below the newly placed hardware; retained surgical instrumentations or devices and the need for further surgery. * Medical risks of the planned spine surgery include but are not limited to generalized Infections to the whole body or local areas outside of the surgical site (sepsis), heart attack, bleeding, anaphylaxis, meningitis, seizure, epilepsy, hearing loss, burn wood, laceration of the head or other areas of the body, bruising, hypersensitivity of the skin, bladder over distension; allergic reaction; shoulder injury related to positioning; fat, blood and air clots to other areas of the body like heart, lungs, brain; f ailure of internal organs such as lungs, kidneys, liver and excessive bleeding. If blood transfusions are necessary, note that transfusions may cause intolerance reactions such as anaphylaxis or other complex reactions. * Despite best efforts, the results of spine surgery might not heal in terms of bone, soft tissues such as skin, fascia, ligaments, and joints. Additionally, in order to achieve best possible results, spine surgery may be carried out beyond the initially planned levels and involve decompression, fusion including insertion of hardware at levels other than the original intended a gianna of surgical interest change some portions of the procedure in order to ensure the best possible outcomes. * With spine surgery and spinal fusion, there are different off label uses of instrumentation (devices, implants and hardware) as well as biological substances (bone morphogenic proteins, demineralized bone matrix) as well as using extra bone from allograft sources (i.e. cadaver bone) or autograft (iliac crest bone, ribs, or the spine itself). The patient has been given information about these practices and their inherent risks and benefits. The patient has had a chance to review all the listed information, has been given print outs detailing this information, and has had all his/her questions answered to their satisfaction. It was my pleasure to have seen and examined Edda Trent. . In our visit today we have had a chance to go over my understanding of our patient's current condition, the natural course history without intervention and various interventional options. Questions were invited and answered, and the patient wishes to proceed as outlined above. I have seen and examined the patient for 25 minutes and we have spent more than 50% of the time in repeat and detailed counseling about the patient's condition, its natural course history with out and as much as can be predicted with surgery and re-review of various surgical treatment options. In conclusion, Edda Trent. and her family requested we proceed with the above suggested surgery and are willing to accept risks and limitations of the suggested surgery as nature of the disease process and our best attempts at treatment for the condition. Thank you again for allowing us to be part of your patient's care. Please don't hesitate to contact me if you have any further questions. Signed and authenticated by: Neil Elder [facility] [address] [facility], [address] [address] Description of Procedure: The patient was seen and examined in the preoperative area. All preoperative protocols were followed. Informed consent was obtained risks and benefits of the procedure were discussed at length. Risks including bleeding infection damage to the surrounding tissue and risk of reoperation were discussed with the patient. Risk of anesthesia up to and including was a discussed with the patient. These are outlined in the risk review. They were willing to accept these risks and all of the risks of surgery. The patient was given a weight- based dose of antibiotics in the form of 2 g Ancef. The patient was seen and evaluated by the anesthesia team who deemed them fit for surgery. The site was marked, the patient was willing to proceed with the procedure. The patient was transferred to the operative suite by the Department of anesthesia. They were then drifted off to sleep by the department anesthesia and GETA was performed. The patient tolerated this well. Nuñez catheter was placed by nursing staff, atraumatically. Once confirmation of lines and ventilation the patient was transferred to a flattop Ulysses table supine very carefully. All bony prominences including wrists, elbows, axilla, chest, hips, and thighs, and feet were padded very well. Special attention was paid to the genitalia and these were padded accordingly. SCDs were placed on bilateral lower extremities and were connected. Arms were well padded and placed tucked at her side thumbs up and well-padded. Shoulder roll was placed in her head was placed on a doughnut. Shoulders were gently taped to the table.. Once in position, again we confirmed good ventilation capabilities and that lines were running appropriately. The patient's anterior cervical spine was then exposed. 1010s were placed outlining the incision site. Standard alcohol was used to clean the incision site and allowed to dry. C-arm was used to biomark the patient and confirm level for incision which was marked with a skin marker. Operative briefing was performed with all teams and everyone in agreement to proceed. The patient was then prepped and draped in a normal sterile fashion. Timeout was then performed and all parties were in agreement with the procedure to be performed. Transverse skin incision was made over the previously by marked area on the right side of the patient's neck 4 cm in line with a neck crease. Anterior Crespo Leonard approach to the neck was taken sternocleidomastoid was identified underneath the platysma which was split transversely. Once identified the space between the SCM and strap muscles and omohyoid was exploited midline structures were mobilized carefully and retracted until the anterior portion of the c ervical spine was visualized. They will always visualize there was exuberant scar tissue which had formed adherent to the retropharyngeal and retro-Cefadyl space in this area so careful dissection was made with the Randolph 4 to mobilize this area once this was mobilized retractors were placed and secured into position. We then took lateral fluoroscopic imaging with a blunt probe to confirm our levels once her levels were confirmed with marked them. We are then able to place Sebastian pins into the C6 and C5 vertebral bodies using lateral fluoroscopic imaging. Distractor was then placed and careful distraction taken out. Operating microscope was then brought in for visualization purposes we then performed anterior discectomy by completely removing the disc in this area with curettes Fransisco Anthony Kerrison rongeurs and bur the anterior osteophytes were carefully removed from Anthony as well as with high-speed bur high-speed bur was then used as remove the posterior superior osteophytes from the inferior portion of the endplate of C5 carefully. An fully released with C2 O Car[place]on. Bilateral foraminotomies were performed under direct visualization. Meticulous hemostasis was then performed. We then sized under lateral fluoroscopic imaging R cage and once the appropriate size and fit had been obtained AP image confirmed centrally located within selected cage filled with autograft and bio 4 impacted in position under lateral fluoroscopic guidance. We ran motors before and after cage impacted and motors remained stable. Stenosis was accomplished distraction was removed from this level Trung pin removed from C6 and bone wax placement void then turned attention to C4-C5 [place] pin was replaced and C4 and distractor placed and careful distraction was done on C4-C5 with lateral imaging. We performed a complete discectomy in this area using Rominger Kerrison under curettes and high-speed bur anterior osteophytes removed using a rongeur. We then carefully burred the posterior superior osteophytes of the inferior endplate of C4 which revealed the PLL was a pillows identified and was released with a 6 opening curet and further released with a 20 Kerrison. We then performed bilateral foraminotomies under direct localization. Once good decompression of the performed meticulous hemostasis was performed. Then under lateral imaging sized for a cage once the adequate size and reduction of been obtained we selected a cage filled with autograft and bio [address] under lateral fluoroscopy. Motors run before and after cage impaction and they remain stable. Prior to cage impaction with significant AP fluoroscopic image to ensure we are centered. We then again perform meticulous hemostasis checked her cages they were stable [place] pins were removed distraction removed and bone wax placement void and over any open bony ends. We then sized a plate under lateral fluoroscopic guidance once the plate was sized was placed confirmed to be centered on AP imaging and then screws were placed first in the C6 and locked into position followed by C5 and then C4's were then drilled and placed atraumatically. This is done under lateral imaging guidance. Once all screws were placed they were locked into position and final locked. We then copiously irrigated the wound with normal sterile saline retractors were removed and final images were taken AP and lateral imaging confirmed good placement of hardware as well as good reduction and decompression. We then again irrigated the wound. Surgicel was placed deep within the wound a drain was placed deep within the wound and sewn into position with an proceeded with layered closure for subplatysmal layer with 3-0 Vicryl followed by subcu 0 Vicryl subcuticular layer was closed with a 40 strata fix suture the skin was then cleaned and dressed sterilely with excellent fit and glue allowed to completely dry and then an operative foam dressing drain sponge and Tegaderm. Patient is in place a hard c-collar The patient was transferred back to their hospital bed atraumatically. Drain continued to hold suction and were in good position. Patient was then awakened and extubated by the department of anesthesia having tolerated the procedure very well with no complications. They were transferred to the postoperative care unit in stable condition.
[2021-11-25 11:29] LABS: Glucose,Whole Blood 126 mg/dL (70-110)
[2021-11-25 14:08] VITALS: BP 109/59; TEMP 97.3
[2021-11-25 14:18] VITALS: BMI 28.8
[2021-11-25] MEDS: SODIUM CHLORIDE 0.9% 1,000 ML IV SCH (14:40)
== END 2021-11-25 15:15 | DRG 28 ==
LOC: EC 15:17 → 4SSUR 19:17
PROVIDERS: ADMIT Orthopaedic Surgery; ATTEND Orthopaedic Surgery
PROC: 0RG20A0 Fusion of 2 or more Cervical Vertebral Joints with Interbody Fusion Device, Anterior Approach, Anterior Column, Open Approach (ICD-10-PCS; principal; 2021-11-23)
PROC: 0RT30ZZ Resection of Cervical Vertebral Disc, Open Approach (ICD-10-PCS; 2021-11-23)
DX: S14.124A Central cord syndrome at C4 level of cervical spinal cord, initial encounter (principal); G92.8 Other toxic encephalopathy; M48.52XA Collapsed vertebra, not elsewhere classified, cervical region, initial encounter for fracture; S01.81XA Laceration without foreign body of other part of head, initial encounter; Z20.822 Contact with and (suspected) exposure to COVID-19; E11.9 Type 2 diabetes mellitus without complications; E78.5 Hyperlipidemia, unspecified; G20 Parkinson's disease; I10 Essential (primary) hypertension; J45.909 Unspecified asthma, uncomplicated; D64.9 Anemia, unspecified; G40.909 Epilepsy, unspecified, not intractable, without status epilepticus; S06.0X0A Concussion without loss of consciousness, initial encounter; M48.02 Spinal stenosis, cervical region; I67.1 Cerebral aneurysm, nonruptured; M47.22 Other spondylosis with radiculopathy, cervical region; T38.0X5A Adverse effect of glucocorticoids and synthetic analogues, initial encounter; W01.0XXA Fall on same level from slipping, tripping and stumbling without subsequent striking against object, initial encounter; Z88.1 Allergy status to other antibiotic agents; Z88.5 Allergy status to narcotic agent; Z88.0 Allergy status to penicillin; Z88.2 Allergy status to sulfonamides; Z88.8 Allergy status to other drugs, medicaments and biological substances; Z90.49 Acquired absence of other specified parts of digestive tract; Z87.891 Personal history of nicotine dependence; Z86.73 Personal history of transient ischemic attack (TIA), and cerebral infarction without residual deficits; Z79.82 Long term (current) use of aspirin; Z79.84 Long term (current) use of oral hypoglycemic drugs; Z79.899 Other long term (current) drug therapy; Y92.009 Unspecified place in unspecified non-institutional (private) residence as the place of occurrence of the external cause; Z82.49 Family history of ischemic heart disease and other diseases of the circulatory system; Z82.3 Family history of stroke; Z83.3 Family history of diabetes mellitus
CPT/HCPCS: 70450; 71045; 72040; 72125; 72156; 80048; 80053; 82728; 83540; 83550; 83735; 84100; 85025; 85027; 85610; 85730; 87635; 93005; 93306; 94760; 96374; 96375; 96376; 99285

== ENCOUNTER → 2022-11-20 | Outpatient (CLI) | payer MEDICARE, BC ==
--- NOTE | 2022-11-20 16:06 | MR ---
EXAMINATION TYPE: MR angio head wo con DATE OF EXAM: 11/20/2022 COMPARISON: CTA head 11/09/2021, MRA head 02/06/2017. HISTORY: Recheck aneurysm, 1 year F/U. TECHNIQUE: Time of flight images focusing on the [place] of [place] were performed without contrast. FINDINGS: The vertebral arteries are codominant and patent. The anterior cerebral arteries and middle cerebral arteries are patent bilaterally without stenosis or aneurysm. The anterior commuting artery is poorly visualized. The posterior cerebral arteries appear patent. The bilateral posterior cerebra l arteries are diminutive but patent. The basilar artery is patent with again stable mild fusiform pr ominence at its tip. No overt aneurysm identified. 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
== END | disposition home or self-care (01) ==
LOC: RADMRIMAIN 14:55
PROVIDERS: ATTEND Psychiatry & Neurology Neurology
DX: I67.1 Cerebral aneurysm, nonruptured (principal)
CPT/HCPCS: 70544

== ENCOUNTER 2023-01-31 07:24 | Observation (INO) | payer MEDICARE, BC ==
--- NOTE | 2023-01-31 08:06 | ED ---
General Adult HPI - General Chief complaint: Dizziness Stated complaint: Fall,Vertigo, no thinners Time Seen by Provider: 01/31/23 07:30 Source: patient, family, EMS, RN notes reviewed, old records reviewed Mode of arrival: EMS Limitations: no limitations - History of Present Illness Initial comments: This is an 82-year-old female who presents emergency Department complaining of dizziness. Patient states years ago she had dizziness and they did surgery on her neck and it went away. Patient states over the last month she's progressively had more more dizziness. Patient states if she moves it gets much worse. Patient denies any nausea vomiting. Patient states when the paramedics moved her to a stretcher she came very dizzy now that she is laying still again she's not that dizzy. Patient denies chest pain palpitations difficulty breathing shortness breath. Patient was any recent fever chills or cough. - Related Data Home Medications Medication Instructions Recorded Confirmed Atorvastatin [Lipitor] 40 mg PO HS 11/17/14 01/31/23 Metoprolol Succinate (ER) [Toprol 25 mg PO DAILY 11/17/14 01/31/23 XL] Omeprazole 20 mg PO DAILY 07/09/17 01/31/23 carBAMazepine 200 mg PO BID 10/11/18 01/31/23 Citalopram Hydrobromide 20 mg PO DAILY 05/15/20 01/31/23 [Citalopram HBr] Ondansetron Odt [Zofran ODT] 4 mg PO BID PRN 06/02/20 01/31/23 Albuterol Nebulized [Ventolin 2.5 mg INHALATION RT-QID PRN 11/18/21 01/31/23 Nebulized] ALPRAZolam [Xanax] 0.5 mg PO DAILY PRN 01/31/23 01/31/23 ALPRAZolam [Xanax] 0.5 mg PO HS 01/31/23 01/31/23 Acetaminophen Tab [Tylenol Tab] 1,000 mg PO Q6HR PRN 01/31/23 01/31/23 Aspirin EC [Ecotrin Low Dose] 162 mg PO HS 01/31/23 01/31/23 Azelastine HCl [Optivar 0.05% 1 - 2 drop BOTH EYES BID PRN 01/31/23 01/31/23 Ophth Soln] Cetirizine HCl [Zyrtec] 10 mg PO DAILY PRN 01/31/23 01/31/23 Furosemide [Lasix] 20 mg PO DAILY PRN 01/31/23 01/31/23 Linagliptin [Tradjenta] 5 mg PO DAILY 01/31/23 01/31/23 Losartan Potassium 100 mg PO DAILY 01/31/23 01/31/23 Pregabalin [Lyrica] 25 mg PO DAILY PRN 01/31/23 01/31/23 Allergies Allergy/AdvReac Type Severity Reaction Status Date / Time codeine Allergy Unknown Verified 01/31/23 12:07 erythromycin base Allergy Unknown Verified 01/31/23 12:07 levofloxacin [From Levaquin] Allergy Rash/Hives Verified 01/31/23 12:07 nitrofurantoin Allergy Unknown Verified 01/31/23 12:07 [From Macrobid] nitrofurantoin Allergy Unknown Verified 01/31/23 12:07 macrocrystalline [From Macrobid] Penicillins Allergy Unknown Verified 01/31/23 12:07 sulfamethoxazole Allergy Unknown Verified 01/31/23 12:07 [From Bactrim] trimethoprim [From Bactrim] Allergy Unknown Verified 01/31/23 12:07 acetaminophen AdvReac Hallucinati Verified 01/31/23 12:07 [From Darvocet-N] ons ciprofloxacin [From Cipro] AdvReac Vomiting Verified 01/31/23 12:07 ciprofloxacin HCl AdvReac Vomiting Verified 01/31/23 12:07 [From Cipro] hydralazine AdvReac headache Verified 01/31/23 12:07 propoxyphene napsylate AdvReac Hallucinati Verified 01/31/23 12:07 [From Darvocet-N] ons omnipaxo AdvReac Rapid Uncoded 01/31/23 07:48 Heart Rate Review of Systems ROS Statement: Those systems with pertinent positive or pertinent negative responses have been documented in the HPI. ROS Other: All systems not noted in ROS Statement are negative. Past Medical History Past Medical History: Asthma, CVA/TIA, Diabetes Mellitus, GERD/Reflux, Hypertension, Seizure Disorder, Skin Disorder Additional Past Medical History / Comment(s): TIA age 33absence seizuresLt arm skin bruised from scratching during night, Parkinsons in 2017, History of Any Multi-Drug Resistant Organisms: ESBL Date of last positivie culture/infection: 12/28/20 MDRO Source:: URINE Past Surgical History: Cholecystectomy, Heart Catheterization, Orthopedic Surgery Additional Past Surgical History / Comment(s): bilateral knee arthroscopies,left shoulder rotator cuff repair Past Anesthesia/Blood Transfusion Reactions: Motion Sickness Past Psychological History: No Psychological Hx Reported Smoking Status: Former smoker Past Alcohol Use History: None Reported Past Drug Use History: None Reported - Past Family History Brother(s) Family Medical History: CVA/TIA Additional Family Medical History / Comment(s): Patient has 1 brother that from either a CVA or acute GA. Sister(s) Family Medical History: Coronary Artery Disease (CAD) Additional Family Medical History / Comment(s): Patient has 3 sisters and one is alive with no major medical problems. 2 sisters have and one was following influenza immunization. 1 sister is unknown cause of . Daughter(s) History Unknown: Yes Additional Family Medical History / Comment(s): Patient has 2 daughters and one has history of rheumatoid arthritis and one has history of diabetes. Patient has one son with no major medical problems. Son(s) History Unknown: Yes Family Medical History: No Reported History Father Additional Family Medical History / Comment(s): Father at age 83 from a myocardial infarction. Mother Family Medical History: No Reported History Additional Family Medical History / Comment(s): Mother at age 93 from a myocardial infarction. General Exam - General Exam Comments Initial Comments: GENERAL: Patient is well-developed and well-nourished. Patient is nontoxic and well- hydrated and is in mild distress. ENT: Neck is soft and supple. No significant lymphadenopathy is noted. Oropharynx is clear. Moist mucous membranes. Neck has full range of motion without eliciting any pain. EYES: The sclera were anicteric and conjunctiva were pink and moist. Extraocular movements were intact and pupils were equal round and reactive to light. Eyelids were unremarkable. Patient has nystagmus when looking to the left PULMONARY: Unlabored respirations. Good breath sounds bilaterally. No audible rales rhonchi or wheezing was noted. CARDIOVASCULAR: There is a regular rate and rhythm without any murmurs gallops or rubs. ABDOMEN: Soft and nontender with normal bowel sounds. SKIN: Skin is clear with no lesions or rashes and otherwise unremarkable. NEUROLOGIC: Patient is alert and oriented x3. Cranial nerves II through XII are grossly intact. Motor and sensory are also intact. Normal speech, volume and content. Symmetrical smile. Finger to nose testing bilaterally was normal MUSCULOSKELETAL: Normal extremities with adequate strength and full range of motion. No lower extremity swelling or edema. No calf tenderness. LYMPHATICS: No significant lymphadenopathy is noted PSYCHIATRIC: Normal psychiatric evaluation. Limitations: no limitations Course Vital Signs 01/31/23 07:30 Temperature 97.9 F Pulse Rate 82 Respiratory 18 Rate Blood Pressure 203/109 O2 Sat by Pulse 96 Oximetry Medical Decision Making - Medical Decision Making EKG was interpreted by myself that shows a sinus rhythm at 80 bpm OK interval is 209 QRSs 100 QT interval 352 QTC is 421 per patient's EKG shows no ST segment elevation or depression. Was pt. sent in by a medical professional or institution (, PA, CHANGE CONTROL MANAGER, urgent ca re, hospital, or alf...) When possible be specific @ -No Did you speak to anyone other than the patient for history (EMS, parent, family, police, friend...)? What history was obtained from this source @ -No Did you review nursing and triage notes (agree or disagree)? Why? @ -I reviewed and agree with nursing and triage notes Were old charts reviewed (outside hosp., previous admission, EMS record, old EKG, old radiological studies, urgent care reports/EKG's, alf records)? Report findings @ -I reviewed prior charts of prior lab work on this patient Differential Diagnosis (chest pain, altered mental status, abdominal pain women, abdominal pain men, vaginal bleeding, weakness, fever, dyspnea, syncope, headache, dizziness, GI bleed, back pain, seizure, CVA, palpatations, mental health, musculoskeletal)? @ -Differential Dizziness: Benign paroxysmal positional Vertigo, Menieres disease, otitis media, acoustic neuroma, vertebrobasilar insufficiency, cerebellar stroke, encephalitis, hypovolemic, arrhythmia, coronary artery syndrome, anemia, this is not meant to be an all-inclusive list EKG interpreted by me (3pts min.). @ -As above X-rays interpreted by me (1pt min.). @ -Chest x-ray showed no acute abnormality CT interpreted by me (1pt min.). @ -CT of the brain showed no acute abnormalities. CT angiogram of the head and neck show no acute abnormality. U/S interpreted by me (1pt. min.). @ -None done What testing was considered but not performed or refused? (CT, X-rays, U/S, labs)? Why? @ -None What meds were considered but not given or refused? Why? @ -None Did you discuss the management of the patient with other professionals (professionals i.e. , PA, CHANGE CONTROL MANAGER, lab, RT, psych nurse, delinquency prevention social worker, customer service dispatcher, teacher, professional security officer, case advocate)? Give summary @ -[facility] Was smoking cessation discussed for >3mins.? @ -No Was critical care preformed (if so, how long)? @ -No Were there social determinants of health that impacted care today? How? (Homelessness, low income, unemployed, alcoholism, drug addiction, transportation, low edu. Level, literacy, decrease access to med. care, prison, rehab)? @ -No Was there de-escalation of care discussed even if they declined (Discuss DNR or withdrawal of care, Hospice)? DNR status @ -No What co-morbidities impacted this encounter? (DM, HTN, Smoking, COPD, CAD, Cancer, CVA, ARF, Chemo, Hep., AIDS, mental health diagnosis, sleep apnea, morbid obesity)? @ -None Was patient admitted / discharged? Hospital course, mention meds given and route, prescriptions, significant lab abnormalities, going to OR and other pertinent info. @ -Patient was given Antivert and after that we try to ambulate the patient it was unsuccessful she did not feel she could go home safely I spoke with [facility] and he agreed to admit the patient I admitted the patient Undiagnosed new problem with uncertain prognosis? @ -No Drug Therapy requiring intensive monitoring for toxicity (Heparin, Nitro, Insulin, Cardizem)? @ -No Were any procedures done? @ -No Diagnosis/symptom? @ -Vertigo Acute, or Chronic, or Acute on Chronic? @ -Acute Uncomplicated (without systemic symptoms) or Complicated (systemic symptoms)? @ -Complicated Side effects of treatment? @ -No Exacerbation, Progression, or Severe Exacerbation? @ -No Poses a threat to life or bodily function? How? (Chest pain, USA, GA, pneumonia, PE, COPD, DKA, ARF, appy, cholecystitis, CVA, Diverticulitis, Homicidal, Suicidal, threat to staff... and all critical care pts) @ -No - Lab Data Result diagrams: 01/31/23 08:10 01/31/23 08:10 Lab Results 01/31/23 01/31/23 01/31/23 Range/Units 08:10 08:10 08:10 WBC 5.6 (3.8-10.6) k/uL RBC 3.65 L (3.80-5.40) m/uL Hgb 11.3 L (11.4-16.0) gm/dL Hct 34.0 (34.0-46.0) % MCV 93.1 (80.0-100.0) fL MCH 31.1 (25.0-35.0) pg MCHC 33.4 (31.0-37.0) g/dL RDW 15.0 (11.5-15.5) % Plt Count 195 (150-450) k/uL MPV 8.1 Neutrophils % 60 % Lymphocytes % 23 % Monocytes % 7 % Eosinophils % 8 % Basophils % 0 % Neutrophils # 3.4 (1.3-7.7) k/uL Lymphocytes # 1.3 (1.0-4.8) k/uL Monocytes # 0.4 (0-1.0) k/uL Eosinophils # 0.4 (0-0.7) k/uL Basophils # 0.0 (0-0.2) k/uL PT 9.9 (9.0-12.0) sec INR 0.9 (<1.2) APTT 20.8 L (22.0-30.0) sec Sodium 138 (137-145) mmol/L Potassium 4.4 (3.5-5.1) mmol/L Chloride 104 (98-107) mmol/L Carbon Dioxide 28 (22-30) mmol/L Anion Gap 6 mmol/L BUN 19 H (7-17) mg/dL Creatinine 0.65 (0.52-1.04) mg/dL Est GFR (CKD-EPI)AfAm >90 (>60 ml/min/1.73 sqM) Est GFR (CKD-EPI)NonAf 84 (>60 ml/min/1.73 sqM) Glucose 110 H (74-99) mg/dL Calcium 8.9 (8.4-10.2) mg/dL Magnesium 1.9 (1.6-2.3) mg/dL Total Bilirubin 0.4 (0.2-1.3) mg/dL AST 24 (14-36) U/L ALT 12 (4-34) U/L Alkaline Phosphatase 120 (38-126) U/L Troponin I (0.000-0.034) ng/mL Total Protein 6.6 (6.3-8.2) g/dL Albumin 3.8 (3.5-5.0) g/dL 01/31/23 Range/Units 08:10 WBC (3.8-10.6) k/uL RBC (3.80-5.40) m/uL Hgb (11.4-16.0) gm/dL Hct (34.0-46.0) % MCV (80.0-100.0) fL MCH (25.0-35.0) pg MCHC (31.0-37.0) g/dL RDW (11.5-15.5) % Plt Count (150-450) k/uL MPV Neutrophils % % Lymphocytes % % Monocytes % % Eosinophils % % Basophils % % Neutrophils # (1.3-7.7) k/uL Lymphocytes # (1.0-4.8) k/uL Monocytes # (0-1.0) k/uL Eosinophils # (0-0.7) k/uL Basophils # (0-0.2) k/uL PT (9.0-12.0) sec INR (<1.2) APTT (22.0-30.0) sec Sodium (137-145) mmol/L Potassium (3.5-5.1) mmol/L Chloride (98-107) mmol/L Carbon Dioxide (22-30) mmol/L Anion Gap mmol/L BUN (7-17) mg/dL Creatinine (0.52-1.04) mg/dL Est GFR (CKD-EPI)AfAm (>60 ml/min/1.73 sqM) Est GFR (CKD-EPI)NonAf (>60 ml/min/1.73 sqM) Glucose (74-99) mg/dL Calcium (8.4-10.2) mg/dL Magnesium (1.6-2.3) mg/dL Total Bilirubin (0.2-1.3) mg/dL AST (14-36) U/L ALT (4-34) U/L Alkaline Phosphatase (38-126) U/L Troponin I <0.012 (0.000-0.034) ng/mL Total Protein (6.3-8.2) g/dL Albumin (3.5-5.0) g/dL Disposition Clinical Impression: Vertigo Disposition: ADMITTED IP TO THIS HOSP Time of Disposition: 11:40
--- NOTE | 2023-01-31 08:21 | CT ---
EXAMINATION TYPE: CT brain wo con DATE OF EXAM: 01/31/2023 COMPARISON: 11/18/2021 HISTORY: FALL CT DLP: [address] of the brain was performed. The ventricles, basal cisterns and sulci overlying the cerebral convexities demonstrate mild enlargem ent. There is no evidence for intracranial hemorrhage or sulcal effacement. Her infarct right basal gangl ia is chronic in appearance. There is decreased attenuation about the periventricular white matter and deep white matter of both c erebral hemispheres, compatible with chronic small vessel ischemia. Differential diagnosis does inclu de demyelination. No mass effects are seen.No midline shift. Osseous calvarium is intact. If symptoms persist consider MRI. IMPRESSION: 1. Age related atrophic and chronic small vessel ischemic change without acute intracranial process s een at this time.
[2023-01-31 08:33] LABS: Basophils % (A) 0 %; Eosinophils # (A) 0.4 k/uL (0-0.7); Eosinophils % (A) 8 %; HGB 11.3 gm/dL (11.4-16.0); Lymphocytes # (A) 1.3 k/uL (1.0-4.8); Lymphocytes % (A) 23 %; MCH 31.1 pg (25.0-35.0); MCHC 33.4 g/dL (31.0-37.0); MCV 93.1 fL (80.0-100.0); Mean Platelet Volume 8.1; Monocytes # (A) 0.4 k/uL (0-1.0); Monocytes % (A) 7 %; Neutrophils # (A) 3.4 k/uL (1.3-7.7); Neutrophils % (A) 60 %; Platelet Count 195 k/uL (150-450); RBC 3.65 m/uL (3.80-5.40); WBC 5.6 k/uL (3.8-10.6)
[2023-01-31 08:47] LABS: ALT 12 U/L (4-34); AST 24 U/L (14-36); African American GFR (CKD) >90 (>60 ml/min/1.73 sqM); Albumin 3.8 g/dL (3.5-5.0); Alkaline Phosphatase 120 U/L (38-126); Anion Gap 6 mmol/L; Blood Urea Nitrogen 19 mg/dL (7-17); Calcium 8.9 mg/dL (8.4-10.2); Carbon Dioxide 28 mmol/L (22-30); Chloride 104 mmol/L (98-107); Glucose 110 mg/dL (74-99); Magnesium 1.9 mg/dL (1.6-2.3); Non-African American GFR(CKD) 84 (>60 ml/min/1.73 sqM); Potassium 4.4 mmol/L (3.5-5.1); Sodium 138 mmol/L (137-145); Total Bilirubin 0.4 mg/dL (0.2-1.3); Total Protein 6.6 g/dL (6.3-8.2)
[2023-01-31 08:48] LABS: INR 0.9 (<1.2); Prothrombin Time 9.9 sec (9.0-12.0)
[2023-01-31 08:55] LABS: Partial Thromboplastin Time 20.8 sec (22.0-30.0)
--- NOTE | 2023-01-31 08:58 | XR ---
EXAMINATION TYPE: XR chest 2V DATE OF EXAM: 01/31/2023 COMPARISON: 11/18/2021 HISTORY: Shortness of breath TECHNIQUE: Frontal and lateral views of the chest are obtained. FINDINGS: Scattered senescent parenchymal changes noted. No evidence for infiltrate. No evidence for atelectasis. Heart size is stable. Mediastinal structures are stable and grossly unremarkable. No evidence for hilar prominence. Degenerative changes dorsal spine. IMPRESSION: 1. No evidence for acute pulmonary disease.
--- NOTE | 2023-01-31 10:29 | CT ---
EXAMINATION TYPE: CODE STROKE: CTA head neck DATE OF EXAM: 01/31/2023 COMPARISON: 11/09/2021 HISTORY: fall, vertigo, h/o cervical fusion x1 year ago CT DLP: 669.1 mGycm CONTRAST: Performed with IV Contrast, patient injected with 65 mL of Isovue 300. Combination Contrast CTA cervical carotids and [place] CTA cervical carotids with 3-D recons truction Contrast CTA of the cervical carotids was performed 3-D reconstruction imaging obtained at a separate workstation. Right carotid system: Mild plaque is seen of the right common carotid artery. There is moderate calc ific plaque also noted at the carotid bulb and proximal ICA. Diameter reduction of less than 50%. E CA is patent. Right vertebral artery appears unremarkable. Left carotid system: Mild plaque is seen of the left common carotid artery. There is mild to moderat e calcific plaque also noted at the carotid bulb and proximal ICA. Estimated diameter reduction of l ess than 50%. ECA is patent. Left vertebral artery appears unremarkable. IMPRESSION: 1. No significant diameter reduction to account for the patient's symptoms. CTA [place] with 3-D reconstruction Contrast CTA of the [place] was performed 3-D reconstruction imaging obtained at a separate workstation. Vertebrobasilar system as well as intracranial portions of the internal carotid arteries and their ma sarah tributaries are patent. I do not see evidence for sizable aneurysm or vascular malformation. Pl ease note MRI provides greater sensitivity and specificity. Visualized brain appears grossly unremar kable. IMPRESSION: 1. No significant abnormality. No evidence for large vessel occlusion. NASCET criteria was used in interpretation of this exam?
[2023-01-31] MEDS ORDERED: MECLIZINE 25 MG TAB PO STA (10:32)
[2023-01-31] MEDS ORDERED: SODIUM CHLORIDE 0.9% 1,000 ML IV STA (11:32)
[2023-01-31] MEDS ORDERED: NALOXONE 0.4 MG/ML 1 ML VIAL IV PRN (11:33)
[2023-01-31] MEDS ORDERED: ONDANSETRON 4 MG/2 ML VIAL IVP PRN (11:33)
[2023-01-31] MEDS: MECLIZINE 25 MG TAB PO SCH ×3 (11:54→20:15)
[2023-01-31 13:50] VITALS: RESP 16
[2023-01-31] MEDS ORDERED: FUROSEMIDE 20 MG TAB PO PRN (14:08)
[2023-01-31] MEDS ORDERED: LORATADINE 10 MG TAB PO PRN (14:08)
[2023-01-31] MEDS ORDERED: ACETAMINOPHEN TAB 500 MG TAB PO PRN (14:08)
[2023-01-31] MEDS ORDERED: ALBUTEROL NEBULIZED 2.5 MG/3 ML INHALATION PRN (14:08)
[2023-01-31] MEDS ORDERED: PREGABALIN 25 MG CAP PO PRN (14:08)
[2023-01-31] MEDS ORDERED: ALPRAZolam 0.5 MG TAB PO PRN (14:08)
[2023-01-31] MEDS ORDERED: DEXTROSE 50% SYRINGE 50 ML IVP PRN ×2 (14:41)
--- NOTE | 2023-01-31 14:42 | P.HPIM ---
History of Present Illness H&P Date: 01/31/23 Chief Complaint: Dizziness * 82-year-old lady with past medical history significant for Parkinson, remote history of seizure, hypertension, brain aneurysm, multiple falls present to the emergency department with complaint of new onset dizziness. Patient states she has been having dizziness for the last 3 weeks with gait imbalance. Patient described dizziness as if the room is spinning around. Patient was accompanied by daughter at bedside with Sr. with history taking. Patient does have history of cervical myelopathy and some spinal stenosis and follows up with neurology outpatient as well with a follow-up appointment on 02/02/23. * Workup in ER included CBC which was essentially negative except for hemoglobin of 11.3 missing metabolic panel was essentially normal as well * Patient had a CT brain done which was negative, CT angiogram head and neck was negative for hemodynamically significant stenosis * Patient was given 1 dose of meclizine with significant improvement in symptoms * Patient denies associated nausea, vomiting, paresthesia, focal deficit do not suspect a CVA * However if symptoms do not improve we'll recommend MRI brain and neurology evaluation REVIEW OF SYSTEMS: Dizziness, vertigo CONSTITUTIONAL: No fever, no malaise, no fatigue. HEENT: No recent visual problems or hearing problems. Denied any sore throat. CARDIOVASCULAR: No chest pain, orthopnea, PND, no palpitations, no syncope. PULMONARY: No shortness of breath, no cough, no hemoptysis. GASTROINTESTINAL: No diarrhea, no nausea, no vomiting, no abdominal pain. NEUROLOGICAL: No headaches, no weakness, no numbness. HEMATOLOGICAL: Denies any bleeding or petechiae. GENITOURINARY: Denies any burning micturition, frequency, or urgency. MUSCULOSKELETAL/RHEUMATOLOGICAL: Denies any joint pain, swelling, or any muscle pain. ENDOCRINE: Denies any polyuria or polydipsia. PHYSICAL EXAMINATION: GENERAL: The patient is alert and oriented x3, not in any acute distress. Well developed, well nourished. HEENT: Pupils are round and equally reacting to light. EOMI. No scleral icterus. No conjunctival pallor. Normocephalic, atraumatic. No pharyngeal erythema. No thyromegaly. CARDIOVASCULAR: S1 and S2 present. No murmurs, rubs, or gallops. PULMONARY: Chest is clear to auscultation, no wheezing or crackles. ABDOMEN: Soft, nontender, nondistended, normoactive bowel sounds. No palpable organomegaly. MUSCULOSKELETAL: No joint swelling or deformity. EXTREMITIES: No cyanosis, clubbing, or pedal edema. NEUROLOGICAL: Gross neurological examination did not reveal any focal deficits. SKIN: No rashes. Past Medical History Past Medical History: Asthma, CVA/TIA, Diabetes Mellitus, GERD/Reflux, Hypertension, Seizure Disorder, Skin Disorder Additional Past Medical History / Comment(s): TIA age 33absence seizuresLt arm skin bruised from scratching during night, Parkinsons in 2017, History of Any Multi-Drug Resistant Organisms: ESBL Date of last positivie culture/infection: 12/28/20 MDRO Source:: URINE Past Surgical History: Cholecystectomy, Heart Catheterization, Orthopedic Surgery Additional Past Surgical History / Comment(s): bilateral knee arthroscopies,left shoulder rotator cuff repair Past Anesthesia/Blood Transfusion Reactions: Motion Sickness Past Psychological History: No Psychological Hx Reported Smoking Status: Former smoker Past Alcohol Use History: None Reported Past Drug Use History: None Reported - Past Family History Brother(s) Family Medical History: CVA/TIA Additional Family Medical History / Comment(s): Patient has 1 brother that from either a CVA or acute VT. Sister(s) Family Medical History: Coronary Artery Disease (CAD) Additional Family Medical History / Comment(s): Patient has 3 sisters and one is alive with no major medical problems. 2 sisters have and one was following influenza immunization. 1 sister is unknown cause of . Daughter(s) History Unknown: Yes Additional Family Medical History / Comment(s): Patient has 2 daughters and one has history of rheumatoid arthritis and one has history of diabetes. Patient has one son with no major medical problems. Son(s) History Unknown: Yes Family Medical History: No Reported History Father Additional Family Medical History / Comment(s): Father at age 83 from a myocardial infarction. Mother Family Medical History: No Reported History Additional Family Medical History / Comment(s): Mother at age 93 from a myocardial infarction. Medications and Allergies Home Medications Medication Instructions Recorded Confirmed Type Atorvastatin [Lipitor] 40 mg PO HS 11/17/14 01/31/23 History Metoprolol Succinate (ER) [Toprol 25 mg PO DAILY 11/17/14 01/31/23 History XL] Omeprazole 20 mg PO DAILY 07/09/17 01/31/23 History carBAMazepine 200 mg PO BID 10/11/18 01/31/23 History Citalopram Hydrobromide 20 mg PO DAILY 05/15/20 01/31/23 History [Citalopram HBr] Ondansetron Odt [Zofran ODT] 4 mg PO BID PRN 06/02/20 01/31/23 History Albuterol Nebulized [Ventolin 2.5 mg INHALATION RT-QID PRN 11/18/21 01/31/23 History Nebulized] ALPRAZolam [Xanax] 0.5 mg PO DAILY PRN 01/31/23 01/31/23 History ALPRAZolam [Xanax] 0.5 mg PO HS 01/31/23 01/31/23 History Acetaminophen Tab [Tylenol Tab] 1,000 mg PO Q6HR PRN 01/31/23 01/31/23 History Aspirin EC [Ecotrin Low Dose] 162 mg PO HS 01/31/23 01/31/23 History Azelastine HCl [Optivar 0.05% 1 - 2 drop BOTH EYES BID PRN 01/31/23 01/31/23 History Ophth Soln] Cetirizine HCl [Zyrtec] 10 mg PO DAILY PRN 01/31/23 01/31/23 History Furosemide [Lasix] 20 mg PO DAILY PRN 01/31/23 01/31/23 History Linagliptin [Tradjenta] 5 mg PO DAILY 01/31/23 01/31/23 History Losartan Potassium 100 mg PO DAILY 01/31/23 01/31/23 History Pregabalin [Lyrica] 25 mg PO DAILY PRN 01/31/23 01/31/23 History Allergies Allergy/AdvReac Type Severity Reaction Status Date / Time codeine Allergy Unknown Verified 01/31/23 12:07 erythromycin base Allergy Unknown Verified 01/31/23 12:07 levofloxacin [From Levaquin] Allergy Rash/Hives Verified 01/31/23 12:07 nitrofurantoin Allergy Unknown Verified 01/31/23 12:07 [From Macrobid] nitrofurantoin Allergy Unknown Verified 01/31/23 12:07 macrocrystalline [From Macrobid] Penicillins Allergy Unknown Verified 01/31/23 12:07 sulfamethoxazole Allergy Unknown Verified 01/31/23 12:07 [From Bactrim] trimethoprim [From Bactrim] Allergy Unknown Verified 01/31/23 12:07 acetaminophen AdvReac Hallucinati Verified 01/31/23 12:07 [From Darvocet-N] ons ciprofloxacin [From Cipro] AdvReac Vomiting Verified 01/31/23 12:07 ciprofloxacin HCl AdvReac Vomiting Verified 01/31/23 12:07 [From Cipro] hydralazine AdvReac headache Verified 01/31/23 12:07 propoxyphene napsylate AdvReac Hallucinati Verified 01/31/23 12:07 [From Darvocet-N] ons omnipaxo AdvReac Rapid Uncoded 01/31/23 07:48 Heart Rate Physical Exam Vitals: Vital Signs Temp Pulse Resp BP Pulse Ox 01/31/23 12:00 91 16 163/98 82 L 01/31/23 07:30 97.9 F 82 18 203/109 92 L Intake and Output 01/30/23 01/31/23 01/31/23 22:59 06:59 14:59 Other: Weight 77.111 kg Results CBC & Chem 7: 01/31/23 08:10 01/31/23 08:10 Labs: Abnormal Lab Results - Last 24 Hours (Table) 01/31/23 01/31/23 01/31/23 Range/Units 08:10 08:10 08:10 RBC 3.65 L (3.80-5.40) m/uL Hgb 11.3 L (11.4-16.0) gm/dL APTT 20.8 L (22.0-30.0) sec BUN 19 H (7-17) mg/dL Glucose 110 H (74-99) mg/dL Assessment and Plan Assessment: Assessment and plan * Acute dizziness positional vertigo * History of seizure disorder * Diabetes mellitus type 2 * Hypertension * Hyperlipidemia * Workup initiated included CT head, CT angina head and neck. Patient started on meclizine * Due to significant neurological history Will consult neurology for evaluation * In regards to history of seizure continue patient on Tegretol * In regards to diabetes mellitus, Accu-Cheks before meals at bedtime, continue correctional insulin, * CODE STATUS is full code
[2023-01-31] MEDS: METOPROLOL SUCCINATE (ER) 25 MG TAB.ER.24H PO SCH (16:54)
[2023-01-31] MEDS: carBAMazepine 200 MG TAB PO SCH ×2 (16:55→20:15)
[2023-01-31 17:20] LABS: Glucose,Whole Blood 123 mg/dL (70-110)
[2023-01-31] MEDS: INSULIN ASPART (NovoLOG) 100 UNIT/ML VIAL SQ SCH ×2 (17:23→20:15)
[2023-01-31 19:55] LABS: Glucose,Whole Blood 264 mg/dL (70-110)
[2023-01-31] MEDS ORDERED: ATORVASTATIN 40 MG TAB PO SCH (21:00)
[2023-01-31] MEDS ORDERED: ASPIRIN 81 MG PO SCH (21:00)
[2023-01-31] MEDS ORDERED: ALPRAZolam 0.5 MG TAB PO SCH (21:00)
[2023-01-31] MEDS ORDERED: carBAMazepine 200 MG TAB PO SCH (21:00)
[2023-02-01 06:13] LABS: Glucose,Whole Blood 100 mg/dL (70-110)
[2023-02-01] MEDS: INSULIN ASPART (NovoLOG) 100 UNIT/ML VIAL SQ SCH ×2 (06:19→12:19)
[2023-02-01] MEDS: METOPROLOL SUCCINATE (ER) 25 MG TAB.ER.24H PO SCH (08:49)
[2023-02-01] MEDS: MECLIZINE 25 MG TAB PO SCH (08:50)
[2023-02-01] MEDS: carBAMazepine 200 MG TAB PO SCH (08:50)
[2023-02-01] MEDS ORDERED: LINAGLIPTIN 5 MG TABLET PO SCH (09:00)
[2023-02-01] MEDS ORDERED: LOSARTAN 50 MG TAB PO SCH (09:00)
[2023-02-01] MEDS ORDERED: ENOXAPARIN 40 MG/0.4 ML SYRINGE SQ SCH (09:00)
[2023-02-01] MEDS ORDERED: CITALOPRAM HYDROBROMIDE 20 MG TAB PO SCH (09:00)
[2023-02-01] MEDS ORDERED: PANTOPRAZOLE 40 MG TABLET PO SCH (09:00)
[2023-02-01 12:15] LABS: Glucose,Whole Blood 107 mg/dL (70-110)
--- NOTE | 2023-02-01 13:28 | P.CNNES ---
History of Present Illness Consult date: 01/31/23 Requesting physician: Brien Akers Reason for Consult: New onset dizziness, rule out central etiology, history of seizure. History of Present Illness: Patient is a 82-year-old female, came to the hospital by ambulance early this morning at 7:24 AM for syncopal spell. Patient states that she got up to go to the bathroom, sat up and wanted to get her bearings before walking. She took off to go to the bathroom. Her legs gave out and slid and she hit the wall on the right arm back and shoulder and fell on the floor. She does not remember details about the fall. However she did not pass out. She was shaking really bad, therefore she called the ambulance. Patient's daughter states that after she had her get up to the bed, she was still dizzy complaining of headache, therefore they called the ambulance. Patient has history of neck surgery on 11/22/2021. She follows up with Dr. Delacruz. Normally she uses a cane whenever she goes outside. When she is in a large crowd, she uses a walker. Inside her home, she only uses cane when she needs it when she is dizzy. Otherwise she does not use any device. She did not have her cane with her this morning when she fell. Patient lives with her daughter since last 1 year. As per EMS flow sheet, then they arrived patient was alert and oriented sitting on bed. Patient was noted to have an found on the ground after a fall she noted happened at 6 AM this morning while returning to bed after going to the restroom. Patient noted she had been getting increasingly dizzy 4 weeks and is working with the doctor to discover a cause and treatment. Patient stated she did not lose consciousness. Patient denies acute head or neck or back pain. Patient noted dizziness is still present and increased while standing or moving. Patient is on aspirin 162 mg daily. Vital signs at the scene was blood pressure 208/111, pulse rate 90, respirations 20 saturation 96%. Repeat blood pressure 209/89. Vital signs on arrival blood pressure 203/109, pulse rate 82, temperature 97.9. Subsequent blood pressure 163/98. EKG shows sinus rhythm, CT of the head revealed age-related atrophic and chronic small vessel ischemic changes without acute intracranial process seen at this time. I personally reviewed CT head, and agree with the findings. Visualized paranasal sinuses, and external auditory canals are clear. Chest x-ray shows no evidence for acute Bautista disease. CTA of head and neck are normal. Blood test shows normal CBC, PT/PTT, normal chem 20, troponin. Patient had an EEG on 08/16/2022, which revealed background slowing of mild degree, suggestive of generalized cerebral dysfunction as can be seen with encephalopathy or medication effect. No epileptiform activity was seen. Patient was seen by myself on 11/22/2021 for cervical myelopathy related to severe spinal stenosis, encephalopathy, seizure disorder history of brain aneurysm diabetes and hypertension. She was also seen previously on 10/14/2018 for a fall due to tripping on the chair. It was felt to be related to cervical myelopathy. Patient has history of seizure disorder, but none for last 10 years. She had a blackout seizures, in which she did not know what was going on, she would lose time. Patient stopped having the seizures since being on Tegretol. Review of Systems Constitutional: Denies chills, Denies fever Eyes: denies blurred vision, denies diplopia, denies pain Ears: bilateral: tinnitus, deny: decreased hearing, ear discharge Ears, nose, mouth and throat: Reports headache (Has now, has MASTERS frequently not all the time), Denies sore throat Cardiovascular: Denies chest pain, Denies shortness of breath Respiratory: Denies cough, Denies excessive sputum Gastrointestinal: Denies abdominal pain (has upset stomach), Denies diarrhea, Denies nausea, Denies vomiting Genitourinary: Denies dysuria, Denies hematuria Musculoskeletal: Reports low back pain (from falling), Denies myalgias, Denies neck pain Integumentary: Denies pruritus, Denies rash Neurological: Reports as per HPI Psychiatric: Denies anxiety, Denies depression Endocrine: Reports fatigue, Denies weight change Hematologic/Lymphatic: Reports easy bruising, Denies easy bleeding Past Medical History Past Medical History: Asthma, CVA/TIA, Diabetes Mellitus, GERD/Reflux, Hypertension, Seizure Disorder, Skin Disorder Additional Past Medical History / Comment(s): TIA age 33absence seizuresLt arm skin bruised from scratching during night, Parkinsons in 2017, History of Any Multi-Drug Resistant Organisms: ESBL Date of last positivie culture/infection: 12/28/20 MDRO Source:: URINE Past Surgical History: Cholecystectomy, Heart Catheterization, Orthopedic Surgery Additional Past Surgical History / Comment(s): bilateral knee arthroscopies,left shoulder rotator cuff repair Past Anesthesia/Blood Transfusion Reactions: Motion Sickness Past Psychological History: No Psychological Hx Reported Smoking Status: Former smoker Past Alcohol Use History: None Reported Additional Past Alcohol Use History / Comment(s): Patient lives alone, ambulates mainly with a cane. Patient was a smoker one pack per day for 17 years and quit approximate 35 years ago. She denies any marijuana or illicit drug use. No alcohol use. Past Drug Use History: None Reported - Past Family History Brother(s) Family Medical History: CVA/TIA Additional Family Medical History / Comment(s): Patient has 1 brother that from either a CVA or acute NC. Sister(s) Family Medical History: Coronary Artery Disease (CAD) Additional Family Medical History / Comment(s): Patient has 3 sisters and one is alive with no major medical problems. 2 sisters have and one was following influenza immunization. 1 sister is unknown cause of . Daughter(s) History Unknown: Yes Additional Family Medical History / Comment(s): Patient has 2 daughters and one has history of rheumatoid arthritis and one has history of diabetes. Patient has one son with no major medical problems. Son(s) History Unknown: Yes Family Medical History: No Reported History Father Additional Family Medical History / Comment(s): Father at age 83 from a myocardial infarction. Mother Family Medical History: No Reported History Additional Family Medical History / Comment(s): Mother at age 93 from a kasandra cardial infarction. Medications and Allergies Home Medications Medication Instructions Recorded Confirmed Type Atorvastatin [Lipitor] 40 mg PO HS 11/17/14 01/31/23 History Metoprolol Succinate (ER) [Toprol 25 mg PO DAILY 11/17/14 01/31/23 History XL] Omeprazole 20 mg PO DAILY 07/09/17 01/31/23 History carBAMazepine 200 mg PO BID 10/11/18 01/31/23 History Citalopram Hydrobromide 20 mg PO DAILY 05/15/20 01/31/23 History [Citalopram HBr] Ondansetron Odt [Zofran ODT] 4 mg PO BID PRN 06/02/20 01/31/23 History Albuterol Nebulized [Ventolin 2.5 mg INHALATION RT-QID PRN 11/18/21 01/31/23 History Nebulized] ALPRAZolam [Xanax] 0.5 mg PO DAILY PRN 01/31/23 01/31/23 History ALPRAZolam [Xanax] 0.5 mg PO HS 01/31/23 01/31/23 History Acetaminophen Tab [Tylenol Tab] 1,000 mg PO Q6HR PRN 01/31/23 01/31/23 History Aspirin EC [Ecotrin Low Dose] 162 mg PO HS 01/31/23 01/31/23 History Azelastine HCl [Optivar 0.05% 1 - 2 drop BOTH EYES BID PRN 01/31/23 01/31/23 History Ophth Soln] Cetirizine HCl [Zyrtec] 10 mg PO DAILY PRN 01/31/23 01/31/23 History Furosemide [Lasix] 20 mg PO DAILY PRN 01/31/23 01/31/23 History Linagliptin [Tradjenta] 5 mg PO DAILY 01/31/23 01/31/23 History Losartan Potassium 100 mg PO DAILY 01/31/23 01/31/23 History Pregabalin [Lyrica] 25 mg PO DAILY PRN 01/31/23 01/31/23 History Allergies Allergy/AdvReac Type Severity Reaction Status Date / Time codeine Allergy Unknown Verified 01/31/23 12:07 erythromycin base Allergy Unknown Verified 01/31/23 12:07 levofloxacin [From Levaquin] Allergy Rash/Hives Verified 01/31/23 12:07 nitrofurantoin Allergy Unknown Verified 01/31/23 12:07 [From Macrobid] nitrofurantoin Allergy Unknown Verified 01/31/23 12:07 macrocrystalline [From Macrobid] Penicillins Allergy Unknown Verified 01/31/23 12:07 sulfamethoxazole Allergy Unknown Verified 01/31/23 12:07 [From Bactrim] trimethoprim [From Bactrim] Allergy Unknown Verified 01/31/23 12:07 acetaminophen AdvReac Hallucinati Verified 01/31/23 12:07 [From Darvocet-N] ons ciprofloxacin [From Cipro] AdvReac Vomiting Verified 01/31/23 12:07 ciprofloxacin HCl AdvReac Vomiting Verified 01/31/23 12:07 [From Cipro] hydralazine AdvReac headache Verified 01/31/23 12:07 propoxyphene napsylate AdvReac Hallucinati Verified 01/31/23 12:07 [From Darvocet-N] ons omnipaxo AdvReac Rapid Uncoded 01/31/23 07:48 Heart Rate Physical Examination - Vital Signs Vital Signs: Vital Signs Temp Pulse Pulse Resp BP BP Pulse Ox 01/31/23 15:00 98.8 F 83 16 178/84 94 L 01/31/23 12:00 91 16 163/98 82 L 01/31/23 07:30 97.9 F 82 18 203/109 92 L Intake and Output 01/31/23 01/31/23 01/31/23 06:59 14:59 22:59 Other: Weight 77.111 kg 77.111 kg Patient is an elderly female, in no acute distress. Patient is alert awake oriented to time place and person. Patient knows it is January 2023 and that she is in [facility] in [place] and name of the current president. Speech and language functions are normal. Patient can name and repeat very well. No aphasia or dysarthria. Attention, concentration and fund of knowledge is adequate. On cranial nerve examination, pupils are equal, round and reacting to light, visual fonseca are full on confrontation, with no neglect on double simultaneous stimulation. Extraocular muscles are intact with no nystagmus. Face is symmetric, tongue protrudes to the midline. Palatal elevation and sensation normal, hearing and shoulder shrug normal, facial sensation normal. On muscle strength testing, there is no pronator drift and the strength is normal in arms and legs distally and proximally, except left deltoid which is too related to previous rotator cuff issue. Deep tendon reflexes are (right/left) biceps 2/2, brachioradialis 2/2, knees 2+/2+, ankles 2/2 and plantars are up on the right, flat on the left. Sensory to touch is equal with no neglect on double simultaneous stimulation. Cerebellar function showed no ataxia for [id number] testing. No dysdiadoch okinesia. No ataxia for [id number] testing on either side. Tone and bulk of muscles normal. Gait deferred.. On general examination, there is no carotid bruit or murmur, S1-S2 audible. Chest is clear on consultation. Abdomen is soft nontender. No organomegaly, bowel sounds present. Peripheral pulses are present. No edema. Results - Laboratory Findings CBC and BMP: 01/31/23 08:10 01/31/23 08:10 Abnormal Lab Findings: Abnormal Labs 01/31/23 01/31/23 01/31/23 08:10 08:10 08:10 RBC 3.65 L Hgb 11.3 L APTT 20.8 L BUN 19 H Glucose 110 H Assessment and Plan Assessment: * Status post fall due to losing balance. Patient does have balance disorder related to multiple medical conditions as mentioned below. Patient also is on medications which can affect balance. * History of gait disorder related to previous history of cervical spondylosis, cervical myelopathy, status post cervical surgery 11/22/2021 * Type 2 diabetes, controlled, with hemoglobin A1c 6.7. 12/21/2022. * Remote history of seizure disorder * History of cerebral aneurysm, stable * Hypertension * Obesity Plan: * Patient had a fall because of losing balance. She was recommended to use walker or a cane all the time to prevent falls. * We will check Tegretol level. * Patient is on B12 injections therefore no need to check the B12. * PT OT. * Continue meclizine as needed for dizziness. * No other neurological workup indicated. * Neurologically clear. Thank you for the consult. Time with Patient: Greater than 30
--- NOTE | 2023-02-01 13:29 | P.PN ---
Subjective Progress Note Date: 02/01/23 Patient was seen for a follow-up. Patient states she is feeling better. Patient's daughter was also present today. Patient is on meclizine, and her dizziness is better. Offers no new complaints. Headache is also improved. Objective - Vital Signs Vital signs: Vital Signs Temp 97.7 F 02/01/23 07:00 Pulse 78 02/01/23 07:00 Resp 16 02/01/23 07:00 BP 164/84 02/01/23 07:00 Pulse Ox 93 L 02/01/23 07:00 FiO2 Intake & Output 01/31/23 02/01/23 02/01/23 18:59 06:59 18:59 Output Total 700 600 Balance -700 -600 Weight 77.111 kg Output: Urine 700 600 Other: Voiding Method External Catheter # Voids 2 # Bowel Movements 0 - Exam Examination is unchanged. - Labs CBC & Chem 7: 01/31/23 08:10 01/31/23 08:10 Labs: Abnormal Lab Results - Last 24 Hours (Table) 01/31/23 01/31/23 Range/Units 17:19 19:53 POC Glucose (mg/dL) 123 H 264 H (70-110) mg/dL Assessment and Plan Assessment: * Status post fall due to losing balance. Patient does have balance disorder related to multiple medical conditions as mentioned below. Patient also is on medications which can affect balance. * History of gait disorder related to previous history of cervical spondylosis, cervical myelopathy, status post cervical surgery 11/22/2021 * Type 2 diabetes, controlled, with hemoglobin A1c 6.7. 12/21/2022. * Remote history of seizure disorder * History of cerebral aneurysm, stable * Hypertension * Obesity Plan: * Patient had a fall because of losing balance. She was recommended to use walker or a cane all the time to prevent falls. * Await Tegretol level. * Patient is on B12 injections therefore no need to check the B12. * PT OT. * Continue meclizine as needed for dizziness. * No other neurological workup indicated. * Neurologically clear for discharge. Addendum: Tegretol level is 8.8 (4-12)
[2023-02-01 14:57] VITALS: BP 123/70; PULSE 74; TEMP 97.6
--- NOTE | 2023-02-02 01:26 | P.DS ---
Providers Date of admission: 01/31/23 11:42 Attending physician: Brien Akers MD Consults: 01/31/23 14:43 Consult Physician Routine Consulting Provider: Neal Sharma Consult Reason/Comments: New onset dizziness, rule out central etiology history of seizure Do you want consulting provider notified?: Yes Primary care physician: Sharif [facility] Course: Diagnoses: Acute dizziness positional vertigo acute on chronic, improved significantly upon discharge History of seizure disorder Diabetes mellitus type 2 Hypertension Hyperlipidemia Hospital course: 82-year-old lady with past medical history significant for Parkinson, remote history of seizure, hypertension, brain aneurysm, multiple falls present to the emergency department with complaint of dizziness. Patient was having dizziness for about a month and more, she presents with worsening symptoms. Patient evaluated by neurologist, she has negative CT of the brain and CTA of the head and neck for acute process to explain patient presentation. Other workup was unremarkable. Patient's symptoms respiratory treatment with meclizine when necessary. She denies any other new symptom Patient was cleared for discharge by neurologist Problems and management plan were discussed with the patient and he verbalized understanding and acceptance Patient was found stable and can be discharged home in guarded prognosis however he needs follow-up as an outpatient. Patient was instructed to follow up with PCP Dr. Zaragoza within one week and patient agrees. I called Dr. Zaragoza and discussed the case with him and he kindly took note of this. Patient was instructed to follow up with the neurologist like Dr. Ruggiero in 1-2 weeks and she agrees to make upon Note: Physical therapist recommended subacute rehab however patient and daughter at bedside declined, daughter states that she will take care of her mom at home Physical exam Gen: patient is a AAOx3, no distress CVS: S1-S2, RRR, no murmur Lungs: B/L CTA, no wheezing Abdomen: soft, no distention, no tenderness, positive bowel sounds Extremity: no leg edema or induration Time spent more than 35 minutes Plan - Discharge Summary New Discharge Prescriptions: New Meclizine [Antivert] 25 mg PO TID PRN #90 tab PRN Reason: Vertigo ALPRAZolam [Xanax] 0.25 mg PO HS PRN #30 tab PRN Reason: Insomnia Continue Metoprolol Succinate (ER) [Toprol XL] 25 mg PO DAILY Atorvastatin [Lipitor] 40 mg PO HS Omeprazole 20 mg PO DAILY carBAMazepine 200 mg PO BID Citalopram Hydrobromide [Citalopram HBr] 20 mg PO DAILY Ondansetron Odt [Zofran ODT] 4 mg PO BID PRN PRN Reason: Nausea Albuterol Nebulized [Ventolin Nebulized] 2.5 mg INHALATION RT-QID PRN PRN Reason: Shortness Of Breath Pregabalin [Lyrica] 25 mg PO DAILY PRN PRN Reason: Pain Furosemide [Lasix] 20 mg PO DAILY PRN PRN Reason: swelling Cetirizine HCl [Zyrtec] 10 mg PO DAILY PRN PRN Reason: Allergy Symptoms Acetaminophen Tab [Tylenol] 1,000 mg PO Q6HR PRN PRN Reason: Fever And/ Or Pain Losartan Potassium 100 mg PO DAILY Linagliptin [Tradjenta] 5 mg PO DAILY Aspirin EC [Ecotrin Low Dose] 162 mg PO HS Azelastine HCl [Optivar 0.05% Ophth Soln] 1 - 2 drop BOTH EYES BID PRN PRN Reason: Itching Discontinued ALPRAZolam [Xanax] 0.5 mg PO HS ALPRAZolam [Xanax] 0.5 mg PO DAILY PRN PRN Reason: Anxiety Discharge Medication List Atorvastatin [Lipitor] 40 mg PO HS 11/17/14 [History] Metoprolol Succinate (ER) [Toprol XL] 25 mg PO DAILY 11/17/14 [History] Omeprazole 20 mg PO DAILY 07/09/17 [History] carBAMazepine 200 mg PO BID 10/11/18 [History] Citalopram Hydrobromide [Citalopram HBr] 20 mg PO DAILY 05/15/20 [History] Ondansetron Odt [Zofran ODT] 4 mg PO BID PRN 06/02/20 [History] Albuterol Nebulized [Ventolin Nebulized] 2.5 mg INHALATION RT-QID PRN 11/18/21 [History] Acetaminophen Tab [Tylenol] 1,000 mg PO Q6HR PRN 01/31/23 [History] Aspirin EC [Ecotrin Low Dose] 162 mg PO HS 01/31/23 [History] Azelastine HCl [Optivar 0.05% Ophth Soln] 1 - 2 drop BOTH EYES BID PRN 01/31/23 [History] Cetirizine HCl [Zyrtec] 10 mg PO DAILY PRN 01/31/23 [History] Furosemide [Lasix] 20 mg PO DAILY PRN 01/31/23 [History] Linagliptin [Tradjenta] 5 mg PO DAILY 01/31/23 [History] Losartan Potassium 100 mg PO DAILY 01/31/23 [History] Pregabalin [Lyrica] 25 mg PO DAILY PRN 01/31/23 [History] ALPRAZolam [Xanax] 0.25 mg PO HS PRN #30 tab 02/01/23 [Rx] Meclizine [Antivert] 25 mg PO TID PRN #90 tab 02/01/23 [Rx] Follow up Appointment(s)/Referral(s): Meaghan Ruggiero MD [Medical Doctor] - 1 Week (Neurologist, Please see you neurologist, Dr. Delacruz instead) Sharif Zaragoza DO [Primary Care Provider] - 1-2 days (we recommend to follow up your HBA1c and tsh with your doctor ) Patient Instructions/Handouts: Vertigo (DC), Dizziness (ED) Activity/Diet/Wound Care/Special Instructions: heart healthy diet activity is restricted till you see your doctor Discharge Disposition: HOME WITH HOME HEALTH SERVICES
== END 2023-02-01 16:07 | disposition home health service (06) ==
LOC: EC 07:24 → 6NMEDSUR 11:42
PROVIDERS: ADMIT Internal Medicine; ATTEND Internal Medicine
DX: R42 Dizziness and giddiness (principal); R51.9 Headache, unspecified; R26.89 Other abnormalities of gait and mobility; J45.909 Unspecified asthma, uncomplicated; E11.9 Type 2 diabetes mellitus without complications; K21.9 Gastro-esophageal reflux disease without esophagitis; I10 Essential (primary) hypertension; G20 Parkinson's disease; E78.5 Hyperlipidemia, unspecified; G40.909 Epilepsy, unspecified, not intractable, without status epilepticus; E66.9 Obesity, unspecified; Z86.73 Personal history of transient ischemic attack (TIA), and cerebral infarction without residual deficits; Z87.891 Personal history of nicotine dependence; Z79.899 Other long term (current) drug therapy; Z79.82 Long term (current) use of aspirin; Z79.84 Long term (current) use of oral hypoglycemic drugs; Z88.5 Allergy status to narcotic agent; Z88.1 Allergy status to other antibiotic agents; Z88.0 Allergy status to penicillin; Z88.2 Allergy status to sulfonamides; Z88.6 Allergy status to analgesic agent
CPT/HCPCS: 96361 ×3; 96372; 96360; 99285; 36415; 93005; 97162; 80156; 80053; 84443; 83735; 84484; 85025; 85610; 85730; 83036; 71046; 70496; 70450; 70498; G0378 ×2; Q9967

== ENCOUNTER 2023-05-05 20:44 | Emergency (ER) | payer MEDICARE, BC ==
--- NOTE | 2023-05-05 21:19 | ED ---
Weakness HPI - General Chief complaint: Weakness Stated complaint: Weakness,Confused Time Seen by Provider: 05/05/23 21:03 Source: patient Mode of arrival: wheelchair Limitations: no limitations - History of Present Illness Initial comments: 83-year-old female presents the ER today for evaluation of generalized weakness, malaise and a cough for one month duration. Patient reports she's had an irritating nonproductive cough for about a month she seen her primary care multiple times. She's done 2 rounds of steroids she is currently weaning off the second round of steroids. She is currently on doxycycline. She's not had a chest x-ray. She is not on any Raphael inhibitors. Patient reports that she stepped nagging irritating cough. Not getting any better despite treatment. Patient states that for the past couple of days she's also been feeling very fatigued and overall weak. She is having trouble standing and walking due to generalized weakness. No fevers or chills no nausea or vomiting. No chest pain or palpitations. - Related Data Home Medications Medication Instructions Recorded Confirmed Atorvastatin [Lipitor] 40 mg PO HS 11/17/14 01/31/23 Metoprolol Succinate (ER) [Toprol 25 mg PO DAILY 11/17/14 01/31/23 XL] Omeprazole 20 mg PO DAILY 07/09/17 01/31/23 carBAMazepine 200 mg PO BID 10/11/18 01/31/23 Citalopram Hydrobromide 20 mg PO DAILY 05/15/20 01/31/23 [Citalopram HBr] Ondansetron Odt [Zofran ODT] 4 mg PO BID PRN 06/02/20 01/31/23 Albuterol Nebulized [Ventolin 2.5 mg INHALATION RT-QID PRN 11/18/21 01/31/23 Nebulized] Acetaminophen Tab [Tylenol] 1,000 mg PO Q6HR PRN 01/31/23 01/31/23 Aspirin EC [Ecotrin Low Dose] 162 mg PO HS 01/31/23 01/31/23 Azelastine HCl [Optivar 0.05% 1 - 2 drop BOTH EYES BID PRN 01/31/23 01/31/23 Ophth Soln] Cetirizine HCl [Zyrtec] 10 mg PO DAILY PRN 01/31/23 01/31/23 Furosemide [Lasix] 20 mg PO DAILY PRN 01/31/23 01/31/23 Linagliptin [Tradjenta] 5 mg PO DAILY 01/31/23 01/31/23 Losartan Potassium 100 mg PO DAILY 01/31/23 01/31/23 Pregabalin [Lyrica] 25 mg PO DAILY PRN 01/31/23 01/31/23 Previous Rx's Medication Instructions Recorded ALPRAZolam [Xanax] 0.25 mg PO HS PRN #30 tab 02/01/23 Meclizine [Antivert] 25 mg PO TID PRN #90 tab 02/01/23 Allergies Allergy/AdvReac Type Severity Reaction Status Date / Time codeine Allergy Unknown Verified 05/05/23 20:48 erythromycin base Allergy Unknown Verified 05/05/23 20:48 levofloxacin [From Levaquin] Allergy Rash/Hives Verified 05/05/23 20:48 methylprednisolone Allergy Unknown Verified 05/05/23 20:48 [From Medrol] nitrofurantoin Allergy Unknown Verified 05/05/23 20:48 [From Macrobid] nitrofurantoin Allergy Unknown Verified 05/05/23 20:48 macrocrystalline [From Macrobid] Penicillins Allergy Unknown Verified 05/05/23 20:48 sulfamethoxazole Allergy Unknown Verified 05/05/23 20:48 [From Bactrim] trimethoprim [From Bactrim] Allergy Unknown Verified 05/05/23 20:48 acetaminophen AdvReac Hallucinati Verified 05/05/23 20:48 [From Darvocet-N] ons ciprofloxacin [From Cipro] AdvReac Vomiting Verified 05/05/23 20:48 ciprofloxacin HCl AdvReac Vomiting Verified 05/05/23 20:48 [From Cipro] hydralazine AdvReac headache Verified 05/05/23 20:48 propoxyphene napsylate AdvReac Hallucinati Verified 05/05/23 20:48 [From Darvocet-N] ons omnipaxo AdvReac Rapid Uncoded 05/05/23 20:48 Heart Rate Review of Systems ROS Statement: Those systems with pertinent positive or pertinent negative responses have been documented in the HPI. ROS Other: All systems not noted in ROS Statement are negative. Past Medical History Past Medical History: Asthma, CVA/TIA, Diabetes Mellitus, GERD/Reflux, Hypertension, Seizure Disorder, Skin Disorder Additional Past Medical History / Comment(s): TIA age 33absence seizuresLt arm skin bruised from scratching during night, Parkinsons in 2017, History of Any Multi-Drug Resistant Organisms: ESBL Date of last positivie culture/infection: 12/28/20 MDRO Source:: URINE Past Surgical History: Cholecystectomy, Heart Catheterization, Orthopedic Rodriguez rgery Additional Past Surgical History / Comment(s): bilateral knee arthroscopies,left shoulder rotator cuff repair Past Anesthesia/Blood Transfusion Reactions: Motion Sickness Past Psychological History: No Psychological Hx Reported Smoking Status: Former smoker Past Alcohol Use History: None Reported Past Drug Use History: None Reported - Past Family History Brother(s) Family Medical History: CVA/TIA Additional Family Medical History / Comment(s): Patient has 1 brother that from either a CVA or acute [place]. Sister(s) Family Medical History: Coronary Artery Disease (CAD) Additional Family Medical History / Comment(s): Patient has 3 sisters and one is alive with no major medical problems. 2 sisters have and one was following influenza immunization. 1 sister is unknown cause of . Daughter(s) History Unknown: Yes Additional Family Medical History / Comment(s): Patient has 2 daughters and one has history of rheumatoid arthritis and one has history of diabetes. Patient has one son with no major medical problems. Son(s) History Unknown: Yes Family Medical History: No Reported History Father Additional Family Medical History / Comment(s): Father at age 83 from a myocardial infarction. Mother Family Medical History: No Reported History Additional Family Medical History / Comment(s): Mother at age 93 from a myocardial infarction. General Exam Limitations: no limitations General appearance: alert, in no apparent distress Head exam: Present: atraumatic, normocephalic Eye exam: Present: PERRL ENT exam: Present: normal exam Respiratory exam: Present: normal lung sounds bilaterally. Absent: respiratory distress, wheezes, rales, rhonchi, stridor, chest wall tenderness Cardiovascular Exam: Present: regular rate GI/Abdominal exam: Present: soft. Absent: distended Extremities exam: Absent: pedal edema Neurological exam: Present: alert, oriented X3 Psychiatric exam: Present: normal affect, normal mood Course Vital Signs 1105/05/23 05/05/23 20:48 21:33 21:51 Temperature 98.8 F Pulse Rate 95 78 Respiratory 18 20 18 Rate Blood Pressure 184/109 146/77 O2 Sat by Pulse 94 L 96 Oximetry 05/06/23 05/06/23 00:00 00:42 Temperature 98.1 F Pulse Rate 75 84 Respiratory 18 18 Rate Blood Pressure 158/82 150/81 O2 Sat by Pulse 94 L 95 Oximetry EKG Findings - EKG Comments: EKG Findings:: HEENT ordered by me, EKG obtained due to complaint of weakness, EKG obtained at 0, rate is 85 rhythm is sinus with a leftward axis, normal intervals OK 185, QRS 98 QTC 406 there are no acute ST elevations or depressions there is no evidence of ischemia infarction or arrhythmia. Medical Decision Making - Medical Decision Making Was pt. sent in by a medical professional or institution ([facility], REFLEXOLOGIST, urgent care, hospital, or care home...) When possible be specific @ -No Did you speak to anyone other than the patient for history (EMS, parent, family, police, friend...)? What history was obtained from this source @ -Family at bedside Did you review nursing and triage notes (agree or disagree)? Why? @ -I reviewed and agree with nursing and triage notes Were old charts reviewed (outside hosp., previous admission, EMS record, old EKG, old radiological studies, urgent care reports/EKG's, care home records)? Report findings @ -No old charts were reviewed Differential Diagnosis (chest pain, altered mental status, abdominal pain women, abdominal pain men, vaginal bleeding, weakness, fever, dyspnea, syncope, headache, dizziness, GI bleed, back pain, seizure, CVA, palpatations, mental health)? @ -Differential Weakness: Hypoglycemia, shock, sepsis, hyponatremia, anemia, infection, [place], ETOH, adverse medicine reaction, overdose, stroke, this is not meant to be an all-inclusive l ist. EKG interpreted by me (3pts min.). @ -As above X-rays interpreted by me (1pt min.). @ -No focal consolidations CT interpreted by me (1pt min.). @ -None done U/S interpreted by me (1pt. min.). @ -None done What testing was considered but not performed or refused? (CT, X-rays, U/S, labs)? Why? @ -None What meds were considered but not given or refused? Why? @ -None Did you discuss the management of the patient with other professionals (professionals i.e. , PA, REFLEXOLOGIST, lab, RT, psych nurse, social media executive, occupational therapy asst, teacher, tax revenue officer, heel caser)? Give summary @ -No Was smoking cessation discussed for >3mins.? @ -No Was critical care preformed (if so, how long)? @ -No Were there social determinants of health that impacted care today? How? (Homelessness, low income, unemployed, alcoholism, drug addiction, transportation, low edu. Level, literacy, decrease access to med. care, long-term, rehab)? @ -No Was there de-escalation of care discussed even if they declined (Discuss DNR or withdrawal of care, Hospice)? DNR status @ -No What co-morbidities impacted this encounter? (DM, HTN, Smoking, COPD, CAD, Cancer, CVA, ARF, Chemo, Hep., AIDS, mental health diagnosis, sleep apnea, morbid obesity)? @ -None Was patient admitted / discharged? Hospital course, mention meds given and route, prescriptions, significant lab abnormalities, going to OR and other pertinent info. @ -Discharged The patient was seen and evaluated history was obtained from patient and family at bedside. Patient with a cough 1 month 2 rounds of steroids currently on antibiotics not improving. Patient with generalized weakness. No lateralizing signs. No trouble speaking or swallowing. No stroke signs. Labs were obtained and were unremarkable, chest x-ray with no signs of pneumonia, urinalysis with no signs of infection, no significant electrolyte abnormalities. Results were discussed the patient and family at bedside. Given the patient's advanced age and generalized weakness I did advise that she placed in observation for evaluation by PT OT if she did feel safe going home however patient stated she didn't was in the hospital she like to be discharged home family is comfortable with this plan and patient was discharged home in stable condition. Undiagnosed new problem with uncertain prognosis? @ -No Drug Therapy requiring intensive monitoring for toxicity (Heparin, Nitro, Insulin, Cardizem)? @ -No Were any procedures done? @ -No Diagnosis/symptom? @ -Generalized weakness Acute, or Chronic, or Acute on Chronic? @ -default Uncomplicated (without systemic symptoms) or Complicated (systemic symptoms)? @ -Complicated Side effects of treatment? @ -No Exacerbation, Progression, or Severe Exacerbation? @ -No Poses a threat to life or bodily function? How? (Chest pain, [place], [place], pneumonia, PE, COPD, DKA, ARF, appy, cholecystitis, CVA, Diverticulitis, Homicidal, Suicidal, threat to staff... and all critical care pts) @ -No - Lab Data Result diagrams: 05/05/23 21:10 05/05/23 21:10 Lab Results 05/05/23 05/05/23 05/05/23 Range/Units 21:10 21:10 21:10 WBC 7.7 (3.8-10.6) k/uL RBC 3.74 L (3.80-5.40) m/uL Hgb 11.9 (11.4-16.0) gm/dL Hct 35.5 (34.0-46.0) % MCV 95.0 (80.0-100.0) fL MCH 31.9 (25.0-35.0) pg MCHC 33.6 (31.0-37.0) g/dL RDW 14.2 (11.5-15.5) % Plt Count 238 (150-450) k/uL MPV 7.4 Neutrophils % 75 % Lymphocytes % 16 % Monocytes % 7 % Eosinophils % 1 % Basophils % 0 % Neutrophils # 5.8 (1.3-7.7) k/uL Lymphocytes # 1.2 (1.0-4.8) k/uL Monocytes # 0.5 (0-1.0) k/uL Eosinophils # 0.1 (0-0.7) k/uL Basophils # 0.0 (0-0.2) k/uL PT 10.7 (10.0-12.5) sec INR 1.0 (<1.2) APTT 21.4 L (22.0-30.0) sec Sodium 137 (137-145) mmol/L Potassium 4.5 (3.5-5.1) mmol/L Chloride 105 (98-107) mmol/L Carbon Dioxide 24 (22-30) mmol/L Anion Gap 8 mmol/L BUN 25 H (7-17) mg/dL Creatinine 0.72 (0.52-1.04) mg/dL Est GFR (CKD-EPI)AfAm >90 (>60 ml/min/1.73 sqM) Est GFR (CKD-EPI)NonAf 80 (>60 ml/min/1.73 sqM) Glucose 236 H (74-99) mg/dL Plasma Lactic Acid Joselo (0.7-2.0) mmol/L Calcium 9.2 (8.4-10.2) mg/dL Total Bilirubin 0.3 (0.2-1.3) mg/dL AST 20 (14-36) U/L ALT 15 (4-34) U/L Alkaline Phosphatase 114 (38-126) U/L Troponin I (0.000-0.034) ng/mL NT-Pro-B Natriuret Pep 477 pg/mL Total Protein 6.7 (6.3-8.2) g/dL Albumin 4.0 (3.5-5.0) g/dL TSH 2.930 (0.465-4.680) mIU/L Urine Color Urine Appearance (Clear) Urine pH (5.0-8.0) Ur Specific [place] (1.001-1.035) Urine Protein (Negative) Urine Glucose (UA) (Negative) Urine Ketones (Negative) Urine Blood (Negative) Urine Nitrite (Negative) Urine Bilirubin (Negative) Urine Urobilinogen (<2.0) mg/dL Ur Leukocyte Esterase (Negative) Urine RBC (0-5) /hpf Urine WBC (0-5) /hpf Ur Squamous Epith Cells (0-4) /hpf Urine Mucus (None) /hpf Influenza Type A (PCR) (Not Detectd) Influenza Type B (PCR) (Not Detectd) RSV (PCR) (Not Detectd) SARS-CoV-2 (PCR) (Not Detectd) 05/05/23 05/05/23 05/05/23 Range/Units 21:10 21:10 21:21 WBC (3.8-10.6) k/uL RBC (3.80-5.40) m/uL Hgb (11.4-16.0) gm/dL Hct (34.0-46.0) % MCV (80.0-100.0) fL MCH (25.0-35.0) pg MCHC (31.0-37.0) g/dL RDW (11.5-15.5) % Plt Count (150-450) k/uL MPV Neutrophils % % Lymphocytes % % Monocytes % % Eosinophils % % Basophils % % Neutrophils # (1.3-7.7) k/uL Lymphocytes # (1.0-4.8) k/uL Monocytes # (0-1.0) k/uL Eosinophils # (0-0.7) k/uL Basophils # (0-0.2) k/uL PT (10.0-12.5) sec INR (<1.2) APTT (22.0-30.0) sec Sodium (137-145) mmol/L Potassium (3.5-5.1) mmol/L Chloride (98-107) mmol/L Carbon Dioxide (22-30) mmol/L Anion Gap mmol/L BUN (7-17) mg/dL Creatinine (0.52-1.04) mg/dL Est GFR (CKD-EPI)AfAm (>60 ml/min/1.73 sqM) Est GFR (CKD-EPI)NonAf (>60 ml/min/1.73 sqM) Glucose (74-99) mg/dL Plasma Lactic Acid Joselo 1.8 (0.7-2.0) mmol/L Calcium (8.4-10.2) mg/dL Total Bilirubin (0.2-1.3) mg/dL AST (14-36) U/L ALT (4-34) U/L Alkaline Phosphatase (38-126) U/L Troponin I <0.012 (0.000-0.034) ng/mL NT-Pro-B Natriuret Pep pg/mL Total Protein (6.3-8.2) g/dL Albumin (3.5-5.0) g/dL TSH (0.465-4.680) mIU/L Urine Color Colorless Urine Appearance Clear (Clear) Urine pH 5.5 (5.0-8.0) Ur Specific [place] 1.019 (1.001-1.035) Urine Protein Negative (Negative) Urine Glucose (UA) 2+ H (Negative) Urine Ketones Negative (Negative) Urine Blood Negative (Negative) Urine Nitrite Negative (Negative) Urine Bilirubin Negative (Negative) Urine Urobilinogen <2.0 (<2.0) mg/dL Ur Leukocyte Esterase Trace H (Negative) Urine RBC 1 (0-5) /hpf Urine WBC 1 (0-5) /hpf Ur Squamous Epith Cells 5 H (0-4) /hpf Urine Mucus Rare H (None) /hpf Influenza Type A (PCR) (Not Detectd) Influenza Type B (PCR) (Not Detectd) RSV (PCR) (Not Detectd) SARS-CoV-2 (PCR) (Not Detectd) 05/05/23 Range/Units 21:31 WBC (3.8-10.6) k/uL RBC (3.80-5.40) m/uL Hgb (11.4-16.0) gm/dL Hct (34.0-46.0) % MCV (80.0-100.0) fL MCH (25.0-35.0) pg MCHC (31.0-37.0) g/dL RDW (11.5-15.5) % Plt Count (150-450) k/uL MPV Neutrophils % % Lymphocytes % % Monocytes % % Eosinophils % % Basophils % % Neutrophils # (1.3-7.7) k/uL Lymphocytes # (1.0-4.8) k/uL Monocytes # (0-1.0) k/uL Eosinophils # (0-0.7) k/uL Basophils # (0-0.2) k/uL PT (10.0-12.5) sec INR (<1.2) APTT (22.0-30.0) sec Sodium (137-145) mmol/L Potassium (3.5-5.1) mmol/L Chloride (98-107) mmol/L Carbon Dioxide (22-30) mmol/L Anion Gap mmol/L BUN (7-17) mg/dL Creatinine (0.52-1.04) mg/dL Est GFR (CKD-EPI)AfAm (>60 ml/min/1.73 sqM) Est GFR (CKD-EPI)NonAf (>60 ml/min/1.73 sqM) Glucose (74-99) mg/dL Plasma Lactic Acid Joselo (0.7-2.0) mmol/L Calcium (8.4-10.2) mg/dL Total Bilirubin (0.2-1.3) mg/dL AST (14-36) U/L ALT (4-34) U/L Alkaline Phosphatase (38-126) U/L Troponin I (0.000-0.034) ng/mL NT-Pro-B Natriuret Pep pg/mL Total Protein (6.3-8.2) g/dL Albumin (3.5-5.0) g/dL TSH (0.465-4.680) mIU/L Urine Color Urine Appearance (Clear) Urine pH (5.0-8.0) Ur Specific [place] (1.001-1.035) Urine Protein (Negative) Urine Glucose (UA) (Negative) Urine Ketones (Negative) Urine Blood (Negative) Urine Nitrite (Negative) Urine Bilirubin (Negative) Urine Urobilinogen (<2.0) mg/dL Ur Leukocyte Esterase (Negative) Urine RBC (0-5) /hpf Urine WBC (0-5) /hpf Ur Squamous Epith Cells (0-4) /hpf Urine Mucus (None) /hpf Influenza Type A (PCR) Not Detected (Not Detectd) Influenza Type B (PCR) Not Detected (Not Detectd) RSV (PCR) Not Detected (Not Detectd) SARS-CoV-2 (PCR) Not Detected (Not Detectd) Disposition Clinical Impression: Cough, Hypertension, Generalized weakness Disposition: HOME SELF-CARE Condition: Stable Additional Instructions: Continue to follow up with your primary care - return to the ER for any worsening or development of new or concerning findings Is patient prescribed a controlled substance at d/c from ED?: No Referrals: Sharif Zaragoza DO [Primary Care Provider] - 1-2 days
[2023-05-05 21:39] LABS: Basophils % (A) 0 %; Eosinophils # (A) 0.1 k/uL (0-0.7); Eosinophils % (A) 1 %; HCT 35.5 % (34.0-46.0); HGB 11.9 gm/dL (11.4-16.0); Lymphocytes # (A) 1.2 k/uL (1.0-4.8); Lymphocytes % (A) 16 %; MCH 31.9 pg (25.0-35.0); MCHC 33.6 g/dL (31.0-37.0); Mean Platelet Volume 7.4; Monocytes # (A) 0.5 k/uL (0-1.0); Monocytes % (A) 7 %; Neutrophils # (A) 5.8 k/uL (1.3-7.7); Neutrophils % (A) 75 %; Platelet Count 238 k/uL (150-450); RBC 3.74 m/uL (3.80-5.40); RDW 14.2 % (11.5-15.5); WBC 7.7 k/uL (3.8-10.6)
[2023-05-05 21:54] LABS: ALT 15 U/L (4-34); AST 20 U/L (14-36); African American GFR (CKD) >90 (>60 ml/min/1.73 sqM); Alkaline Phosphatase 114 U/L (38-126); Anion Gap 8 mmol/L; Blood Urea Nitrogen 25 mg/dL (7-17); Calcium 9.2 mg/dL (8.4-10.2); Carbon Dioxide 24 mmol/L (22-30); Chloride 105 mmol/L (98-107); Glucose 236 mg/dL (74-99); Non-African American GFR(CKD) 80 (>60 ml/min/1.73 sqM); Potassium 4.5 mmol/L (3.5-5.1); Sodium 137 mmol/L (137-145); Total Bilirubin 0.3 mg/dL (0.2-1.3); Total Protein 6.7 g/dL (6.3-8.2)
[2023-05-05 22:03] LABS: NT-Pro-B-Type Natriuretic Pept 477 pg/mL
[2023-05-05 22:09] LABS: Prothrombin Time 10.7 sec (10.0-12.5)
[2023-05-05 22:32] LABS: Partial Thromboplastin Time 21.4 sec (22.0-30.0)
[2023-05-05 22:35] VITALS: RESP 18
--- NOTE | 2023-05-05 22:52 | XR ---
EXAMINATION TYPE: XR chest 2V DATE OF EXAM: 05/05/2023 9:57 PM CLINICAL INDICATION:Female, 83 years old with history of Weakness; [facility] COMPARISON: 01/31/2023 TECHNIQUE: XR chest 2V. Frontal PA and lateral views of the chest. FINDINGS: Lines/Tubes: EKG leads overlie the chest. No indwelling lines are seen. Heart/mediastinum: Cardiomediastinal silhouette is well defined. Heart appears mildly to moderately enlarged. Mild/moderate aortic calcification. The aorta appears tortuous, a finding usually associat ed with either atherosclerosis or systemic hypertension. Pulmonary vascularity: Mild pulmonary vascular congestion. Lungs/Pleura: There is no evidence of pleural effusion, focal consolidation, or pneumothorax. Mild b ibasilar scarring or atelectasis and slight asymmetric elevation of the right hemidiaphragm, similar to previous. Musculoskeletal: No acute osseous abnormality demonstrated in the limits of the exam. There is fixat ion hardware in the lower cervical spine. Moderate degenerative changes of the shoulders and spine. S table slightly widened appearance of the left AC joint may be sequela of remote injury. Other findings: None. IMPRESSION: Cardiomegaly and mild pulmonary vascular congestion. Otherwise no acute process.
[2023-05-05 23:12] LABS: Appearance,Urine Clear (Clear); Bilirubin,Urine Negative (Negative); Blood,Urine Negative (Negative); Color,Urine Colorless; Glucose,Urine (UA) 2+ (Negative); Ketones,Urine Negative (Negative); Leukocyte Esterase,Urine Trace (Negative); Mucus,Urine Rare /hpf; Nitrite,Urine Negative (Negative); PH, Urine 5.5 (5.0-8.0); Protein,Urine Negative (Negative); RBC,Urine 1 /hpf (0-5); Specific Gravity,Urine 1.019 (1.001-1.035); Squamous Epithelial Cell,Urine 5 /hpf (0-4); Urobilinogen,Urine <2.0 mg/dL (<2.0); WBC,Urine 1 /hpf (0-5)
[2023-05-06 01:20] VITALS: BP 150/81; PULSE 84; TEMP 98.1
== END 2023-05-06 00:43 | disposition home or self-care (01) ==
LOC: EC 20:44
DX: R05.9 Cough, unspecified (principal); R53.1 Weakness; I10 Essential (primary) hypertension; J45.909 Unspecified asthma, uncomplicated; I51.7 Cardiomegaly; E11.9 Type 2 diabetes mellitus without complications; K21.9 Gastro-esophageal reflux disease without esophagitis; Z87.891 Personal history of nicotine dependence; Z86.73 Personal history of transient ischemic attack (TIA), and cerebral infarction without residual deficits; Z79.82 Long term (current) use of aspirin; Z79.84 Long term (current) use of oral hypoglycemic drugs; Z79.899 Other long term (current) drug therapy; Z88.5 Allergy status to narcotic agent; Z88.0 Allergy status to penicillin; Z88.1 Allergy status to other antibiotic agents; Z88.2 Allergy status to sulfonamides; Z90.49 Acquired absence of other specified parts of digestive tract; Z20.822 Contact with and (suspected) exposure to COVID-19
CPT/HCPCS: 36415; 71046; 80053; 81001; 83605; 83880; 84443; 84484; 85025; 85610; 85730; 87040; 87636; 93005; 99285

== ENCOUNTER 2023-08-16 21:21 | Emergency (ER) | payer MEDICARE, BC ==
--- NOTE | 2023-08-16 21:31 | ED ---
Back Pain HPI - General Chief Complaint: Back Pain/Injury Stated Complaint: Severe pain on right rib and back area Time Seen by Provider: 08/16/23 21:31 Source: patient Limitations: no limitations - History of Present Illness Initial Comments: 83-year-old female presenting to the ED with a chief complaint of flank pain. Denies any injury or trauma. Patient reports this started a few days ago. States pain of the right flank radiating towards her right abdomen. Denies fever or chills. Denies dysuria, frequency, urgency, hematuria. No changes in bowel habits. No chest pain or shortness of breath. No other complaints at this time. - Related Data Home Medications Medication Instructions Recorded Confirmed Atorvastatin [Lipitor] 40 mg PO HS 11/17/14 01/31/23 Metoprolol Succinate (ER) [Toprol 25 mg PO DAILY 11/17/14 01/31/23 XL] Omeprazole 20 mg PO DAILY 07/09/17 01/31/23 carBAMazepine 200 mg PO BID 10/11/18 01/31/23 Citalopram Hydrobromide 20 mg PO DAILY 05/15/20 01/31/23 [Citalopram HBr] Ondansetron Odt [Zofran ODT] 4 mg PO BID PRN 06/02/20 01/31/23 Albuterol Nebulized [Ventolin 2.5 mg INHALATION RT-QID PRN 11/18/21 01/31/23 Nebulized] Acetaminophen Tab [Tylenol] 1,000 mg PO Q6HR PRN 01/31/23 01/31/23 Aspirin EC [Ecotrin Low Dose] 162 mg PO HS 01/31/23 01/31/23 Azelastine HCl [Optivar 0.05% 1 - 2 drop BOTH EYES BID PRN 01/31/23 01/31/23 Ophth Soln] Cetirizine HCl [Zyrtec] 10 mg PO DAILY PRN 01/31/23 01/31/23 Furosemide [Lasix] 20 mg PO DAILY PRN 01/31/23 01/31/23 Linagliptin [Tradjenta] 5 mg PO DAILY 01/31/23 01/31/23 Losartan Potassium 100 mg PO DAILY 01/31/23 01/31/23 Pregabalin [Lyrica] 25 mg PO DAILY PRN 01/31/23 01/31/23 Previous Rx's Medication Instructions Recorded ALPRAZolam [Xanax] 0.25 mg PO HS PRN #30 tab 02/01/23 Meclizine [Antivert] 25 mg PO TID PRN #90 tab 02/01/23 Sulfamethox-Tmp 800-160Mg [Bactrim 1 each PO Q12HR #14 tab 08/17/23 Ds] Allergies Allergy/AdvReac Type Severity Reaction Status Date / Time codeine Allergy Unknown Verified 08/16/23 21:27 erythromycin base Allergy Unknown Verified 08/16/23 21:27 levofloxacin [From Levaquin] Allergy Rash/Hives Verified 08/16/23 21:27 methylprednisolone Allergy Unknown Verified 08/16/23 21:27 [From Medrol] nitrofurantoin Allergy Unknown Verified 08/16/23 21:27 [From Macrobid] nitrofurantoin Allergy Unknown Verified 08/16/23 21:27 macrocrystalline [From Macrobid] Penicillins Allergy Unknown Verified 08/16/23 21:27 sulfamethoxazole Allergy Unknown Verified 08/16/23 21:27 [From Bactrim] trimethoprim [From Bactrim] Allergy Unknown Verified 08/16/23 21:27 acetaminophen AdvReac Hallucinati Verified 08/16/23 21:27 [From Darvocet-N] ons ciprofloxacin [From Cipro] AdvReac Vomiting Verified 08/16/23 21:27 ciprofloxacin HCl AdvReac Vomiting Verified 08/16/23 21:27 [From Cipro] hydralazine AdvReac headache Verified 08/16/23 21:27 propoxyphene napsylate AdvReac Hallucinati Verified 08/16/23 21:27 [From Darvocet-N] ons omnipaxo AdvReac Rapid Uncoded 08/16/23 21:27 Heart Rate Review of Systems ROS Statement: Those systems with pertinent positive or pertinent negative responses have been documented in the HPI. ROS Other: All systems not noted in ROS Statement are negative. Past Medical History Past Medical History: Asthma, CVA/TIA, Diabetes Mellitus, GERD/Reflux, Hypertension, Seizure Disorder, Skin Disorder Additional Past Medical History / Comment(s): TIA age 33absence seizuresLt arm skin bruised from scratching during night, Parkinsons in 2017, History of Any Multi-Drug Resistant Organisms: ESBL Date of last positivie culture/infection: 12/28/20 MDRO Source:: URINE Past Surgical History: Cholecystectomy, Heart Catheterization, Orthopedic Surgery Additional Past Surgical History / Comment(s): bilateral knee arthroscopies,left shoulder rotator cuff repair Past Anesthesia/Blood Transfusion Reactions: Motion Sickness Past Psychological History: No Psychological Hx Reported Smoking Status: Former smoker Past Alcohol Use History: None Reported Past Drug Use History: None Reported - Past Family History Brother(s) Family Medical History: CVA/TIA Additional Family Medical History / Comment(s): Patient has 1 brother that from either a CVA or acute IA. Sister(s) Family Medical History: Coronary Artery Disease (CAD) Additional Family Medical History / Comment(s): Patient has 3 sisters and one is alive with no major medical problems. 2 sisters have and one was following influenza immunization. 1 sister is unknown cause of . Daughter(s) History Unknown: Yes Additional Family Medical History / Comment(s): Patient has 2 daughters and one has history of rheumatoid arthritis and one has history of diabetes. Patient has one son with no major medical problems. Son(s) History Unknown: Yes Family Medical History: No Reported History Father Additional Family Medical History / Comment(s): Father at age 83 from a myocardial infarction. Mother Family Medical History: No Reported History Additional Family Medical History / Comment(s): Mother at age 93 from a myocardial infarction. General Exam - General Exam Comments Initial Comments: Visual Physical Exam Vital signs reviewed General: Well-appearing, nontoxic, no acute distress. Head: Normocephalic, atraumatic Eyes: PERRLA, EOMI ENT: Airway patent Chest: Nonlabored breathing Skin: No visual rash, normal skin tone Neuro: Alert and oriented 3 Musculoskeletal: No gross abnormalities Limitations: no limitations General appearance: alert, in no apparent distress Eye exam: Present: normal appearance Neck exam: Present: normal inspection Respiratory exam: Present: normal lung sounds bilaterally Cardiovascular Exam: Present: regular rate, normal rhythm GI/Abdominal exam: Present: soft, normal bowel sounds, other (No significant CVA tenderness to percussion.). Absent: distended, tenderness, guarding, rebound, rigid Back exam: Present: normal inspection Neurological exam: Present: alert, oriented X3 Skin exam: Present: warm, dry Course Vital Signs 08/16/23 08/17/23 21:23 00:00 Temperature 98.6 F Pulse Rate 92 89 Respiratory 18 20 Rate Blood Pressure 114/73 115/70 O2 Sat by Pulse 96 98 Oximetry Medical Decision Making - Medical Decision Making Was pt. sent in by a medical professional or institution (EDNA Gray, SENIOR DIRECTOR OF [employer], urgent care, hospital, or [facility]...) When possible be specific @ -No Did you speak to anyone other than the patient for history (EMS, parent, family, police, friend...)? What history was obtained from this source @ -No Did you review nursing and triage notes (agree or disagree)? Why? @ -I reviewed and agree with nursing and triage notes Were old charts reviewed (outside hosp., previous admission, EMS record, old EKG, old radiological studies, urgent care reports/EKG's, [facility] records)? Report findings @ -No old charts were reviewed Differential Diagnosis (chest pain, altered mental status, abdominal pain women, abdominal pain men, vaginal bleeding, weakness, fever, dyspnea, syncope, headache, dizziness, GI bleed, back pain, seizure, CVA, palpatations, mental health, musculoskeletal)? @ -Differential Abdominal Pain Women: Appendicitis, Cholecystitis, diverticulosis, ischemic bowel, pancreatitis, hepat itis, UTI, gastroenteritis, AAA, incarcerated hernia, bowel obstruction, constipation, inflammatory bowel, hepatitis, peptic ulcer disease, splenic infarction, perforated viscus, vulvitis, ovarian torsion, PID, kidney stone, placenta abruption, this is not meant to be an all-inclusive list EKG interpreted by me (3pts min.). @ -None X-rays interpreted by me (1pt min.). @ -None done CT interpreted by me (1pt min.). @ -CT abdomen pelvis interpreted me showing mild right hydronephrosis however no hydroureter. U/S interpreted by me (1pt. min.). @ -None done What testing was considered but not performed or refused? (CT, X-rays, U/S, labs)? Why? @ -None What meds were considered but not given or refused? Why? @ -None Did you discuss the management of the patient with other professionals (professionals i.e. EDNA Gray, S[employer]IOR [employer], lab, RT, psych nurse, sexual assault social worker, production support analyst, teacher, postal delivery officer, child support case officer)? Give summary @ -Case discussed with Dr. Quinn. At this time recommends outpatient follow- up. Was smoking cessation discussed for >3mins.? @ -No Was critical care preformed (if so, how long)? @ -No Were there social determinants of health that impacted care today? How? (Homelessness, low income, unemployed, alcoholism, drug addiction, transportation, low edu. Level, literacy, decrease access to med. care, correction, rehab)? @ -No Was there de-escalation of care discussed even if they declined (Discuss DNR or withdrawal of care, Hospice)? DNR status @ -No What co-morbidities impacted this encounter? (DM, HTN, Smoking, COPD, CAD, Cancer, CVA, ARF, Chemo, Hep., AIDS, mental health diagnosis, sleep apnea, morbid obesity)? @ -None Was patient admitted / discharged? Hospital course, mention meds given and route, prescriptions, significant lab abnormalities, going to OR and other pertinent info. @ -Discharge 83-year-old female presenting to the ED with complaints of flank pain radiating to the right side of her abdomen for the past few days. Laboratory studies reviewed. CBC unremarkable. Chemistry panel largely unremarkable. Urine does show large leukocyte Estrace, 12 RBCs, 74 white blood cells, contamination with 19 squamous cells. Occasional bacteria. Patient will be covered with antibiotics. Patient and family stated that "doxycycline and Bactrim" with only things that work for her. Provided prescription for Bactrim. After discussion with urology on-call, advises outpatient follow-up at this time. Discharged home in stable condition. Discussed strict return precautions with patient who verbalized agreement. Undiagnosed new problem with uncertain prognosis? @ -No Drug Therapy requiring intensive monitoring for toxicity (Heparin, Nitro, Insulin, Cardizem)? @ -No Were any procedures done? @ -No Diagnosis/symptom? @ -Right flank pain Acute, or Chronic, or Acute on Chronic? @ -Acute Uncomplicated (without systemic symptoms) or Complicated (systemic symptoms)? @ -Uncomplicated Side effects of treatment? @ -No Exacerbation, Progression, or Severe Exacerbation? @ -No Poses a threat to life or bodily function? How? (Chest pain, USA, IA, pneumonia, PE, COPD, DKA, ARF, appy, cholecystitis, CVA, Diverticulitis, Homicidal, Suicidal, threat to staff... and all critical care pts) @ -No - Lab Data Result diagrams: 08/16/23 22:26 08/16/23 22:26 Lab Results 08/16/23 08/16/23 08/16/23 Range/Units 21:29 22:26 22:26 WBC 10.1 (3.8-10.6) k/uL RBC 3.94 (3.80-5.40) m/uL Hgb 11.9 (11.4-16.0) gm/dL Hct 36.7 (34.0-46.0) % MCV 93.3 (80.0-100.0) fL MCH 30.3 (25.0-35.0) pg MCHC 32.5 (31.0-37.0) g/dL RDW 15.2 (11.5-15.5) % Plt Count 163 (150-450) k/uL MPV 7.9 Neutrophils % 80 % Lymphocytes % 11 % Monocytes % 5 % Eosinophils % 2 % Basophils % 0 % Neutrophils # 8.1 H (1.3-7.7) k/uL Lymphocytes # 1.1 (1.0-4.8) k/uL Monocytes # 0.5 (0-1.0) k/uL Eosinophils # 0.2 (0-0.7) k/uL Basophils # 0.0 (0-0.2) k/uL Sodium 136 L (137-145) mmol/L Potassium 4.8 (3.5-5.1) mmol/L Chloride 105 (98-107) mmol/L Carbon Dioxide 25 (22-30) mmol/L Anion Gap 6 mmol/L BUN 11 (7-17) mg/dL Creatinine 0.63 (0.52-1.04) mg/dL Est GFR (CKD-EPI)AfAm >90 (>60 ml/min/1.73 sqM) Est GFR (CKD-EPI)NonAf 84 (>60 ml/min/1.73 sqM) Glucose 252 H (74-99) mg/dL Calcium 9.0 (8.4-10.2) mg/dL Total Bilirubin 0.6 (0.2-1.3) mg/dL AST 26 (14-36) U/L ALT 10 (4-34) U/L Alkaline Phosphatase 106 (38-126) U/L Total Protein 6.7 (6.3-8.2) g/dL Albumin 3.8 (3.5-5.0) g/dL Urine Color Yellow Urine Appearance Cloudy H (Clear) Urine pH 5.5 (5.0-8.0) Ur Specific Marshall 1.037 H (1.001-1.035) Urine Protein 1+ H (Negative) Urine Glucose (UA) 2+ H (Negative) Urine Ketones Trace H (Negative) Urine Blood Negative (Negative) Urine Nitrite Negative (Negative) Urine Bilirubin Negative (Negative) Urine Urobilinogen 2.0 (<2.0) mg/dL Ur Leukocyte Esterase Large H (Negative) Urine RBC 12 H (0-5) /hpf Urine WBC 74 H (0-5) /hpf Ur Squamous Epith Cells 19 H (0-4) /hpf Calcium Oxalate Crystal Many H (None) /hpf Urine Bacteria Occasional H (None) /hpf Hyaline Casts 2 (0-2) /lpf Urine Mucus Moderate H (None) /hpf Disposition Clinical Impression: Flank pain Disposition: HOME SELF-CARE Condition: Good Additional Instructions: Please return to the Emergency Department if symptoms worsen or any other concerns. Please follow-up with urology. Prescriptions: Sulfamethox-Tmp 800-160Mg [Bactrim Ds] 1 each PO Q12HR #14 tab Is patient prescribed a controlled substance at d/c from ED?: No Referrals: Sharif Zaragoza DO [Primary Care Provider] - 1-2 days Giles Quinn MD [STAFF PHYSICIAN] - 1-2 days Time of Disposition: 00:15
--- NOTE | 2023-08-16 22:25 | CT ---
EXAMINATION TYPE: CT ABDOMEN PELVIS WO CON DATE OF EXAM: 08/16/2023 HISTORY: RT FLANK PAIN CT DLP: 646.1 mGycm. Automated Exposure Control for Dose Reduction was Utilized. TECHNIQUE: CT scan of the abdomen and pelvis is performed without oral or IV contrast. COMPARISON: 02/16/2016 FINDINGS: LUNG BASES: No acute process. There is mild cardiomegaly. Prominent left and right coronary calcifica tions noted. Aortic valve calcifications are also seen. LIVER/GB: No acute process. PANCREAS: No significant abnormality is seen. SPLEEN: No splenomegaly or focal lesion. ADRENALS: No nodules. RIGHT KIDNEY/URETER: There is mild hydronephrosis, without obstructing calcifications. Parapelvic cys ts noted. There is no hydroureter. LEFT KIDNEY/URETER: There is no hydronephrosis/hydroureter. Parapelvic cysts noted. BOWEL: No bowel dilation. No focal inflammation. PERITONEAL CAVITY: No fluid or pneumoperitoneum. PELVIC VISCERA: Urinary bladder is unremarkable. No acute findings. LYMPH NODES: No greater than 1 cm abdominal or pelvic lymph nodes are appreciated. OSSEOUS STRUCTURES: No significant abnormality is seen. Limitation of the study: Without IV contrast there is limited CT sensitivity for focal visceral lesions, intraluminal filling defects, and vascular pathology. IMPRESSION: Comparison made with 02/16/2016 CT without contrast. Mild right hydronephrosis without hydroureter; etiology unclear. Would suggest urology consultation a nd consideration of CT urogram evaluation.
[2023-08-16 22:38] LABS: Basophils % (A) 0 %; Eosinophils # (A) 0.2 k/uL (0-0.7); Eosinophils % (A) 2 %; HCT 36.7 % (34.0-46.0); HGB 11.9 gm/dL (11.4-16.0); Lymphocytes # (A) 1.1 k/uL (1.0-4.8); Lymphocytes % (A) 11 %; MCH 30.3 pg (25.0-35.0); MCHC 32.5 g/dL (31.0-37.0); MCV 93.3 fL (80.0-100.0); Mean Platelet Volume 7.9; Monocytes # (A) 0.5 k/uL (0-1.0); Monocytes % (A) 5 %; Neutrophils # (A) 8.1 k/uL (1.3-7.7); Neutrophils % (A) 80 %; Platelet Count 163 k/uL (150-450); RBC 3.94 m/uL (3.80-5.40); RDW 15.2 % (11.5-15.5); WBC 10.1 k/uL (3.8-10.6)
[2023-08-16 22:48] LABS: ALT 10 U/L (4-34); African American GFR (CKD) >90 (>60 ml/min/1.73 sqM); Anion Gap 6 mmol/L; Blood Urea Nitrogen 11 mg/dL (7-17); Carbon Dioxide 25 mmol/L (22-30); Chloride 105 mmol/L (98-107); Glucose 252 mg/dL (74-99); Non-African American GFR(CKD) 84 (>60 ml/min/1.73 sqM); Potassium 4.8 mmol/L (3.5-5.1); Sodium 136 mmol/L (137-145); Total Bilirubin 0.6 mg/dL (0.2-1.3)
[2023-08-16 23:01] LABS: Albumin 3.8 g/dL (3.5-5.0); Total Protein 6.7 g/dL (6.3-8.2)
[2023-08-16 23:02] LABS: AST 26 U/L (14-36); Alkaline Phosphatase 106 U/L (38-126)
[2023-08-16 23:43] LABS: Appearance,Urine Cloudy (Clear); Bacteria,Urine Occasional /hpf; Bilirubin,Urine Negative (Negative); Blood,Urine Negative (Negative); Calcium Oxalate Crystals,Urine Many /hpf; Color,Urine Yellow; Glucose,Urine (UA) 2+ (Negative); Hyaline Casts,Urine 2 /lpf (0-2); Ketones,Urine Trace (Negative); Leukocyte Esterase,Urine Large (Negative); Mucus,Urine Moderate /hpf; Nitrite,Urine Negative (Negative); PH, Urine 5.5 (5.0-8.0); Protein,Urine 1+ (Negative); RBC,Urine 12 /hpf (0-5); Specific Gravity,Urine 1.037 (1.001-1.035); Squamous Epithelial Cell,Urine 19 /hpf (0-4); WBC,Urine 74 /hpf (0-5)
[2023-08-17] MEDS: SULFAMETH-TMP DS STARTER PACK 2 TAB BTL PO STA (01:50)
[2023-08-17 02:59] VITALS: BP 110/65; PULSE 81; RESP 16; TEMP 97.8
== END 2023-08-17 01:50 | disposition home or self-care (01) ==
LOC: EC 21:21
DX: R10.9 Unspecified abdominal pain (principal); E11.9 Type 2 diabetes mellitus without complications; I10 Essential (primary) hypertension; K21.9 Gastro-esophageal reflux disease without esophagitis; J45.909 Unspecified asthma, uncomplicated; Z79.899 Other long term (current) drug therapy; Z79.84 Long term (current) use of oral hypoglycemic drugs; Z87.891 Personal history of nicotine dependence; Z79.82 Long term (current) use of aspirin; Z88.5 Allergy status to narcotic agent; Z88.6 Allergy status to analgesic agent; Z88.0 Allergy status to penicillin; Z88.2 Allergy status to sulfonamides; Z88.1 Allergy status to other antibiotic agents; Z88.8 Allergy status to other drugs, medicaments and biological substances
CPT/HCPCS: 36415; 74176; 80053; 81001; 85025; 99284

== ENCOUNTER → 2023-08-30 | Outpatient (CLI) | payer MEDICARE, BC ==
[2023-08-30 11:35] LABS: African American GFR (CKD) 75 (>60 ml/min/1.73 sqM); Blood Urea Nitrogen 11 mg/dL (7-17); Non-African American GFR(CKD) 65 (>60 ml/min/1.73 sqM)
--- NOTE | 2023-08-31 08:34 | CT ---
CT urogram. HISTORY: Hydronephrosis and recurrent UTIs. COMPARISON: CT abdomen and pelvis dated 08/16/2023 TECHNIQUE: Multiple axial images are obtained through the abdomen and pelvis before and after the une ventful administration nonionic IV contrast material. Delayed postcontrast images were obtained. FINDINGS: There is a tiny right pleural effusion and minimal atelectasis. On the pre-IV contrast images, there are no renal calcifications or ureteral calcifications. There a re surgical absence of the gallbladder. There are no focal masses within the liver, pancreas, spleen or adrenal glands and there is no organo megaly. Kidneys excrete contrast promptly and symmetrically and there is no solid renal mass, hydronephrosis or filling defect within the renal collecting systems, ureters or urinary bladder. There are parapelv ic cysts bilaterally, right greater than left. The bowel loops are normal in caliber and there is no dilatation or obstruction. No inflammatory gonsalves ges are identified in the bowel wall or mesentery. There is no free intraperitoneal air or fluid. There is no pelvic mass, free fluid, abscess or adenopathy. There are few tiny calcifications within the uterus consistent with small uterine fibroids. The osseous structures are intact. There is a small periumbilical hernia containing a single loop of small bowel which is not strangulat ed or obstructed. IMPRESSION: 1. Interval development of a small/tiny right pleural effusion and atelectasis. 2. Parapelvic cysts in the kidneys but no renal calcifications, hydronephrosis or filling defects wit hin the urinary collecting systems.
== END | disposition home or self-care (01) ==
LOC: RADCTMAIN 10:48
PROVIDERS: ATTEND Urology
DX: J90 Pleural effusion, not elsewhere classified (principal); N13.30 Unspecified hydronephrosis; J98.11 Atelectasis; N28.1 Cyst of kidney, acquired; N39.0 Urinary tract infection, site not specified
CPT/HCPCS: 82565; 84520; 74178; 74400; Q9967

== ENCOUNTER → 2023-11-23 | Outpatient (CLI) | payer MEDICARE, BC ==
--- NOTE | 2023-11-23 13:00 | CT ---
EXAMINATION TYPE: CT brain wo con DATE OF EXAM: 11/23/2023 COMPARISON: 01/31/2023 HISTORY: dizziness CT DLP: 978.2 mGycm Automated exposure control for dose reduction was used. FINDINGS: The ventricles, basal cisterns and sulci over convexities are mildly enlarged consistent with mild ge neralized atrophy appropriate for patient's age. There is mild diffuse decreased density in the periventricular white matter consistent with mild central supply technician supervisor godfrey ischemic white matter demyelination. There is a stable 10 mm hypodensity in the region of the anterior commissure on the right which most likely represents a prominent pericardial Ac space. Remote lacunar infarct not excluded. There is no acute intra or extra-axial hemorrhage. Posterior fossa is grossly intact. The intraorbital contents appear normal chest. Visualized paranasal sinuses and mastoid air cells are well aerated. IMPRESSION: 1. NO ACUTE BLEED OR MASS EFFECT. NO INTERVAL CHANGE COMPARED TO PREVIOUS. 2. 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
== END | disposition home or self-care (01) ==
LOC: RADCTMAIN 12:25
PROVIDERS: ATTEND Psychiatry & Neurology Neurology
DX: R26.9 Unspecified abnormalities of gait and mobility (principal); G31.9 Degenerative disease of nervous system, unspecified; I67.82 Cerebral ischemia
CPT/HCPCS: 70450

== ENCOUNTER 2024-09-27 07:33 | Observation (INO) | payer MEDICARE, BC ==
[2024-09-27 07:53] LABS: Glucose,Whole Blood 129 mg/dL (70-110)
[2024-09-27] MEDS: MECLIZINE 12.5 MG TAB PO STA (07:58)
[2024-09-27] MEDS: SODIUM CHLORIDE 0.9% 1,000 ML IV ONE (07:58)
--- NOTE | 2024-09-27 08:04 | ED ---
General Adult HPI - General Stated complaint: generalized weakness Time Seen by Provider: 09/27/24 07:34 Source: patient, EMS, RN notes reviewed, old records reviewed Mode of arrival: EMS Limitations: no limitations - History of Present Illness Initial comments: Patient is a 84-year-old female presents emergency department complaining of dizziness. States she has daily dizziness but states it was somewhat worse today. Does have a history of UTIs, remote history of stroke with chronic tremors. She is presenting from home. Denies any obvious injuries. Denies any fevers, chills, cough, chest pain, abdominal pain, nausea, vomiting. Patient states she has had UTIs in the past with similar complaints. She is uncertain if she is on blood thinners but does not believe so. Denies any other acute complaints at this time. Presents for further evaluation at this time. - Related Data Home Medications Medication Instructions Recorded Confirmed Atorvastatin [Lipitor] 40 mg PO HS 11/17/14 09/27/24 Metoprolol Succinate (ER) [Toprol 25 mg PO DAILY 11/17/14 09/27/24 XL] Omeprazole 20 mg PO HS 07/09/17 09/27/24 carBAMazepine 100 mg PO TID 10/11/18 09/27/24 Citalopram Hydrobromide 20 mg PO DAILY 05/15/20 09/27/24 [Citalopram HBr] Aspirin EC [Ecotrin Low Dose] 81 mg PO HS 01/31/23 09/27/24 Linagliptin [Tradjenta] 5 mg PO DAILY 01/31/23 09/27/24 Donepezil [Aricept] 10 mg PO HS 09/27/24 09/27/24 Losartan [Cozaar] 50 mg PO DAILY 09/27/24 09/27/24 QUEtiapine FUMARATE [SEROquel] 25 mg PO DIRECTED 09/27/24 09/27/24 Vitamin D3(Unknown Dose) 1 tab PO HS 09/27/24 09/27/24 Allergies Allergy/AdvReac Type Severity Reaction Status Date / Time codeine Allergy Unknown Verified 09/27/24 12:02 erythromycin base Allergy Unknown Verified 09/27/24 12:02 levofloxacin [From Levaquin] Allergy Rash/Hives Verified 09/27/24 12:02 methylprednisolone Allergy Unknown Verified 09/27/24 12:02 [From Medrol] nitrofurantoin Allergy Unknown Verified 09/27/24 12:02 [From Macrobid] nitrofurantoin Allergy Unknown Verified 09/27/24 12:02 macrocrystalline [From Macrobid] Penicillins Allergy Unknown Verified 09/27/24 12:02 sulfamethoxazole Allergy Unknown Verified 09/27/24 12:02 [From Bactrim] trimethoprim [From Bactrim] Allergy Unknown Verified 09/27/24 12:02 acetaminophen AdvReac Hallucinati Verified 09/27/24 12:02 [From Darvocet-N] ons ciprofloxacin [From Cipro] AdvReac Vomiting Verified 09/27/24 12:02 ciprofloxacin HCl AdvReac Vomiting Verified 09/27/24 12:02 [From Cipro] hydralazine AdvReac headache Verified 09/27/24 12:02 propoxyphene napsylate AdvReac Hallucinati Verified 09/27/24 12:02 [From Darvocet-N] ons omnipaxo AdvReac Rapid Uncoded 09/27/24 12:02 Heart Rate/sweating/dizzy Review of Systems ROS Statement: Those systems with pertinent positive or pertinent negative responses have been documented in the HPI. Review of Systems: CONST: Denies fever EYES: Denies blurry vision ENT: Denies nasal congestion C/V: Denies Chest pain RESP: Denies shortness of breath GI: Denies abdominal pain : Denies dysuria SKIN: Denies rash. MSK: Denies joint pain. NEURO: Denies headache ROS Other: All systems not noted in ROS Statement are negative. Past Medical History Past Medical History: Asthma, CVA/TIA, Diabetes Mellitus, GERD/Reflux, Hypertension, Seizure Disorder, Skin Disorder Additional Past Medical History / Comment(s): TIA age 33absence seizuresLt arm skin bruised from scratching during night, Parkinsons in 2017, History of Any Multi-Drug Resistant Organisms: ESBL Date of last positivie culture/infection: 12/28/20 MDRO Source:: URINE Past Surgical History: Cholecystectomy, Heart Catheterization, Orthopedic Surgery Additional Past Surgical History / Comment(s): bilateral knee arthroscopies,left shoulder rotator cuff repair Past Anesthesia/Blood Transfusion Reactions: Motion Sickness Past Psychological History: No Psychological Hx Reported Smoking Status: Former smoker Past Alcohol Use History: None Reported Past Drug Use History: None Reported - Past Family History Brother(s) Family Medical History: CVA/TIA Additional Family Medical History / Comment(s): Patient has 1 brother that from either a CVA or acute [place]. Sister(s) Family Medical History: Coronary Artery Disease (CAD) Additional Family Medical History / Comment(s): Patient has 3 sisters and one is alive with no major medical problems. 2 sisters have and one was following influenza immunization. 1 sister is unknown cause of . Daughter(s) History Unknown: Yes Additional Family Medical History / Comment(s): Patient has 2 daughters and one has history of rheumatoid arthritis and one has history of diabetes. Patient has one son with no major medical problems. Son(s) History Unknown: Yes Family Medical History: No Reported History Father Additional Family Medical History / Comment(s): Father at age 83 from a myocardial infarction. Mother Family Medical History: No Reported History Additional Family Medical History / Comment(s): Mother at age 93 from a myocardial infarction. General Exam - General Exam Comments Initial Comments: General: Appears in no acute distress. HEAD: Normal with no signs of head trauma. EYES: PERRLA, EOMI, conjunctiva normal, no discharge. Pupils are 2 mm and equal bilaterally. ENT: Hearing grossly intact, normal oropharynx. RESPIRATORY: Clear breath sounds bilaterally. No wheezes, rales, or rhonchi. C/V: Regular rate and rhythm. S1 and S2 auscultated, no edema, peripheral pulses 2+ and intact throughout ABD: Abd is soft, nontender, nondistended EXT: Normal range of motion, no obvious deformity SKIN: No rashes or lesions observed on exposed skin. NEURO: Alert and oriented x 4. Cranial nerves II-XII intact. No focal sensory or strength deficits. GCS 15. NIH is 0. No acute focal deficits. Chronic bilateral upper extremity tremors. Limitations: no limitations Course Vital Signs 09/27/24 09/27/24 09/27/24 07:34 07:54 09:14 Temperature 99.0 F Pulse Rate 94 80 Respiratory 18 18 Rate Blood Pressure 199/121 144/87 180/96 O2 Sat by Pulse 97 96 Oximetry 09/27/24 09/27/24 09/27/24 10:01 10:51 11:32 Temperature Pulse Rate 76 80 74 Respiratory 18 16 18 Rate Blood Pressure 185/87 219/94 193/82 O2 Sat by Pulse 97 98 96 Oximetry 09/27/24 09/27/24 12:17 13:03 Temperature Pulse Rate 78 73 Respiratory 16 Rate Blood Pressure 171/82 167/72 O2 Sat by Pulse 96 Oximetry Medical Decision Making - Medical Decision Making Was pt. sent in by a medical professional or institution (, PA, SITE CONTROLLER, urgent care, hospital, or [facility]...) When possible be specific @ -No Did you speak to anyone other than the patient for history (EMS, parent, family, police, friend...)? What history was obtained from this source @ -No Did you review nursing and triage notes (agree or disagree)? Why? @ -I reviewed and agree with nursing and triage notes Were old charts reviewed (outside hosp., previous admission, EMS record, old EKG, old radiological studies, urgent care reports/EKG's, [facility] records)? Report findings @ -No old charts were reviewed Differential Diagnosis (chest pain, altered mental status, abdominal pain women, abdominal pain men, vaginal bleeding, weakness, fever, dyspnea, syncope, headache, dizziness, GI bleed, back pain, seizure, CVA, palpatations, mental health, musculoskeletal)? @ -Differential Dizziness: Benign paroxysmal positional Vertigo, Meniere's disease, otitis media, acoustic neuroma, vertebrobasilar insufficiency, cerebellar stroke, encephalitis, hypovolemic, arrhythmia, coronary artery syndrome, anemia, this is not meant to be an all-inclusive list EKG interpreted by me (3pts min.). @ -As above X-rays interpreted by me (1pt min.). @ -Chest x-ray reveals no obvious acute cardiopulmonary process. CT interpreted by me (1pt min.). @ -CT brain shows no obvious acute intracranial process. U/S interpreted by me (1pt. min.). @ -None done What testing was considered but not performed or refused? (CT, X-rays, U/S, labs)? Why? @ -None What meds were considered but not given or refused? Why? @ -None Did you discuss the management of the patient with other professionals (professionals i.e. , [employer], SITE CONTROLLER, lab, RT, psych nurse, social secretary, pharmacist, teacher, disabilities services officer, therapeutic case manager)? Give summary @ -Discussed with Dr. Ashley of [facility] who accepted the admission. Was smoking cessation discussed for >3mins.? @ -No Was critical care preformed (if so, how long)? @ -No Were there social determinants of health that impacted care today? How? (Homelessness, low income, unemployed, alcoholism, drug addiction, transportation, low edu. Level, literacy, decrease access to med. care, senior living, rehab)? @ -No Was there de-escalation of care discussed even if they declined (Discuss DNR or withdrawal of care, Hospice)? DNR status @ -No What co-morbidities impacted this encounter? (DM, HTN, Smoking, COPD, CAD, Cancer, CVA, ARF, Chemo, Hep., AIDS, mental health diagnosis, sleep apnea, morbid obesity)? @ -Hypertension Was patient admitted / discharged? Hospital course, mention meds given and route, prescriptions, significant lab abnormalities, going to OR and other pertinent info. @ -Based on patient's presentation and physical exam, presents emergency department complaining of lightheadedness/dizziness. Has a history typical of this but is worse today. Not take blood pressure medications at home either. Denies any other acute complaints. Vital signs remarkable initially for mild hypertension however we will clinically monitor. We will obtain basic labs, CT brain, screening EKG. Patient be sent. Treat with IV fluids. Patient was in agreement this plan. EKG showed no signs of acute ischemia. Brain CT within acceptable limits. Chest x-ray unremarkable. Laboratory studies reveal a chronic anemia with a hemoglobin of 11.3 which appears to be stable for the patient. Patient's uri nalysis seems contaminated we will send a urine culture reobtain a urinalysis. Viral swabs negative. On reevaluation, with ambulation, patient still states that she is lightheaded on ambulation. She is still hypertensive as well despite taking her home meds. I discussed with the patient and she will be admitted to observation. She has no chest pain or shortness of breath. Denies any chest pain, blurry vision, headaches. Therefore patient will be admitted to observation. She will be given a small dose of IV labetalol as she requested no hydralazine due to prior headache. She was in agreement this plan. Patient's blood pressure did respond to IV labetalol and did improve. I spoke with the admitting provider, Dr. Ashley. Undiagnosed new problem with uncertain prognosis? @ -No Drug Therapy requiring intensive monitoring for toxicity (Heparin, Nitro, Insulin, Cardizem)? @ -No Were any procedures done? @ -No Diagnosis/symptom? @ -Hypertension, lightheadedness Acute, or Chronic, or Acute on Chronic? @ -Acute on chronic Uncomplicated (without systemic symptoms) or Complicated (systemic symptoms)? @ -Complicated Side effects of treatment? @ -No Exacerbation, Progression, or Severe Exacerbation? @ -No Poses a threat to life or bodily function? How? (Chest pain, [place], [place], pneumonia, PE, COPD, DKA, ARF, appy, cholecystitis, CVA, Diverticulitis, Homicidal, Suicidal, threat to staff... and all critical care pts) @ -Potentially, yes - Lab Data Result diagrams: 09/27/24 07:51 09/27/24 07:51 Lab Results 09/27/24 09/27/24 09/27/24 Range/Units 07:51 07:51 07:51 WBC 4.83 (4.50-10.00) 10*3/uL RBC 3.63 L (4.10-5.20) 10*6/uL Hgb 11.3 L (12.0-15.0) g/dL Hct 33.9 L (37.2-46.3) % MCV 93.4 (80.0-97.0) fL MCH 31.1 (27.0-32.0) pg MCHC 33.3 (32.0-37.0) g/dL Plt Count 196 (140-440) 10*3/uL MPV 9.4 L (9.5-12.2) fL Immature Gran % (Auto) 0.8 % Neutrophils % 65.9 % Lymphocytes % 21.5 % Monocytes % 8.5 % Eosinophils % 2.7 % Basophils % 0.6 % Immature Gran # 0.04 (0.00-0.04) 10*3/uL Neutrophils # 3.18 (1.80-7.70) 10*3/uL Lymphocytes # 1.04 (0.90-5.00) 10*3/uL Monocytes # 0.41 (0.20-1.00) 10*3/uL Eosinophils # 0.13 (0.04-0.35) 10*3/uL Basophils # 0.03 (0.00-0.10) 10*3/uL Manual Slide Review Performed PT 10.5 (10.0-12.5) sec INR 0.9 (<1.2) APTT 17.9 L (22.0-30.0) sec Sodium 141 (137-145) mmol/L Potassium 4.3 (3.5-5.1) mmol/L Chloride 107 (98-107) mmol/L Carbon Dioxide 27 (22-30) mmol/L Anion Gap 7 mmol/L BUN 13 (7-17) mg/dL Creatinine 0.60 (0.52-1.04) mg/dL Est GFR (CKD-EPI)AfAm >90 (>60 ml/min/1.73 sqM) Est GFR (CKD-EPI)NonAf 85 (>60 ml/min/1.73 sqM) Glucose 123 H (74-99) mg/dL POC Glucose (mg/dL) (70-110) mg/dL POC Glu Staff Nuclear Medicine Technologist ID Calcium 9.3 (8.4-10.2) mg/dL Magnesium 1.9 (1.6-2.3) mg/dL Total Bilirubin 0.5 (0.2-1.3) mg/dL AST 20 (14-36) U/L ALT 10 (4-34) U/L Alkaline Phosphatase 110 (38-126) U/L Total Protein 6.6 (6.3-8.2) g/dL Albumin 3.8 (3.5-5.0) g/dL Urine Color Urine Appearance (Clear) Urine pH (5.0-8.0) Ur Specific [place] (1.001-1.035) Urine Protein (Negative) Urine Glucose (UA) (Negative) Urine Ketones (Negative) Urine Blood (Negative) Urine Nitrite (Negative) Urine Bilirubin (Negative) Urine Urobilinogen (<2.0) mg/dL Ur Leukocyte Esterase (Negative) Urine RBC (0-5) /hpf Urine WBC (0-5) /hpf Ur Squamous Epith Cells (0-4) /hpf Urine Bacteria (None) /hpf Urine Mucus (None) /hpf Influenza Type A (PCR) (Not Detectd) Influenza Type B (PCR) (Not Detectd) RSV (PCR) (Not Detectd) SARS-CoV-2 (PCR) (Not Detectd) 09/27/24 09/27/24 09/27/24 Range/Units 07:51 07:51 09:14 WBC (4.50-10.00) 10*3/uL RBC (4.10-5.20) 10*6/uL Hgb (12.0-15.0) g/dL Hct (37.2-46.3) % MCV (80.0-97.0) fL MCH (27.0-32.0) pg MCHC (32.0-37.0) g/dL Plt Count (140-440) 10*3/uL MPV (9.5-12.2) fL Immature Gran % (Auto) % Neutrophils % % Lymphocytes % % Monocytes % % Eosinophils % % Basophils % % Immature Gran # (0.00-0.04) 10*3/uL Neutrophils # (1.80-7.70) 10*3/uL Lymphocytes # (0.90-5.00) 10*3/uL Monocytes # (0.20-1.00) 10*3/uL Eosinophils # (0.04-0.35) 10*3/uL Basophils # (0.00-0.10) 10*3/uL Manual Slide Review PT (10.0-12.5) sec INR (<1.2) APTT (22.0-30.0) sec Sodium (137-145) mmol/L Potassium (3.5-5.1) mmol/L Chloride (98-107) mmol/L Carbon Dioxide (22-30) mmol/L Anion Gap mmol/L BUN (7-17) mg/dL Creatinine (0.52-1.04) mg/dL Est GFR (CKD-EPI)AfAm (>60 ml/min/1.73 sqM) Est GFR (CKD-EPI)NonAf (>60 ml/min/1.73 sqM) Glucose (74-99) mg/dL POC Glucose (mg/dL) 129 H (70-110) mg/dL POC Glu Staff Nuclear Medicine Technologist ID [place] Polina Calcium (8.4-10.2) mg/dL Magnesium (1.6-2.3) mg/dL Total Bilirubin (0.2-1.3) mg/dL AST (14-36) U/L ALT (4-34) U/L Alkaline Phosphatase (38-126) U/L Total Protein (6.3-8.2) g/dL Albumin (3.5-5.0) g/dL Urine Color Light Yellow Urine Appearance Cloudy H (Clear) Urine pH 7.0 (5.0-8.0) Ur Specific [place] 1.019 (1.001-1.035) Urine Protein Trace H (Negative) Urine Glucose (UA) Negative (Negative) Urine Ketones Negative (Negative) Urine Blood Negative (Negative) Urine Nitrite Negative (Negative) Urine Bilirubin Negative (Negative) Urine Urobilinogen <2.0 (<2.0) mg/dL Ur Leukocyte Esterase Large H (Negative) Urine RBC 1 (0-5) /hpf Urine WBC 8 H (0-5) /hpf Ur Squamous Epith Cells 12 H (0-4) /hpf Urine Bacteria Few H (None) /hpf Urine Mucus Rare H (None) /hpf Influenza Type A (PCR) Not Detected (Not Detectd) Influenza Type B (PCR) Not Detected (Not Detectd) RSV (PCR) Not Detected (Not Detectd) SARS-CoV-2 (PCR) Not Detected (Not Detectd) - EKG Data -: EKG Interpreted by Me EKG Comments: 12-lead Electrocardiogram Interpretation Note EKG was reviewed and interpreted by myself. 12-lead ECG performed at 0756 is interpreted by me as revealing normal sinus rhythm at a rate of 80 beats per minute. [place] is normal. [place] interval is 215 ms, QRS durations 94 ms, QTc is 409 ms.. There were no ST or T wave abnormalities to suggest myocardial ischemia or injury. R wave progression across the precordium was mildly delayed. By my i nterpretation this EKG is non-diagnostic for acute ischemia. Disposition Clinical Impression: Hypertension, Lightheadedness Disposition: ADMITTED IP TO THIS HOSP Condition: Stable Time of Disposition: 12:37
[2024-09-27 08:10] LABS: Basophils # (A) 0.03 10*3/uL (0.00-0.10); Basophils % (A) 0.6 %; Eosinophils # (A) 0.13 10*3/uL (0.04-0.35); Eosinophils % (A) 2.7 %; HCT 33.9 % (37.2-46.3); HGB 11.3 g/dL (12.0-15.0); Lymphocytes # (A) 1.04 10*3/uL (0.90-5.00); Lymphocytes % (A) 21.5 %; MCH 31.1 pg (27.0-32.0); MCHC 33.3 g/dL (32.0-37.0); MCV 93.4 fL (80.0-97.0); Mean Platelet Volume 9.4 fL (9.5-12.2); Monocytes # (A) 0.41 10*3/uL (0.20-1.00); Monocytes % (A) 8.5 %; Neutrophils # (A) 3.18 10*3/uL (1.80-7.70); Neutrophils % (A) 65.9 %; RBC 3.63 10*6/uL (4.10-5.20); RDW 14.1 % (11.5-14.5); WBC 4.83 10*3/uL (4.50-10.00)
[2024-09-27 08:21] LABS: ALT 10 U/L (4-34); AST 20 U/L (14-36); African American GFR (CKD) >90 (>60 ml/min/1.73 sqM); Albumin 3.8 g/dL (3.5-5.0); Alkaline Phosphatase 110 U/L (38-126); Anion Gap 7 mmol/L; Blood Urea Nitrogen 13 mg/dL (7-17); Calcium 9.3 mg/dL (8.4-10.2); Carbon Dioxide 27 mmol/L (22-30); Chloride 107 mmol/L (98-107); Glucose 123 mg/dL (74-99); Magnesium 1.9 mg/dL (1.6-2.3); Non-African American GFR(CKD) 85 (>60 ml/min/1.73 sqM); Potassium 4.3 mmol/L (3.5-5.1); Sodium 141 mmol/L (137-145); Total Bilirubin 0.5 mg/dL (0.2-1.3); Total Protein 6.6 g/dL (6.3-8.2)
[2024-09-27 08:23] LABS: INR 0.9 (<1.2); Prothrombin Time 10.5 sec (10.0-12.5)
[2024-09-27 08:24] LABS: Partial Thromboplastin Time 17.9 sec (22.0-30.0)
[2024-09-27 08:42] LABS: Influenza A Not Detected (Not Detectd); Influenza B Not Detected (Not Detectd); RSV Not Detected (Not Detectd)
[2024-09-27 08:52] LABS: Platelet Count 196 10*3/uL (140-440)
--- NOTE | 2024-09-27 09:17 | XR ---
Chest, 2 view. CLINICAL INDICATION: Female, 84 years old with history of Weakness COMPARISON: 05/05/2023 TECHNIQUE: PA and lateral views the chest are obtained. FINDINGS: The lungs are clear and there is no consolidative or interstitial opacity. There is no pleural effusion or pneumothorax. The heart, pulmonary vasculature, mediastinum and cyndi appear normal. The osseous structures are intact. IMPRESSION: No significant abnormality seen. No acute cardiopulmonary disease. [facility], , 09/27/2024 9:14 AM
[2024-09-27 09:26] LABS: Appearance,Urine Cloudy (Clear); Bacteria,Urine Few /hpf; Bilirubin,Urine Negative (Negative); Blood,Urine Negative (Negative); Color,Urine Light Yellow; Glucose,Urine (UA) Negative (Negative); Ketones,Urine Negative (Negative); Leukocyte Esterase,Urine Large (Negative); Mucus,Urine Rare /hpf; Nitrite,Urine Negative (Negative); Protein,Urine Trace (Negative); RBC,Urine 1 /hpf (0-5); Specific Gravity,Urine 1.019 (1.001-1.035); Squamous Epithelial Cell,Urine 12 /hpf (0-4); Urobilinogen,Urine <2.0 mg/dL (<2.0); WBC,Urine 8 /hpf (0-5)
--- NOTE | 2024-09-27 09:29 | CT ---
EXAMINATION TYPE: CT brain wo con DATE OF EXAM: 09/27/2024 COMPARISON: 11/23/2023 CLINICAL INDICATION: Female, 84 years old with history of weakness; PHH, generalized weakness CT DLP: 1192.4 mGycm Automated exposure control for dose reduction was used. Findings: The ventricles, basal cisterns and sulci over the convexities are mildly enlarged consistent with mil d generalized atrophy. No abnormal density is seen throughout the brain parenchyma and there is no acute intra or extra-axia l hemorrhage. The posterior fossa including the brainstem, fourth ventricle and cerebellar pontine angles appear no rmal. Intraorbital contents appear normal and symmetric. Visualized paranasal sinuses and mastoid air cells are well aerated. The calvarium is intact. IMPRESSION: 1. No acute bleed or mass effect. 2. Mild senescent changes. 3. No significant interval change. [facility], , 09/27/2024 9:27 AM
[2024-09-27] MEDS: LABETALOL 5 MG/ML VIAL MDV IVP STA ×2 (11:10→11:14)
[2024-09-27] MEDS ORDERED: NALOXONE 0.4 MG/ML 1 ML VIAL IV PRN (12:35)
[2024-09-27] MEDS: SODIUM CHLORIDE 0.9% 1,000 ML IV SCH (12:43)
[2024-09-27] MEDS ORDERED: DEXTROSE 50% SYRINGE 50 ML IVP PRN ×2 (14:58)
[2024-09-27 16:59] LABS: Glucose,Whole Blood 159 mg/dL (70-110)
[2024-09-27] MEDS: carBAMazepine 200 MG TAB PO SCH (17:28)
[2024-09-27] MEDS: LOSARTAN 50 MG TAB PO SCH (17:28)
[2024-09-27] MEDS: METOPROLOL SUCCINATE (ER) 25 MG TAB.ER.24H PO SCH (17:28)
[2024-09-27] MEDS: INSULIN LISPRO (HumaLOG) 100 UNIT/ML 10 mL VL SQ SCH (17:29)
--- NOTE | 2024-09-27 18:20 | P.HPIM ---
History of Present Illness H&P Date: 09/27/24 Chief Complaint: Dizziness Patient is a 84-year-old female with a past medical history of TIA, history of absence seizure's, Parkinson's disease with tremors, asthma, hypertension, diabetes type 2 [id number], GERD, history of cardiac catheterization, dementia and prior history of smoking. Patient presents to ER with complaints of dizziness started when he wake up from bed and getting out. She does have issues with vertigo and ringing in the ears. Somewhat worsened today. Denied any fall. No complaints of chest pain or shortness of breath. No fever no chills. No nausea vomiting abdominal pain. Denied any dysuria or hematuria. Denied any increased frequency of urination. EKG showed sinus rhythm with first-degree AV block. Chest x-ray showed no segment abnormality seen. No acute cardiac pulmonary process. CT head showed no acute bleed or mass effect. Mild senescent changes. No significant interval change. On admission blood pressure was 199/121, pulse is 94 respiration 18 and pulse ox 97% on room air. Laboratory data showed WBC 4.8 hemoglobin 11.3 and platelets 196 sodium 141, potassium 4.8 sugar 107 bicarb is 27 BUN 39 creatinine 0.60 and blood sugar 123 liver enzymes are not elevated urinalysis showed cloudy with trace protein large leukocyte esterase with RBCs 1 9 WBCs 8 and squamous epithelial cells 12. [place] RSV and COVID-19 PCR not detected. Patient was given a dose of IV labetalol in the ER and also meclizine was given. Review of Systems Constitutional: Patient denies any fever or chills . No generalized weakness or weight loss. Abdomen: Patient denied nausea vomiting and diarrhea and abdominal pain. Cardiovascular: Patient denies any chest pain or short of breath no palpitations. Respiratory: patient denied any cough or sputum production. No shortness of breath Neurologic: Patient denied any numbness or tingling. no headache. Dizziness. Musculoskeletal: Patient denies any complaints of joint swelling or deformity. Skin: Negative Psychiatric: Negative Endocrine: No heat or cold intolerance. No recent weight gain. Genitourinary: No dysuria or hematuria. All other 14 point ROS negative except the above Past Medical History Past Medical History: Asthma, CVA/TIA, Diabetes Mellitus, GERD/Reflux, Hypertension, Seizure Disorder, Skin Disorder Additional Past Medical History / Comment(s): TIA age 33absence seizuresLt arm skin bruised from scratching during night, Parkinsons in 2017 (watching) History of Any Multi-Drug Resistant Organisms: ESBL Date of last positivie culture/infection: 12/28/20 MDRO Source:: URINE Past Surgical History: Cholecystectomy, Heart Catheterization, Orthopedic Surgery Additional Past Surgical History / Comment(s): bilateral knee arthroscopies,left shoulder rotator cuff repair, Neck surgery 2021 Past Anesthesia/Blood Transfusion Reactions: Motion Sickness Additional Past Anesthesia/Blood Transfusion Reaction / Comment(s): Confusion for 6 months Past Psychological History: No Psychological Hx Reported Smoking Status: Former smoker Past Alcohol Use History: None Reported Past Drug Use History: None Reported - Past Family History Brother(s) Family Medical History: CVA/TIA Additional Family Medical History / Comment(s): Patient has 1 brother that from either a CVA or acute [place]. Sister(s) Family Medical History: Coronary Artery Disease (CAD) Additional Family Medical History / Comment(s): Patient has 3 sisters and one is alive with no major medical problems. 2 sisters have and one was following influenza immunization. 1 sister is unknown cause of . Daughter(s) History Unknown: Yes Additional Family Medical History / Comment(s): Patient has 2 daughters and one has history of rheumatoid arthritis and one has history of diabetes. Patient has one son with no major medical problems. Son(s) History Unknown: Yes Family Medical History: No Reported History Father Additional Family Medical History / Comment(s): Father at age 83 from a myocardial infarction. Mother Family Medical History: No Reported History Additional Family Medical History / Comment(s): Mother at age 93 from a myocardial infarction. Medications and Allergies Home Medications Medication Instructions Recorded Confirmed Type Atorvastatin [Lipitor] 40 mg PO HS 11/17/14 09/27/24 History Metoprolol Succinate (ER) [Toprol 25 mg PO DAILY 11/17/14 09/27/24 History XL] Omeprazole 20 mg PO HS 07/09/17 09/27/24 History carBAMazepine 100 mg PO TID 10/11/18 09/27/24 History Citalopram Hydrobromide 20 mg PO DAILY 05/15/20 09/27/24 History [Citalopram HBr] Aspirin EC [Ecotrin Low Dose] 81 mg PO HS 01/31/23 09/27/24 History Linagliptin [Tradjenta] 5 mg PO DAILY 01/31/23 09/27/24 History Donepezil [Aricept] 10 mg PO HS 09/27/24 09/27/24 History Losartan [Cozaar] 50 mg PO DAILY 09/27/24 09/27/24 History QUEtiapine FUMARATE [SEROquel] 25 mg PO DIRECTED 09/27/24 09/27/24 History Vitamin D3(Unknown Dose) 1 tab PO HS 09/27/24 09/27/24 History Allergies Allergy/AdvReac Type Severity Reaction Status Date / Time codeine Allergy Unknown Verified 09/27/24 12:02 erythromycin base Allergy Unknown Verified 09/27/24 12:02 levofloxacin [From Levaquin] Allergy Rash/Hives Verified 09/27/24 12:02 methylprednisolone Allergy Unknown Verified 09/27/24 12:02 [From Medrol] nitrofurantoin Allergy Unknown Verified 09/27/24 12:02 [From Macrobid] nitrofurantoin Allergy Unknown Verified 09/27/24 12:02 macrocrystalline [From Macrobid] Penicillins Allergy Unknown Verified 09/27/24 12:02 sulfamethoxazole Allergy Unknown Verified 09/27/24 12:02 [From Bactrim] trimethoprim [From Bactrim] Allergy Unknown Verified 09/27/24 12:02 acetaminophen AdvReac Hallucinati Verified 09/27/24 12:02 [From Darvocet-N] ons ciprofloxacin [From Cipro] AdvReac Vomiting Verified 09/27/24 12:02 ciprofloxacin HCl AdvReac Vomiting Verified 09/27/24 12:02 [From Cipro] hydralazine AdvReac headache Verified 09/27/24 12:02 propoxyphene napsylate AdvReac Hallucinati Verified 09/27/24 12:02 [From Darvocet-N] ons omnipaxo AdvReac Rapid Uncoded 09/27/24 12:02 Heart Rate/sweating/dizzy Physical Exam Vitals: Vital Signs Temp Pulse Resp BP Pulse Ox 09/27/24 13:03 73 167/72 09/27/24 12:17 78 16 171/82 96 09/27/24 11:32 74 18 193/82 96 09/27/24 10:51 80 16 219/94 98 09/27/24 10:01 76 18 185/87 97 09/27/24 09:14 80 18 180/96 96 09/27/24 07:54 144/87 09/27/24 07:34 99.0 F 94 18 199/121 97 Intake and Output 09/27/24 09/27/24 09/27/24 06:59 14:59 22:59 Other: Weight 69.4 kg PHYSICAL EXAMINATION: Patient is lying in the bed comfortably, no acute distress, awake alert and oriented.. HEENT: Normocephalic. Neck is supple. Pupils reactive. Nostrils clear. Oral cavity is moist. Neck reveals no JVD, carotid bruits, or thyromegaly. CHEST EXAMINATION: Trachea is central. Symmetrical expansion. Lung fonseca clear to auscultation and percussion. CARDIAC: Normal S1, S2 with no gallops. Systolic murmur positive ABDOMEN: Soft. Bowel sounds normal. No organomegaly. No abdominal bruits. Extremities: reveal no edema. No clubbing or cyanosis Neurologically awake, alert, oriented x 2-3 able to move all extremities.. No focal deficits noted Skin: No rash or skin lesions. Psychiatric: Coperative. Nonsuicidal Musculoskeletal: No joint swelling or deformity. Normal range of motion. Results CBC & Chem 7: 09/27/24 07:51 09/27/24 07:51 Labs: Abnormal Lab Results - Last 24 Hours (Table) 09/27/24 09/27/24 09/27/24 Range/Units 07:51 07:51 07:51 RBC 3.63 L (4.10-5.20) 10*6/uL Hgb 11.3 L (12.0-15.0) g/dL Hct 33.9 L (37.2-46.3) % MPV 9.4 L (9.5-12.2) fL APTT 17.9 L (22.0-30.0) sec Glucose 123 H (74-99) mg/dL POC Glucose (mg/dL) (70-110) mg/dL Urine Appearance (Clear) Urine Protein (Negative) Ur Leukocyte Esterase (Negative) Urine WBC (0-5) /hpf Ur Squamous Epith Cells (0-4) /hpf Urine Bacteria (None) /hpf Urine Mucus (None) /hpf 09/27/24 09/27/24 Range/Units 07:51 09:14 RBC (4.10-5.20) 10*6/uL Hgb (12.0-15.0) g/dL Hct (37.2-46.3) % MPV (9.5-12.2) fL APTT (22.0-30.0) sec Glucose (74-99) mg/dL POC Glucose (mg/dL) 129 H (70-110) mg/dL Urine Appearance Cloudy H (Clear) Urine Protein Trace H (Negative) Ur Leukocyte Esterase Large H (Negative) Urine WBC 8 H (0-5) /hpf Ur Squamous Epith Cells 12 H (0-4) /hpf Urine Bacteria Few H (None) /hpf Urine Mucus Rare H (None) /hpf Thrombosis Risk Factor Assmnt - DVT/VTE Prophylaxis DVT/VTE Prophylaxis: Pharmacologic Prophylaxis ordered - Choose All That Apply Any of the Below Risk Factors Present?: No Other Risk Factors: Yes Each Risk Factor Represents 3 Points: Age 75 years or older, Positive Lupus Anticoagulant Other congenital or acquired thrombophilia - If yes, enter type in comment: No Thrombosis Risk Factor Assessment Total Risk Factor Score: 6 Thrombosis Risk Factor Assessment Level: High Risk Assessment and Plan Assessment: Dizziness and near syncopal episode. Possible orthostatic versus vertigo versus medications. Uncontrolled hypertension History of positional vertigo Abnormal urine sample. Follow-up urine culture report. Parkinson's tremors Dementia Diabetes type 2 insulin-dependent Asthma CVA/TIA no residual weakness History of absence seizures Prior history of smoking GI DVT prophylaxis with PPI and heparin's subcu Plan: Patient will be continued on telemonitoring. Continue gentle IV hydration. Symptomatic management for dizziness. Orthostatic vitals were ordered. Patient was started back on losartan metoprolol and titrate blood pressure medications. 2D echocardiogram was ordered. Continue with insulin sliding scale. Follow-up closely. Time with Patient: Greater than 30
[2024-09-27 19:59] LABS: Glucose,Whole Blood 180 mg/dL (70-110)
[2024-09-27] MEDS: DONEPEZIL 10 MG TAB PO SCH (20:42)
[2024-09-27] MEDS: ASPIRIN 81 MG PO SCH (20:43)
[2024-09-27] MEDS: ATORVASTATIN 40 MG TAB PO SCH (20:43)
[2024-09-27] MEDS: PANTOPRAZOLE 40 MG TABLET PO SCH (20:43)
[2024-09-27] MEDS: HEPARIN SODIUM,PORCINE 5,000 UNIT/ML 1 ML VIAL SQ SCH (20:43)
[2024-09-28 06:10] LABS: Glucose,Whole Blood 156 mg/dL (70-110)
[2024-09-28 07:41] LABS: Basophils # (A) 0.03 10*3/uL (0.00-0.10); Basophils % (A) 0.4 %; Eosinophils # (A) 0.13 10*3/uL (0.04-0.35); Eosinophils % (A) 1.8 %; HCT 36.7 % (37.2-46.3); HGB 12.2 g/dL (12.0-15.0); Lymphocytes % (A) 12.7 %; MCH 31.4 pg (27.0-32.0); MCHC 33.2 g/dL (32.0-37.0); MCV 94.3 fL (80.0-97.0); Mean Platelet Volume 9.5 fL (9.5-12.2); Monocytes # (A) 0.48 10*3/uL (0.20-1.00); Monocytes % (A) 6.8 %; Neutrophils # (A) 5.49 10*3/uL (1.80-7.70); Neutrophils % (A) 77.9 %; Platelet Count 232 10*3/uL (140-440); RBC 3.89 10*6/uL (4.10-5.20); RDW 13.8 % (11.5-14.5); WBC 7.06 10*3/uL (4.50-10.00)
[2024-09-28 08:09] LABS: ALT 9 U/L (4-34); AST 21 U/L (14-36); African American GFR (CKD) >90 (>60 ml/min/1.73 sqM); Albumin 3.7 g/dL (3.5-5.0); Alkaline Phosphatase 118 U/L (38-126); Anion Gap 9 mmol/L; Blood Urea Nitrogen 10 mg/dL (7-17); Calcium 9.3 mg/dL (8.4-10.2); Carbon Dioxide 24 mmol/L (22-30); Chloride 106 mmol/L (98-107); Glucose 171 mg/dL (74-99); Non-African American GFR(CKD) 84 (>60 ml/min/1.73 sqM); Potassium 4.4 mmol/L (3.5-5.1); Sodium 139 mmol/L (137-145); Total Bilirubin 0.5 mg/dL (0.2-1.3); Total Protein 6.5 g/dL (6.3-8.2)
[2024-09-28] MEDS: CITALOPRAM HYDROBROMIDE 20 MG TAB PO SCH (08:49)
[2024-09-28 11:43] LABS: Glucose,Whole Blood 148 mg/dL (70-110)
[2024-09-28] MEDS ORDERED: MECLIZINE 12.5 MG TAB PO PRN (12:52)
[2024-09-28 17:07] LABS: Glucose,Whole Blood 135 mg/dL (70-110)
[2024-09-28 20:01] LABS: Glucose,Whole Blood 162 mg/dL (70-110)
[2024-09-29 06:10] LABS: Glucose,Whole Blood 110 mg/dL (70-110)
[2024-09-29 09:25] VITALS: TEMP 97.9
[2024-09-29] MEDS: LINAGLIPTIN 5 MG TABLET PO SCH (09:26)
[2024-09-29 11:20] VITALS: BP 105/56; PULSE 72; RESP 16
[2024-09-29 12:12] LABS: Glucose,Whole Blood 181 mg/dL (70-110)
--- NOTE | 2024-09-29 13:10 | CA ---
Transthoracic Echo Report Name: Edda Trent Age: 84 Gender: F : 1940 Exam Date: 09/29/2024 09:10 Exam Location: [facility] Ht (in): 64 Wt (lb): 153 Ordering Physician: Nadia Adame MD Attending/Referring Phys: [employer]er Gerardo Carreon, ZENAIDA Procedure CPT: Indications: dizziness Cardiac Hx: TIA, asthma, Diabetes Technical Quality: Fair Contrast 1: Definity Total Dose (mL): 2 Contrast 2: Total Dose (mL): MEASUREMENTS (Male / Female) Normal Values 2D ECHO LV Diastolic Diameter PLAX 4.7 cm 4.2 - 5.9 / 3.9 - 5.3 cm LV Systolic Diameter PLAX 3.7 cm IVS Diastolic Thickness 1.1 cm 0.6 - 1.0 / 0.6 - 0.9 cm LVPW Diastolic Thickness 1.1 cm 0.6 - 1.0 / 0.6 - 0.9 cm LV Relative Wall Thickness 0.5 RV Internal Dim ED PLAX 2.5 cm LVOT Diameter 1.5 cm LA Systolic Diameter LX 3.4 cm 3.0 - 4.0 / 2.7 - 3.8 cm LV Diastolic Volume MOD 4C 95.1 cm??? LV Systolic Volume MOD 4C 38.4 cm??? LV Ejection Fraction MOD 4C 59.6 % LV Diastolic Length 4C 9.2 cm LV Systolic Length 4C 7.1 cm LA Volume 25.0 cm??? 18 - 58 / 22 - 52 cm??? LA Volume Index 14.0 cm???/m??? 16 - 28 cm???/m??? DOPPLER MV Area PHT 2.5 cm??? Mitral E Point Velocity 58.9 cm/s Mitral A Point Velocity 114.4 cm/s Mitral E to A Ratio 0.5 MV Deceleration Time 308.9 ms TR Peak Velocity 189.9 cm/s TR Peak Gradient 14.4 mmHg FINDINGS Left Ventricle Left ventricular ejection fraction is estimated at 55 to 60 %. Normal left ventricular systolic function with no obvious regional wall motion abnormalities. Left ventricular cavity size normal. Right Ventricle Normal right ventricular size.right ventricular systolic pressure within normal limits. Right Atrium Normal right atrial size. Left Atrium Normal left atrial size. Mitral Valve Mild thickening/calcification of the anterior mitral valve leaflet. No mitral stenosis. No mitral regurgitation. Aortic Valve Trileaflet aortic valve. Diffuse thickening (sclerosis) of the aortic valve cusps without reduced excursion. No aortic stenosis. Trace to mild aortic regurgitation. Tricuspid Valve Structurally normal tricuspid valve. No tricuspid stenosis. Trace to mild tricuspid regurgitation. Pulmonic Valve Structurally normal pulmonic valve. No pulmonic stenosis. Trace pulmonic regurgitation. Pericardium No pericardial effusion.prominent epicardial fat. Aorta Normal size aortic root and proximal ascending aorta. CONCLUSIONS Definity ECHO contrast used for improved visualization of the endocardial borders (inadequate visualization of two or more contiguous segments). Normal left ventricular size and systolic function Trace to mild mitral aortic and tricuspid regurgitation Previewed by: Dr. Latrice Burnette MD (Electronically Signed) Final Date: 29 September 2024 13:09
--- NOTE | 2024-09-29 14:09 | P.PN ---
Subjective Progress Note Date: 09/28/24 Patient is a 84-year-old female with a past medical history of TIA, history of absence seizure's, Parkinson's disease with tremors, asthma, hypertension, diabetes type 2 [id number], GERD, history of cardiac catheterization, dementia and prior history of smoking. Patient presents to ER with complaints of dizziness started when he wake up from bed and getting out. She does have issues with vertigo and ringing in the ears. Somewhat worsened today. Denied any fall. No complaints of chest pain or shortness of breath. No fever no chills. No nausea vomiting abdominal pain. Denied any dysuria or hematuria. Denied any increased frequency of urination. EKG showed sinus rhythm with first-degree AV block. Chest x-ray showed no segment abnormality seen. No acute cardiac pulmonary process. CT head showed no acute bleed or mass effect. Mild senescent changes. No significant interval change. On admission blood pressure was 199/121, pulse is 94 respiration 18 and pulse ox 97% on room air. Laboratory data showed WBC 4.8 hemoglobin 11.3 and platelets 196 sodium 141, potassium 4.8 sugar 107 bicarb is 27 BUN 39 creatinine 0.60 and blood sugar 123 liver enzymes are not elevated urinalysis showed cloudy with trace protein large leukocyte esterase with RBCs 1 9 WBCs 8 and squamous epithelial cells 12. [place] [facility] RSV and COVID-19 PCR not detected. Patient was given a dose of IV labetalol in the ER and also meclizine was given. 09/28/2024 Patient is resting in the bed. Awake alert and orient x 3. Still complains of dizzinesswhile lying in the bed. Patient is able to tolerate oral diet. Blood pressure is better controlled. no complaints of chest pain or shortness of breath but no palpitations. No leg swelling. No nausea vomiting abdominal pain or diarrhea. Continued on IV hydration and blood sugar control. 2D echocardiogram report pending. Anticipate discharge in next 24 hours with more clinical improvement. Current medications reviewed. Urine culture shows strep agalactiae. 10-49,000. Patient was asymptomatic. Objective - Vital Signs Vital signs: Vital Signs Temp 97.9 F 09/29/24 09:25 Pulse 72 09/29/24 11:19 Resp 16 09/29/24 11:19 BP 105/56 09/29/24 11:19 Pulse Ox 96 09/29/24 11:19 FiO2 Intake & Output 09/28/24 09/29/24 09/29/24 18:59 06:59 18:59 Intake Total 240 240 Balance 240 240 Weight 70 kg Intake: Oral 240 240 Other: Voiding Method Toilet Toilet Toilet # Voids 6 1 # Bowel Movements 1 - Exam PHYSICAL EXAMINATION: Patient is lying in the bed comfortably, no acute distress, awake alert and oriented.. HEENT: Normocephalic. Neck is supple. Pupils reactive. Nostrils clear. Oral cavity is moist. Neck reveals no JVD, carotid bruits, or thyromegaly. CHEST EXAMINATION: Trachea is central. Symmetrical expansion. Lung fonseca clear to auscultation and percussion. CARDIAC: Normal S1, S2 with no gallops. No murmurs ABDOMEN: Soft. Bowel sounds normal. No organomegaly. No abdominal bruits. Extremities: reveal no edema. No clubbing or cyanosis Neurologically awake, alert, oriented x3 with well-coordinated movements. No focal deficits noted Skin: No rash or skin lesions. Psychiatric: Coperative. Nonsuicidal Musculoskeletal: No joint swelling or deformity. Normal range of motion. - Labs CBC & Chem 7: 09/28/24 06:33 09/28/24 06:33 Labs: Abnormal Lab Results - Last 24 Hours (Table) 09/28/24 09/28/24 09/29/24 Range/Units 16:48 19:59 11:56 POC Glucose (mg/dL) 135 H 162 H 181 H (70-110) mg/dL Microbiology - Last 24 Hours (Table) 09/27/24 09:14 Urine Culture - Final Urine,Voided Strep agalactiae - (group b) Assessment and Plan Assessment: Dizziness and near syncopal episode. Likely positional vertigo and also dehydration. Uncontrolled hypertension History of positional vertigo Abnormal urine sample. Follow-up urine culture report. Parkinson's tremors Dementia Diabetes type 2 insulin-dependent Asthma CVA/TIA no residual weakness History of absence seizures Prior history of smoking GI DVT prophylaxis with PPI and heparin's subcu Plan: Patient will be continued on telemonitoring. Continue gentle IV hydration. Symptomatic management for dizziness. Meclizine as needed twice daily was ordered.. Orthostatic vitals were ordered. Patient was started back on losartan metoprolol and titrate blood pressure medications. 2D echocardiogram was ordered. Continue with insulin sliding scale. Follow-up closely. Time with Patient: Greater than 30
== END 2024-09-29 16:39 | disposition home or self-care (01) ==
LOC: EC 07:33 → 3SCARD 12:35
PROVIDERS: ADMIT Internal Medicine; ATTEND Internal Medicine
DX: R42 Dizziness and giddiness (principal); R55 Syncope and collapse; E11.9 Type 2 diabetes mellitus without complications; K21.9 Gastro-esophageal reflux disease without esophagitis; I10 Essential (primary) hypertension; G20.A1 Parkinson's disease without dyskinesia, without mention of fluctuations; F02.80 Dementia in other diseases classified elsewhere, unspecified severity, without behavioral disturbance, psychotic disturbance, mood disturbance, and anxiety; Z87.891 Personal history of nicotine dependence; Z86.73 Personal history of transient ischemic attack (TIA), and cerebral infarction without residual deficits; Z79.899 Other long term (current) drug therapy; Z79.84 Long term (current) use of oral hypoglycemic drugs; Z79.82 Long term (current) use of aspirin; Z79.4 Long term (current) use of insulin; Z88.1 Allergy status to other antibiotic agents; Z88.5 Allergy status to narcotic agent; Z88.2 Allergy status to sulfonamides
CPT/HCPCS: 96372 ×3; 96374; 99285; 36415; 93005; 80053 ×2; 83735; 85025 ×2; 85610; 85730; 81001; 87086; 83036; 87636; 71046; 70450; G0378 ×3; C8929; J1644 ×3; J1920; 93306

== ENCOUNTER → 2025-01-09 | Outpatient (CLI) | payer MEDICARE, BC ==
[2025-01-09 11:34] LABS: Bilirubin,Urine Negative (Negative); Blood,Urine Negative (Negative); Color,Urine Colorless; Glucose,Urine (UA) Negative (Negative); Ketones,Urine Negative (Negative); Leukocyte Esterase,Urine Negative (Negative); Nitrite,Urine Negative (Negative); PH, Urine 6.5 (5.0-8.0); Protein,Urine Negative (Negative); Specific Gravity,Urine 1.013 (1.001-1.035); Urobilinogen,Urine <2.0 mg/dL (<2.0)
[2025-01-09 15:20] LABS: HCT 36.5 % (37.2-46.3); HGB 11.9 g/dL (12.0-15.0); MCH 30.4 pg (27.0-32.0); MCHC 32.6 g/dL (32.0-37.0); MCV 93.1 FL (80.0-97.0); NRBC Per 100 WBC 0 X 10*3/uL (0.00-0.01); Platelet Count 242 X 10*3/uL (140-440); RBC 3.92 X 10*6/uL (4.10-5.20); RDW 13.2 % (11.5-14.5); WBC 4.92 X 10*3/uL (4.50-10.00)
[2025-01-09 15:21] LABS: Basophils # (A) 0.04 X 10*3/uL (0.00-0.10); Basophils % (A) 0.8 %; Eosinophils # (A) 0.20 X 10*3/uL (0.04-0.35); Eosinophils % (A) 4.1 %; Immature Grans, Automated 0.20 %; Lymphocytes # (A) 1.35 X 10*3/uL (0.90-5.00); Lymphocytes % (A) 27.4 %; Monocytes # (A) 0.42 X 10*3/uL (0.20-1.00); Monocytes % (A) 8.5 %; Neutrophils # (A) 2.90 X 10*3/uL (1.80-7.70); Neutrophils % (A) 59.0 %
[2025-01-09 15:49] LABS: Cholesterol 197.00 mg/dL (0.00-200.00); HDL Cholesterol 112.00 mg/dL (40.00-60.00); Iron 106 UG/DL (50-170); LDL Cholesterol,Calculated 69.7 mg/dL (0.0-131.0); Magnesium 1.9 mg/dL (1.5-2.4); Total Iron Binding Capacity 365 UG/DL (228-460); Triglycerides 76.60 mg/dL (0.00-149.00); VLDL Calculation 15.32 mg/dL (5.00-40.00)
[2025-01-09 15:50] LABS: ALT 8 U/L (8-44); AST 19 U/L (13-35); Albumin 4.2 g/dL (3.8-4.9); Albumin/Globulin Ratio 1.75 Ratio (1.60-3.17); Alkaline Phosphatase 106 U/L (41-126); Anion Gap 9.20 mmol/L (4.00-12.00); BUN/Creat Ratio 19.00 Ratio (12.00-20.00); Blood Urea Nitrogen 13.3 mg/dL (9.0-27.0); Calcium 9.5 mg/dL (8.7-10.3); Carbon Dioxide 25.8 mmol/L (21.6-31.8); Chloride 105 mmol/L (96-109); Ferritin 22.8 ng/mL (10.0-291.0); Globulin 2.4 g/dL (1.6-3.3); Glucose 128 mg/dL (70-110); Potassium 4.6 mmol/L (3.5-5.5); Sodium 140 mmol/L (135-145); Total Protein 6.6 g/dL (6.2-8.2); Vitamin B12 484.0 pg/mL (200.0-944.0)
[2025-01-09 18:27] LABS: Carbamazepine (Tegretol) 5.3 UG/ML (4.0-12.0)
== END | disposition home or self-care (01) ==
LOC: LABWHC1 09:52
PROVIDERS: ATTEND Internal Medicine
DX: E11.9 Type 2 diabetes mellitus without complications (principal); E78.5 Hyperlipidemia, unspecified; E55.9 Vitamin D deficiency, unspecified; E53.8 Deficiency of other specified B group vitamins; R32 Unspecified urinary incontinence; R56.9 Unspecified convulsions
CPT/HCPCS: 36415; 80053; 80061; 80156; 81003; 82043; 82306; 82570; 82607; 82728; 82746; 83540; 83550; 83735; 84443; 85025